=== PATIENT | male | born 1950 | race Caucasian/White ===

== ENCOUNTER 2017-05-16 21:08 | Inpatient (IN) | payer BC, MEDICARE ==
--- NOTE | 2017-05-16 22:03 | ER Document Report ---
ED Medical Screen (RME) - General Chief Complaint: Abdominal Pain >50 Stated Complaint: ABDOMINAL PAIN Time Seen by Provider: 05/16/17 21:55 Notes: 66-year-old male, chief complaint of mid upper abdominal pain with vomiting, states she does have abdominal pain for several days but vomiting is new today. Denies fever or chills. Had a small bowel movement earlier this morning. Denies hematemesis. He has had bowel obstruction in the past with multiple bowel surgeries. He does state that 4 days ago he had a CAT scan that did not show anything wrong with his bowels. TRAVEL OUTSIDE OF THE [place] IN LAST 30 DAYS: No - Related Data Allergies/Adverse Reactions: No Known Allergies Allergy (Unverified 12/20/13 03:07) Past Medical History - Past Medical History Cardiac Medical History: Reports: Hx Hypertension Endocrine Medical History: Reports: Hx Diabetes Mellitus Type 2 GI Medical History: Reports: Hx Diverticulitis Psychiatric Medical History: Reports: Hx Depression Past Surgical History: Reports: Hx Abdominal Surgery - abscess secondary to diverticulitis, Hx Orthopedic Surgery - left ankle Physical Exam - Vital signs Vitals: Temp Pulse Resp BP Pulse Ox 97.9 F 107 H 16 110/59 L 96 05/16/17 21:46 05/16/17 21:46 05/16/17 21:46 05/16/17 21:46 05/16/17 21:46 - Abdominal Distension: Distended Tenderness: Tender - Mild generalized tenderness, distended abdomen, right lower ventral hernia is nontender Course - Re-evaluation Re-evalutation: Patient originally triaged as blue, upgraded to green/3H, workup pending - Vital Signs Vital signs: Temp Pulse Resp BP Pulse Ox 97.9 F 107 H 16 110/59 L 96 05/16/17 21:46 05/16/17 21:46 05/16/17 21:46 05/16/17 21:46 05/16/17 21:46
[2017-05-16 22:36] LABS: ABSOLUTE BASOPHILS # (AUTO) 0.1 10^3/uL (0.0-0.2); ABSOLUTE EOSINOPHILS # (AUTO) 0.2 10^3/uL (0.0-0.6); ABSOLUTE LYMPHOCYTES (AUTO) 2.5 10^3/uL (0.5-4.7); ABSOLUTE NEUT (AUTO) 14.1 10^3/uL (1.7-8.2); BASOPHILS % (AUTO) 0.6 % (0-2); EOSINOPHILS % (AUTO) 0.9 % (0-6); HEMOGLOBIN 15.2 g/dL (13.5-17.0); LYMPHOCYTES % (AUTO) 14.1 % (13-45); MEAN CORPUSCULAR HGB CONC 33.7 g/dL (32.0-36.0); MEAN CORPUSCULAR VOLUME 89 fl (80-97); MONOCYTES % (AUTO) 5.4 % (3-13); PLATELET COUNT 329 10^3/uL (150-450); RED BLOOD COUNT 5.06 10^6/uL (4.35-5.55); RED CELL DISTRIBUTION WIDTH 14.2 % (11.5-14.0); TOTAL CELLS COUNTED % (AUTO) 100 %; WHITE BLOOD COUNT 17.9 10^3/uL (4.0-10.5)
[2017-05-16 22:41] LABS: APPEARANCE,URINE SLIGHTLY-CLOUDY; BILIRUBIN,URINE NEGATIVE (NEGATIVE); COLOR,URINE YELLOW; GLUCOSE, URINE NEGATIVE (NEGATIVE); KETONES,URINE TRACE mg/dL (NEGATIVE); LEUKOCYTE ESTERASE,URINE MODERATE (NEGATIVE); NITRITE,URINE NEGATIVE (NEGATIVE); PROTEIN,URINE 100 mg/dL (NEGATIVE)
--- NOTE | 2017-05-16 22:52 | RADIOLOGY REPORT (SQ) ---
EXAM DESCRIPTION: ACUTE ABDOMEN SERIES COMPLETED DATE/TIME: 05/16/2017 10:41 pm REASON FOR STUDY: vomiting, abd pain, hx obstruction COMPARISON: 12/25/2013. NUMBER OF VIEWS: Three views. TECHNIQUE: Frontal chest, supine abdomen and upright/decubitus abdomen radiographic images acquired. LIMITATIONS: None. FINDINGS: CHEST: Lungs clear of infiltrates. FREE AIR: None. No abnormal gas collections. BOWEL GAS PATTERN: Dilated small bowel with air-fluid levels. CALCIFICATIONS: No suspicious calcifications. HARDWARE: Surgical clips. SOFT TISSUES: No gross mass or suggestion of organomegaly. BONES: No acute fracture. No worrisome bone lesions. OTHER: No other significant finding. IMPRESSION: DILATED SMALL BOWEL WITH AIR-FLUID LEVELS. SUSPECT SMALL BOWEL OBSTRUCTION. TECHNICAL DOCUMENTATION: JOB ID: [id number] [employer]- All Rights Reserved
[2017-05-16 22:59] LABS: ALANINE AMINOTRANSFERASE 52 U/L (21-72); ALBUMIN 4.8 g/dL (3.5-5.0); ALKALINE PHOSPHATASE 115 U/L (38-126); ANION GAP 15 (5-19); ASPARTATE AMINO TRANSFERASE 38 U/L (17-59); BILIRUBIN,DIRECT 0.3 mg/dL (0.0-0.4); BILIRUBIN,TOTAL 0.6 mg/dL (0.2-1.3); BLOOD UREA NITROGEN 23 mg/dL (7-20); CALCIUM 10.6 mg/dL (8.4-10.2); CARBON DIOXIDE 25 mmol/L (22-30); CHLORIDE 98 mmol/L (98-107); GLUCOSE 232 mg/dL (75-110); LIPASE 114.2 U/L (23-300); POTASSIUM 4.7 mmol/L (3.6-5.0); SODIUM 138.2 mmol/L (137-145)
--- NOTE | 2017-05-17 02:41 | RADIOLOGY REPORT (SQ) ---
EXAM DESCRIPTION: CT ABDOMEN AND PELVIS WITH CONTRAST CLINICAL HISTORY: Small bowel obstruction. Diffuse abdominal pain. COMPARISON: None Available. TECHNIQUE: CT of the abdomen and pelvis are performed during IV bolus administration of 80 mL of Isovue-370. DLP: 2163.60 mGycm FINDINGS: Abdomen: The liver has normal size and decreased density. No intrahepatic mass or biliary dilatation. No calcified gallstones. The spleen, pancreas, and adrenal glands are unremarkable. The kidneys have normal size and contour without evidence of solid mass or hydronephrosis. Bilateral Bosniak class I renal cysts. Nonobstructing inferior pole 3 mm left renal calculus. Aortoiliac atherosclerosis. The portal vein patent. The proximal visceral and renal arteries are patent. No free intraperitoneal air. The stomach and duodenum have normal course. Pelvis: Prostate is not enlarged. Urinary bladder is unremarkable. No free pelvic fluid or lymphadenopathy. There is a small ventral hernia containing a loop of dilated bowel. Distal to this the bowel is decompressed. Dilated loops of small bowel proximal to the hernia. Postoperative change in the right lower abdomen. No evidence of appendicitis. The visualized lung bases are clear. No destructive bone lesions identified. Degenerative change of the spine. IMPRESSION: 1. Mechanical small bowel obstruction with transition point at the level of a right paramedian ventral hernia containing a loop of dilated, likely incarcerated, small bowel. The bowel distal to the hernia is decompressed. 2. 3 mm nonobstructing left renal calculus. 4. Hepatic steatosis. This exam was performed according to our departmental dose-optimization program, which includes automated exposure control, adjustment of the mA and/or kV according to patient size and/or use of iterative reconstruction technique.
[2017-05-17] MEDS ORDERED: ERTAPENEM SODIUM INJ 1 GM VIAL IV ONE (03:07)
[2017-05-17] MEDS ORDERED: NORMAL SALINE 1000 ML 1,000 ML IV ONE ×2 (03:07→06:20)
--- NOTE | 2017-05-17 03:08 | ER Document Report ---
ED GI/ - General Chief Complaint: Abdominal Pain >50 Stated Complaint: ABDOMINAL PAIN Time Seen by Provider: 05/16/17 21:55 Notes: Patient is a 66-year-old male, chief complaint of mid upper abdominal pain with vomiting, states she does have abdominal pain for several days but vomiting is new today. Denies fever or chills. Had a small bowel movement earlier this morning. Denies hematemesis. He has had bowel obstruction in the past with multiple bowel surgeries (for bowel obstruction and severe diverticulitis). He does state that 4 days ago he had a CAT scan that did not show anything wrong with his bowels. PMH hypertension, Type II diabetes. TRAVEL OUTSIDE OF THE [place] IN LAST 30 DAYS: No - Related Data Allergies/Adverse Reactions: No Known Allergies Allergy (Unverified 12/20/13 03:07) Past Medical History - General Information source: Patient - Social History Smoking Status: Never Smoker Drug Abuse: None Lives with: Alone Family History: Other - diverticulitis Patient has suicidal ideation: No Patient has homicidal ideation: No - Past Medical History Cardiac Medical History: Reports: Hx Hypertension Endocrine Medical History: Reports: Hx Diabetes Mellitus Type 2 Renal/ Medical History: Denies: Hx Peritoneal Dialysis GI Medical History: Reports: Hx Diverticulitis Psychiatric Medical History: Reports: Hx Depression Past Surgical History: Reports: Hx Abdominal Surgery - abscess secondary to diverticulitis, partial colon resection, Hx Orthopedic Surgery - left ankle - Immunizations Hx Pneumococcal Vaccination: 04/25/11 Review of Systems - Review of Systems Constitutional: No symptoms reported EENT: No symptoms reported Cardiovascular: No symptoms reported Respiratory: No symptoms reported Gastrointestinal: See HPI Genitourinary: No symptoms reported Male Genitourinary: No symptoms reported Musculoskeletal: No symptoms reported Skin: No symptoms reported Hematologic/Lymphatic: No symptoms reported Neurological/Psychological: No symptoms reported Physical Exam - Vital signs Vitals: Temp Pulse Resp BP Pulse Ox 97.9 F 107 H 16 110/59 L 96 05/16/17 21:46 05/16/17 21:46 05/16/17 21:46 05/16/17 21:46 05/16/17 21:46 Interpretation: Normal - General General appearance: Alert In distress: None - HEENT Head: Normocephalic, Atraumatic Eyes: Normal Conjunctiva: Normal Extraocular movements intact: Yes Eyelashes: Normal Pupils: PERRL Mouth/Lips: Normal Mucous membranes: Normal Pharynx: Normal Neck: Normal - Respiratory Respiratory status: No respiratory distress Chest status: Nontender Breath sounds: Normal. No: Decreased air movement, Wheezing Chest palpation: Normal - Cardiovascular Rhythm: Regular. No: Tachycardia Heart sounds: Normal auscultation, S1 appreciated, S2 appreciated Murmur: No - Abdominal Inspection: Other - large mid abdominal scar, lower left abdominal scar Distension: Distended Bowel sounds: Hypoactive Tenderness: Tender - mild generalized tenderness; lower right ventral hernia is soft; general distension - Back Back: Normal, Nontender. No: Tender - Extremities General upper extremity: Normal inspection, Nontender, Normal ROM, Normal strength General lower extremity: Normal inspection, Nontender, Normal ROM, Normal strength - Neurological Neuro grossly intact: Yes Cognition: Normal Orientation: AAOx4 Viviana Coma Scale Eye Opening: Spontaneous [place] Coma Scale Verbal: Oriented [place] Coma Scale Motor: Obeys Commands Viviana Coma Scale Total: 15 Speech: Normal Motor strength normal: LUE, RUE, LLE, RLE Sensory: Normal - Psychological Associated symptoms: Normal affect, Normal mood - Skin Skin Temperature: Warm Skin Moisture: Dry Skin Color: Normal Course - Re-evaluation Re-evalutation: Patient with only mild generalized abdominal tenderness, well-appearing, no distress, mild tachycardia. Workup pending. Will perform acute abdominal series to evaluate for obstruction. Acute abdominal series is concerning for obstruction. Patient reevaluated and remains unchanged. No vomiting since arrival. CAT scan will be performed with oral and IV contrast to further evaluate. CBC shows leukocytosis at 18,000, chemistry generally unremarkable, urine shows possible infection, dehydration. Urine culture placed. Patient finally was able to be placed in a room, IV started, CAT scan finally obtained, concerning for developing obstruction, possible incarceration within the ventral hernia. Beginning Invanz, patient has been kept n.p.o., patient vomited once, he still has not had a bowel movement. Begin continuous fluids, he has received 1 liter bolus of normal saline. 05/17/17 03:15 Called and spoke to surgery on-call, Dr. Leija. Because patient is comfortable appearing, he only has mild generalized tenderness with no severe tenderness or evidence of incarcerated hernia on physical examination at this time will proceed with nasogastric tube, IV fluids, antibiotics. Patient will be kept n.p.o. Patient to be admitted to the surgical service, Dr. Leija will come evaluate the patient. Patient was evaluated by Dr. Leija, patient will be admitted to surgical service. - Vital Signs Vital signs: Temp Pulse Resp BP Pulse Ox 97.9 F 98 20 123/80 93 05/17/17 02:37 05/17/17 02:37 05/17/17 02:37 05/17/17 02:37 05/17/17 02:37 - Laboratory Result Diagrams: 05/16/17 22:20 05/16/17 22:20 Laboratory results interpreted by me: 05/16/17 05/16/17 05/16/17 22:20 22:20 22:20 WBC 17.9 H RDW 14.2 H Seg Neutrophils % 79.0 H Absolute Neutrophils 14.1 H BUN 23 H Glucose 232 H Calcium 10.6 H Urine Protein 100 H Urine Ketones TRACE H Urine Urobilinogen 2.0 H Ur Leukocyte Esterase MODERATE H Discharge - Discharge Clinical Impression: Small bowel obstruction Vomiting Qualifiers: Vomiting type: unspecified Vomiting Intractability: unspecified Nausea presence : with nausea Qualified Code(s): R11.2 - Nausea with vomiting, unspecified Leukocytosis Qualifiers: Leukocytosis type: unspecified Qualified Code(s): D72.829 - Elevated white blood cell count, unspecified Urinary tract infection Qualifiers: Urinary tract infection type: site unspecified Hematuria presence: without hematuria Qualified Code(s): N39.0 - Urinary tract infection, site not specified Condition: Serious Disposition: ADMITTED INPATIENT Admitting Provider: Surgicalist Unit Admitted: Surgical Floor
[2017-05-17] MEDS ORDERED: LIDOCAINE 1% INJ-PF (10 MG/ML) 30 ML SDV NEB ONE (03:11)
[2017-05-17] MEDS ORDERED: ONDANSETRON HCL INJ/PF 4 MG/2 ML SDV IV ONE (03:16)
[2017-05-17] MEDS ORDERED: MORPHINE SULFATE 10 MG/ML INJ IV ONE (03:16)
[2017-05-17] MEDS ORDERED: KETOROLAC TROMETHAMINE INJ/PF 30 MG/1 ML SDV IV PRN (06:22)
[2017-05-17] MEDS ORDERED: ONDANSETRON HCL INJ/PF 4 MG/2 ML SDV IV PRN (06:22)
[2017-05-17] MEDS ORDERED: DEXTROSE 50%-WATER 25 GM/50 ML DISP.SYRIN IV PRN ×2 (06:23)
[2017-05-17] MEDS ORDERED: DEXTROSE 40% GEL 15 GM TUBE PO PRN ×2 (06:23)
[2017-05-17] MEDS ORDERED: GLUCAGON,HUMAN RECOMB 1 MG INJ IM PRN (06:23)
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
[2017-05-17] MEDS: NORMAL SALINE 1000 ML 1,000 ML IV PRN (06:37)
[2017-05-17] MEDS: CEFAZOLIN 1 GM/D5W RTU 1 GM/50 ML RTUPB IV SCH ×2 (07:02→15:25)
[2017-05-17] MEDS ORDERED: HYDRALAZINE HCL INJ/PF 20 MG/1 ML SDV IV PRN (09:07)
--- NOTE | 2017-05-17 09:17 | PDOC CONSULTATION ---
Consultation Consult Date: 05/17/17 Attending physician:: JOSY MAN Consult reason:: Medical management History of Present Illness Admission Date/PCP: 05/17/17 03:58 JOSE CARLOS ESTES MD Patient complains of: Abdominal pain for 1 week History of Present Illness: Patient 66-year-old gentleman who presented to our facility after following up with Dr. Estes with complaint of abdominal pain. Pt reported that he had had abdominal pain for approximately 1 week prior to contacting his PCP. Patient reports that he did not have any nausea or vomiting but diffuse severe abdominal pain. Patient was seen in the emergency room by ED physician who ordered a CT of abdomen that demonstrated evidence of mechanical small bowel obstruction with possible incarcerated bowel. Dr. Man has requested for medical management for patient's medical issues. Spoke to patient's nurse this morning who states the patient is doing well. Patient denies pain, shortness of breath, nausea vomiting, or fever. Patient does have NG tube in place. Reports the patient had approximately 500 cc out of NG tube since time of placement. Patient reports that the abdomen is feeling much better after placement of NG tube. Past Medical History Cardiac Medical History: Reports: Hypertension Endocrine Medical History: Reports: Diabetes Mellitus Type 2 GI Medical History: Reports: Diverticulitis Psychiatric Medical History: Reports: Depression Past Surgical History Past Surgical History: Reports: Orthopedic Surgery - left ankle Social History Lives with: Alone Smoking Status: Former Smoker Frequency of Alcohol Use: None Hx Recreational Drug Use: No Drugs: None Hx Prescription Drug Abuse: No - Advance Directive Resuscitation Status: Full Code Family History Family History: Other - diverticulitis Parental Family History Reviewed: Yes Children Family History Reviewed: Yes Sibling(s) Family History Reviewed.: Yes Medication/Allergy Home Medications: Aspirin [Aspirin 325 mg Tablet] 0.5 tab PO DAILY 12/20/13 Gemfibrozil [Lopid 600 mg Tablet] 600 mg PO BID 12/20/13 Glyburide,Micronized [Glynase] 3 mg PO DAILY 12/20/13 Lisinopril 5 mg PO DAILY 12/20/13 Metformin HCl [Glucophage] 1,000 mg PO BID 12/20/13 Metoprolol Tartrate [Lopressor 100 mg Tablet] 100 mg PO Q12 12/20/13 Multivitamin [Multi-Vitamin Daily] 1 each PO DAILY 12/20/13 Pravastatin Sodium [Pravachol] 20 mg PO DAILY 12/20/13 Triamterene/Hydrochlorothiazid [Triamterene-Hctz 37.5-25 mg Tb] 1 each PO DAILY 12/20/13 Lisinopril 5 mg PO DAILY #0 tablet 12/28/13 Oxycodone HCl/Acetaminophen [Percocet 5-325 mg Tablet] 2 tab PO Q4HP PRN #40 tablet 01/01/14 Allergies/Adverse Reactions: No Known Allergies Allergy (Unverified 12/20/13 03:07) Review of Systems Eyes: ABSENT: visual disturbances Ears: ABSENT: hearing changes Cardiovascular: ABSENT: chest pain, dyspnea on exertion, edema, orthropnea, palpitations Respiratory: ABSENT: cough, hemoptysis Gastrointestinal: PRESENT: abdominal pain Genitourinary: ABSENT: dysuria, hematuria Musculoskeletal: ABSENT: joint swelling Integumentary: ABSENT: rash, wounds Neurological: ABSENT: abnormal gait, abnormal speech, confusion, dizziness, focal weakness, syncope Psychiatric: ABSENT: anxiety, depression, homidical ideation, suicidal ideation Endocrine: ABSENT: cold intolerance, heat intolerance, polydipsia, polyuria Hematologic/Lymphatic: ABSENT: easy bleeding, easy bruising Physical Exam Vital Signs: Temp Pulse Resp BP Pulse Ox 97.6 F 100 20 114/74 94 05/17/17 08:44 05/17/17 08:44 05/17/17 08:44 05/17/17 08:44 05/17/17 08:44 Intake & Output 05/16/17 05/17/17 05/18/17 06:59 06:59 06:59 Output Total 200 Balance -200 General appearance: PRESENT: mild distress, morbidly obese, well-developed, well -nourished Head exam: PRESENT: atraumatic, normocephalic Eye exam: PRESENT: conjunctiva pink, EOMI. ABSENT: scleral icterus Ear exam: PRESENT: normal external ear exam Mouth exam: PRESENT: moist, tongue midline Neck exam: ABSENT: carotid bruit, JVD, lymphadenopathy, thyromegaly Respiratory exam: PRESENT: clear to auscultation filomena. ABSENT: rales, rhonchi, wheezes Cardiovascular exam: PRESENT: RRR. ABSENT: diastolic murmur, rubs, systolic murmur Pulses: PRESENT: normal dorsalis pedis pul Vascular exam: PRESENT: normal capillary refill GI/Abdominal exam: PRESENT: other - Obese, diffuse tenderness to palpation, no rebound, NG tube in place, no guarding noted. Rectal exam: PRESENT: deferred Extremities exam: PRESENT: full ROM. ABSENT: calf tenderness, clubbing, pedal edema Musculoskeletal exam: PRESENT: full ROM Neurological exam: PRESENT: alert, awake, oriented to person, oriented to place , oriented to time, oriented to situation, CN II-XII grossly intact. ABSENT: motor sensory deficit Psychiatric exam: PRESENT: appropriate affect, normal mood. ABSENT: homicidal ideation, suicidal ideation Skin exam: PRESENT: dry, intact, warm. ABSENT: cyanosis, rash Results Impressions: Acute Abdomen Series 05/16/17 22:01 IMPRESSION: DILATED SMALL BOWEL WITH AIR-FLUID LEVELS. SUSPECT SMALL BOWEL OBSTRUCTION. Abdomen/Pelvis CT 05/17/17 00:00 IMPRESSION: 1. Mechanical small bowel obstruction with transition point at the level of a right paramedian ventral hernia containing a loop of dilated, likely incarcerated, small bowel. The bowel distal to the hernia is decompressed. 2. 3 mm nonobstructing left renal calculus. 4. Hepatic steatosis. This exam was performed according to our departmental dose-optimization program, which includes automated exposure control, adjustment of the mA and/or kV according to patient size and/or use of iterative reconstruction technique. Assessment & Plan - Diagnosis (1) Leukocytosis Qualifiers: Leukocytosis type: unspecified Qualified Code(s): D72.829 - Elevated white blood cell count, unspecified Is this a current diagnosis for this admission?: Yes Plan: Most likely secondary to small bowel obstruction: Parous surgery. Will check CBC. CT states that there could be evidence of incarceration. Patient currently on Ancef. Patient did receive 1 dose of Invanz. (2) Essential hypertension Is this a current diagnosis for this admission?: Yes Plan: Will write for as needed blood pressure medication with hydralazine. (3) Hyperlipidemia Is this a current diagnosis for this admission?: Yes Plan: We will hold statin. Until patient able to take p.o. (4) Obesity Qualifiers: Obesity classification: adult class 3 (BMI >= 40) Is this a current diagnosis for this admission?: Yes Plan: Encourage dietary changes. (5) Type II diabetes mellitus Qualifiers: Diabetes mellitus complication status: without complication Is this a current diagnosis for this admission?: Yes Plan: Place on sliding scale insulin protocol. Will check hemoglobin A1c. (6) Small bowel obstruction Is this a current diagnosis for this admission?: Yes Plan: G-tube in place. Surgery planning to take patient to the OR today. (7) DVT prophylaxis Is this a current diagnosis for this admission?: Yes Plan: SCDs - Time Time Spent: 30 to 50 Minutes
[2017-05-17] MEDS: FAMOTIDINE INJ/PF 20 MG/2 ML SDV IV SCH ×2 (09:40→22:21)
[2017-05-17] MEDS: PANTOPRAZOLE SODIUM 40 MG VIAL IV SCH ×2 (09:40→22:36)
[2017-05-17] MEDS ORDERED: MAGNESIUM CITRATE 296 ML BOTTLE NG ONE (11:00)
--- NOTE | 2017-05-17 13:17 | EKG REPORT ---
SEVERITY:- ABNORMAL ECG - SINUS TACHYCARDIA PROBABLE INFERIOR INFARCT, AGE INDETERMINATE : Confirmed by: Suzanna Bustillo MD 17-May-2017 13:16:27
[2017-05-17] MEDS ORDERED: MORPHINE SULFATE 10 MG/ML INJ ONE (13:43)
--- NOTE | 2017-05-17 19:27 | PDOC CONSULTATION ---
Consultation Consult Date: 05/17/17 Attending physician:: AMY SEWELL Consult reason:: Preop cardiovascular evaluation, abnormal EKG History of Present Illness Admission Date/PCP: 05/17/17 03:58 JOSE CARLOS NAIR MD Patient complains of: Abdominal discomfort History of Present Illness: Patient 66-year-old gentleman who presented to our facility after following up with Dr. Nair with complaint of abdominal pain. Pt reported that he had had abdominal pain for approximately 1 week prior to contacting his PCP. Patient reports that he did not have any nausea or vomiting but diffuse severe abdominal pain. Patient was seen in the emergency room by ED physician who ordered a CT of abdomen that demonstrated evidence of mechanical small bowel obstruction with possible incarcerated bowel. Dr. Leija has requested for medical management for patient's medical issues. Spoke to patient's nurse this morning who states the patient is doing well. Patient denies pain, shortness of breath, nausea vomiting, or fever. Patient does have NG tube in place. Reports the patient had approximately 500 cc out of NG tube since time of placement. Patient reports that the abdomen is feeling much better after placement of NG tube. This history was reviewed and confirmed. Patient denied any prior history of heart problems. He did have a stress test several years ago which he claims was unremarkable. Patient denied any prior history of myocardial infarction, angina, congestive heart failure, sustained palpitations, syncope, near syncope. Earlier I was given a call by the anesthesiologist who noted abnormal Q waves inferiorly and therefore a cardiology consult was called. Patient also noted to be tachycardic. Patient is fairly inactive. He does carry a diagnosis of sleep apnea syndrome but does not use CPAP machine as he could not afford it. Past Medical History Cardiac Medical History: Reports: Hypertension Endocrine Medical History: Reports: Diabetes Mellitus Type 2 GI Medical History: Reports: Diverticulitis Psychiatric Medical History: Reports: Depression Past Surgical History Past Surgical History: Reports: Orthopedic Surgery - left ankle Social History Information Source: Patient Lives with: Alone Smoking Status: Former Smoker Frequency of Alcohol Use: None Hx Recreational Drug Use: No Drugs: None Hx Prescription Drug Abuse: No - Advance Directive Resuscitation Status: Full Code Surrogate healthcare decision maker:: Patient is unmarried. Did not want to identify a surrogate decision-maker. Family History Family History: Hypertension, Other - diverticulitis Parental Family History Reviewed: Yes Children Family History Reviewed: Yes Sibling(s) Family History Reviewed.: Yes Medication/Allergy Home Medications: Gemfibrozil [Lopid 600 mg Tablet] 600 mg PO BID 05/17/17 Glyburide,Micronized [Glyburide Micronized] 3 mg PO DAILY 05/17/17 Lisinopril [Prinivil 5 mg Tablet] 5 mg PO DAILY 05/17/17 Metformin HCl [Glucophage] 1,000 mg PO BID 05/17/17 Metoprolol Tartrate [Lopressor 100 mg Tablet] 100 mg PO Q12 05/17/17 Pravastatin Sodium [Pravachol] 20 mg PO DAILY 05/17/17 Triamterene/Hydrochlorothiazid [Triamterene-Hctz 37.5-25 mg Cp] 1 cap PO DAILY 05/17/17 Allergies/Adverse Reactions: No Known Allergies Allergy (Unverified 12/20/13 03:07) Review of Systems Review of Systems: Please see history of present illness and past medical history as wall. Constitutional: No fever or chills reported. Head : No recent chronic headaches, recent head injury. Eyes: No recent eye pain, diplopia, redness, discharge, acute visual changes. Ears: No recent chronic ear pain, acute hearing loss, ear discharge. Oral cavity: No recent ulcerations, bleeding, oral cavity discomfort. Neck: No recent acute neck pain reported. Hematologic: No recent easy bruising or bleeding or hematologic malignancy reported. Lymphatic: No recent lymphatic malignancy, chronic lymphadenopathy reported yet Cardiovascular system review: See history of present illness. Respiratory system review: No recent chronic cough, hemoptysis, blood clots in the lungs reported. Mild Shortness of breath on exertion Gastrointestinal system review: Acute abdominal pain as noted along with some nausea and constipation. Patient denies hematemesis, melena Genitourinary system review: No recent acute or chronic hematuria, flank pain, UTI etc. reported. Skin system review: Negative for any recent abnormal bruising, no rash, no pruritus reported. Neurologic: No prior history of strokes, mini strokes, seizure disorder. Psychologic: No history of major psychosis or major depression reported. Musculoskeletal: Minor aches and pains reported. No acute joint swelling reported. Endocrine: No recent polyuria, polydipsia, recent heat or cold intolerance. Physical Exam Vital Signs: Temp Pulse Resp BP Pulse Ox 97.6 F 100 20 114/74 94 05/17/17 08:44 05/17/17 08:44 05/17/17 08:44 05/17/17 08:44 05/17/17 08:44 Intake & Output 05/16/17 05/17/17 05/18/17 06:59 06:59 06:59 Output Total 200 1900 Balance -200 -1900 Exam: GENERAL: well-nourished and in no acute distress. Alert and oriented x3 HEAD: Atraumatic, normocephalic. EYES: Pupils equal round and reactive to light, extraocular movements intact, sclera anicteric, conjunctiva are normal. ENT: TMs normal, nares patent, oropharynx clear without exudates. Moist mucous membranes. No oral ulcerations or bleeding gums noted NECK: supple without lymphadenopathy. Trachea is central. No cervical or axillary lymphadenopathy noted. Carotids are 2+, JVD WNL LUNGS: Respiration seems nonlabored, no significant accessory muscle action noted. Breath sounds clear to auscultation bilaterally and equal noted. No wheezes rales or rhonchi noted. No significant dullness noted on percussion. CHEST: Palpation of the chest wall shows no significant chest wall tenderness. No other significant abnormalities noted. HEART: Vina SET STAFF FITTER, No PSH, 1/6 MATY aortic area, 1/6 ruvalcaba systolic murmur mitral area, no rubs, no gallops. ABDOMEN: Distended with minimal tenderness, hypo-active bowel sounds. No guarding, no rebound. No rigidity noted . No masses appreciated. EXTREMITIES: Pedal pulses are 1-2+, no calf tenderness noted. No clubbing or cyanosis.trace to 1+ pedal edema noted NEUROLOGICAL: Focused neurological exam showed no significant neurologic deficit. Normal speech, no focal weakness appreciated. PSYCH: Normal mood, normal affect. Judgment and insight within normal limits. SKIN: No significant ecchymosis, rash, ulcerations or signs of pruritus noted. MUSCULOSKELETAL EXAM: No significant joint swelling noted. Results EKG Comments: Twelve-lead EKG shows abnormal Q waves in lead III and aVF consistent with prior inferior NE age indeterminate but most likely old. Impressions: Acute Abdomen Series 05/16/17 22:01 IMPRESSION: DILATED SMALL BOWEL WITH AIR-FLUID LEVELS. SUSPECT SMALL BOWEL OBSTRUCTION. Abdomen/Pelvis CT 05/17/17 00:00 IMPRESSION: 1. Mechanical small bowel obstruction with transition point at the level of a right paramedian ventral hernia containing a loop of dilated, likely incarcerated, small bowel. The bowel distal to the hernia is decompressed. 2. 3 mm nonobstructing left renal calculus. 4. Hepatic steatosis. This exam was performed according to our departmental dose-optimization program, which includes automated exposure control, adjustment of the mA and/or kV according to patient size and/or use of iterative reconstruction technique. Assessment & Plan - Diagnosis (1) Preoperative cardiovascular examination Is this a current diagnosis for this admission?: Yes (2) Abnormal electrocardiogram Is this a current diagnosis for this admission?: Yes (3) Small bowel obstruction Is this a current diagnosis for this admission?: Yes (4) Essential hypertension Is this a current diagnosis for this admission?: Yes (5) Sleep apnea syndrome Qualifiers: Sleep apnea type: unspecified type Qualified Code(s): G47.30 - Sleep apnea , unspecified Is this a current diagnosis for this admission?: Yes (6) Hyperlipidemia Qualifiers: Hyperlipidemia type: unspecified Qualified Code(s): E78.5 - Hyperlipidemia , unspecified Is this a current diagnosis for this admission?: Yes (7) Obesity Qualifiers: Obesity classification: adult class 3 (BMI >= 40) Is this a current diagnosis for this admission?: Yes (8) Type II diabetes mellitus Qualifiers: Diabetes mellitus complication status: without complication Diabetes mellitus tableau architect insulin use: unspecified fpc insulin use status Qualified Code(s): E11.9 - Type 2 diabetes mellitus without complications Is this a current diagnosis for this admission?: Yes - Notes Notes: Preop cardiovascular examination: Patient denied any chest pain or any shortness of breath. Patient however is fairly inactive. At this point best option is to obtain a stat 2D echo in view of tachycardia being noted and borderline abnormal Q waves being noted. However I feel that if surgery is deemed urgent or emergent, the surgeon can proceed with surgery. Will be happy to take care of any postop cardiac complications. Abnormal EKG: To be evaluated with a 2D echocardiogram. Small bowel obstruction: Currently on NG tube suction and IV fluids with n.p.o. Will leave management to surgeons. Hypertension: Blood pressure under reasonable control. May consider IV Vasotec or other IV labetalol for blood pressure control. Dyslipidemia: Consider resuming statin therapy when stable. Diabetes: Cotter sliding scale coverage. Sleep apnea syndrome: Patient does have sleep apnea syndrome. Have informed patient to let other physicians especially anesthesiologist know about this diagnosis currently patient not on CPAP therapy. Obesity: Patient has been encouraged in weight loss. - Time Time Spent: 30 to 50 Minutes - Full code, More than 50% of the time spent coordinating care, discussing management plans with involved caregivers. Management plans discussed with involved personnels. Medical decision making was of moderate to high complexity, patient's has multiple comorbidities. Medications reviewed and adjusted accordingly: Yes
[2017-05-17] MEDS: MORPHINE SULFATE 10 MG/ML INJ IV PRN (20:45)
--- NOTE | 2017-05-17 21:46 | XCELERA REPORT ---
[address] [address] Transthoracic Echocardiogram Report Name: EL SEYMOUR Age: 66 yrs Gender: Male : 1950 Patient Status: Inpatient Patient Location: [place] [address]^A Study Date: 05/17/2017 08:40 PM Height: 69 in Weight: 279 lb BSA: 2.4 m2 Procedure: A complete two-dimensional transthoracic echocardiogram was performed (2D, M-mode, spectral and color flow Doppler). The study was technically difficult with many images being suboptimal in quality. Reason For Study: CHF Per Dr. Ward Ordering Physician: AMY SEWELL Performed By: Anh Philip Interpretation Summary The study was technically difficult with many images being suboptimal in quality. The left ventricular ejection fraction is within normal limits. Doppler measurements suggest pseudonormalized left ventricular relaxation, which is associated with grade II/IV or mild to moderate diastolic dysfunction There is mild concentric left ventricular hypertrophy. The left ventricle is grossly normal size. Regional wall motion abnormalities cannot be excluded due to limited visualization. The right ventricle is mildly dilated. The right ventricular systolic function is normal. Borderline right atrial enlargement. Borderline left atrial enlargement. There is no mitral valve stenosis. There is a trace amount of mitral regurgitation There is no aortic valve stenosis No aortic regurgitation is present. There is a trace or physiologic amount of tricuspid regurgitation Tricuspid regurgitation jet envelope not well defined to measure RV systolic pressure accurately. The aortic root is not well visualized but is probably normal size. The inferior vena cava was not well visualized Minimal pericardial effusion. MMode/2D Measurements & Calculations RVDd: 4.1 cm LVIDd: 4.2 cm FS: 28.7 % Ao root diam: 3.1 cm IVSd: 1.4 cm LVIDs: 3.0 cm EDV(Teich): 77.3 ml LVPWd: 1.4 cm ESV(Teich): 34.2 ml Ao root area: 7.4 cm2 EF(Teich): 55.7 % LA dimension: 3.5 cm Doppler Measurements & Calculations MV E max rosamaria: MV P1/2t max rosamaria: Ao V2 max: LV V1 max P.7 cm/sec 100.2 cm/sec 151.2 cm/sec 4.8 mmHg MV A max rosamaria: MV P1/2t: 67.7 msec Ao max PG: LV V1 max: 106.6 cm/sec 9.1 mmHg 110.1 cm/sec MV E/A: 0.94 MVA(P1/2t): 3.3 cm2 MV dec slope: 433.7 cm/sec2 PA V2 max: 91.3 cm/sec PA max P.3 mmHg Left Ventricle The left ventricle is grossly normal size. There is mild concentric left ventricular hypertrophy. The left ventricular ejection fraction is within normal limits. Doppler measurements suggest pseudonormalized left ventricular relaxation, which is associated with grade II/IV or mild to moderate diastolic dysfunction. Regional wall motion abnormalities cannot be excluded due to limited visualization. Right Ventricle The right ventricle is mildly dilated. The right ventricular systolic function is normal. Atria Borderline right atrial enlargement. Borderline left atrial enlargement. Interarterial septum not well visualized and not well dopplered. Cannot comment on ASD/PFO presence. Mitral Valve The mitral valve leaflets are sclerotic, but show no functional abnormalities. There is no mitral valve stenosis. There is a trace amount of mitral regurgitation. Aortic Valve The aortic valve is not well visualized secondary to technical limitations. There is no aortic valve stenosis. No aortic regurgitation is present. Tricuspid Valve The tricuspid valve is not well visualized secondary to technical limitations. There is no tricuspid stenosis. There is a trace or physiologic amount of tricuspid regurgitation. Tricuspid regurgitation jet envelope not well defined to measure RV systolic pressure accurately. Pulmonic Valve The pulmonic valve is not well visualized. Great Vessels The aortic root is not well visualized but is probably normal size. The inferior vena cava was not well visualized. Effusions Minimal pericardial effusion. : AMY SEWELL Shyamal
[2017-05-17] MEDS ORDERED: CEFAZOLIN 1 GM/D5W RTU 1 GM/50 ML RTUPB IV ONE (23:30)
[2017-05-18] MEDS: MORPHINE SULFATE 10 MG/ML INJ IV PRN ×5 (00:46→23:13)
[2017-05-18] MEDS: CEFAZOLIN 1 GM/D5W RTU 1 GM/50 ML RTUPB IV SCH ×3 (05:45→22:47)
[2017-05-18 07:06] LABS: ABSOLUTE EOSINOPHILS # (AUTO) 0.2 10^3/uL (0.0-0.6); ABSOLUTE LYMPHOCYTES (AUTO) 1.9 10^3/uL (0.5-4.7); ABSOLUTE MONOCYTES (AUTO) 0.6 10^3/uL (0.1-1.4); ABSOLUTE NEUT (AUTO) 6.4 10^3/uL (1.7-8.2); BASOPHILS % (AUTO) 0.4 % (0-2); EOSINOPHILS % (AUTO) 1.9 % (0-6); HEMATOCRIT 35.7 % (37.9-51.0); LYMPHOCYTES % (AUTO) 21.2 % (13-45); MEAN CORPUSCULAR HEMOGLOBIN 30.2 pg (27.0-33.4); MEAN CORPUSCULAR HGB CONC 33.7 g/dL (32.0-36.0); MEAN CORPUSCULAR VOLUME 89 fl (80-97); MONOCYTES % (AUTO) 6.4 % (3-13); PLATELET COUNT 218 10^3/uL (150-450); RED BLOOD COUNT 3.99 10^6/uL (4.35-5.55); RED CELL DISTRIBUTION WIDTH 14.3 % (11.5-14.0); SEGMENTED NEUTROPHILS % (AUTO) 70.1 % (42-78); TOTAL CELLS COUNTED % (AUTO) 100 %; WHITE BLOOD COUNT 9.1 10^3/uL (4.0-10.5)
[2017-05-18 07:31] LABS: ALANINE AMINOTRANSFERASE 35 U/L (21-72); ALBUMIN 3.4 g/dL (3.5-5.0); ALKALINE PHOSPHATASE 96 U/L (38-126); ANION GAP 9 (5-19); ASPARTATE AMINO TRANSFERASE 25 U/L (17-59); BILIRUBIN,DIRECT 0.3 mg/dL (0.0-0.4); BILIRUBIN,TOTAL 0.3 mg/dL (0.2-1.3); BLOOD UREA NITROGEN 17 mg/dL (7-20); CALCIUM 8.4 mg/dL (8.4-10.2); CARBON DIOXIDE 26 mmol/L (22-30); CHLORIDE 106 mmol/L (98-107); GLUCOSE 151 mg/dL (75-110); MAGNESIUM 2.3 mg/dL (1.6-2.3); POTASSIUM 4.3 mmol/L (3.6-5.0); SODIUM 141.4 mmol/L (137-145); TOTAL PROTEIN 6.1 g/dL (6.3-8.2)
--- NOTE | 2017-05-18 08:43 | RADIOLOGY REPORT (SQ) ---
EXAM DESCRIPTION: ACUTE ABDOMEN SERIES COMPLETED DATE/TIME: 05/18/2017 7:29 am REASON FOR STUDY: follow up bowel obstruction seen on CT scan COMPARISON: CT abdomen pelvis 05/17/2017 Three-way abdomen 05/16/2017 KUB 12/25/2013 NUMBER OF VIEWS: Three views. TECHNIQUE: Frontal chest, supine abdomen and upright abdomen radiographic images acquired. LIMITATIONS: None. FINDINGS: CHEST: Minimal atelectasis in the left lateral costophrenic sulcus. Lungs otherwise well inflated and clear. No pleural effusions. No pneumothorax. Tortuous uncoiled thoracic aorta. No c ardiomegaly. FREE AIR: None. No abnormal gas collections. BOWEL GAS PATTERN: Nonobstructive pattern. No dilated loops or air fluid levels. Oral contrast given for CT exam 05/17/2017 is now in the colon. Left-sided dilated small bowel loops are decompressed. CALCIFICATIONS: No suspicious calcifications. HARDWARE: Old surgical clips in the lower abdomen and pelvis. Nasogastric tube tip and side port in the stomach SOFT TISSUES: No gross mass or suggestion of organomegaly. BONES: No acute fracture. No worrisome bone lesions. OTHER: No other significant finding. IMPRESSION: Minimal atelectasis left lateral lung base Oral contrast given for CT exam 05/17/2017 is now seen in the transverse and descending colon, in a no nobstructive pattern. TECHNICAL DOCUMENTATION: JOB ID: [id number]- All Rights Reserved
[2017-05-18] MEDS: FAMOTIDINE INJ/PF 20 MG/2 ML SDV IV SCH ×2 (09:20→22:47)
[2017-05-18] MEDS: PANTOPRAZOLE SODIUM 40 MG VIAL IV SCH ×2 (09:21→22:47)
[2017-05-18] MEDS ORDERED: HYDROMORPHONE HCL INJ/PF 2 MG/ML AMPULE ONE (10:28)
[2017-05-18] MEDS ORDERED: ACETAMINOPHEN 0 ML IV ONE (10:28)
[2017-05-18] MEDS ORDERED: PROPOFOL INJ 200 MG/20 ML VIAL IV ONE (10:28)
[2017-05-18] MEDS ORDERED: EPHEDRINE SULFATE INJ 50 MG/1 ML AMPULE ONE (10:28)
[2017-05-18] MEDS ORDERED: MIDAZOLAM 2 MG/2 ML INJ ONE (10:28)
[2017-05-18] MEDS ORDERED: FENTANYL CITRATE INJ/PF 100 MCG/2 ML AMPUL ONE ×2 (10:29)
[2017-05-18] MEDS ORDERED: PEG 3350/NA SULF,BICARB,CL/KCL 4000 ML NG ONE ×2 (11:30→13:00)
--- NOTE | 2017-05-18 11:30 | PDOC PROGRESS REPORT ---
Subjective Progress Note for:: 05/18/17 Subjective:: Patient passed flatus and stools during the night Reason For Visit: SMALL BOWEL OBSTRUCTION Physical Exam Vital Signs: Temp Pulse Resp BP Pulse Ox 98.2 F 86 20 127/68 H 93 05/18/17 08:56 05/18/17 08:56 05/18/17 08:56 05/18/17 08:56 05/18/17 08:56 Intake & Output 05/17/17 05/18/17 05/19/17 06:59 06:59 06:59 Intake Total 0 Output Total 200 2300 Balance -200 -2300 Weight 125.5 kg Respiratory exam: PRESENT: clear to auscultation filomena Cardiovascular exam: PRESENT: RRR GI/Abdominal exam: PRESENT: soft - obese, not tender Results Laboratory Results: 05/18/17 06:44 05/18/17 06:44 05/18/17 05/18/17 06:44 06:44 WBC 9.1 RBC 3.99 L Hgb 12.0 L D Hct 35.7 L MCV 89 MCH 30.2 MCHC 33.7 RDW 14.3 H Plt Count 218 Seg Neutrophils % 70.1 Lymphocytes % 21.2 Monocytes % 6.4 Eosinophils % 1.9 Basophils % 0.4 Absolute Neutrophils 6.4 Absolute Lymphocytes 1.9 Absolute Monocytes 0.6 Absolute Eosinophils 0.2 Absolute Basophils 0.0 Sodium 141.4 Potassium 4.3 Chloride 106 Carbon Dioxide 26 Anion Gap 9 BUN 17 Creatinine 0.91 Est GFR ( Amer) > 60 Est GFR (Non-Af Amer) > 60 Glucose 151 H Calcium 8.4 Magnesium 2.3 Total Bilirubin 0.3 AST 25 ALT 35 Alkaline Phosphatase 96 Total Protein 6.1 L Albumin 3.4 L 05/17/17 05/18/17 05/18/17 18:46 00:40 06:44 Troponin I < 0.012 < 0.012 < 0.012 Impressions: Abdomen/Pelvis CT 05/17/17 00:00 IMPRESSION: 1. Mechanical small bowel obstruction with transition point at the level of a right paramedian ventral hernia containing a loop of dilated, likely incarcerated, small bowel. The bowel distal to the hernia is decompressed. 2. 3 mm nonobstructing left renal calculus. 4. Hepatic steatosis. This exam was performed according to our departmental dose-optimization program, which includes automated exposure control, adjustment of the mA and/or kV according to patient size and/or use of iterative reconstruction technique. Acute Abdomen Series 05/18/17 06:00 IMPRESSION: Minimal atelectasis left lateral lung base Oral contrast given for CT exam 05/17/2017 is now seen in the transverse and descending colon, in a nonobstructive pattern. Assessment & Plan - Plan Summary Plan Summary: A/ small bowel obstruction resolved overnoght with flatus and liquid stools P/ Golytely bowel prep via NGT Remove NGT start clear liquid diet afterward
[2017-05-18] MEDS ORDERED: BISACODYL 5 MG TABEC PO ONE (11:31)
--- NOTE | 2017-05-18 15:39 | PROGRESS NOTE E ---
Progress Note NAME: EL ZULUAGA : 1950 AGE: 66Y DATE: 05/18/2017 ROOM: 304 SUBJECTIVE: Mr. Zuluaga is currently out of bed. The patient states that he feels nauseous today but has not other complaints. I actually helped the patient get to the bathroom. He denies any actual vomiting. No diarrhea, shortness of breath, dizziness, chest pain. No fevers, chills. The patient has been afebrile. His blood pressure has been significantly raised, and the patient does not voice any other concerns at this time. REVIEW OF SYSTEMS: Rest of review of systems is negative. MEDICATIONS: Medications were reviewed. OBJECTIVE: Mr. Zuluaga is a 66-year-old male who is awake, alert. He is oriented to person, place, time, situation. He has verbal conversation. Does not appear to be distressed. Vital signs as follows: Temperature is 98.7. Pulse 96. Respirations 20. Blood pressure 140/70. Oxygen saturation 95% on room air. Skin is warm and dry. No rash. Is not diaphoretic. HEENT: Pupils equally, round, and reactive to light and accommodation. NG tube is in place. CV: His heart is regular. There is no murmur or rub. Chest clear, symmetrical unlabored. Abdomen is soft, nontender. Back: No CVA tenderness, sacral edema. Extremities: No clubbing, cyanosis, edema. Psychiatric: Appropriate affect. Diagnostics/labs values area as follows: Hematology done on 05/18/2017: WBC is 9.1, hemoglobin 12.0, hematocrit 35.7, platelet count is 218,000. Chemistry done on 05/18/2017: Sodium is 141, potassium 4.3, chloride 106, carbon dioxide 96, BUN 17, creatinine 0.91, glucose 151, calcium is 8.4. IMPRESSION AND PLAN: 1. SMALL BOWEL OBSTRUCTION. As per the attending. 2. HYPERTENSION. We will resume the patient's home medications now that his NG tube is in use and continue p.r.n. coverage. 3. HYPERLIPIDEMIA. We will hold statin for now. 4. OBESITY. Have encouraged weight reduction. 5. DIABETES MELLITUS TYPE 2. We will continue sliding scale coverage for now. It appears that the patient's glucose is overall elevated. We will adjust the patient's basal once he is taking p.o. DISPOSITION: The patient is a full code. Dependent on patient's symptomatology and diagnostic findings, we well reevaluate in the a.m. Time spent on this followup including assessment, plan, physical examination, patient education, review of records is 25 minutes. DICTATING PHYSICIAN: CHERELLE DAVIS NP [id number] PHY#: [id number] ID: [id number] JOB#: [id number] ACCT: [id number] cc: >
[2017-05-18] MEDS: METOPROLOL TARTRATE 100 MG TABLET PO SCH (17:34)
[2017-05-18] MEDS: GEMFIBROZIL 600 MG TABLET PO SCH (17:34)
[2017-05-18] MEDS: NORMAL SALINE 1000 ML 1,000 ML IV PRN (17:39)
--- NOTE | 2017-05-18 19:13 | PDOC PROGRESS REPORT ---
Subjective Progress Note for:: 05/18/17 Subjective:: Patient seems to be doing better with gradual improvement. Pt is denying any chest arm or neck discomfort. Patient denying any PND, orthopnea. Patient denied any sustained palpitations, dizziness, syncope, near syncope. Patient denying any fever chills. Patient denying any other significant discomfort. Patient claims better as regards abdominal discomfort and distention. He is actually feeling a little but has not had a bowel movement or passed any flatus. 2D echo results reviewed. Patient is maintaining sinus rhythm. Review of systems: Rest review of systems negative. Medications: Medications have been reviewed. Reason For Visit: SMALL BOWEL OBSTRUCTION Physical Exam Vital Signs: Temp Pulse Resp BP Pulse Ox 99.0 F 95 20 129/74 H 94 05/18/17 15:20 05/18/17 15:20 05/18/17 15:20 05/18/17 15:20 05/18/17 15:20 Intake & Output 05/17/17 05/18/17 05/19/17 06:59 06:59 06:59 Intake Total 0 350 Output Total 200 2300 300 Balance -200 -2300 50 Weight 125.5 kg 125.5 kg Exam: GENERAL: well-nourished and in no acute distress. Alert and oriented x3 HEAD: Atraumatic, normocephalic. EYES: Pupils equal round and reactive to light, extraocular movements intact, sclera anicteric, conjunctiva are normal. ENT: TMs normal, nares patent, oropharynx clear without exudates. Moist mucous membranes. No oral ulcerations or bleeding gums noted NECK: supple without lymphadenopathy. Trachea is central. No cervical or axillary lymphadenopathy noted. Carotids are 2+, JVD WNL LUNGS: Respiration seems nonlabored, no significant accessory muscle action noted. Breath sounds clear to auscultation bilaterally and equal noted. No wheezes rales or rhonchi noted. No significant dullness noted on percussion. CHEST: Palpation of the chest wall shows no significant chest wall tenderness. No other significant abnormalities noted. HEART: [place] [employer], No PSH, 1/6 MATY aortic area, 1/6 ruvalcaba systolic murmur mitral area, no rubs, no gallops. ABDOMEN: Soft, mildly distended but no tenderness noted, hypoactive bowel sounds. No guarding, no rebound. No rigidity noted . No masses appreciated. EXTREMITIES: Pedal pulses are 1-2+, no calf tenderness noted. No clubbing or cyanosis.trace to 1+ pedal edema noted NEUROLOGICAL: Focused neurological exam showed no significant neurologic deficit. Normal speech, no focal weakness appreciated. PSYCH: Normal mood, normal affect. Judgment and insight within normal limits. SKIN: No significant ecchymosis, rash, ulcerations or signs of pruritus noted. MUSCULOSKELETAL EXAM: No significant joint swelling noted. Results Laboratory Results: 05/18/17 06:44 05/18/17 06:44 05/18/17 05/18/17 06:44 06:44 WBC 9.1 RBC 3.99 L Hgb 12.0 L D Hct 35.7 L MCV 89 MCH 30.2 MCHC 33.7 RDW 14.3 H Plt Count 218 Seg Neutrophils % 70.1 Lymphocytes % 21.2 Monocytes % 6.4 Eosinophils % 1.9 Basophils % 0.4 Absolute Neutrophils 6.4 Absolute Lymphocytes 1.9 Absolute Monocytes 0.6 Absolute Eosinophils 0.2 Absolute Basophils 0.0 Sodium 141.4 Potassium 4.3 Chloride 106 Carbon Dioxide 26 Anion Gap 9 BUN 17 Creatinine 0.91 Est GFR ( Amer) > 60 Est GFR (Non-Af Amer) > 60 Glucose 151 H Calcium 8.4 Magnesium 2.3 Total Bilirubin 0.3 AST 25 ALT 35 Alkaline Phosphatase 96 Total Protein 6.1 L Albumin 3.4 L 05/17/17 05/18/17 05/18/17 18:46 00:40 06:44 Troponin I < 0.012 < 0.012 < 0.012 EKG Comments: Telemetry Kasey strip shows sinus rhythm without any sustained tacky or bradycardia arrhythmias. Impressions: Abdomen/Pelvis CT 05/17/17 00:00 IMPRESSION: 1. Mechanical small bowel obstruction with transition point at the level of a right paramedian ventral hernia containing a loop of dilated, likely incarcerated, small bowel. The bowel distal to the hernia is decompressed. 2. 3 mm nonobstructing left renal calculus. 4. Hepatic steatosis. This exam was performed according to our departmental dose-optimization program, which includes automated exposure control, adjustment of the mA and/or kV according to patient size and/or use of iterative reconstruction technique. Acute Abdomen Series 05/18/17 06:00 IMPRESSION: Minimal atelectasis left lateral lung base Oral contrast given for CT exam 05/17/2017 is now seen in the transverse and descending colon, in a nonobstructive pattern. Assessment & Plan - Diagnosis (1) Preoperative cardiovascular examination Is this a current diagnosis for this admission?: Yes (2) Abnormal electrocardiogram Is this a current diagnosis for this admission?: Yes (3) Small bowel obstruction Is this a current diagnosis for this admission?: Yes (4) Essential hypertension Is this a current diagnosis for this admission?: Yes (5) Sleep apnea syndrome Qualifiers: Sleep apnea type: unspecified type Qualified Code(s): G47.30 - Sleep apnea , unspecified Is this a current diagnosis for this admission?: Yes (6) Hyperlipidemia Qualifiers: Hyperlipidemia type: unspecified Qualified Code(s): E78.5 - Hyperlipidemia , unspecified Is this a current diagnosis for this admission?: Yes (7) Obesity Qualifiers: Obesity classification: adult class 3 (BMI >= 40) Is this a current diagnosis for this admission?: Yes (8) Type II diabetes mellitus Qualifiers: Diabetes mellitus complication status: without complication Diabetes mellitus lobsterman insulin use: unspecified fpc insulin use status Qualified Code(s): E11.9 - Type 2 diabetes mellitus without complications Is this a current diagnosis for this admission?: Yes - Notes Notes: Patient remains cleared as regards preop cardiovascular examination from cardiac standpoint. 2D echo results reviewed. No definite wall motion abnormalities were noted but the echo quality was technically difficult. Small bowel obstruction seems improving conservatively by conservative management. Hypertension: Currently stable. Sleep apnea syndrome: Patient currently not on any CPAP therapy. Have advised that I will be happy to follow him regarding this condition. Dyslipidemia: Continue current management plans. Obesity patient has been advised in weight loss. Diabetes: Currently under satisfactory management. - Time Time with patient: 15-25 minutes - More than 50% of the time spent coordinating care, discussing management plans with involved caregivers. Management plans discussed with involved personnels. Medical decision making was of moderate to high complexity, patient's has multiple comorbidities. Medications reviewed and adjusted accordingly: Yes
[2017-05-19] MEDS: MORPHINE SULFATE 10 MG/ML INJ IV PRN ×2 (03:37→08:38)
[2017-05-19] MEDS: CEFAZOLIN 1 GM/D5W RTU 1 GM/50 ML RTUPB IV SCH ×3 (06:07→21:04)
[2017-05-19] MEDS: METOPROLOL TARTRATE 100 MG TABLET PO SCH ×2 (06:08→17:30)
[2017-05-19] MEDS: NORMAL SALINE 1000 ML 1,000 ML IV PRN (06:16)
[2017-05-19] MEDS: GEMFIBROZIL 600 MG TABLET PO SCH ×2 (10:12→17:31)
[2017-05-19] MEDS: PANTOPRAZOLE SODIUM 40 MG VIAL IV SCH (10:12)
[2017-05-19] MEDS: FAMOTIDINE INJ/PF 20 MG/2 ML SDV IV SCH (10:12)
[2017-05-19] MEDS: LISINOPRIL 5 MG TABLET PO SCH (10:13)
[2017-05-19] MEDS ORDERED: HYDROCODONE/ACETAMINOPHEN 5-325 MG TABLET PO PRN (10:23)
[2017-05-19] MEDS ORDERED: IBUPROFEN 800 MG TABLET PO PRN (10:24)
--- NOTE | 2017-05-19 11:09 | PROGRESS NOTE E ---
Progress Note NAME: EL SEYMOUR : 1950 AGE: 66Y DATE: 05/19/2017 ROOM: 304 SUBJECTIVE: The patient is currently lying in bed. He states that he does feel better today. He denies any nausea, vomiting, diarrhea. No shortness of breath, dizziness, chest pain. No fevers, chills. The patient has been afebrile. Blood pressure has been in a good range. The last nausea was yesterday, and the patient does not voice any other concerns at this time. REVIEW OF SYSTEMS: Rest of review of systems is negative. MEDICATIONS: Medications have been reviewed. OBJECTIVE: GENERAL: The patient is a 66-year-old male who is awake, alert, and oriented to person, place, time, and situation. He is verbal, conversational, does not appear to be in any acute distress. VITAL SIGNS: Temperature is 98.7, pulse 96, respirations 20, blood pressure 148/70, oxygen saturation 95% on room air. SKIN: Warm and dry. No rash. She is not diaphoretic. HEENT: Pupils equal, round, and reactive to light and accommodation. Conjunctiva is pink. No evidence of JVP. CARDIOVASCULAR SYSTEM: Heart is regular. There is no murmur or rub. CHEST: Clear, symmetrical, unlabored. ABDOMEN: Soft, nontender, nondistended. BACK: No CVA tenderness or sacral edema. EXTREMITIES: No clubbing, cyanosis, edema. PSYCHIATRIC: Appropriate affect, pleasant mood. DIAGNOSTICS: Lab values are as follows: Hematology obtained on 05/18/2017: WBCs are 9.1, hemoglobin is 12.0, hematocrit is 35.7, platelet count is 218,000. Chemistry obtained on 05/18/2017: Sodium is 141, potassium is 4.3, chloride is 106, carbon dioxide 26, BUN 17, creatinine is 0.91, glucose 151. Total protein 6.1, albumin 3.4. IMPRESSION AND PLAN: 1. SMALL BOWEL OBSTRUCTION. The patient did go to the OR yesterday postoperative day number 1 as per attending. 2. HYPERTENSION. Blood pressures are much improved. Continue the patient's oral home medications. 3. HYPERLIPIDEMIA. Will hold statin for now. 4. MORBID OBESITY. Encouraged weight reduction. 5. DIABETES MELLITUS TYPE 2. A1C is elevated. However, the glucose overall has been very well controlled in the inpatient setting. Therefore, I feel this may be more of dietary and medication compliance in an outpatient setting. DISPOSITION: The patient is a FULL CODE. Pending patient's symptomatology and diagnostic findings, will re-evaluate in the a.m. as the patient is cleared for discharge from a medical standpoint. Time spent on this followup including assessment, plan, physical examination, patient education, review of records is 15 minutes. DICTATING PHYSICIAN: CHERELLE DAVIS NP [id number] PHY#: [id number] ID: [id number] JOB#: [id number] ACCT: [id number] cc: >
[2017-05-19] MEDS: OXYCODONE-ACETAMINOPHEN 5-325 MG TABLET PO PRN ×2 (15:01→20:50)
--- NOTE | 2017-05-19 19:13 | PDOC PROGRESS REPORT ---
Subjective Progress Note for:: 05/19/17 Subjective:: Pt. is w/o c/o. Has had B.M. today Reason For Visit: SMALL BOWEL OBSTRUCTION Physical Exam Vital Signs: Temp Pulse Resp BP Pulse Ox 97.3 F 64 19 120/75 94 05/19/17 16:47 05/19/17 16:47 05/19/17 16:47 05/19/17 16:47 05/19/17 16:47 Intake & Output 05/18/17 05/19/17 05/20/17 06:59 06:59 06:59 Intake Total 0 2115 1550 Output Total 2300 1100 600 Balance -2300 1015 950 Weight 125.5 kg 124.1 kg General appearance: PRESENT: no acute distress Head exam: PRESENT: atraumatic, normocephalic Mouth exam: PRESENT: moist, neck supple Neck exam: PRESENT: full ROM Respiratory exam: PRESENT: clear to auscultation filomena, unlabored Cardiovascular exam: PRESENT: RRR GI/Abdominal exam: PRESENT: normal bowel sounds, soft. ABSENT: distended, tenderness Results Laboratory Results: 05/18/17 06:44 05/18/17 06:44 05/17/17 05/18/17 05/18/17 18:46 00:40 06:44 Troponin I < 0.012 < 0.012 < 0.012 Impressions: Abdomen/Pelvis CT 05/17/17 00:00 IMPRESSION: 1. Mechanical small bowel obstruction with transition point at the level of a right paramedian ventral hernia containing a loop of dilated, likely incarcerated, small bowel. The bowel distal to the hernia is decompressed. 2. 3 mm nonobstructing left renal calculus. 4. Hepatic steatosis. This exam was performed according to our departmental dose-optimization program, which includes automated exposure control, adjustment of the mA and/or kV according to patient size and/or use of iterative reconstruction technique. Acute Abdomen Series 05/18/17 06:00 IMPRESSION: Minimal atelectasis left lateral lung base Oral contrast given for CT exam 05/17/2017 is now seen in the transverse and descending colon, in a nonobstructive pattern. Assessment & Plan - Diagnosis (1) Small bowel obstruction Is this a current diagnosis for this admission?: Yes - Plan Summary Plan Summary: Nasogastric tube removed, and clear liquid diet ordered. Will be advanced to regular diet ad robert.
[2017-05-19] MEDS: INSULIN REG, HUMAN 100 UNIT/ML 3 ML VIAL (PYX) SUBCUT PRN (23:12)
[2017-05-20] MEDS: METOPROLOL TARTRATE 100 MG TABLET PO SCH ×2 (05:04→17:24)
[2017-05-20] MEDS: CEFAZOLIN 1 GM/D5W RTU 1 GM/50 ML RTUPB IV SCH ×3 (05:05→21:30)
[2017-05-20] MEDS: INSULIN REG, HUMAN 100 UNIT/ML 3 ML VIAL (PYX) SUBCUT PRN ×2 (08:17→11:45)
[2017-05-20] MEDS: GEMFIBROZIL 600 MG TABLET PO SCH ×2 (10:35→17:25)
[2017-05-20] MEDS: LISINOPRIL 5 MG TABLET PO SCH (10:35)
--- NOTE | 2017-05-20 11:19 | PDOC PROGRESS REPORT ---
Subjective Progress Note for:: 05/19/17 Subjective:: Patient seems to be doing better with gradual improvement. Pt is denying any chest arm or neck discomfort. Patient denying any PND, orthopnea. Patient denied any sustained palpitations, dizziness, syncope, near syncope. Patient denying any fever chills. Patient denying any other significant discomfort. Patient claims better as regards abdominal discomfort and distention. He is actually feeling a little but has not had a bowel movement or passed any flatus. 2D echo results reviewed. Patient is maintaining sinus rhythm. Review of systems: Rest review of systems negative. Medications: Medications have been reviewed. Reason For Visit: SMALL BOWEL OBSTRUCTION Physical Exam Vital Signs: Temp Pulse Resp BP Pulse Ox 97.3 F 64 19 120/75 94 05/19/17 16:47 05/19/17 16:47 05/19/17 16:47 05/19/17 16:47 05/19/17 16:47 Intake & Output 05/18/17 05/19/17 05/20/17 06:59 06:59 06:59 Intake Total 0 2115 1550 Output Total 2300 1100 600 Balance -2300 1015 950 Weight 125.5 kg 124.1 kg Exam: GENERAL: well-nourished and in no acute distress. Alert and oriented x3 HEAD: Atraumatic, normocephalic. EYES: Pupils equal round and reactive to light, extraocular movements intact, sclera anicteric, conjunctiva are normal. ENT: TMs normal, nares patent, oropharynx clear without exudates. Moist mucous membranes. No oral ulcerations or bleeding gums noted NECK: supple without lymphadenopathy. Trachea is central. No cervical or axillary lymphadenopathy noted. Carotids are 2+, JVD WNL LUNGS: Respiration seems nonlabored, no significant accessory muscle action noted. Breath sounds clear to auscultation bilaterally and equal noted. No wheezes rales or rhonchi noted. No significant dullness noted on percussion. CHEST: Palpation of the chest wall shows no significant chest wall tenderness. No other significant abnormalities noted. HEART: [place] [employer], No PSH, 1/6 MATY aortic area, 1/6 ruvalcaba systolic murmur mitral area, no rubs, no gallops. ABDOMEN: Mildly distended but improved, no significant tenderness appreciated, normoactive bowel sounds. No guarding, no rebound. No rigidity noted . No masses appreciated. EXTREMITIES: Pedal pulses are 1-2+, no calf tenderness noted. No clubbing or cyanosis.trace to 1+ pedal edema noted NEUROLOGICAL: Focused neurological exam showed no significant neurologic deficit. Normal speech, no focal weakness appreciated. PSYCH: Normal mood, normal affect. Judgment and insight within normal limits. SKIN: No significant ecchymosis, rash, ulcerations or signs of pruritus noted. MUSCULOSKELETAL EXAM: No significant joint swelling noted. Results Laboratory Results: 05/18/17 06:44 05/18/17 06:44 05/17/17 05/18/17 05/18/17 18:46 00:40 06:44 Troponin I < 0.012 < 0.012 < 0.012 Impressions: Abdomen/Pelvis CT 05/17/17 00:00 IMPRESSION: 1. Mechanical small bowel obstruction with transition point at the level of a right paramedian ventral hernia containing a loop of dilated, likely incarcerated, small bowel. The bowel distal to the hernia is decompressed. 2. 3 mm nonobstructing left renal calculus. 4. Hepatic steatosis. This exam was performed according to our departmental dose-optimization program, which includes automated exposure control, adjustment of the mA and/or kV according to patient size and/or use of iterative reconstruction technique. Acute Abdomen Series 05/18/17 06:00 IMPRESSION: Minimal atelectasis left lateral lung base Oral contrast given for CT exam 05/17/2017 is now seen in the transverse and descending colon, in a nonobstructive pattern. Assessment & Plan - Diagnosis (1) Preoperative cardiovascular examination Is this a current diagnosis for this admission?: Yes (2) Abnormal electrocardiogram Is this a current diagnosis for this admission?: Yes (3) Small bowel obstruction Is this a current diagnosis for this admission?: Yes (4) Essential hypertension Is this a current diagnosis for this admission?: Yes (5) Sleep apnea syndrome Qualifiers: Sleep apnea type: unspecified type Qualified Code(s): G47.30 - Sleep apnea , unspecified Is this a current diagnosis for this admission?: Yes (6) Hyperlipidemia Qualifiers: Hyperlipidemia type: unspecified Qualified Code(s): E78.5 - Hyperlipidemia , unspecified Is this a current diagnosis for this admission?: Yes (7) Obesity Qualifiers: Obesity classification: adult class 3 (BMI >= 40) Is this a current diagnosis for this admission?: Yes (8) Type II diabetes mellitus Qualifiers: Diabetes mellitus complication status: without complication Diabetes mellitus ferry terminal agent insulin use: unspecified ferry terminal agent insulin use status Qualified Code(s): E11.9 - Type 2 diabetes mellitus without complications Is this a current diagnosis for this admission?: Yes - Notes Notes: Small bowel obstruction seems improving conservatively by conservative management. Patient seems to be no longer needing surgery. Cardiac jacobs patient remains stable. Further assessment can be performed as an outpatient if needed. Hypertension: Currently stable. Sleep apnea syndrome: Patient currently not on any CPAP therapy. Have advised that I will be happy to follow him regarding this condition. Dyslipidemia: Continue current management plans. Obesity patient has been advised in weight loss. Diabetes: Currently under satisfactory management. - Time Time with patient: 15-25 minutes - Will sign off. Please reconsult if needed. Medications reviewed and adjusted accordingly: Yes
[2017-05-20] MEDS: OXYCODONE-ACETAMINOPHEN 5-325 MG TABLET PO PRN ×2 (14:56→19:19)
[2017-05-20 15:01] LABS: APPEARANCE,URINE CLEAR; BILIRUBIN,URINE NEGATIVE (NEGATIVE); COLOR,URINE STRAW; GLUCOSE, URINE NEGATIVE (NEGATIVE); KETONES,URINE NEGATIVE (NEGATIVE); LEUKOCYTE ESTERASE,URINE NEGATIVE (NEGATIVE); NITRITE,URINE NEGATIVE (NEGATIVE); PROTEIN,URINE NEGATIVE (NEGATIVE); URINE SPECIFIC GRAVITY 1.002; UROBILINOGEN,URINE NEGATIVE mg/dL (<2.0)
--- NOTE | 2017-05-20 16:24 | PROGRESS NOTE E ---
Progress Note NAME: EL SEYMOUR : 1950 AGE: 66Y DATE: 05/20/2017 ROOM: 332 SUBJECTIVE: The patient is currently lying in bed. He states that he feels a little better today. He is complaining of some dull flank pain which he associates with previous kidney stones, but the patient is not in excruciating pain. No fevers or white count. No dirty urine on presentation. It appears the patient's CT scan shows a 3 mm, nonobstructive stone, however, this was done with contrast. The patient has been afebrile. Blood pressure has been in excellent range. He has excellent glycemic control and the patient has not voiced any other concerns at the time of review. REVIEW OF SYSTEMS: The rest of the review of systems is negative. MEDICATIONS: Medications were reviewed. OBJECTIVE: GENERAL: The patient is a 66-year-old male who is awake, alert and oriented to person, place, time and situation. He is verbal, conversation, and does not appear to be in any acute distress. VITAL SIGNS: As follows: Temperature is 97.9, pulse 66, respirations 21, blood pressure 134/76, oxygen saturation 94% on room air. SKIN: Warm and dry. No rash. He is not diaphoretic. HEENT: Pupils equal, round, and reactive to light and accommodation. Conjunctivae pink. No evidence of JVP. CARDIOVASCULAR SYSTEM: Heart is regular. There is no murmur or rub. CHEST: Clear, symmetrical, unlabored. ABDOMEN: Soft, nontender, nondistended. BACK: No CVA tenderness. No sacral edema. EXTREMITIES: No clubbing, cyanosis, or edema. PSYCHIATRIC: Appropriate affect, pleasant mood. DIAGNOSTICS: Lab values are as follows: Hematology obtained on 05/18/2017: WBCs 9.1, hemoglobin 12.0, hematocrit 35.7, platelet count 218,000. Chemistry obtained on 05/18/2017: Sodium 141, potassium 3.4, chloride 106, carbon dioxide 26, BUN 17, creatinine 0.91, glucose 151. Calcium 8.4. IMPRESSION AND PLAN: 1. SMALL BOWEL OBSTRUCTION. The patient has been followed by the primary team. The patient is making bowel movements and passing gas. 2. HYPERTENSION. Blood pressures are much improved. Will continue the patient's home medications. 3. HYPERLIPIDEMIA. Hold statin for now. 4. DIABETES MELLITUS TYPE 2. A1c is elevated, however, inpatient the patient has had excellent glycemic control. Will resume the patient's home metformin and discontinue Accu-Cheks, given the patient's excellent glycemic control. 5. MORBID OBESITY. Encouraged weight reduction. 6. NEPHROLITHIASIS. The patient does have a history of this. He had a 3 mm, nonobstructive stone on admission. Will just add a dose of Flomax, but feel the patient's pain is more related to gas pain. DISPOSITION: The patient is a FULL CODE. The patient can be discharged from a medical standpoint. TIME SPENT: On this followup including assessment, plan, physical examination, patient education and review of records, is 15 minutes. DICTATING PHYSICIAN: CHERELLE DAVIS NP [id number] PHY#: [id number] ID: [id number] JOB#: [id number] ACCT: [id number] cc: >
[2017-05-20] MEDS: METFORMIN HCL 500 MG TABLET PO SCH (17:25)
[2017-05-20] MEDS ORDERED: TAMSULOSIN HCL 0.4 MG CAP.SR.24H PO SCH (18:00)
[2017-05-21] MEDS: OXYCODONE-ACETAMINOPHEN 5-325 MG TABLET PO PRN ×2 (01:00→10:57)
--- NOTE | 2017-05-21 01:42 | PDOC PROGRESS REPORT ---
Subjective Progress Note for:: 05/20/17 Subjective:: Patient is without complaints. Had bowel movements, and is passing gas Reason For Visit: SMALL BOWEL OBSTRUCTION Physical Exam Vital Signs: Temp Pulse Resp BP Pulse Ox 97.7 F 54 L 20 101/56 L 97 05/21/17 00:42 05/21/17 00:42 05/21/17 00:42 05/21/17 00:42 05/21/17 00:42 Intake & Output 05/19/17 05/20/17 05/21/17 06:59 06:59 06:59 Intake Total 2115 2704 1772 Output Total 1100 600 400 Balance 1015 2104 1372 Weight 124.1 kg General appearance: PRESENT: no acute distress, cooperative GI/Abdominal exam: PRESENT: normal bowel sounds, soft. ABSENT: distended, guarding, hernia, tenderness Results Laboratory Results: 05/18/17 06:44 05/18/17 06:44 05/20/17 14:35 Urine Color STRAW Urine Appearance CLEAR Urine pH 7.0 Ur Specific [place] 1.002 Urine Protein NEGATIVE Urine Glucose (UA) NEGATIVE Urine Ketones NEGATIVE Urine Blood MODERATE H Urine Nitrite NEGATIVE Ur Leukocyte Esterase NEGATIVE Urine WBC (Auto) 1 Urine RBC (Auto) 0 05/17/17 05/18/17 05/18/17 18:46 00:40 06:44 Troponin I < 0.012 < 0.012 < 0.012 Impressions: Abdomen/Pelvis CT 05/17/17 00:00 IMPRESSION: 1. Mechanical small bowel obstruction with transition point at the level of a right paramedian ventral hernia containing a loop of dilated, likely incarcerated, small bowel. The bowel distal to the hernia is decompressed. 2. 3 mm nonobstructing left renal calculus. 4. Hepatic steatosis. This exam was performed according to our departmental dose-optimization program, which includes automated exposure control, adjustment of the mA and/or kV according to patient size and/or use of iterative reconstruction technique. Acute Abdomen Series 05/18/17 06:00 IMPRESSION: Minimal atelectasis left lateral lung base Oral contrast given for CT exam 05/17/2017 is now seen in the transverse and descending colon, in a nonobstructive pattern. Assessment & Plan - Diagnosis (1) Small bowel obstruction Is this a current diagnosis for this admission?: Yes - Plan Summary Plan Summary: We will advance to regular diet
[2017-05-21] MEDS: CEFAZOLIN 1 GM/D5W RTU 1 GM/50 ML RTUPB IV SCH (05:37)
[2017-05-21] MEDS: METOPROLOL TARTRATE 100 MG TABLET PO SCH (05:37)
[2017-05-21 10:46] VITALS: BP 127/68
[2017-05-21] MEDS: GEMFIBROZIL 600 MG TABLET PO SCH (10:58)
[2017-05-21] MEDS: LISINOPRIL 5 MG TABLET PO SCH (10:58)
[2017-05-21] MEDS: METFORMIN HCL 500 MG TABLET PO SCH (10:58)
--- NOTE | 2017-05-21 15:49 | PROGRESS NOTE E ---
Progress Note NAME: EL SEYMOUR : 1950 AGE: 66Y DATE: 05/21/2017 ROOM: 332 SUBJECTIVE: The patient is lying in bed. The patient states that overall, he feels much better today. The patient has tolerated his meals without issue. There has been no reported episode of vomiting nor diarrhea. The patient has been afebrile. His blood pressures have been in a good range, and the patient does not voice any other concerns at this time. REVIEW OF SYSTEMS: Rest of review of systems is negative. MEDICATIONS: Medications have been reviewed. OBJECTIVE: GENERAL: The patient is a 66-year-old male who is awake, alert and oriented to person, place, time and situation. He is verbal and conversational, does not appear to be in any acute distress. VITAL SIGNS FOLLOWS: Temperature is 97.9. Pulse 58. Respirations 20. Blood pressure is 125/67. Oxygen saturation 96% on room air. SKIN: Warm and dry. No rash. He is not diaphoretic. HEENT: Pupils equal, round and reactive to light and accommodation. Conjunctivae are pink. NECK: No JVP. CARDIOVASCULAR SYSTEM: Heart is regular. There is no murmur or rub. CHEST: Clear, symmetrical, unlabored. ABDOMEN: Soft. Nontender. Nondistended. BACK: No CVA tenderness or sacral edema. EXTREMITIES: No clubbing, cyanosis, edema. PSYCHIATRIC: Appropriate affect. Pleasant mood. DIAGNOSTICS: Lab values are as follows. Chemistry obtained on 05/18/2017: Sodium is 14, potassium 4.3, chloride is 106, carbon dioxide 26. BUN 17, creatinine is 0.91, glucose 151. Calcium is 8.4. IMPRESSION AND PLAN: 1. SMALL BOWEL OBSTRUCTION. The patient has been followed by the primary team. The patient is making bowel movements, passing gas, and tolerating meals. 2. HYPERTENSION. Blood pressure is much improved. Continue home medication. 3. HYPERLIPIDEMIA. Continue statin. 4. DIABETES MELLITUS TYPE 2. A1C was elevated. However, he had excellent inpatient glycemic control. 5. MORBID OBESITY. Encourage weight reduction. 6. NEPHROLITHIASIS. The patient had a nonobstructive stone on CT. The patient's pain has resolved. DISPOSITION: The patient is a FULL CODE. Will sign off on the patient at this time. The hospitalist team would like to thank the surgicalist team for graciously participating in the care of the patient. TIME SPENT: Time spent on this followup including assessment, plan, physical examination, patient education, review of records is 20 minutes. DICTATING PHYSICIAN: CHERELLE DAVIS NP [id number] PHY#: [id number] ID: [id number] JOB#: [id number] ACCT: [id number] cc: >
--- NOTE | 2017-05-21 16:34 | PDOC DISCHARGE SUMMARY ---
General - Admit/Disc Date/PCP Admission Date/Primary Care Provider: 05/17/17 03:58 JOSE CARLOS NAIR MD Discharge Date: 05/21/17 - Discharge Diagnosis (1) Small bowel obstruction Is this a current diagnosis for this admission?: Yes - Additional Information Resuscitation Status: Full Code Home Medications: Gemfibrozil [Lopid 600 mg Tablet] 600 mg PO BID 05/17/17 Glyburide,Micronized [Glyburide Micronized] 3 mg PO DAILY 05/17/17 Lisinopril [Prinivil 5 mg Tablet] 5 mg PO DAILY 05/17/17 Metformin HCl [Glucophage] 1,000 mg PO BID 05/17/17 Metoprolol Tartrate [Lopressor 100 mg Tablet] 100 mg PO Q12 05/17/17 Pravastatin Sodium [Pravachol] 20 mg PO DAILY 05/17/17 Triamterene/Hydrochlorothiazid [Triamterene-Hctz 37.5-25 mg Cp] 1 cap PO DAILY 05/17/17 History of Present Illness History of Present Illness: EL ESYMOUR is a 66 year old male who was admitted with signs and symptoms of small bowel obstruction. Hospital Course Hospital Course: She was admitted to the hospital and placed on NG suction and IV fluids. Over several days bowel obstruction resolved NG tube was removed and his diet was advanced to regular. He was placed on regular diet yesterday and has had normal bowel movements overnight. He is being discharged home. He will follow- up with his primary care doctor. Physical Exam Vital Signs: Temp Pulse Resp BP Pulse Ox 97.9 F 58 L 20 127/68 H 96 05/21/17 10:45 05/21/17 10:45 05/21/17 10:45 05/21/17 10:45 05/21/17 10:45 Intake & Output 05/20/17 05/21/17 05/22/17 06:59 06:59 06:59 Intake Total 2704 2442 Output Total 600 400 Balance 2104 2042 Results Laboratory Results: 05/18/17 06:44 05/18/17 06:44 05/17/17 05/18/17 05/18/17 18:46 00:40 06:44 Troponin I < 0.012 < 0.012 < 0.012 Impressions: Abdomen/Pelvis CT 05/17/17 00:00 IMPRESSION: 1. Mechanical small bowel obstruction with transition point at the level of a right paramedian ventral hernia containing a loop of dilated, likely incarcerated, small bowel. The bowel distal to the hernia is decompressed. 2. 3 mm nonobstructing left renal calculus. 4. Hepatic steatosis. This exam was performed according to our departmental dose-optimization program, which includes automated exposure control, adjustment of the mA and/or kV according to patient size and/or use of iterative reconstruction technique. Acute Abdomen Series 05/18/17 06:00 IMPRESSION: Minimal atelectasis left lateral lung base Oral contrast given for CT exam 05/17/2017 is now seen in the transverse and descending colon, in a nonobstructive pattern. Plan Time Spent: Less than 30 Minutes
== END 2017-05-21 11:29 | disposition home or self-care (01) | DRG 389 ==
LOC: ER 21:08 → EH 05-17 03:58 → 3N 05-18 02:06 → 3S 05-19 18:14
PROVIDERS: ADMIT Surgery; ATTEND Surgery
PROC: 0D9670Z Drainage of Stomach with Drainage Device, Via Natural or Artificial Opening (ICD-10-PCS; principal; 2017-05-17)
DX: K56.609 Unspecified intestinal obstruction, unspecified as to partial versus complete obstruction (principal); Z68.41 Body mass index [BMI] 40.0-44.9, adult; N20.0 Calculus of kidney; K76.0 Fatty (change of) liver, not elsewhere classified; I10 Essential (primary) hypertension; E11.9 Type 2 diabetes mellitus without complications; F32.9 Major depressive disorder, single episode, unspecified; R00.9 Unspecified abnormalities of heart beat; E78.5 Hyperlipidemia, unspecified; G47.30 Sleep apnea, unspecified; E66.01 Morbid (severe) obesity due to excess calories; F14.10 Cocaine abuse, uncomplicated; F12.10 Cannabis abuse, uncomplicated; Z60.2 Problems related to living alone; Z87.891 Personal history of nicotine dependence; Z79.82 Long term (current) use of aspirin; Z79.899 Other long term (current) drug therapy; Z82.49 Family history of ischemic heart disease and other diseases of the circulatory system
CPT/HCPCS: 36415; 74022; 74177; 80053; 81001; 82962; 83036; 83605; 83690; 83735; 84484; 85025; 87040; 93005; 93010; 93306; 99285; J0131; J0690; J1170; J1335; J1815; J1885; J2250; J2270; J2405; J2704; J3010; J3490; J7030; S0028; S0164

== ENCOUNTER 2018-07-19 06:19 | Day surgery (SDC) | payer MEDICARE ==
[~2018-07-19 06:19] MED LIST: KETOROLAC TROMETHAMINE 0.45% 4 DROP/0.4 ML DROPERETTE OD PRN
[2018-07-19] MEDS ORDERED: CHONDR SU A NA/HYALUR INTRAOC KIT (SURGICARE) ONE (06:59)
[2018-07-19] MEDS ORDERED: EPINEPHRINE INJ/PF 1 MG/1 ML AMPULE ONE (06:59)
[2018-07-19] MEDS ORDERED: LIDOCAINE 1% INJ-PF (10 MG/ML) 30 ML SDV ONE (06:59)
[2018-07-19] MEDS: TROPICAMIDE 1% OPH SOLN 3 ML OD PRN ×3 (07:02→07:24)
[2018-07-19] MEDS: TETRACAINE HCL 0.5% OPH SOLN 0.6 ML DROPERETTE OD PRN ×3 (07:02→07:28)
[2018-07-19] MEDS: CYCLOPENTOLATE 0.2%/PHENYLEPHRINE 1% OPH SOLN 2 ML OD PRN ×3 (07:02→07:24)
[2018-07-19] MEDS: BESIFLOXACIN HCL 0.6% OPH SUSP 5 ML BOTTLE OD PRN ×4 (07:03→07:47)
[2018-07-19] MEDS ORDERED: FENTANYL CITRATE INJ/PF 100 MCG/2 ML AMPUL ONE (07:14)
[2018-07-19] MEDS ORDERED: MIDAZOLAM 2 MG/2 ML INJ ONE (07:14)
[2018-07-19] MEDS ORDERED: ONDANSETRON HCL INJ/PF 4 MG/2 ML SDV ONE (07:14)
[2018-07-19] MEDS ORDERED: LIDOCAINE 2% INJ (20 MG/ML) 20 ML MDV ONE (07:15)
[2018-07-19] MEDS ORDERED: LIDOCAINE 1%/PHENYLEPHRINE 1.5% 1 ML VIAL ONE (07:20)
[2018-07-19] MEDS: TOBRAMYCIN SULFATE/DEXAMETH OPH OINTMENT 3.5 GM ONE ×2 (07:47)
== END 2018-07-19 08:55 | disposition home or self-care (01) ==
LOC: SC 06:19
PROVIDERS: ATTEND Ophthalmology
DX: H25.11 Age-related nuclear cataract, right eye (principal); E11.9 Type 2 diabetes mellitus without complications; I10 Essential (primary) hypertension; Z79.899 Other long term (current) drug therapy; Z79.84 Long term (current) use of oral hypoglycemic drugs; Z79.82 Long term (current) use of aspirin; E78.00 Pure hypercholesterolemia, unspecified
CPT/HCPCS: 66984; 82962; V2632; J2250; J3490 ×2; A9270; J0171; J2405; J2370; 142; J3010

== ENCOUNTER 2018-07-25 15:56 | Inpatient (IN) | payer MEDICARE ==
--- NOTE | 2018-07-25 16:14 | RADIOLOGY REPORT (SQ) ---
EXAM DESCRIPTION: CHEST SINGLE VIEW COMPLETED DATE/TIME: 07/25/2018 4:07 pm REASON FOR STUDY: bed 19 stroke alert pt ams COMPARISON: 05/18/2017 EXAM PARAMETERS: NUMBER OF VIEWS: One view. TECHNIQUE: Single frontal radiographic view of the chest acquired. RADIATION DOSE: NA LIMITATIONS: None. FINDINGS: LUNGS AND PLEURA: No opacities, masses or pneumothorax. No pleural effusion. MEDIASTINUM AND HILAR STRUCTURES: No masses. Contour normal. HEART AND VASCULAR STRUCTURES: Stable in appearance. No failure BONES: No acute findings. HARDWARE: None in the chest. OTHER: No other significant finding. IMPRESSION: NO ACUTE RADIOGRAPHIC FINDING IN THE CHEST. TECHNICAL DOCUMENTATION: JOB ID: [id number] [employer]- All Rights Reserved Reading location - IP/workstation name: [email or web address]
--- NOTE | 2018-07-25 16:17 | RADIOLOGY REPORT (SQ) ---
EXAM DESCRIPTION: CT HEAD WITHOUT COMPLETED DATE/TIME: 07/25/2018 4:06 pm REASON FOR STUDY: bed 19 stroke alert pt ams aphasia COMPARISON: None. TECHNIQUE: Axial images acquired through the brain without intravenous contrast. Images reviewed wi th bone, brain and subdural windows. Additional sagittal and coronal reconstructions were generated. Images stored on PACS. All CT scanners at this facility use dose modulation, iterative reconstruction, and/or weight based d osing when appropriate to reduce radiation dose to as low as reasonably achievable (ALARA). [facility]: Dose Right [facility]: CareDose [facility]: Dose Right [facility]: Teradose 4D [facility]: [employer] RADIATION DOSE: CT Rad equipment meets quality standard of care and radiation dose reduction techniq ues were employed. CTDIvol: 53.2 mGy. DLP: 991 mGy-cm. mGy. LIMITATIONS: None. FINDINGS: VENTRICLES: Normal size and contour. CEREBRUM: No masses. No hemorrhage. No midline shift. No evidence for acute infarction. Normal gra y/white matter differentiation. No areas of low density in the white matter. CEREBELLUM: No masses. No hemorrhage. No alteration of density. No evidence for acute infarction. EXTRAAXIAL SPACES: No fluid collections. No masses. ORBITS AND GLOBE: No intra- or extraconal masses. Prior right cataract surgery CALVARIUM: No fracture. PARANASAL SINUSES: Air-fluid level in the left sphenoid sinus SOFT TISSUES: No mass or hematoma. OTHER: Calcified parasellar carotid artery's. IMPRESSION: No acute intracranial changes. EVIDENCE OF ACUTE STROKE: NO. COMMENT: Pertinent findings on the imaging study reported as a CRITICAL RESULT to SUSANNA CARTER at16:06 on 07/25/2018. Category of Critical Result: CT CODE STROKE Quality ID # 436: Final reports with documentation of one or more dose reduction techniques (e.g., Au tomated exposure control, adjustment of the mA and/or kV according to patient size, use of iterative reconstruction technique) TECHNICAL DOCUMENTATION: JOB ID: [id number]- All Rights Reserved Reading location - IP/workstation name: [email or web address]
[2018-07-25 16:25] LABS: INTERNATIONAL RATION (INR) 1.03
[2018-07-25 16:26] LABS: PARTIAL THROMBOPLASTIN TIME 34.1 SEC (23.5-35.8)
[2018-07-25 16:27] LABS: ABSOLUTE BASOPHILS # (AUTO) 0.1 10^3/uL (0.0-0.2); ABSOLUTE EOSINOPHILS # (AUTO) 0.1 10^3/uL (0.0-0.6); ABSOLUTE LYMPHOCYTES (AUTO) 1.7 10^3/uL (0.5-4.7); ABSOLUTE MONOCYTES (AUTO) 0.8 10^3/uL (0.1-1.4); BASOPHILS % (AUTO) 0.5 % (0-2); EOSINOPHILS % (AUTO) 1.2 % (0-6); HEMATOCRIT 36.2 % (37.9-51.0); HEMOGLOBIN 12.3 g/dL (13.5-17.0); LYMPHOCYTES % (AUTO) 17.9 % (13-45); MEAN CORPUSCULAR HEMOGLOBIN 30.6 pg (27.0-33.4); MEAN CORPUSCULAR VOLUME 90 fl (80-97); PLATELET COUNT 294 10^3/uL (150-450); RED BLOOD COUNT 4.03 10^6/uL (4.35-5.55); RED CELL DISTRIBUTION WIDTH 14.2 % (11.5-14.0); SEGMENTED NEUTROPHILS % (AUTO) 72.4 % (42-78); TOTAL CELLS COUNTED % (AUTO) 100 %; WHITE BLOOD COUNT 9.7 10^3/uL (4.0-10.5)
[2018-07-25 16:46] LABS: ALANINE AMINOTRANSFERASE 20 U/L (21-72); ALBUMIN 3.6 g/dL (3.5-5.0); ALKALINE PHOSPHATASE 96 U/L (38-126); ANION GAP 9 (5-19); ASPARTATE AMINO TRANSFERASE 19 U/L (17-59); BILIRUBIN,DIRECT 0.4 mg/dL (0.0-0.4); BILIRUBIN,TOTAL 0.4 mg/dL (0.2-1.3); BLOOD UREA NITROGEN 38 mg/dL (7-20); CALCIUM 9.9 mg/dL (8.4-10.2); CARBON DIOXIDE 22 mmol/L (22-30); CHLORIDE 112 mmol/L (98-107); CREATINE KINASE 50 U/L (55-170); GLUCOSE 100 mg/dL (75-110); SODIUM 142.7 mmol/L (137-145); TOTAL PROTEIN 6.6 g/dL (6.3-8.2)
[2018-07-25 16:57] LABS: CREATINE KINASE MB 1.62 ng/mL (<4.55)
[2018-07-25 17:01] LABS: TROPONIN I < 0.012 ng/mL
[2018-07-25 17:03] LABS: URINE AMPHETAMINES SCREEN NEGATIVE; URINE BARBITURATES SCREEN NEGATIVE; URINE BENZODIAZEPINES SCREEN NEGATIVE; URINE COCAINE SCREEN NEGATIVE; URINE MARIJUANA (THC) SCREEN UNCONFIRMED POSITIVE; URINE METHADONE SCREEN NEGATIVE; URINE PHENCYCLIDINE SCREEN NEGATIVE
--- NOTE | 2018-07-25 17:30 | EKG REPORT ---
SEVERITY:- ABNORMAL ECG - SINUS RHYTHM RIGHT BUNDLE BRANCH BLOCK : Confirmed by: Francisco Maria MD 25-Jul-2018 17:29:26
--- NOTE | 2018-07-25 17:55 | RADIOLOGY REPORT (SQ) ---
EXAM DESCRIPTION: CTA HEAD COMPLETED DATE/TIME: 07/25/2018 5:38 pm REASON FOR STUDY: cva-exp aphasia COMPARISON: None. TECHNIQUE: Post IV contrast scanning, thin section axial imaging through the brain to evaluate the a rterial structures. Source and MIP images are saved and reviewed on PACS. Advanced 3D imaging as volume-rendering, MIPs, SSD performed? yes All CT scanners at this facility use dose modulation, iterative reconstruction, and/or weight based d osing when appropriate to reduce radiation dose to as low as reasonably achievable (ALARA). [facility]: Dose Right [facility]: CareDose [facility]: Dose Right [facility]: Teradose 4D [facility]: [employer] CONTRAST TYPE AND DOSE: contrast/concentration: Isovue 350.00 mg/ml; Total Contrast Delivered: 70.0 ml; Total Saline Delivered: 75.0 ml RENAL FUNCTION: BUN 38, creatinine 1.14 LIMITATIONS: None. FINDINGS: [place]: The anterior, middle, posterior cerebral arteries are all patent. No ev idence of aneurysm or focal stenosis. POSTERIOR CIRCULATION: The distal vertebral arteries are patent as is the basilar artery. No aneurysm . BRAIN: No gross enhancing lesions as visualized. The superior cerebral hemispheres are not included in the field of view. BONES: Intact as visualized. SINUSES: No fluid or mucosal thickening. OTHER: No other significant finding. IMPRESSION: NO CTA EVIDENCE OF STENOSIS OR ANEURYSM OF THE [place]. TECHNICAL DOCUMENTATION: JOB ID: [id number] Quality ID # [id number]: Final reports with documentation of one or more dose reduction techniques (e.g., Au tomated exposure control, adjustment of the mA and/or kV according to patient size, use of iterative reconstruction technique) 2010 [employer]- All Rights Reserved Reading location - IP/workstation name: [email or web address]
--- NOTE | 2018-07-25 17:57 | RADIOLOGY REPORT (SQ) ---
EXAM DESCRIPTION: CTA NECK COMPLETED DATE/TIME: 07/25/2018 5:38 pm REASON FOR STUDY: cva-exp aphasia COMPARISON: None. TECHNIQUE: Axial dynamic scanning technique with dynamic contrast enhancement through the extra-shipping clerk crating nial carotid and vertebral arteries. Multiplanar reconstruction. 3-D MIPS and Volume-rendered imag es acquired at the workstation and saved to PACS. Images are reviewed in soft tissue, bone, lung w indows. All CT scanners at this facility use dose modulation, iterative reconstruction, and/or weight based d osing when appropriate to reduce radiation dose to as low as reasonably achievable (ALARA). [facility]: Dose Right [facility]: CareDose [facility]: Dose Right [facility]: Teradose 4D [facility]: [employer] CONTRAST TYPE AND DOSE: 75 mL Omnipaque 350- low osmolar. RENAL FUNCTION: BUN 38, creatinine 1.14 LIMITATIONS: None. FINDINGS: AORTIC ARCH: Normal three-vessel origin. Bilateral subclavian arteries are patent. No d issection. RIGHT CAROTIDS: Patent common, internal and external carotid arteries without suggestion of significa nt stenosis or irregular plaque. No dissection. RIGHT VERTEBRAL: Patent. No dissection. LEFT CAROTIDS: Patent common, internal and external carotid arteries without suggestion of significan t stenosis or irregular plaque. No dissection. LEFT VERTEBRAL: Patent. No dissection. OTHER: There is an 11 x 17 mm nodule in the right lobe of the thyroid gland. OTHER: 3-D reconstructions confirm findings. IMPRESSION: 1. Normal CTA of the extracranial carotid and vertebral system. 2. 1.1 x 1.7 cm nodule in the right lobe of the thyroid gland. COMMENT: Quality ID #[id number]: Measurements of distal internal carotid diameter were used as the denomina tor for stenosis measurement. TECHNICAL DOCUMENTATION: JOB ID: [id number] Quality ID # [id number]: Final reports with documentation of one or more dose reduction techniques (e.g., Au tomated exposure control, adjustment of the mA and/or kV according to patient size, use of iterative reconstruction technique) 2010 [employer]- All Rights Reserved Reading location - IP/workstation name: [email or web address]
[2018-07-25] MEDS ORDERED: LORAZEPAM INJ 2 MG/1 ML VIAL IV ONE ×4 (17:58→23:04)
--- NOTE | 2018-07-25 18:03 | ER Document Report ---
ED General - General Chief Complaint: Altered Mental Status Stated Complaint: ALTERED MENTAL STATUS Time Seen by Provider: 07/25/18 16:31 Primary Care Provider: CHERELLE HERRERA MD [Primary Care Provider] - Follow up as needed Mode of Arrival: Medic Information source: Emergency Med Personnel Notes: 67-year-old man with a history of hypertension, diabetes who was brought in by EMS with acute mental status changes. The history is per the patient's sister who is at the bedside. Patient lives alone. Patient apparently had an eye appointment this morning at 930 that he had missed. The office had called the patient and the patient was confused and said he would come back later in the day. After the patient did not come back to the office, the office called the patient's sister (first contact). The sister had called a niece to check up on the patient. She found the patient confused. He did not recognize her. He did have a difficult time performing tasks and expressing himself. EMS was called. The Accu-Chek in the field was 93 (x2). He is brought into the emergency room with acute confusion. The patient denies any alcohol or drug use. He lives alone. Patient's sister (Glenny Ledesma) states that she had not seen him over the weekend. So it is unclear exactly when this mental status actually occurred. It is possible that he was altered prior to the 9:30 AM appointment (which may have been the reason why he missed the appointment in the first place). TRAVEL OUTSIDE OF THE [place] IN LAST 30 DAYS: No - HPI Onset: This morning Onset/Duration: Gradual Quality of pain: No pain Severity: None Pain Level: Denies Associated symptoms: denies: Chest pain, Fever, Shortness of breath Exacerbated by: Denies Relieved by: Denies Similar symptoms previously: No Recently seen / treated by doctor: No - Related Data Allergies/Adverse Reactions: No Known Allergies Allergy (Verified 07/17/18 14:51) Past Medical History - General Information source: Relative, Emergency Med Personnel - Social History Smoking Status: Never Smoker Cigarette use (# per day): No Chew tobacco use (# tins/day): No Frequency of alcohol use: None Drug Abuse: None Lives with: Family Family History: Hypertension, Other - diverticulitis Patient has suicidal ideation: No Patient has homicidal ideation: No - Past Medical History Cardiac Medical History: Reports: Hx Hypertension Denies: Hx Heart Attack Pulmonary Medical History: Denies: Hx Asthma Neurological Medical History: Denies: Hx Cerebrovascular Accident, Hx Seizures Endocrine Medical History: Reports: Hx Diabetes Mellitus Type 2 Renal/ Medical History: Denies: Hx Peritoneal Dialysis GI Medical History: Reports: Hx Diverticulitis. Denies: Hx Hepatitis, Hx Hiatal Hernia, Hx Ulcer Psychiatric Medical History: Reports: Hx Depression Infectious Medical History: Denies: Hx Hepatitis Past Surgical History: Reports: Hx Abdominal Surgery - abscess secondary to diverticulitis, partial colon resection, Hx Orthopedic Surgery - left ankle. Denies: Hx Open Heart Surgery, Hx Pacemaker - Immunizations Hx Pneumococcal Vaccination: 04/25/11 Review of Systems - Review of Systems Constitutional: denies: Chills, Fever EENT: No symptoms reported Cardiovascular: denies: Chest pain, Palpitations, Heart racing Respiratory: denies: Short of breath, Wheezing Gastrointestinal: denies: Abdomen distended, Abdominal pain, Diarrhea Genitourinary: No symptoms reported Male Genitourinary: No symptoms reported Musculoskeletal: No symptoms reported Skin: No symptoms reported Hematologic/Lymphatic: No symptoms reported Neurological/Psychological: See HPI, Confusion Physical Exam - Vital signs Vitals: Pulse Resp BP Pulse Ox 97 16 153/88 H 96 07/25/18 15:57 07/25/18 15:57 07/25/18 15:57 07/25/18 15:57 Notes: Physical exam: GENERAL: Patient is alert, he does intermittently answer questions (not always appropriately). He does appear to have a difficult time performing test. His blood pressure is 132/74, he has a pulse of 84, respiratory rate of 20, O2 sat 100%. His Accu-Chek in the emergency room is 96. HEAD: Atraumatic, normocephalic. Face is flushed. EYES: Pupils equal round and reactive to light, extraocular movements intact, sclera anicteric, conjunctiva are normal. ENT: TMs normal, nares patent, oropharynx clear without exudates. Moist mucous membranes. NECK: Normal range of motion, supple without obvious mass or JVD. LUNGS: Breath sounds clear to auscultation bilaterally and equal. No wheezes rales or rhonchi. HEART: Regular rate and rhythm without murmurs, rubs or gallops. ABDOMEN: Soft, normoactive bowel sounds. No tenderness to palpation. No guarding, no rebound. No masses appreciated. EXTREMITIES: Normal range of motion, no pitting or edema. No clubbing or cyanosis. NEUROLOGICAL: The patient is alert, he is not oriented. He is unable to answer his age or the month. He is able to open and close his eyes on command. He is unable to make a fist on command. He has normal horizontal gaze. He is unable to comply in order to evaluate visual saldana. There is no facial palsy. He is able to hold up both arms without any drift for 10 seconds. He is able to hold up both legs but both fall and hit the bed prior to seconds. He is unable to comply with sensory. He does not have any slurred speech. He is able to name words that are short (he got mama, tiptop, thanks correctly). He is unable to process words that are longer (Huckleberry, senior solutions architect, or any of the sentences). As far as object naming: He names cactus and is able to name glove, he calls a chair and feather and Hammock all glove. He is unable to accurately describe events in the kitchen picture. He does not have any extinction. PSYCH: Confused SKIN: Warm, Dry, normal turgor, no rashes or lesions noted. Course - Re-evaluation Re-evalutation: 07/25/18 22:59 Note: Family member is in the emergency room (Glenny Ledesma was the patient's sister) Contact for Glenny Ledesma: H: [phone] C: [phone] She states that the patient had a remote history of drinking but has not had any significant alcohol intake lately. She states that she last saw the him before the weekend. Based upon his normal baseline (alert, conversant, ambulatory), this is a significant and acute mental status change. I discussed the case with Dr. Rain who is neurologist in [facility] At that point we had a head CT, CTA of the head and neck which showed no acute pathology. He did recommend getting an MR to look for CVA, and if this was negative, to perform a spinal tap to rule out an encephalitis. I did discuss this with Glenny Ledesma and she gave me verbal consent over the phone to perform the spinal tap with sedation. Patient did undergo conscious sedation with IV ketamine and a spinal tap was performed. The fluid appears clear and does not appear infectious at this time. Patient did require IV Ativan for MRI. I did call Dr. Herrera who states he does not currently follow this patient and has not seen this patient since 2010. So, we do not know who this patient's doctor is at this time. 07/25/18 23:05 As far in the ER, the patient has received: IV Ativan Sedation with IV ketamine Post LP: Haldol 2 mg IV, Ativan Discussed case with Dr. Zhang for admission given acute altered mental status: The differential includes delirium, toxidrome. - Vital Signs Vital signs: Temp Pulse Resp BP Pulse Ox 117 H 20 109/72 97 07/25/18 22:08 07/25/18 22:08 07/25/18 22:08 07/25/18 22:08 - Laboratory Result Diagrams: 07/25/18 16:11 07/25/18 16:11 Laboratory results interpreted by me: 07/25/18 07/25/18 07/25/18 16:11 16:11 21:40 RBC 4.03 L Hgb 12.3 L Hct 36.2 L RDW 14.2 H Chloride 112 H BUN 38 H ALT 20 L Creatine Kinase 50 L CSF Total Protein 73 H - Diagnostic Test Radiology reviewed: Image reviewed, Reports reviewed - CT of the head shows no bleed - EKG Interpretation by Me Rhythm: NSR - EKG shows normal sinus rhythm with a ventricular rate of 90, right bundle branch block, no acute ST elevation or depression. Last EKG was May 172017 which showed sinus rhythm with no bundle. Procedures - Conscious Sedation Conscious sedation Time started: 21:20 Time completed: 22:10 Consent obtained: Yes - Verbal consent: Glenny Ledesma Indication: Acute delirium Prior complications: Procedural sedation Pt with a mild systemic disease.: P2. - ASA Classification. Airway Evaluation: Normal anatomy Mallampati Classification: Class 3 Used during procedure: Suction available, IV access obtained, Pulse ox on pt., cardiac monitor technician on pt. Medications administered: Ketamine Reversal agents: None I personally performed/intraservice time: Sedation, Procedure, 31-45 min Complications: No - Lumbar Puncture Lumbar puncture Time completed: 22:10 Consent obtained: Yes - Verbal consent: Glenny Ledesma Lumbar puncture pre-procedure: Sterile PPE donned, Betadine prep applied, Chloraprep applied Patient position: Lying Needle size: 18 Lumbar puncture location: L4-L5 Anesthetic type: 1% Lidocaine w/epi mL's of anesthetic: 4 Amount/type of drainage: Clear Number of attempts: 3 Complications: No Notes: 07/25/18 23:10 Patient tolerated procedure well. Fluid is clear. Closing pressure [id number] Critical Care Note - Critical Care Note Total time excluding time spent on procedures (mins): 120 Discharge - Discharge Clinical Impression: Altered mental status Condition: Stable Disposition: ADMITTED INPATIENT Admitting Provider: Hospitalist - Dr. Zhang Unit Admitted: ICU Referrals: CHERELLE HERRERA MD [Primary Care Provider] - Follow up as needed
--- NOTE | 2018-07-25 21:01 | RADIOLOGY REPORT (SQ) ---
EXAM DESCRIPTION: MR BRAIN WITHOUT IV CONTRAST COMPLETED DATE/TME: 07/25/2018 18:26 CLINICAL HISTORY: 67 years, Male, acute confusion EXAM DESCRIPTION: CLINICAL HISTORY: acute confusion COMPARISON: CT head same day TECHNIQUE: Multiplanar multisequence limited imaging of the brain without the intravenous administration of contrast. FINDINGS: Exam was abbreviated by patient intolerance of positioning supine. There is no evidence of acute ischemia. There are generous posterior sulci which appears chronic. This suggests bilateral brain parenchymal mild volume loss. There is no evidence of acute mass, mass effect, midline shift or hemorrhage. No focal abnormal extra-axial fluid collection is seen. The ventricles, basal cisterns and extra-axial fluid spaces are otherwise unremarkable. IMPRESSION: Mild parenchymal volume loss. No acute ischemia. No other definite acute abnormality.
[2018-07-25] MEDS ORDERED: ONDANSETRON HCL INJ/PF 4 MG/2 ML SDV IV ONE (21:03)
[2018-07-25] MEDS ORDERED: KETAMINE HCL INJ 500 MG/10 ML VIAL IV ONE (21:04)
[2018-07-25] MEDS ORDERED: LIDOCAINE 1%/EPINEPHRINE INJ 20 ML VIAL INJ ONE (21:09)
[2018-07-25] MEDS ORDERED: HALOPERIDOL LACTATE INJ 5 MG/1 ML VIAL IV ONE (21:58)
[2018-07-25 22:17] LABS: CSF TUBE NUMBER 1
[2018-07-25 22:18] LABS: APPEARANCE ALL TUBES CLEAR; COLOR ALL TUBES COLORLESS; RED BLOOD CELL,CSF 55 /uL (0-10); WHITE BLOOD CELL,CSF 2 /uL (0-5)
[2018-07-25 22:19] LABS: APPEARANCE ALL TUBES CLEAR; COLOR ALL TUBES COLORLESS; CSF TUBE NUMBER 4; GLUCOSE,CSF 68 mg/dL (40-70); PROTEIN,CSF 73 mg/dL (12-60)
[2018-07-25 22:20] LABS: RED BLOOD CELL,CSF 0 /uL (0-10); WHITE BLOOD CELL,CSF 0 /uL (0-5)
[2018-07-25] MEDS ORDERED: NORMAL SALINE 1000 ML 1,000 ML IV ONE (22:24)
[2018-07-25] MEDS: LORAZEPAM INJ 2 MG/1 ML VIAL IV PRN (23:52)
[2018-07-26] MEDS ORDERED: IPRATROPIUM/ALBUTEROL 0.5-2.5 MG/3 ML AMPUL NEB PRN (01:51)
[2018-07-26] MEDS ORDERED: POTASSI CL 20 MEQ/D5-1/2NS 1L 1,000 ML IV ONE (01:54)
[2018-07-26] MEDS: LORAZEPAM INJ 2 MG/1 ML VIAL IV PRN ×2 (02:45→09:53)
[2018-07-26 05:43] LABS: ABSOLUTE BASOPHILS # (AUTO) 0.1 10^3/uL (0.0-0.2); ABSOLUTE EOSINOPHILS # (AUTO) 0.1 10^3/uL (0.0-0.6); ABSOLUTE LYMPHOCYTES (AUTO) 2.3 10^3/uL (0.5-4.7); ABSOLUTE MONOCYTES (AUTO) 1.1 10^3/uL (0.1-1.4); ABSOLUTE NEUT (AUTO) 7.8 10^3/uL (1.7-8.2); BASOPHILS % (AUTO) 0.9 % (0-2); EOSINOPHILS % (AUTO) 0.8 % (0-6); HEMATOCRIT 35.3 % (37.9-51.0); MEAN CORPUSCULAR HEMOGLOBIN 30.5 pg (27.0-33.4); MEAN CORPUSCULAR HGB CONC 33.9 g/dL (32.0-36.0); MEAN CORPUSCULAR VOLUME 90 fl (80-97); MONOCYTES % (AUTO) 9.8 % (3-13); PLATELET COUNT 300 10^3/uL (150-450); RED BLOOD COUNT 3.92 10^6/uL (4.35-5.55); RED CELL DISTRIBUTION WIDTH 14.2 % (11.5-14.0); SEGMENTED NEUTROPHILS % (AUTO) 68.5 % (42-78); TOTAL CELLS COUNTED % (AUTO) 100 %; WHITE BLOOD COUNT 11.4 10^3/uL (4.0-10.5)
[2018-07-26] MEDS: HEPARIN SOD (PORCINE) 5,000 UNIT/ML 1 ML SYRINGE SUBCUT SCH ×3 (05:53→22:18)
[2018-07-26 06:09] LABS: ALANINE AMINOTRANSFERASE 27 U/L (21-72); ALBUMIN 3.5 g/dL (3.5-5.0); ALKALINE PHOSPHATASE 87 U/L (38-126); ANION GAP 8 (5-19); ASPARTATE AMINO TRANSFERASE 25 U/L (17-59); BILIRUBIN,DIRECT 0.4 mg/dL (0.0-0.4); BILIRUBIN,TOTAL 0.5 mg/dL (0.2-1.3); BLOOD UREA NITROGEN 26 mg/dL (7-20); CALCIUM 9.6 mg/dL (8.4-10.2); CARBON DIOXIDE 21 mmol/L (22-30); CHLORIDE 112 mmol/L (98-107); GLUCOSE 132 mg/dL (75-110); POTASSIUM 4.1 mmol/L (3.6-5.0); SODIUM 141.4 mmol/L (137-145); TOTAL PROTEIN 6.5 g/dL (6.3-8.2)
--- NOTE | 2018-07-26 06:25 | PDOC H&P ---
History of Present Illness Admission Date/PCP: 07/25/18 23:04 CHERELLE HERRERA MD Patient complains of: Altered mental status History of Present Illness: EL SEYMOUR is a 67 year old male with history obtained by the record as he is a poor historian with delirium. Past medical history of alcoholism, hypertension, obstructive sleep apnea and diabetes. Patient lives alone and discovered altered after missing an ophthalmology appointment at 9:30 AM. Patie nt niece found him confused unable to recognize her or express himself. EMS was called and he was brought to the emergency room with confusion. In the emergency room he is awake and alert with internal stimuli and restless requiring restraints. Extensive imaging workup is unremarkable, labs remarkable for THC only. He is referred to the hospitalist for acute delirium. Past Medical History Cardiac Medical History: Reports: Hypertension Denies: Myocardial Infarction Pulmonary Medical History: Denies: Asthma Neurological Medical History: Denies: Seizures Endocrine Medical History: Reports: Diabetes Mellitus Type 2 GI Medical History: Reports: Diverticulitis Denies: Hepatitis, Hiatal Hernia Psychiatric Medical History: Reports: Depression Hematology: Denies: Anemia, Sickle Cell Disease Past Surgical History Past Surgical History: Reports: Orthopedic Surgery - left ankle Denies: Pacemaker Social History Information Source: Emergency Med Personnel, [facility] Records Lives with: Family Smoking Status: Unknown if Ever Smoked Frequency of Alcohol Use: None Hx Recreational Drug Use: No Drugs: None Hx Prescription Drug Abuse: No - Advance Directive Resuscitation Status: Full Code Family History Family History: Hypertension, Other - diverticulitis Parental Family History Reviewed: No - Unobtainable Children Family History Reviewed: No Sibling(s) Family History Reviewed.: No Medication/Allergy Home Medications: Gemfibrozil [Lopid 600 mg Tablet] 600 mg PO BID 05/17/17 Lisinopril [Prinivil 5 mg Tablet] 5 mg PO DAILY 05/17/17 Metformin HCl [Glucophage] 1,000 mg PO BID 05/17/17 Metoprolol Tartrate [Lopressor 100 mg Tablet] 100 mg PO Q12 05/17/17 Aspirin [Aspirin 325 mg Tablet] 325 mg PO DAILY PRN 07/17/18 Gabapentin [Neurontin 100 mg Capsule] 100 mg PO TID 07/17/18 Oxybutynin Chloride [Ditropan 5 Mg Tablet] 5 mg PO DAILY 07/17/18 Allergies/Adverse Reactions: No Known Allergies Allergy (Verified 07/17/18 14:51) Review of Systems ROS unobtainable: Due to mental status Physical Exam Vital Signs: Temp Pulse Resp BP Pulse Ox 97.7 F 101 H 26 H 118/79 97 07/26/18 05:10 07/26/18 03:19 07/26/18 03:59 07/26/18 03:19 07/26/18 03:59 Intake & Output 07/24/18 07/25/18 07/26/18 11:59 11:59 11:59 Weight 125.4 kg General appearance: PRESENT: disheveled, mild distress, morbidly obese, well- developed, well-nourished. ABSENT: cooperative Head exam: PRESENT: atraumatic, normocephalic Eye exam: PRESENT: conjunctiva pink, EOMI, PERRLA. ABSENT: nystagmus, scleral icterus Ear exam: PRESENT: normal external ear exam Mouth exam: PRESENT: moist, tongue midline Neck exam: ABSENT: carotid bruit, JVD, lymphadenopathy, thyromegaly Respiratory exam: PRESENT: clear to auscultation filomena. ABSENT: rales, rhonchi, wheezes Cardiovascular exam: PRESENT: RRR. ABSENT: diastolic murmur, rubs, systolic murmur Pulses: PRESENT: normal dorsalis pedis pul Vascular exam: PRESENT: normal capillary refill GI/Abdominal exam: PRESENT: normal bowel sounds, soft. ABSENT: distended, guarding, mass, organolmegaly, rebound, tenderness Rectal exam: PRESENT: deferred Extremities exam: PRESENT: full ROM. ABSENT: calf tenderness, clubbing, pedal edema Neurological exam: PRESENT: alert, altered, awake, oriented to person, CN II-XII grossly intact. ABSENT: oriented to place, oriented to time, oriented to situation Psychiatric exam: PRESENT: agitated, unusual affect Focused psych exam: PRESENT: internal stimuli Skin exam: PRESENT: dry, intact, warm. ABSENT: cyanosis, rash Results Laboratory Results: 07/26/18 05:30 07/25/18 07/25/18 07/25/18 16:11 16:11 21:40 WBC 9.7 RBC 4.03 L Hgb 12.3 L Hct 36.2 L MCV 90 MCH 30.6 MCHC 34.0 RDW 14.2 H Plt Count 294 Seg Neutrophils % 72.4 Lymphocytes % 17.9 Monocytes % 8.0 Eosinophils % 1.2 Basophils % 0.5 Absolute Neutrophils 7.0 Absolute Lymphocytes 1.7 Absolute Monocytes 0.8 Absolute Eosinophils 0.1 Absolute Basophils 0.1 Sodium 142.7 Potassium 4.0 Chloride 112 H Carbon Dioxide 22 Anion Gap 9 BUN 38 H Creatinine 1.14 Est GFR ( Amer) > 60 Est GFR (Non-Af Amer) > 60 Glucose 100 Calcium 9.9 Total Bilirubin 0.4 AST 19 ALT 20 L Alkaline Phosphatase 96 Ammonia Total Protein 6.6 Albumin 3.6 TSH Fluid Tube Number 1 CSF Volume 5.0 CSF Appearance CLEAR CSF Color COLORLESS CSF WBC 2 CSF RBC 55 CSF Glucose CSF Total Protein 07/25/18 07/25/18 07/25/18 21:40 21:40 22:35 WBC RBC Hgb Hct MCV MCH MCHC RDW Plt Count Seg Neutrophils % Lymphocytes % Monocytes % Eosinophils % Basophils % Absolute Neutrophils Absolute Lymphocytes Absolute Monocytes Absolute Eosinophils Absolute Basophils Sodium Potassium Chloride Carbon Dioxide Anion Gap BUN Creatinine Est GFR ( Amer) Est GFR (Non-Af Amer) Glucose Calcium Total Bilirubin AST ALT Alkaline Phosphatase Ammonia Total Protein Albumin TSH 8.45 H Fluid Tube Number 4 CSF Volume 5.0 CSF Appearance CLEAR CSF Color COLORLESS CSF WBC 0 CSF RBC 0 CSF Glucose 68 CSF Total Protein 73 H 07/25/18 07/26/18 23:35 05:30 WBC 11.4 H RBC 3.92 L Hgb 12.0 L Hct 35.3 L MCV 90 MCH 30.5 MCHC 33.9 RDW 14.2 H Plt Count 300 Seg Neutrophils % 68.5 Lymphocytes % 20.0 Monocytes % 9.8 Eosinophils % 0.8 Basophils % 0.9 Absolute Neutrophils 7.8 Absolute Lymphocytes 2.3 Absolute Monocytes 1.1 Absolute Eosinophils 0.1 Absolute Basophils 0.1 Sodium Potassium Chloride Carbon Dioxide Anion Gap BUN Creatinine Est GFR ( Amer) Est GFR (Non-Af Amer) Glucose Calcium Total Bilirubin AST ALT Alkaline Phosphatase Ammonia < 8.7 L Total Protein Albumin TSH Fluid Tube Number CSF Volume CSF Appearance CSF Color CSF WBC CSF RBC CSF Glucose CSF Total Protein 07/25/18 07/25/18 16:11 16:11 Creatine Kinase 50 L CK-MB (CK-2) 1.62 Troponin I < 0.012 Impressions: Chest X-Ray 07/25/18 15:58 IMPRESSION: NO ACUTE RADIOGRAPHIC FINDING IN THE CHEST. Head CT 07/25/18 15:58 IMPRESSION: No acute intracranial changes. EVIDENCE OF ACUTE STROKE: NO. Head CTA 07/25/18 16:52 IMPRESSION: NO CTA EVIDENCE OF STENOSIS OR ANEURYSM OF THE [place]. Neck CTA 07/25/18 16:52 IMPRESSION: 1. Normal CTA of the extracranial carotid and vertebral system. 2. 1.1 x 1.7 cm nodule in the right lobe of the thyroid gland. Head MRI 07/25/18 18:26 IMPRESSION: Mild parenchymal volume loss. No acute ischemia. No other definite acute abnormality. Assessment and Plan - Diagnosis (1) Acute delirium Is this a current diagnosis for this admission?: Yes Plan: Suspected toxic encephalopathy. Drug screen positive for THC only. Likely sy nthetic stimulant. Supportive measures, follow-up mental health consult (2) Drug abuse Is this a current diagnosis for this admission?: Yes Plan: See #1 (3) Sleep apnea syndrome Qualifiers: Sleep apnea type: unspecified type Qualified Code(s): G47.30 - Sleep apnea, unspecified Is this a current diagnosis for this admission?: Yes Plan: BiPAP nightly - Time Time Spent with patient: 35 or more minutes - Inpatient Certification Medical Necessity: Need Close Monitoring Due to Risk of Patient Decompensation
[2018-07-26 06:26] LABS: FREE T3 3.45 pg/mL (2.77-5.27); FREE T4 (FREE THYROXINE) 1.01 ng/dL (0.78-2.19)
[2018-07-26] MEDS ORDERED: GLUCAGON,HUMAN RECOMB 1 MG INJ IM PRN (09:05)
[2018-07-26] MEDS ORDERED: DEXTROSE 40% GEL 15 GM TUBE PO PRN ×2 (09:05)
[2018-07-26] MEDS ORDERED: DEXTROSE 50%-WATER 25 GM/50 ML DISP.SYRIN IV PRN ×2 (09:05)
[2018-07-26] MEDS ORDERED: HYDRALAZINE HCL INJ/PF 20 MG/1 ML SDV IV PRN (09:16)
--- NOTE | 2018-07-26 09:35 | PDOC PROGRESS REPORT ---
Subjective Progress Note for:: 07/26/18 Subjective:: 67-year-old male admitted for altered mental status/acute encephalopathy. Urine drug screen is positive for marijuana. No acute events of the day of admission. Patient is on four-point restraints. This morning agitated once the restraints are off. Able to give his date of . And he told me he is a diabetic. He is also told me that he has sleep apnea uses BiPAP at home. Unable to give his address. She still confused. MRI of the brain CT of the neck CT head was negative. Reason For Visit: [facility] Physical Exam Vital Signs: Temp Pulse Resp BP Pulse Ox 99.2 F 116 H 17 152/95 H 100 07/26/18 08:00 07/26/18 08:00 07/26/18 08:15 07/26/18 08:00 07/26/18 08:15 Intake & Output 07/25/18 07/26/18 07/27/18 06:59 06:59 06:59 Intake Total 1000 Balance 1000 Weight 125.4 kg General appearance: PRESENT: mild distress, obese Head exam: PRESENT: atraumatic Eye exam: PRESENT: PERRLA Mouth exam: PRESENT: dry mucosa Neck exam: ABSENT: carotid bruit, JVD, lymphadenopathy, thyromegaly Respiratory exam: PRESENT: decreased breath sounds Cardiovascular exam: PRESENT: systolic murmur, tachycardia GI/Abdominal exam: PRESENT: normal bowel sounds, soft. ABSENT: distended, guarding, mass, organolmegaly, rebound, tenderness Extremities exam: PRESENT: full ROM. ABSENT: calf tenderness, clubbing, pedal edema Neurological exam: PRESENT: altered, CN II-XII grossly intact Psychiatric exam: PRESENT: agitated Results Laboratory Results: 07/26/18 05:30 07/26/18 05:30 07/25/18 07/25/18 07/25/18 16:11 16:11 21:40 WBC 9.7 RBC 4.03 L Hgb 12.3 L Hct 36.2 L MCV 90 MCH 30.6 MCHC 34.0 RDW 14.2 H Plt Count 294 Seg Neutrophils % 72.4 Lymphocytes % 17.9 Monocytes % 8.0 Eosinophils % 1.2 Basophils % 0.5 Absolute Neutrophils 7.0 Absolute Lymphocytes 1.7 Absolute Monocytes 0.8 Absolute Eosinophils 0.1 Absolute Basophils 0.1 Sodium 142.7 Potassium 4.0 Chloride 112 H Carbon Dioxide 22 Anion Gap 9 BUN 38 H Creatinine 1.14 Est GFR ( Amer) > 60 Est GFR (Non-Af Amer) > 60 Glucose 100 Calcium 9.9 Total Bilirubin 0.4 AST 19 ALT 20 L Alkaline Phosphatase 96 Ammonia Total Protein 6.6 Albumin 3.6 TSH Free T4 Free T3 pg/mL Fluid Tube Number 1 CSF Volume 5.0 CSF Appearance CLEAR CSF Color COLORLESS CSF WBC 2 CSF RBC 55 CSF Glucose CSF Total Protein 07/25/18 07/25/18 07/25/18 21:40 21:40 22:35 WBC RBC Hgb Hct MCV MCH MCHC RDW Plt Count Seg Neutrophils % Lymphocytes % Monocytes % Eosinophils % Basophils % Absolute Neutrophils Absolute Lymphocytes Absolute Monocytes Absolute Eosinophils Absolute Basophils Sodium Potassium Chloride Carbon Dioxide Anion Gap BUN Creatinine Est GFR ( Amer) Est GFR (Non-Af Amer) Glucose Calcium Total Bilirubin AST ALT Alkaline Phosphatase Ammonia Total Protein Albumin TSH 8.45 H Free T4 Free T3 pg/mL Fluid Tube Number 4 CSF Volume 5.0 CSF Appearance CLEAR CSF Color COLORLESS CSF WBC 0 CSF RBC 0 CSF Glucose 68 CSF Total Protein 73 H 07/25/18 07/26/18 07/26/18 23:35 05:30 05:30 WBC 11.4 H RBC 3.92 L Hgb 12.0 L Hct 35.3 L MCV 90 MCH 30.5 MCHC 33.9 RDW 14.2 H Plt Count 300 Seg Neutrophils % 68.5 Lymphocytes % 20.0 Monocytes % 9.8 Eosinophils % 0.8 Basophils % 0.9 Absolute Neutrophils 7.8 Absolute Lymphocytes 2.3 Absolute Monocytes 1.1 Absolute Eosinophils 0.1 Absolute Basophils 0.1 Sodium 141.4 Potassium 4.1 Chloride 112 H Carbon Dioxide 21 L Anion Gap 8 BUN 26 H Creatinine 1.05 Est GFR ( Amer) > 60 Est GFR (Non-Af Amer) > 60 Glucose 132 H Calcium 9.6 Total Bilirubin 0.5 AST 25 ALT 27 Alkaline Phosphatase 87 Ammonia < 8.7 L Total Protein 6.5 Albumin 3.5 TSH Free T4 Free T3 pg/mL Fluid Tube Number CSF Volume CSF Appearance CSF Color CSF WBC CSF RBC CSF Glucose CSF Total Protein 07/26/18 05:30 WBC RBC Hgb Hct MCV MCH MCHC RDW Plt Count Seg Neutrophils % Lymphocytes % Monocytes % Eosinophils % Basophils % Absolute Neutrophils Absolute Lymphocytes Absolute Monocytes Absolute Eosinophils Absolute Basophils Sodium Potassium Chloride Carbon Dioxide Anion Gap BUN Creatinine Est GFR ( Amer) Est GFR (Non-Af Amer) Glucose Calcium Total Bilirubin AST ALT Alkaline Phosphatase Ammonia Total Protein Albumin TSH Free T4 1.01 Free T3 pg/mL 3.45 Fluid Tube Number CSF Volume CSF Appearance CSF Color CSF WBC CSF RBC CSF Glucose CSF Total Protein 07/25/18 07/25/18 16:11 16:11 Creatine Kinase 50 L CK-MB (CK-2) 1.62 Troponin I < 0.012 Impressions: Chest X-Ray 07/25/18 15:58 IMPRESSION: NO ACUTE RADIOGRAPHIC FINDING IN THE CHEST. Head CT 07/25/18 15:58 IMPRESSION: No acute intracranial changes. EVIDENCE OF ACUTE STROKE: NO. Head CTA 07/25/18 16:52 IMPRESSION: NO CTA EVIDENCE OF STENOSIS OR ANEURYSM OF THE [place]. Neck CTA 07/25/18 16:52 IMPRESSION: 1. Normal CTA of the extracranial carotid and vertebral system. 2. 1.1 x 1.7 cm nodule in the right lobe of the thyroid gland. Head MRI 07/25/18 18:26 IMPRESSION: Mild parenchymal volume loss. No acute ischemia. No other definite acute abnormality. Assessment and Plan - Diagnosis (1) Acute delirium Is this a current diagnosis for this admission?: Yes Plan: Suspected toxic encephalopathy. Drug screen positive for THC only. Likely synthetic stimulant. Supportive measures, follow-up mental health consult 07/27/1999 [id number] male admitted with altered mental status/acute and coagulopathy. Urine drug screen is positive for marijuana. Patient is presently on four-point restraints. Mental health consult was requested. Patient is on IV Haldol as needed and IV lorazepam as needed. DC MRI of the brain CT head CT of the neck came back negative. Lab work unremarkable. Plan is to continue the present management. (2) Sleep apnea syndrome Qualifiers: Sleep apnea type: unspecified type Qualified Code(s): G47.30 - Sleep apnea, unspecified Is this a current diagnosis for this admission?: Yes Plan: BiPAP nightly 07/26/2018-morbidly obese male with history of sleep apnea. As per the patient he is on BiPAP at home which is going to be resumed during this hospital stay. (3) Type II diabetes mellitus Qualifiers: Diabetes mellitus medical terminologist insulin use: unspecified fci insulin use status Diabetes mellitus complication status: without complication Qualified Code(s): E11.9 - Type 2 diabetes mellitus without complications Is this a current diagnosis for this admission?: No Plan: 07/26/2018 patient has history of type 2 diabetes mellitus, on glyburide at home, metformin at home. Metformin was discontinued. Plan to continue glipizide and put the patient on insulin sliding scale every 6 hours. Patient is n.p.o. at this point. (4) Essential hypertension Is this a current diagnosis for this admission?: No Plan: 07/26/2018 patient has history of hypertension blood pressure this morning is fluctuating 120/81 this morning. He is on lisinopril/hydrochlorothiazide at home we are going to resume the medication and also started on IV hydralazine 10 mg every 6 as needed for the systolic blood pressure more than 150. (5) Obesity Qualifiers: Obesity classification: adult class 3 (BMI >= 40) Is this a current diagnosis for this admission?: No Plan: 07/26/2018-patient's BMI is more than 40. Going to request for dietary consult once the patient mental status improved. - Time Time Spent with patient: 15-24 minutes Medications reviewed and adjusted accordingly: Yes Anticipated discharge: Home
[2018-07-26] MEDS ORDERED: HYDROCHLOROTHIAZIDE 12.5 MG TABLET PO SCH (10:00)
[2018-07-26] MEDS ORDERED: METOPROLOL TARTRATE 100 MG TABLET PO SCH (10:00)
[2018-07-26] MEDS ORDERED: GABAPENTIN 100 MG CAPSULE PO SCH (10:00)
[2018-07-26] MEDS ORDERED: GEMFIBROZIL 600 MG TABLET PO SCH (10:00)
[2018-07-26] MEDS ORDERED: GLYBURIDE MICRONIZED 3 MG PO SCH (10:00)
[2018-07-26] MEDS ORDERED: LISINOPRIL 10 MG TABLET PO SCH (10:00)
[2018-07-26] MEDS ORDERED: (PENDING PHARMACY ID) (Lisinopril/Hydrochlorothiazide [Zestoretic 10-12.5 Mg Tablet] 1 TAB PO SCH (10:00)
[2018-07-26 10:27] LABS: APPEARANCE,URINE CLEAR; BILIRUBIN,URINE NEGATIVE (NEGATIVE); COLOR,URINE YELLOW; GLUCOSE, URINE NEGATIVE (NEGATIVE); KETONES,URINE 20 mg/dL (NEGATIVE); LEUKOCYTE ESTERASE,URINE NEGATIVE (NEGATIVE); NITRITE,URINE NEGATIVE (NEGATIVE); PROTEIN,URINE NEGATIVE (NEGATIVE); URINE SPECIFIC GRAVITY 1.018; UROBILINOGEN,URINE NEGATIVE mg/dL (<2.0)
[2018-07-26] MEDS ORDERED: HALOPERIDOL LACTATE INJ 5 MG/1 ML VIAL IV PRN (10:38)
[2018-07-26] MEDS ORDERED: METOPROLOL TARTRATE PF/INJ 5 MG/5 ML SDV IV PRN (10:39)
[2018-07-26] MEDS ORDERED: PROPOFOL 1,000 MG/100 ML INFUS..BTL IV ONE (10:51)
[2018-07-26] MEDS ORDERED: MIDAZOLAM HCL 50 MG/100 ML RTUINJ IV PRN (11:01)
[2018-07-26] MEDS ORDERED: PROPOFOL INJ 200 MG/20 ML VIAL IV ONE (11:14)
[2018-07-26] MEDS ORDERED: PHARMACY COMMUNICATION ORDER MC NR (11:15)
[2018-07-26] MEDS: INSULIN REG, HUMAN 100 UNIT/ML 3 ML VIAL (PYX) SUBCUT SCH ×3 (11:36→17:52)
--- NOTE | 2018-07-26 11:58 | RADIOLOGY REPORT (SQ) ---
EXAM DESCRIPTION: CHEST SINGLE VIEW COMPLETED DATE/TIME: 07/26/2018 11:46 am REASON FOR STUDY: ETT PLACEMENT COMPARISON: 07/25/2018 EXAM PARAMETERS: NUMBER OF VIEWS: One view. TECHNIQUE: Single frontal radiographic view of the chest acquired. RADIATION DOSE: NA LIMITATIONS: None. FINDINGS: LUNGS AND PLEURA: Low lung volumes. No focal consolidation, pleural effusion or pneumotho rax. MEDIASTINUM AND HILAR STRUCTURES: Unchanged widening of the mediastinum similar to prior CT HEART AND VASCULAR STRUCTURES: Enlarged, stable. BONES: No acute findings. HARDWARE: Intubation with endotracheal tube tip overlying midthoracic trachea. Enteric tube tip belo w diaphragm but excluded by collimation. OTHER: No other significant finding. IMPRESSION: Intubation with endotracheal tube tip overlying midthoracic trachea. Low lung volumes without additional evidence of acute cardiopulmonary complication. TECHNICAL DOCUMENTATION: JOB ID: [id number] [employer]- All Rights Reserved Reading location - IP/workstation name: [email or web address]
[2018-07-26 13:09] LABS: ARTERIAL BLOOD BASE EXCESS -2.1 mmol/L; ARTERIAL BLOOD FIO2 100%; ARTERIAL BLOOD H2CO3 1.16 mmol/L (1.05-1.35); ARTERIAL BLOOD HCO3 22.5 mmol/L (20-24); ARTERIAL BLOOD O2 SATURATION 99.8 % (94-98); ARTERIAL BLOOD PCO2 38.6 mmHg (35-45); ARTERIAL BLOOD PH 7.38 (7.35-7.45); ARTERIAL BLOOD TOTAL CO2 23.7 mmol/L (23-27)
[2018-07-26] MEDS ORDERED: NORMAL SALINE 1000 ML 1,000 ML IV PRN (13:17)
[2018-07-26] MEDS: GABAPENTIN 100 MG CAPSULE NG SCH ×2 (13:31→22:18)
[2018-07-26] MEDS: PANTOPRAZOLE SODIUM 40 MG VIAL IV SCH ×2 (13:42→22:19)
[2018-07-26] MEDS: PROPOFOL 1,000 MG/100 ML INFUS..BTL IV PRN ×4 (13:43→23:54)
--- NOTE | 2018-07-26 15:18 | PSYCHOLOGICAL NOTE ---
Psych Note - Psych Note Date seen by psych provider: 07/26/18 Time seen by psych provider: 09:00 Psych Note: Reason for Consult: toxic encephalopathy EL SEYMOUR is a 67 year old male with history obtained by the record as he is a poor historian with delirium. Patient is currently unable to engage with clinician. Patient is currently in 4 pt restraints and does not know where he is. Clinician was notified the patient has been intubated. Will follow
--- NOTE | 2018-07-26 16:02 | RADIOLOGY REPORT (SQ) ---
EXAM DESCRIPTION: KUB/ABDOMEN (SINGLE VIEW) COMPLETED DATE/TIME: 07/26/2018 11:47 am REASON FOR STUDY: Check Placement of NG Tube E08.638 DIABETES DUE TO UNDERLYING CONDITION W OTH ORA L COMP COMPARISON: None. NUMBER OF VIEWS: One view. TECHNIQUE: Supine radiographic image of the abdomen acquired. LIMITATIONS: Fine detail marred by patient motion. Lower abdomen excluded by collimation. FINDINGS: BOWEL GAS PATTERN: Normal bowel gas pattern. No dilated loops. CALCIFICATIONS: No suspicious calcifications. SOFT TISSUES: No gross mass or suggestion of organomegaly. HARDWARE: Nasoenteric tube overlies stomach with distal tip excluded by collimation. BONES: No acute fracture. No worrisome bone lesions. OTHER: Surgical clips overlie left upper quadrant. IMPRESSION: Nasoenteric tube overlies stomach with distal tip excluded by collimation. TECHNICAL DOCUMENTATION: JOB ID: [id number] [email or web address]- All Rights Reserved Reading location - IP/workstation name: [email or web address]
[2018-07-26] MEDS ORDERED: PANTOPRAZOLE SODIUM 40 MG TABLET.DR PO SCH (17:00)
[2018-07-26] MEDS: METOPROLOL TARTRATE 100 MG TABLET NG SCH (17:54)
[2018-07-26] MEDS: NORMAL SALINE 1000 ML 1,000 ML with POTASSIUM CHLORIDE 20 MEQ, MAGNESIUM SULFATE 8 MEQ,... IV SCH ×5 (18:20)
[2018-07-26] MEDS: GEMFIBROZIL 600 MG TABLET NG SCH (18:30)
[2018-07-26] MEDS: OXYBUTYNIN CHLORIDE 5 MG TABLET PO SCH (22:19)
[2018-07-26] MEDS: MIDAZOLAM HCL 50 MG/100 ML RTUINJ IV PRN (22:23)
[2018-07-27] MEDS: INSULIN REG, HUMAN 100 UNIT/ML 3 ML VIAL (PYX) SUBCUT SCH ×4 (01:09→18:39)
[2018-07-27] MEDS: PROPOFOL 1,000 MG/100 ML INFUS..BTL IV PRN ×5 (03:28→21:24)
[2018-07-27 04:09] LABS: ABSOLUTE BASOPHILS # (AUTO) 0.1 10^3/uL (0.0-0.2); ABSOLUTE EOSINOPHILS # (AUTO) 0.1 10^3/uL (0.0-0.6); ABSOLUTE MONOCYTES (AUTO) 0.8 10^3/uL (0.1-1.4); ABSOLUTE NEUT (AUTO) 6.4 10^3/uL (1.7-8.2); BASOPHILS % (AUTO) 0.6 % (0-2); EOSINOPHILS % (AUTO) 1.1 % (0-6); HEMATOCRIT 34.5 % (37.9-51.0); HEMOGLOBIN 11.8 g/dL (13.5-17.0); LYMPHOCYTES % (AUTO) 21.1 % (13-45); MEAN CORPUSCULAR HEMOGLOBIN 30.9 pg (27.0-33.4); MEAN CORPUSCULAR HGB CONC 34.1 g/dL (32.0-36.0); MEAN CORPUSCULAR VOLUME 90 fl (80-97); MONOCYTES % (AUTO) 8.1 % (3-13); PLATELET COUNT 267 10^3/uL (150-450); RED BLOOD COUNT 3.81 10^6/uL (4.35-5.55); RED CELL DISTRIBUTION WIDTH 14.1 % (11.5-14.0); SEGMENTED NEUTROPHILS % (AUTO) 69.1 % (42-78); TOTAL CELLS COUNTED % (AUTO) 100 %; WHITE BLOOD COUNT 9.2 10^3/uL (4.0-10.5)
[2018-07-27 04:33] LABS: ALANINE AMINOTRANSFERASE 26 U/L (21-72); ALBUMIN 3.2 g/dL (3.5-5.0); ALKALINE PHOSPHATASE 85 U/L (38-126); ANION GAP 9 (5-19); ASPARTATE AMINO TRANSFERASE 33 U/L (17-59); BILIRUBIN,DIRECT 0.4 mg/dL (0.0-0.4); BILIRUBIN,TOTAL 0.6 mg/dL (0.2-1.3); BLOOD UREA NITROGEN 20 mg/dL (7-20); CALCIUM 9.1 mg/dL (8.4-10.2); CARBON DIOXIDE 21 mmol/L (22-30); CHLORIDE 112 mmol/L (98-107); GLUCOSE 140 mg/dL (75-110); POTASSIUM 3.8 mmol/L (3.6-5.0); SODIUM 141.5 mmol/L (137-145)
[2018-07-27] MEDS: GABAPENTIN 100 MG CAPSULE NG SCH ×3 (05:16→21:26)
[2018-07-27] MEDS: HEPARIN SOD (PORCINE) 5,000 UNIT/ML 1 ML SYRINGE SUBCUT SCH ×3 (05:16→21:27)
[2018-07-27 06:08] LABS: ARTERIAL BLOOD BASE EXCESS -1.6 mmol/L; ARTERIAL BLOOD H2CO3 1.19 mmol/L (1.05-1.35); ARTERIAL BLOOD HCO3 23.2 mmol/L (20-24); ARTERIAL BLOOD PCO2 39.4 mmHg (35-45); ARTERIAL BLOOD PH 7.39 (7.35-7.45); ARTERIAL BLOOD PO2 109.6 mmHg (80-100); ARTERIAL BLOOD TOTAL CO2 24.4 mmol/L (23-27)
[2018-07-27 06:12] LABS: ARTERIAL BLOOD FIO2 40%
--- NOTE | 2018-07-27 06:43 | RADIOLOGY REPORT (SQ) ---
EXAM DESCRIPTION: XR CHEST 1 VIEW COMPLETED DATE/TME: 07/27/2018 06:00 CLINICAL HISTORY: 67 years, Male, resp failure COMPARISON: 07/26/2018 chest NUMBER OF VIEWS: 1 TECHNIQUE: Portable chest LIMITATIONS: None. FINDINGS: Cardiomegaly with atheromatous change of the thoracic aorta. Endotracheal and enteric tubes are in place. No pneumothorax. Persistent airspace opacity left lung base. IMPRESSION: Little interval change copyright 2010 [employer]- All Rights Reserved
--- NOTE | 2018-07-27 10:13 | PSYCHOLOGICAL NOTE ---
Psych Note - Psych Note Date seen by psych provider: 07/27/18 Psych Note: Reason for Consult: toxic encephalopathy EL SEYMOUR is a 67 year old male with history obtained by the record as he is a poor historian with delirium. Patient is currently unable to engage with clinician. Patient is intubated. Will follow
[2018-07-27] MEDS: GEMFIBROZIL 600 MG TABLET NG SCH ×2 (10:16→18:36)
[2018-07-27] MEDS: PANTOPRAZOLE SODIUM 40 MG VIAL IV SCH ×2 (10:17→21:26)
[2018-07-27] MEDS: HYDROCHLOROTHIAZIDE 12.5 MG TABLET NG SCH (10:22)
[2018-07-27] MEDS: LISINOPRIL 10 MG TABLET NG SCH (10:23)
[2018-07-27] MEDS: METOPROLOL TARTRATE 100 MG TABLET NG SCH ×2 (10:23→18:38)
--- NOTE | 2018-07-27 10:25 | PDOC PROGRESS REPORT ---
Subjective Progress Note for:: 07/27/18 Subjective:: 67-year-old male admitted for altered mental status/acute encephalopathy. Urine drug screen is positive for marijuana. No acute events of the day of admission. Patient is on four-point restraints. This morning agitated once the restraints are off. Able to give his date of . And he told me he is a diabetic. He is also told me that he has sleep apnea uses BiPAP at home. Unable to give his address. She still confused. MRI of the brain CT of the neck CT head was negative. 07/[id number]-old male admitted with altered mental status/acute encephalop athy. Urine drug screen is positive for marijuana. MRI of the head was negative LP was negative. Patient is prophylactically intubated on Versed drip and propofol drip. This morning is still agitated and fighting the restraints. We are going to put him on IV morphine 2 mg every 4 as needed for pain as requested by the family and start on cefepime 2 g IV daily. To start him on NG tube feedings. She is stable plan to repeat the CT of the head and a CT of the abdomen as per the family request. Reason For Visit: ALTERED MENTAL STATUS AND S/P INTUBATION Physical Exam Vital Signs: Temp Pulse Resp BP Pulse Ox 98.4 F 96 24 H 125/78 95 07/27/18 08:00 07/27/18 08:00 07/27/18 08:00 07/27/18 08:00 07/27/18 08:26 Intake & Output 07/26/18 07/27/18 07/28/18 06:59 06:59 06:59 Intake Total 2317 1023 Output Total 1975 200 Balance 342 823 Weight 125.4 kg 124.5 kg General appearance: PRESENT: mild distress, obese, other - Patient was on mechanical ventilation on propofol and Versed. Head exam: PRESENT: atraumatic Eye exam: PRESENT: PERRLA Mouth exam: PRESENT: moist, tongue midline Neck exam: ABSENT: carotid bruit, JVD, lymphadenopathy, thyromegaly Respiratory exam: PRESENT: other - Transmitted breath sounds present Cardiovascular exam: PRESENT: tachycardia GI/Abdominal exam: PRESENT: normal bowel sounds, soft. ABSENT: distended, guarding, mass, organolmegaly, rebound, tenderness Gentrourinary exam: PRESENT: indwelling catheter Extremities exam: PRESENT: full ROM. ABSENT: calf tenderness, clubbing, pedal edema Neurological exam: PRESENT: other - Patient is mechanically intubated and Versed drip and propofol drip. Psychiatric exam: PRESENT: agitated Results Laboratory Results: 07/27/18 03:53 07/27/18 03:53 07/26/18 07/26/18 07/26/18 05:30 09:45 12:50 WBC RBC Hgb Hct MCV MCH MCHC RDW Plt Count Seg Neutrophils % Lymphocytes % Monocytes % Eosinophils % Basophils % Absolute Neutrophils Absolute Lymphocytes Absolute Monocytes Absolute Eosinophils Absolute Basophils Carbonic Acid 1.16 HCO3/H2CO3 Ratio 19:1 ABG pH 7.38 ABG pCO2 38.6 ABG pO2 357.0 H ABG HCO3 22.5 ABG O2 Saturation 99.8 H ABG Base Excess -2.1 FiO2 100% Sodium Potassium Chloride Carbon Dioxide Anion Gap BUN Creatinine Est GFR ( Amer) Est GFR (Non-Af Amer) Glucose Calcium Total Bilirubin AST ALT Alkaline Phosphatase Total Protein Albumin Triglycerides 221 H Urine Color YELLOW Urine Appearance CLEAR Urine pH 5.0 Ur Specific [place] 1.018 Urine Protein NEGATIVE Urine Glucose (UA) NEGATIVE Urine Ketones 20 H Urine Blood MODERATE H Urine Nitrite NEGATIVE Ur Leukocyte Esterase NEGATIVE Urine WBC (Auto) 2 Urine RBC (Auto) 3 07/27/18 07/27/18 07/27/18 03:53 03:53 05:55 WBC 9.2 RBC 3.81 L Hgb 11.8 L Hct 34.5 L MCV 90 MCH 30.9 MCHC 34.1 RDW 14.1 H Plt Count 267 Seg Neutrophils % 69.1 Lymphocytes % 21.1 Monocytes % 8.1 Eosinophils % 1.1 Basophils % 0.6 Absolute Neutrophils 6.4 Absolute Lymphocytes 2.0 Absolute Monocytes 0.8 Absolute Eosinophils 0.1 Absolute Basophils 0.1 Carbonic Acid 1.19 HCO3/H2CO3 Ratio 19:1 ABG pH 7.39 ABG pCO2 39.4 ABG pO2 109.6 H ABG HCO3 23.2 ABG O2 Saturation 98.0 ABG Base Excess -1.6 FiO2 40% Sodium 141.5 Potassium 3.8 Chloride 112 H Carbon Dioxide 21 L Anion Gap 9 BUN 20 Creatinine 0.96 Est GFR ( Amer) > 60 Est GFR (Non-Af Amer) > 60 Glucose 140 H Calcium 9.1 Total Bilirubin 0.6 AST 33 ALT 26 Alkaline Phosphatase 85 Total Protein 6.0 L Albumin 3.2 L Triglycerides Urine Color Urine Appearance Urine pH Ur Specific [place] Urine Protein Urine Glucose (UA) Urine Ketones Urine Blood Urine Nitrite Ur Leukocyte Esterase Urine WBC (Auto) Urine RBC (Auto) 07/25/18 07/25/18 16:11 16:11 Creatine Kinase 50 L CK-MB (CK-2) 1.62 Troponin I < 0.012 Impressions: Head CT 07/25/18 15:58 IMPRESSION: No acute intracranial changes. EVIDENCE OF ACUTE STROKE: NO. Head CTA 07/25/18 16:52 IMPRESSION: NO CTA EVIDENCE OF STENOSIS OR ANEURYSM OF THE [place] OF [place]. Neck CTA 07/25/18 16:52 IMPRESSION: 1. Normal CTA of the extracranial carotid and vertebral system. 2. 1.1 x 1.7 cm nodule in the right lobe of the thyroid gland. Head MRI 07/25/18 18:26 IMPRESSION: Mild parenchymal volume loss. No acute ischemia. No other definite acute abnormality. KUB X-Ray 07/26/18 11:03 IMPRESSION: Nasoenteric tube overlies stomach with distal tip excluded by collimation. Chest X-Ray 07/27/18 06:00 IMPRESSION: Little interval change copyright 2011 [employer]- All Rights Reserved Assessment and Plan - Diagnosis (1) Acute delirium Is this a current diagnosis for this admission?: Yes Plan: Suspected toxic encephalopathy. Drug screen positive for THC only. Likely synthetic stimulant. Supportive measures, follow-up mental health consult 07/26/2018 67-year-old male admitted with altered mental status/acute and coagulopathy. Urine drug screen is positive for marijuana. Patient is presently on four-point restraints. Mental health consult was requested. Patient is on IV Haldol as needed and IV lorazepam as needed. DC MRI of the brain CT head CT of the neck came back negative. Lab work unremarkable. Plan is to continue the present management. 07/[id number]-old male admitted for altered mental status/acute encephalopathy. Drug screen is positive for marijuana. Sisters are at bedside the denying that he had a history of alcohol abuse. He was prophylactically intubated because of tachycardia heart rate going up to 150 tachypnea with heart rate more than 40 and is fighting the restraints the intubation mainly to prevent aspiration pneumonia. Presently on Versed and propofol drip still patient was restless in the bed. Start him on IV morphine for pain management as requested by the family members. Health consult was requested but unable to assess the patient because of the sedation. (2) Sleep apnea syndrome Qualifiers: Sleep apnea type: unspecified type Qualified Code(s): G47.30 - Sleep apnea, unspecified Is this a current diagnosis for this admission?: Yes Plan: BiPAP nightly 07/26/2018-morbidly obese male with history of sleep apnea. As per the patient he is on BiPAP at home which is going to be resumed during this hospital stay. 07/27/2018-sisters are saying patient does not have any BiPAP or CPAP machine at home. But they do admit that he has a sleep apnea and problems with sleeping at night. (3) Type II diabetes mellitus Qualifiers: Diabetes mellitus nursing home insulin use: unspecified bed bug exterminator insulin use status Diabetes mellitus complication status: without complication Qualified Code(s): E11.9 - Type 2 diabetes mellitus without complications Is this a current diagnosis for this admission?: No Plan: 07/26/2018 patient has history of type 2 diabetes mellitus, on glyburide at home, metformin at home. Metformin was discontinued. Plan to continue glipizide and put the patient on insulin sliding scale every 6 hours. Patient is n.p.o. at this point. 07/27/2018-patient has history of type 2 diabetes mellitus. Metformin and glipizide on hold at this moment. Hemoglobin A1c is 8.6. Patient is presently on insulin sliding scale. Latest blood sugar is 98. To start on NG tube feeding from today. (4) Essential hypertension Is this a current diagnosis for this admission?: No Plan: 07/26/2018 patient has history of hypertension blood pressure this morning is fluctuating 120/81 this morning. He is on lisinopril/hydrochlorothiazide at [facility] we are going to resume the medication and also started on IV hydralazine 10 mg every 6 as needed for the systolic blood pressure more than 150. 07/27/2018 patient has history of hypertension blood pressure today is 121/68 stable. He is on lisinopril/hydrochlorothiazide at home he is receiving it by NG tube. He is also on IV hydralazine 10 mg every 6 hours as needed. (5) Obesity Qualifiers: Obesity classification: adult class 3 (BMI >= 40) Is this a current diagnosis for this admission?: No Plan: 07/26/2018-patient's BMI is more than 40. Going to request for dietary consult once the patient mental status improved. 07/27/2018-patient's BMI is more than 45 once he is off the ventilator and off the sedation be going to make dietary recommendations. (6) CHF (congestive heart failure) Is this a current diagnosis for this admission?: No Plan: 07/27/2018-patient has echocardiogram was done in April last year it shows jessica l systolic heart function but grade 3 2/diastolic heart failure. Patient is not in fluid overload. We are going to check his BNP and continue to monitor his volume status. - Time Time Spent with patient: 15-24 minutes Medications reviewed and adjusted accordingly: Yes Anticipated discharge: Home
[2018-07-27] MEDS: MORPHINE SULFATE 10 MG/ML INJ IV PRN ×2 (10:33→23:02)
[2018-07-27] MEDS: CEFEPIME 2 GM/D5W RTU 2 GM/50 ML RTUPB IV SCH ×2 (12:22→21:27)
[2018-07-27] MEDS: MIDAZOLAM HCL 50 MG/100 ML RTUINJ IV PRN (15:17)
--- NOTE | 2018-07-27 15:17 | PDOC CONSULTATION ---
Consultation Consult Date: 07/27/18 Attending physician:: KENNA CROCKER Consult reason:: altered mental status History of Present Illness Admission Date/PCP: 07/27/18 07:46 History of Present Illness: EL SEYMOUR is a 67 year old male admitted for altered mental status and agitation has a history of ALTA COPD hypertension active drug screen radiographic workup . He became combative and it was felt that he could not protect his airway. He subsequently was intubated and sedated and is currently in the ICU Past Medical History Cardiac Medical History: Reports: Hypertension Denies: Myocardial Infarction Pulmonary Medical History: Denies: Asthma Neurological Medical History: Denies: Seizures Endocrine Medical History: Reports: Diabetes Mellitus Type 2 GI Medical History: Reports: Diverticulitis Denies: Hepatitis, Hiatal Hernia Psychiatric Medical History: Reports: Depression Hematology: Denies: Anemia, Sickle Cell Disease Past Surgical History Past Surgical History: Reports: Orthopedic Surgery - left ankle Denies: Pacemaker Social History Information Source: [facility] Records Lives with: Family Smoking Status: Unknown if Ever Smoked Frequency of Alcohol Use: None Hx Recreational Drug Use: No Drugs: None Hx Prescription Drug Abuse: No - Advance Directive Resuscitation Status: Full Code Family History Family History: Hypertension, Other - diverticulitis Parental Family History Reviewed: No Children Family History Reviewed: No Sibling(s) Family History Reviewed.: No Medication/Allergy Home Medications: Gabapentin [Neurontin 100 mg Capsule] 100 mg PO Q8 07/26/18 Gemfibrozil [Lopid 600 mg Tablet] 600 mg PO BID 07/26/18 Glyburide,Micronized [Glyburide Micronized] 3 mg PO DAILY 07/26/18 Indomethacin [Indocin 50 mg Capsule] 50 mg PO Q8HP PRN 07/26/18 Lisinopril/Hydrochlorothiazide [Zestoretic 10-12.5 mg Tablet] 1 tab PO DAILY 07/26/18 Metformin HCl [Glucophage] 1,000 mg PO BID 07/26/18 Metoprolol Tartrate [Lopressor 100 mg Tablet] 100 mg PO BID 07/26/18 Oxybutynin Chloride [Ditropan 5 mg Tablet] 5 mg PO QHS 07/26/18 Triamcinolone Acetonide [Aristocort 0.1% Cream] 1 applic TP BIDP PRN 07/26/18 Allergies/Adverse Reactions: No Known Allergies Allergy (Verified 07/17/18 14:51) Review of Systems ROS unobtainable: Due to endotracheal tube, Due to mental status Physical Exam Vital Signs: Temp Pulse Resp BP Pulse Ox 98.4 F 96 24 H 125/78 95 07/27/18 08:00 07/27/18 08:00 07/27/18 08:00 07/27/18 08:00 07/27/18 08:26 Intake & Output 07/26/18 07/27/18 07/28/18 06:59 06:59 06:59 Intake Total 2317 1023 Output Total 1975 200 Balance 342 823 Weight 125.4 kg 124.5 kg General appearance: PRESENT: no acute distress, disheveled, morbidly obese. ABSENT: cooperative Head exam: PRESENT: atraumatic, normocephalic Eye exam: PRESENT: conjunctiva pale. ABSENT: EOMI, nystagmus, periorbital swelling, scleral icterus Mouth exam: PRESENT: dry mucosa, neck supple, tongue midline, other - ET tube in place Neck exam: ABSENT: carotid bruit, full ROM, JVD, lymphadenopathy, meningismus, tenderness, thyromegaly, tracheal deviation, tracheostomy, other Respiratory exam: PRESENT: decreased breath sounds, prolonged expiratory phas, rhonchi, unlabored. ABSENT: stridor Cardiovascular exam: PRESENT: RRR, +S1, +S2 Pulses: PRESENT: normal radial pulses GI/Abdominal exam: PRESENT: soft. ABSENT: tenderness Gentrourinary exam: PRESENT: indwelling catheter Extremities exam: ABSENT: calf tenderness, clubbing, joint swelling Musculoskeletal exam: ABSENT: ambulatory, deformity, dislocation Neurological exam: ABSENT: awake Skin exam: PRESENT: dry, warm Results Laboratory Results: 07/27/18 03:53 07/27/18 03:53 07/26/18 07/26/18 07/26/18 05:30 09:45 12:50 WBC RBC Hgb Hct MCV MCH MCHC RDW Plt Count Seg Neutrophils % Lymphocytes % Monocytes % Eosinophils % Basophils % Absolute Neutrophils Absolute Lymphocytes Absolute Monocytes Absolute Eosinophils Absolute Basophils Carbonic Acid 1.16 HCO3/H2CO3 Ratio 19:1 ABG pH 7.38 ABG pCO2 38.6 ABG pO2 357.0 H ABG HCO3 22.5 ABG O2 Saturation 99.8 H ABG Base Excess -2.1 FiO2 100% Sodium Potassium Chloride Carbon Dioxide Anion Gap BUN Creatinine Est GFR ( Amer) Est GFR (Non-Af Amer) Glucose Calcium Total Bilirubin AST ALT Alkaline Phosphatase Total Protein Albumin Triglycerides 221 H Urine Color YELLOW Urine Appearance CLEAR Urine pH 5.0 Ur Specific [place] 1.018 Urine Protein NEGATIVE Urine Glucose (UA) NEGATIVE Urine Ketones 20 H Urine Blood MODERATE H Urine Nitrite NEGATIVE Ur Leukocyte Esterase NEGATIVE Urine WBC (Auto) 2 Urine RBC (Auto) 3 07/27/18 07/27/18 07/27/18 03:53 03:53 05:55 WBC 9.2 RBC 3.81 L Hgb 11.8 L Hct 34.5 L MCV 90 MCH 30.9 MCHC 34.1 RDW 14.1 H Plt Count 267 Seg Neutrophils % 69.1 Lymphocytes % 21.1 Monocytes % 8.1 Eosinophils % 1.1 Basophils % 0.6 Absolute Neutrophils 6.4 Absolute Lymphocytes 2.0 Absolute Monocytes 0.8 Absolute Eosinophils 0.1 Absolute Basophils 0.1 Carbonic Acid 1.19 HCO3/H2CO3 Ratio 19:1 ABG pH 7.39 ABG pCO2 39.4 ABG pO2 109.6 H ABG HCO3 23.2 ABG O2 Saturation 98.0 ABG Base Excess -1.6 FiO2 40% Sodium 141.5 Potassium 3.8 Chloride 112 H Carbon Dioxide 21 L Anion Gap 9 BUN 20 Creatinine 0.96 Est GFR ( Amer) > 60 Est GFR (Non-Af Amer) > 60 Glucose 140 H Calcium 9.1 Total Bilirubin 0.6 AST 33 ALT 26 Alkaline Phosphatase 85 Total Protein 6.0 L Albumin 3.2 L Triglycerides Urine Color Urine Appearance Urine pH Ur Specific [place] Urine Protein Urine Glucose (UA) Urine Ketones Urine Blood Urine Nitrite Ur Leukocyte Esterase Urine WBC (Auto) Urine RBC (Auto) 07/25/18 07/25/18 16:11 16:11 Creatine Kinase 50 L CK-MB (CK-2) 1.62 Troponin I < 0.012 Impressions: Head CT 07/25/18 15:58 IMPRESSION: No acute intracranial changes. EVIDENCE OF ACUTE STROKE: NO. Head CTA 07/25/18 16:52 IMPRESSION: NO CTA EVIDENCE OF STENOSIS OR ANEURYSM OF THE [place]. Neck CTA 07/25/18 16:52 IMPRESSION: 1. Normal CTA of the extracranial carotid and vertebral system. 2. 1.1 x 1.7 cm nodule in the right lobe of the thyroid gland. Head MRI 07/25/18 18:26 IMPRESSION: Mild parenchymal volume loss. No acute ischemia. No other definite acute abnormality. KUB X-Ray 07/26/18 11:03 IMPRESSION: Nasoenteric tube overlies stomach with distal tip excluded by collimation. Chest X-Ray 07/27/18 06:00 IMPRESSION: Little interval change copyright 2011 [employer]- All Rights Reserved Assessment & Plan - Diagnosis (1) Acute delirium Is this a current diagnosis for this admission?: Yes Plan: A etiology unknown (2) Drug abuse Is this a current diagnosis for this admission?: Yes Plan: Historically (3) Sleep apnea syndrome Qualifiers: Sleep apnea type: unspecified type Qualified Code(s): G47.30 - Sleep apnea, unspecified Is this a current diagnosis for this admission?: Yes Plan: Historically limited compliance (4) Essential hypertension Is this a current diagnosis for this admission?: Yes Plan: Stable at this time (5) Obesity Qualifiers: Obesity classification: adult class 3 (BMI >= 40) Is this a current diagnosis for this admission?: Yes Plan: Consider nutritional consult when patient stable - Time Total Critical Time (Minutes): 50
[2018-07-27] MEDS: ACETAMINOPHEN 650 MG SUPP.RECT PR PRN (16:37)
[2018-07-27] MEDS: NORMAL SALINE 1000 ML 1,000 ML with POTASSIUM CHLORIDE 20 MEQ, MAGNESIUM SULFATE 8 MEQ,... IV SCH ×5 (18:22)
[2018-07-27] MEDS: AMINO AC/PROTEIN HYDR/WHEY PRO 11 GM/45 ML PKT NG SCH (18:38)
[2018-07-27] MEDS: OXYBUTYNIN CHLORIDE 5 MG TABLET PO SCH (21:26)
[2018-07-28] MEDS: PROPOFOL 1,000 MG/100 ML INFUS..BTL IV PRN ×7 (00:06→21:10)
[2018-07-28] MEDS: MIDAZOLAM HCL 50 MG/100 ML RTUINJ IV PRN (00:35)
[2018-07-28] MEDS: INSULIN REG, HUMAN 100 UNIT/ML 3 ML VIAL (PYX) SUBCUT SCH ×5 (01:35→23:07)
[2018-07-28] MEDS: ACETAMINOPHEN 650 MG SUPP.RECT PR PRN ×2 (02:33→13:26)
[2018-07-28 04:01] LABS: ABSOLUTE BASOPHILS # (AUTO) 0.1 10^3/uL (0.0-0.2); ABSOLUTE EOSINOPHILS # (AUTO) 0.1 10^3/uL (0.0-0.6); ABSOLUTE LYMPHOCYTES (AUTO) 1.3 10^3/uL (0.5-4.7); ABSOLUTE MONOCYTES (AUTO) 0.7 10^3/uL (0.1-1.4); ABSOLUTE NEUT (AUTO) 9.7 10^3/uL (1.7-8.2); BASOPHILS % (AUTO) 0.4 % (0-2); EOSINOPHILS % (AUTO) 0.7 % (0-6); HEMATOCRIT 33.5 % (37.9-51.0); HEMOGLOBIN 11.3 g/dL (13.5-17.0); LYMPHOCYTES % (AUTO) 10.8 % (13-45); MEAN CORPUSCULAR HEMOGLOBIN 30.2 pg (27.0-33.4); MEAN CORPUSCULAR HGB CONC 33.8 g/dL (32.0-36.0); MEAN CORPUSCULAR VOLUME 89 fl (80-97); MONOCYTES % (AUTO) 5.8 % (3-13); PLATELET COUNT 271 10^3/uL (150-450); RED BLOOD COUNT 3.76 10^6/uL (4.35-5.55); RED CELL DISTRIBUTION WIDTH 14.2 % (11.5-14.0); SEGMENTED NEUTROPHILS % (AUTO) 82.3 % (42-78); TOTAL CELLS COUNTED % (AUTO) 100 %; WHITE BLOOD COUNT 11.8 10^3/uL (4.0-10.5)
[2018-07-28 04:23] LABS: ALANINE AMINOTRANSFERASE 26 U/L (21-72); ALBUMIN 3.1 g/dL (3.5-5.0); ALKALINE PHOSPHATASE 92 U/L (38-126); ANION GAP 7 (5-19); ASPARTATE AMINO TRANSFERASE 20 U/L (17-59); BILIRUBIN,DIRECT 0.7 mg/dL (0.0-0.4); BLOOD UREA NITROGEN 16 mg/dL (7-20); CALCIUM 8.8 mg/dL (8.4-10.2); CARBON DIOXIDE 20 mmol/L (22-30); CHLORIDE 115 mmol/L (98-107); GLUCOSE 137 mg/dL (75-110); POTASSIUM 3.9 mmol/L (3.6-5.0); SODIUM 141.7 mmol/L (137-145); TOTAL PROTEIN 5.9 g/dL (6.3-8.2)
[2018-07-28 04:45] LABS: ARTERIAL BLOOD BASE EXCESS -0.7 mmol/L; ARTERIAL BLOOD FIO2 40%; ARTERIAL BLOOD HCO3 23.4 mmol/L (20-24); ARTERIAL BLOOD O2 SATURATION 97.6 % (94-98); ARTERIAL BLOOD PCO2 36.6 mmHg (35-45); ARTERIAL BLOOD PH 7.42 (7.35-7.45); ARTERIAL BLOOD PO2 98.7 mmHg (80-100); ARTERIAL BLOOD TOTAL CO2 24.5 mmol/L (23-27)
[2018-07-28] MEDS: HEPARIN SOD (PORCINE) 5,000 UNIT/ML 1 ML SYRINGE SUBCUT SCH ×3 (05:08→21:06)
[2018-07-28] MEDS: GABAPENTIN 100 MG CAPSULE NG SCH ×3 (05:09→21:06)
--- NOTE | 2018-07-28 07:18 | RADIOLOGY REPORT (SQ) ---
EXAM DESCRIPTION: X-ray single view chest. CLINICAL HISTORY: 67 years Male, intubation COMPARISON: 07/27/2018 and 07/26/2018 TECHNIQUE: Single portable x-ray view of the chest performed on 07/28/2018 at 6:20 AM FINDINGS: The lungs are well expanded. There is increasing volume loss in the left inferior hemithorax. The remainder of the lungs are clear. There is no evidence of a pneumothorax. The cardiac silhouette is stable and is prominent. The mediastinal contours are stable. No acute osseous abnormality is identified. No focal soft tissue abnormalities are seen. Lines and tubes: The endotracheal tube and feeding tube are grossly stable in position. IMPRESSION: 1. Increasing volume loss in the left inferior hemithorax possibly due to a combination of pleural fluid, atelectasis or pneumonia. 2. Grossly stable life support lines and tubes.
--- NOTE | 2018-07-28 09:34 | PDOC PROGRESS REPORT ---
Subjective Progress Note for:: 07/28/18 Subjective:: 67-year-old male admitted for altered mental status/acute encephalopathy. Urine drug screen is positive for marijuana. No acute events of the day of admission. Patient is on four-point restraints. This morning agitated once the restraints are off. Able to give his date of . And he told me he is a diabetic. He is also told me that he has sleep apnea uses BiPAP at home. Unable to give his address. She still confused. MRI of the brain CT of the neck CT head was negative. 07/27/[id number]-ivsi-old male admitted with altered mental status/acute encephalop athy. Urine drug screen is positive for marijuana. MRI of the head was negative LP was negative. Patient is prophylactically intubated on Versed drip and propofol drip. This morning is still agitated and fighting the restraints. We are going to put him on IV morphine 2 mg every 4 as needed for pain as requested by the family and start on cefepime 2 g IV daily. To start him on NG tube feedings. She is stable plan to repeat the CT of the head and a CT of the abdomen as per the family request. 07/[id number]-kzba-old male admitted for altered mental status/acute encephalopathy patient was still on mechanical ventilation on on Versed 2 mg/h and deprivan 40 mcg/kg/min. G-tube was placed yesterday and residual this morning 80 cc so NG tube was clamped. Acute events in the last 24 hours. Patient is afebrile. Hernia level came back 9.8. ABG this morning pH is 7.42 PCO2 36 PO2 98.7 oxygen saturation is 97.6. Reason For Visit: ALTERED MENTAL STATUS AND S/P INTUBATION Physical Exam Vital Signs: Temp Pulse Resp BP Pulse Ox 100.0 F 80 21 H 111/75 96 07/28/18 05:41 07/28/18 08:00 07/28/18 06:18 07/28/18 06:18 07/28/18 06:18 Intake & Output 07/27/18 07/28/18 07/29/18 06:59 06:59 06:59 Intake Total 7293 1582 31 Output Total 9405 6 Balance 342 807 31 Weight 124.5 kg 123.9 kg General appearance: PRESENT: no acute distress, obese, other - Patient is on mechanical ventilation under proper sedation. Head exam: PRESENT: atraumatic Eye exam: PRESENT: other - Pupils are constricted and reactive. Mouth exam: PRESENT: moist, tongue midline Teeth exam: PRESENT: poor dentation Neck exam: ABSENT: carotid bruit, JVD, lymphadenopathy, thyromegaly Respiratory exam: PRESENT: decreased breath sounds Cardiovascular exam: PRESENT: RRR. ABSENT: diastolic murmur, rubs, systolic murmur GI/Abdominal exam: PRESENT: normal bowel sounds, soft. ABSENT: distended, guarding, mass, organolmegaly, rebound, tenderness Extremities exam: PRESENT: full ROM. ABSENT: calf tenderness, clubbing, pedal edema Neurological exam: PRESENT: other - Patient was intubated under sedation unable to do neurological examination. Occasionally patient is moving his arms and legs. Pupils are reactive. Results Laboratory Results: 07/28/18 03:44 07/28/18 03:44 07/28/18 07/28/18 07/28/18 03:44 03:44 03:44 WBC 11.8 H RBC 3.76 L Hgb 11.3 L Hct 33.5 L MCV 89 MCH 30.2 MCHC 33.8 RDW 14.2 H Plt Count 271 Seg Neutrophils % 82.3 H Lymphocytes % 10.8 L Monocytes % 5.8 Eosinophils % 0.7 Basophils % 0.4 Absolute Neutrophils 9.7 H Absolute Lymphocytes 1.3 Absolute Monocytes 0.7 Absolute Eosinophils 0.1 Absolute Basophils 0.1 Carbonic Acid HCO3/H2CO3 Ratio ABG pH ABG pCO2 ABG pO2 ABG HCO3 ABG O2 Saturation ABG Base Excess FiO2 Sodium Potassium Chloride Carbon Dioxide Anion Gap BUN Creatinine Est GFR ( Amer) Est GFR (Non-Af Amer) Glucose Lactic Acid 0.7 Calcium Magnesium Total Bilirubin AST ALT Alkaline Phosphatase Ammonia 9.8 Total Protein Albumin 07/28/18 07/28/18 03:44 04:30 WBC RBC Hgb Hct MCV MCH MCHC RDW Plt Count Seg Neutrophils % Lymphocytes % Monocytes % Eosinophils % Basophils % Absolute Neutrophils Absolute Lymphocytes Absolute Monocytes Absolute Eosinophils Absolute Basophils Carbonic Acid 1.10 HCO3/H2CO3 Ratio 21:1 ABG pH 7.42 ABG pCO2 36.6 ABG pO2 98.7 ABG HCO3 23.4 ABG O2 Saturation 97.6 ABG Base Excess -0.7 FiO2 40% Sodium 141.7 Potassium 3.9 Chloride 115 H Carbon Dioxide 20 L Anion Gap 7 BUN 16 Creatinine 1.04 Est GFR ( Amer) > 60 Est GFR (Non-Af Amer) > 60 Glucose 137 H Lactic Acid Calcium 8.8 Magnesium 2.1 Total Bilirubin 1.0 AST 20 ALT 26 Alkaline Phosphatase 92 Ammonia Total Protein 5.9 L Albumin 3.1 L 07/25/18 07/25/18 16:11 16:11 Creatine Kinase 50 L CK-MB (CK-2) 1.62 Troponin I < 0.012 Impressions: Head CT 07/25/18 15:58 IMPRESSION: No acute intracranial changes. EVIDENCE OF ACUTE STROKE: NO. Head CTA 07/25/18 16:52 IMPRESSION: NO CTA EVIDENCE OF STENOSIS OR ANEURYSM OF THE [place]. Neck CTA 07/25/18 16:52 IMPRESSION: 1. Normal CTA of the extracranial carotid and vertebral system. 2. 1.1 x 1.7 cm nodule in the right lobe of the thyroid gland. Head MRI 07/25/18 18:26 IMPRESSION: Mild parenchymal volume loss. No acute ischemia. No other definite acute abnormality. KUB X-Ray 07/26/18 11:03 IMPRESSION: Nasoenteric tube overlies stomach with distal tip excluded by collimation. Chest X-Ray 07/28/18 06:00 IMPRESSION: 1. Increasing volume loss in the left inferior hemithorax possibly due to a combination of pleural fluid, atelectasis or pneumonia. 2. Grossly stable life support lines and tubes. Assessment and Plan - Diagnosis (1) Acute delirium Is this a current diagnosis for this admission?: Yes Plan: Suspected toxic encephalopathy. Drug screen positive for THC only. Likely synthetic stimulant. Supportive measures, follow-up mental health consult 07/26/2018 67-year-old male admitted with altered mental status/acute and coagulopathy. Urine drug screen is positive for marijuana. Patient is presently on four-point restraints. Mental health consult was requested. Patient is on IV Haldol as needed and IV lorazepam as needed. DC MRI of the brain CT head CT of the neck came back negative. Lab work unremarkable. Plan is to continue the present management. 07/27/[id number]-dnyo-old male admitted for altered mental status/acute encephalopathy. Drug screen is positive for marijuana. Sisters are at bedside the denying that he had a history of alcohol abuse. He was prophylactically intubated because of tachycardia heart rate going up to 150 tachypnea with heart rate more than 40 and is fighting the restraints the intubation mainly to prevent aspiration pneumonia. Presently on Versed and propofol drip still patient was restless in the bed. Start him on IV morphine for pain management as requested by the family members. Health consult was requested but unable to assess the patient because of the sedation. 07/28/[id number]-qpdw-old male admitted with acute delirium only positive finding his urine drug screen is positive for marijuana. Because of the agitation and tachypnea tachycardia he was prophylactically intubated to protect the airway. Chest x-ray done this morning shows increased lung volume loss in the left inferior lung differential diagnosis is atelectasis/pneumonia. Patient is presently on cefepime I am started on IV vancomycin today. And is to repeat the CT head without contrast. Initially MRI was done which was negative CT head was negative CT neck was negative and LP was done and infection is ruled out. (2) Sleep apnea syndrome Qualifiers: Sleep apnea type: unspecified type Qualified Code(s): G47.30 - Sleep apnea, unspecified Is this a current diagnosis for this admission?: Yes Plan: BiPAP nightly 07/26/2018-morbidly obese male with history of sleep apnea. As per the patient he is on BiPAP at home which is going to be resumed during this hospital stay. 07/27/2018-sisters are saying patient does not have any BiPAP or CPAP machine at home. But they do admit that he has a sleep apnea and problems with sleeping at night. 07/28/2018-initially with that patient has sleep apnea using BiPAP at home but the sisters came in and said he does not have any BiPAP or CPAP machine at home. (3) Type II diabetes mellitus Qualifiers: Diabetes mellitus long goods drier insulin use: unspecified fpc insulin use status Diabetes mellitus complication status: without complication Qualified Code(s): E11.9 - Type 2 diabetes mellitus without complications Is this a current diagnosis for this admission?: No Plan: 07/26/2018 patient has history of type 2 diabetes mellitus, on glyburide at home, metformin at home. Metformin was discontinued. Plan to continue glipizide and put the patient on insulin sliding scale every 6 hours. Patient is n.p.o. at this point. 07/27/2018-patient has history of type 2 diabetes mellitus. Metformin and glipizide on hold at this moment. Hemoglobin A1c is 8.6. Patient is presently on insulin sliding scale. Latest blood sugar is 98. To start on NG tube feeding from today. 07/28/2018-patient has history of type 2 diabetes mellitus hemoglobin A1c is 8.6 he is on insulin sliding scale every 6 hours. Is also receiving feeding tubes. This morning feeding tubes are on hold latest blood sugar is 128. Plan is to continue the present management. (4) Essential hypertension Is this a current diagnosis for this admission?: Yes Plan: 07/26/2018 patient has history of hypertension blood pressure this morning is fluctuating 120/81 this morning. He is on lisinopril/hydrochlorothiazide at home we are going to resume the medication and also started on IV hydralazine 10 mg every 6 as needed for the systolic blood pressure more than 150. 07/27/2018 patient has history of hypertension blood pressure today is 121/68 stable. He is on lisinopril/hydrochlorothiazide at home he is receiving it by NG tube. He is also on IV hydralazine 10 mg every 6 hours as needed. 07/28/2018-patient's latest blood pressure is 111/75 he is receiving IV fluids and he is receiving blood pressure medications via NG tube which was on hold from yesterday. (5) Obesity Qualifiers: Obesity classification: adult class 3 (BMI >= 40) Is this a current diagnosis for this admission?: Yes Plan: 07/26/2018-patient's BMI is more than 40. Going to request for dietary consult once the patient mental status improved. 07/27/2018-patient's BMI is more than 45 once he is off the ventilator and off the sedation be going to make dietary recommendations. 07/28/2018-patient's BMI is more than 45 ventilator and off the sedations will discuss with him about diet exercise lifestyle modifications. (6) CHF (congestive heart failure) Is this a current diagnosis for this admission?: No Plan: 07/27/2018-patient has echocardiogram was done in April last year it shows normal systolic heart function but grade 3 2/diastolic heart failure. Patient is not in fluid overload. We are going to check his BNP and continue to monitor his volume status. 07/28/2018-echocardiogram was done last year indicates possible diastolic heart failure which may be chronic. Patient is euvolemic. (7) Pneumonia Is this a current diagnosis for this admission?: Yes Plan: 07/28/2018-P chest and chest x-ray shows possible left base opacification suggestive of pneumonia probably hospital-acquired pneumonia presently on cefepime and vancomycin. Sputum cultures blood cultures are pending. - Time Time Spent with patient: 25-34 minutes Medications reviewed and adjusted accordingly: Yes Anticipated discharge: Home
[2018-07-28] MEDS ORDERED: VANCOMYCIN HCL INJ 1000 MG VIAL IV SCH (10:00)
[2018-07-28] MEDS: GEMFIBROZIL 600 MG TABLET NG SCH ×2 (10:06→18:38)
[2018-07-28] MEDS: AMINO AC/PROTEIN HYDR/WHEY PRO 11 GM/45 ML PKT NG SCH ×3 (10:06→18:31)
[2018-07-28] MEDS: PANTOPRAZOLE SODIUM 40 MG VIAL IV SCH ×2 (10:06→21:06)
[2018-07-28] MEDS: CEFEPIME 2 GM/D5W RTU 2 GM/50 ML RTUPB IV SCH ×2 (10:08→21:07)
[2018-07-28] MEDS: HYDROCHLOROTHIAZIDE 12.5 MG TABLET NG SCH (10:16)
[2018-07-28] MEDS: LISINOPRIL 10 MG TABLET NG SCH (10:16)
[2018-07-28] MEDS: METOPROLOL TARTRATE 100 MG TABLET NG SCH ×2 (10:16→21:27)
--- NOTE | 2018-07-28 11:06 | PSYCHOLOGICAL NOTE ---
Psych Note - Psych Note Date seen by psych provider: 07/28/18 Psych Note: Reason for Consult: toxic encephalopathy EL SEYMOUR is a 67 year old male with history obtained by the record as he is a poor historian with delirium. Patient is currently unable to engage with clinician. Patient is intubated. Will follow
[2018-07-28] MEDS: MORPHINE SULFATE 10 MG/ML INJ IV PRN (13:29)
[2018-07-28] MEDS: VANCOMYCIN HCL 1,500 MG in DEXTROSE 5%-WATER 250 ML IV SCH ×2 (14:06→21:47)
--- NOTE | 2018-07-28 14:10 | RADIOLOGY REPORT (SQ) ---
EXAM DESCRIPTION: CT HEAD WITHOUT COMPLETED DATE/TIME: 07/28/2018 1:59 pm REASON FOR STUDY: altered mental status E08.638 DIABETES DUE TO UNDERLYING CONDITION W OTH ORAL COM P E78.00 PURE HYPERCHOLESTEROLEMIA, UNSPECIFIED D50.9 IRON DEFICIENCY ANEMIA, UNSPECIFIED COMPARISON: 07/25/2018 TECHNIQUE: Axial images acquired through the brain without intravenous contrast. Images reviewed wi th bone, brain and subdural windows. Additional sagittal and coronal reconstructions were generated. Images stored on PACS. All CT scanners at this facility use dose modulation, iterative reconstruction, and/or weight based d osing when appropriate to reduce radiation dose to as low as reasonably achievable (ALARA). [facility]: Dose Right [facility]: CareDose [facility]: Dose Right [facility]: Teradose 4D [facility]: Applika RADIATION DOSE: CT Rad equipment meets quality standard of care and radiation dose reduction techniq ues were employed. CTDIvol: 48.7 mGy. DLP: 979 mGy-cm. mGy. LIMITATIONS: None. FINDINGS: VENTRICLES: Prominent. CEREBRUM: No masses. No hemorrhage. No midline shift. Areas of low density in the white matter mos t likely due to chronic micro-vascular ischemic change. No evidence for acute infarction. CEREBELLUM: No masses. No hemorrhage. No alteration of density. No evidence for acute infarction. EXTRAAXIAL SPACES: Mild age-related involutional change. No fluid collections. No masses. ORBITS AND GLOBE: No intra- or extraconal masses. Normal contour of globe without masses. CALVARIUM: No fracture. PARANASAL SINUSES: There is fluid in the sphenoid sinus and ethmoid air cells. There is fluid in the posterior aspect of both sides of the nasopharynx. SOFT TISSUES: No mass or hematoma. OTHER: No other significant finding. IMPRESSION: MILD CHRONIC CHANGES OF ATROPHY AND MICROVASCULAR ISCHEMIA. NO ACUTE PROCESS. EVIDENCE OF ACUTE STROKE: NO. TECHNICAL DOCUMENTATION: JOB ID: [id number] Quality ID # [id number]: Final reports with documentation of one or more dose reduction techniques (e.g., Au tomated exposure control, adjustment of the mA and/or kV according to patient size, use of iterative reconstruction technique) 2010 [employer]- All Rights Reserved Reading location - IP/workstation name: [email or web address]
[2018-07-28] MEDS: NORMAL SALINE 1000 ML 1,000 ML with POTASSIUM CHLORIDE 20 MEQ, MAGNESIUM SULFATE 8 MEQ,... IV SCH ×5 (18:40)
[2018-07-28] MEDS: NORMAL SALINE 1000 ML 1,000 ML IV PRN (18:44)
[2018-07-28] MEDS: OXYBUTYNIN CHLORIDE 5 MG TABLET PO SCH (21:06)
--- NOTE | 2018-07-28 22:47 | RADIOLOGY REPORT (SQ) ---
EXAM DESCRIPTION: KUB CLINICAL HISTORY: 67 years Male, ileus COMPARISON: 07/26/2018 FINDINGS: Nasogastric tube remains in place, tip in left upper quadrant, likely in the body of the stomach. Multiple pelvic and left abdominal surgical clips are noted. No bowel distention. No pneumatosis. Temperature probe is noted. No suspicious calcifications. IMPRESSION: 1. No acute abdominal findings. No bowel distention. 2. Nasogastric tube remains in place.
[2018-07-29] MEDS: MORPHINE SULFATE 10 MG/ML INJ IV PRN ×3 (00:06→08:32)
[2018-07-29] MEDS: PROPOFOL 1,000 MG/100 ML INFUS..BTL IV PRN ×5 (00:30→23:27)
[2018-07-29 03:59] LABS: ARTERIAL BLOOD BASE EXCESS -3.3 mmol/L; ARTERIAL BLOOD FIO2 40%; ARTERIAL BLOOD H2CO3 1.12 mmol/L (1.05-1.35); ARTERIAL BLOOD HCO3 21.4 mmol/L (20-24); ARTERIAL BLOOD O2 SATURATION 97.5 % (94-98); ARTERIAL BLOOD PCO2 37.2 mmHg (35-45); ARTERIAL BLOOD PH 7.38 (7.35-7.45); ARTERIAL BLOOD PO2 100.6 mmHg (80-100); ARTERIAL BLOOD TOTAL CO2 22.6 mmol/L (23-27)
[2018-07-29] MEDS: MIDAZOLAM HCL 50 MG/100 ML RTUINJ IV PRN (04:03)
[2018-07-29] MEDS: INSULIN REG, HUMAN 100 UNIT/ML 3 ML VIAL (PYX) SUBCUT SCH ×3 (05:02→17:26)
[2018-07-29 05:04] LABS: ABSOLUTE BASOPHILS # (AUTO) 0.1 10^3/uL (0.0-0.2); ABSOLUTE EOSINOPHILS # (AUTO) 0.2 10^3/uL (0.0-0.6); ABSOLUTE LYMPHOCYTES (AUTO) 1.6 10^3/uL (0.5-4.7); ABSOLUTE MONOCYTES (AUTO) 0.7 10^3/uL (0.1-1.4); BASOPHILS % (AUTO) 0.7 % (0-2); EOSINOPHILS % (AUTO) 1.3 % (0-6); HEMATOCRIT 32.7 % (37.9-51.0); HEMOGLOBIN 11.1 g/dL (13.5-17.0); MEAN CORPUSCULAR HEMOGLOBIN 30.3 pg (27.0-33.4); MEAN CORPUSCULAR HGB CONC 33.9 g/dL (32.0-36.0); MEAN CORPUSCULAR VOLUME 89 fl (80-97); MONOCYTES % (AUTO) 5.2 % (3-13); PLATELET COUNT 261 10^3/uL (150-450); RED BLOOD COUNT 3.66 10^6/uL (4.35-5.55); SEGMENTED NEUTROPHILS % (AUTO) 79.8 % (42-78); TOTAL CELLS COUNTED % (AUTO) 100 %; WHITE BLOOD COUNT 12.5 10^3/uL (4.0-10.5)
[2018-07-29] MEDS: GABAPENTIN 100 MG CAPSULE NG SCH ×3 (05:14→21:41)
[2018-07-29] MEDS: HEPARIN SOD (PORCINE) 5,000 UNIT/ML 1 ML SYRINGE SUBCUT SCH ×3 (05:14→21:40)
[2018-07-29 05:25] LABS: ALANINE AMINOTRANSFERASE 22 U/L (21-72); ALKALINE PHOSPHATASE 94 U/L (38-126); ANION GAP 10 (5-19); ASPARTATE AMINO TRANSFERASE 17 U/L (17-59); BILIRUBIN,DIRECT 0.6 mg/dL (0.0-0.4); BILIRUBIN,TOTAL 0.8 mg/dL (0.2-1.3); BLOOD UREA NITROGEN 15 mg/dL (7-20); CALCIUM 8.6 mg/dL (8.4-10.2); CARBON DIOXIDE 18 mmol/L (22-30); CHLORIDE 113 mmol/L (98-107); GLUCOSE 116 mg/dL (75-110); POTASSIUM 4.1 mmol/L (3.6-5.0); SODIUM 141.1 mmol/L (137-145); TOTAL PROTEIN 6.1 g/dL (6.3-8.2)
--- NOTE | 2018-07-29 08:56 | PDOC PROGRESS REPORT ---
Subjective Progress Note for:: 07/29/18 Subjective:: 67-year-old male admitted for altered mental status/acute encephalopathy. Urine drug screen is positive for marijuana. No acute events of the day of admission. Patient is on four-point restraints. This morning agitated once the restraints are off. Able to give his date of . And he told me he is a diabetic. He is also told me that he has sleep apnea uses BiPAP at home. Unable to give his address. She still confused. MRI of the brain CT of the neck CT head was negative. 07/27/[id number]-galv-old male admitted with altered mental status/acute encephalop athy. Urine drug screen is positive for marijuana. MRI of the head was negative LP was negative. Patient is prophylactically intubated on Versed drip and propofol drip. This morning is still agitated and fighting the restraints. We are going to put him on IV morphine 2 mg every 4 as needed for pain as requested by the family and start on cefepime 2 g IV daily. To start him on NG tube feedings. She is stable plan to repeat the CT of the head and a CT of the abdomen as per the family request. 07/28/[id number]-scyk-old male admitted for altered mental status/acute encephalopathy patient was still on mechanical ventilation on on Versed 2 mg/h and deprivan 40 mcg/kg/min. G-tube was placed yesterday and residual this morning 80 cc so NG tube was clamped. Acute events in the last 24 hours. Patient is afebrile. Hernia level came back 9.8. ABG this morning pH is 7.42 PCO2 36 PO2 98.7 oxygen saturation is 97.6. 07/29/2018-no acute events in the last 24 hours. Patient is afebrile. Still on mechanical ventilation. He is off the sedation at this point. Still on mechanical ventilation. Pulse ox is 96% on 40% oxygen. KUB to be done last night shows no obstruction or ileus. She has NG tube still have a lot of secretions coming out. On suctioning of the lungs lack a lot of drainage. Plan is to try to wean him off today for possible. Patient is more alert more awake little bit agitated and moving all his extremities. Pupils are equal and react to light accommodation. Corneal reflex present. Reason For Visit: ALTERED MENTAL STATUS AND S/P INTUBATION Physical Exam Vital Signs: Temp Pulse Resp BP Pulse Ox 98.6 F 90 24 H 137/76 H 98 07/29/18 08:00 07/29/18 08:00 07/29/18 08:00 07/29/18 08:00 07/29/18 08:00 Intake & Output 07/28/18 07/29/18 07/30/18 06:59 06:59 06:59 Intake Total 2893 2266 20 Output Total 6352 1041 225 Balance 807 -159 -205 Weight 123.9 kg 124.7 kg General appearance: PRESENT: obese Head exam: PRESENT: atraumatic Eye exam: PRESENT: PERRLA Mouth exam: PRESENT: moist, tongue midline Neck exam: ABSENT: carotid bruit, JVD, lymphadenopathy, thyromegaly Respiratory exam: PRESENT: decreased breath sounds Cardiovascular exam: PRESENT: tachycardia GI/Abdominal exam: PRESENT: normal bowel sounds, soft, other - NG tube in place.. ABSENT: distended, guarding, mass, organolmegaly, rebound, tenderness Gentrourinary exam: PRESENT: indwelling catheter Neurological exam: PRESENT: other - Patient is to undergo mechanical ventilation on sedation was discontinued this morning. Nipples are equal and react to light accommodation corneal reflex is present. On calling is opening his eyes but not responding. Showing significant improvement compared to yesterday. Results Laboratory Results: 07/29/18 04:58 07/29/18 04:58 07/29/18 07/29/18 07/29/18 03:50 04:58 04:58 WBC 12.5 H RBC 3.66 L Hgb 11.1 L Hct 32.7 L MCV 89 MCH 30.3 MCHC 33.9 RDW 14.0 Plt Count 261 Seg Neutrophils % 79.8 H Lymphocytes % 13.0 Monocytes % 5.2 Eosinophils % 1.3 Basophils % 0.7 Absolute Neutrophils 10.0 H Absolute Lymphocytes 1.6 Absolute Monocytes 0.7 Absolute Eosinophils 0.2 Absolute Basophils 0.1 Carbonic Acid 1.12 HCO3/H2CO3 Ratio 19:1 ABG pH 7.38 ABG pCO2 37.2 ABG pO2 100.6 H ABG HCO3 21.4 ABG O2 Saturation 97.5 ABG Base Excess -3.3 FiO2 40% Sodium 141.1 Potassium 4.1 Chloride 113 H Carbon Dioxide 18 L Anion Gap 10 BUN 15 Creatinine 1.02 Est GFR ( Amer) > 60 Est GFR (Non-Af Amer) > 60 Glucose 116 H Calcium 8.6 Magnesium 2.3 Total Bilirubin 0.8 AST 17 ALT 22 Alkaline Phosphatase 94 Total Protein 6.1 L Albumin 3.0 L 07/25/18 21:40 Cerebral Spinal Fluid - Tube 3 (Csf) Gram Stain - Final 07/25/18 21:40 Cerebral Spinal Fluid - Tube 3 (Csf) CSF Culture - Final NO GROWTH 3 DAYS 07/25/18 07/25/18 16:11 16:11 Creatine Kinase 50 L CK-MB (CK-2) 1.62 Troponin I < 0.012 Impressions: Head CTA 07/25/18 16:52 IMPRESSION: NO CTA EVIDENCE OF STENOSIS OR ANEURYSM OF THE [place]. Neck CTA 07/25/18 16:52 IMPRESSION: 1. Normal CTA of the extracranial carotid and vertebral system. 2. 1.1 x 1.7 cm nodule in the right lobe of the thyroid gland. Head MRI 07/25/18 18:26 IMPRESSION: Mild parenchymal volume loss. No acute ischemia. No other definite acute abnormality. Head CT 07/28/18 00:00 IMPRESSION: MILD CHRONIC CHANGES OF ATROPHY AND MICROVASCULAR ISCHEMIA. NO ACUTE PROCESS. EVIDENCE OF ACUTE STROKE: NO. KUB X-Ray 07/28/18 00:00 IMPRESSION: 1. No acute abdominal findings. No bowel distention. 2. Nasogastric tube remains in place. Assessment and Plan - Diagnosis (1) Acute delirium Is this a current diagnosis for this admission?: Yes Plan: Suspected toxic encephalopathy. Drug screen positive for THC only. Likely synthetic stimulant. Supportive measures, follow-up mental health consult 07/26/2018 67-year-old male admitted with altered mental status/acute and coagulopathy. Urine drug screen is positive for marijuana. Patient is p resently on four-point restraints. Mental health consult was requested. Patient is on IV Haldol as needed and IV lorazepam as needed. DC MRI of the brain CT head CT of the neck came back negative. Lab work unremarkable. Plan is to continue the present management. 07/27/[id number]-mikm-old male admitted for altered mental status/acute encephalopathy. Drug screen is positive for marijuana. Sisters are at bedside the denying that he had a history of alcohol abuse. He was prophylactically intubated because of tachycardia heart rate going up to 150 tachypnea with heart rate more than 40 and is fighting the restraints the intubation mainly to prevent aspiration pneumonia. Presently on Versed and propofol drip still patient was restless in the bed. Start him on IV morphine for pain management as requested by the family members. Health consult was requested but unable to assess the patient because of the sedation. 07/28/[id number]-cjgd-old male admitted with acute delirium only positive finding his urine drug screen is positive for marijuana. Because of the agitation and tachypnea tachycardia he was prophylactically intubated to protect the airway. Chest x-ray done this morning shows increased lung volume loss in the left inferior lung differential diagnosis is atelectasis/pneumonia. Patient is presently on cefepime I am started on IV vancomycin today. And is to repeat the CT head without contrast. Initially MRI was done which was negative CT head was negative CT neck was negative and LP was done and infection is ruled out. 07/29/[id number]-unnz-old male admitted with acute delirium only positive finding is urine drug screen is positive for marijuana. Cause for acute delirium is still unknown. Because of the agitation and tachypnea tachycardia patient was prophylactically intubated. A lot of tracheal secretions coming out. Patient is presently on cefepime and IV vancomycin. Afebrile today. Chest x-ray questionable left lower lobe infiltrate may hospital-acquired p neumonia/aspiration pneumonia secondary to altered mental status. He is off the sedation at this point try to wean him off from the vent today. (2) Sleep apnea syndrome Qualifiers: Sleep apnea type: unspecified type Qualified Code(s): G47.30 - Sleep apnea, unspecified Is this a current diagnosis for this admission?: Yes Plan: BiPAP nightly 07/26/2018-morbidly obese male with history of sleep apnea. As per the patient he is on BiPAP at home which is going to be resumed during this hospital stay. 07/27/2018-sisters are saying patient does not have any BiPAP or CPAP machine at home. But they do admit that he has a sleep apnea and problems with sleeping at night. 07/28/2018-initially with that patient has sleep apnea using BiPAP at home but the sisters came in and said he does not have any BiPAP or CPAP machine at home. 07/29/2018-patient has history of sleep apnea questionable history of using BiPAP at home. (3) Type II diabetes mellitus Qualifiers: Diabetes mellitus terminal operations manager insulin use: unspecified terminal operations manager insulin use status Diabetes mellitus complication status: without complication Qualified Code(s): E11.9 - Type 2 diabetes mellitus without complications Is this a current diagnosis for this admission?: No Plan: 07/26/2018 patient has history of type 2 diabetes mellitus, on glyburide at home, metformin at home. Metformin was discontinued. Plan to continue glipizide and put the patient on insulin sliding scale every 6 hours. Patient is n.p.o. at this point. 07/27/2018-patient has history of type 2 diabetes mellitus. Metformin and glipizide on hold at this moment. Hemoglobin A1c is 8.6. Patient is presently on insulin sliding scale. Latest blood sugar is 98. To start on NG tube feedi ng from today. 07/28/2018-patient has history of type 2 diabetes mellitus hemoglobin A1c is 8.6 he is on insulin sliding scale every 6 hours. Is also receiving feeding tubes. This morning feeding tubes are on hold latest blood sugar is 128. Plan is to continue the present management. 07/29/2018-patient is on insulin sliding scale every 6 hours latest blood sugar is 107 well-controlled. Hemoglobin A1c is 8.6. Plan is to continue the present management. (4) Essential hypertension Is this a current diagnosis for this admission?: Yes Plan: 07/26/2018 patient has history of hypertension blood pressure this morning is fluctuating 120/81 this morning. He is on lisinopril/hydrochlorothiazide at home we are going to resume the medication and also started on IV hydralazine 10 mg every 6 as needed for the systolic blood pressure more than 150. 07/27/2018 patient has history of hypertension blood pressure today is 121/68 stable. He is on lisinopril/hydrochlorothiazide at home he is receiving it by NG tube. He is also on IV hydralazine 10 mg every 6 hours as needed. 07/28/2018-patient's latest blood pressure is 111/75 he is receiving IV fluids and he is receiving blood pressure medications via NG tube which was on hold from yesterday. 07/29/2018-patient blood pressure today 150/77 he is on IV fluids normal saline 30 cc/h he is receiving blood pressure medications via NG tube. Plan is to continue the present management. (5) Obesity Qualifiers: Obesity classification: adult class 3 (BMI >= 40) Is this a current diagnosis for this admission?: Yes (6) CHF (congestive heart failure) Is this a current diagnosis for this admission?: No Plan: 07/27/2018-patient has echocardiogram was done in April last year it shows normal systolic heart function but grade 3 2/diastolic heart failure. Patient is not in fluid overload. We are going to check his BNP and continue to monitor his volume status. 07/28/2018-echocardiogram was done last year indicates possible diastolic heart failure which may be chronic. Patient is euvolemic. 07/29/2018-patient might have chronic diastolic heart failure and he is euvolemic. Plan is to continue the present management. (7) Pneumonia Is this a current diagnosis for this admission?: Yes Plan: 07/28/2018-P chest and chest x-ray shows possible left base opacification suggestive of pneumonia probably hospital-acquired pneumonia presently on cefepime and vancomycin. Sputum cultures blood cultures are pending. 07/29/2018-chest x-ray done yesterday shows possible left base opacification it can be aspiration pneumonia/hospital-acquired pneumonia. Presently on vancomycin and cefepime I am blood cultures are negative sputum cultures pending. WBC count is 12.1 T-max is 98.8. Plan is to continue the present management. (8) Acute kidney injury Is this a current diagnosis for this admission?: Yes Plan: 4 09/28/2018-patient's admission creatinine is 1.24 and it is improved to 1.02 today acute kidney injury most likely secondary to prerenal causes resolving with IV fluids. (9) Acute respiratory failure Is this a current diagnosis for this admission?: Yes Plan: 07/29/2018 patient was intubated on mechanical ventilation a lot of tracheal secretions coming out on suctioning. Chest x-ray shows possible left base opacification. Acute respiratory failure may be secondary to underlying pneumonia. Patient is presently under mechanical ventilation. - Time Time Spent with patient: 35 or more minutes Medications reviewed and adjusted accordingly: Yes Anticipated discharge: Home
[2018-07-29] MEDS: AMINO AC/PROTEIN HYDR/WHEY PRO 11 GM/45 ML PKT NG SCH ×3 (09:42→17:31)
[2018-07-29] MEDS: METOPROLOL TARTRATE 100 MG TABLET NG SCH ×2 (09:42→21:42)
[2018-07-29] MEDS: CEFEPIME 2 GM/D5W RTU 2 GM/50 ML RTUPB IV SCH (09:42)
[2018-07-29] MEDS: PANTOPRAZOLE SODIUM 40 MG VIAL IV SCH ×2 (09:42→21:40)
[2018-07-29] MEDS: VANCOMYCIN HCL 1,500 MG in DEXTROSE 5%-WATER 250 ML IV SCH ×2 (09:43→21:40)
[2018-07-29] MEDS: GEMFIBROZIL 600 MG TABLET NG SCH ×2 (09:46→17:27)
--- NOTE | 2018-07-29 10:06 | RADIOLOGY REPORT (SQ) ---
EXAM DESCRIPTION: CHEST SINGLE VIEW COMPLETED DATE/TIME: 07/29/2018 6:32 am REASON FOR STUDY: intubated COMPARISON: None. NUMBER OF VIEWS: One view. TECHNIQUE: Single frontal radiographic image of the chest acquired. LIMITATIONS: None. FINDINGS: LUNGS AND PLEURA: Improved aeration in the left lung. No pneumothorax. MEDIASTINUM AND HEART: Stable heart size and mediastinal structures. SUPPORT DEVICES: Appropriate location without change. BONY STRUCTURES: No acute findings. HARDWARE: None. OTHER: No other significant finding. IMPRESSION: STABLE APPEARANCE OF THE CHEST. SUPPORT DEVICES UNCHANGED. Reading location - IP/workstation name: [email or web address]
[2018-07-29] MEDS: LISINOPRIL 10 MG TABLET NG SCH (10:34)
[2018-07-29] MEDS: HYDROCHLOROTHIAZIDE 12.5 MG TABLET NG SCH (10:34)
[2018-07-29] MEDS ORDERED: FENTANYL CITRATE INJ/PF 100 MCG/2 ML AMPUL IV ONE (14:00)
[2018-07-29] MEDS: NORMAL SALINE 1000 ML 1,000 ML with POTASSIUM CHLORIDE 20 MEQ, MAGNESIUM SULFATE 8 MEQ,... IV SCH ×5 (17:27)
[2018-07-29] MEDS: FENTANYL CITRATE INJ/PF 100 MCG/2 ML AMPUL IV PRN (20:04)
[2018-07-29] MEDS: CEFEPIME HCL 2 GM in DEXTROSE 5%-WATER 50 ML IV SCH (21:40)
[2018-07-29] MEDS: OXYBUTYNIN CHLORIDE 5 MG TABLET PO SCH (21:41)
[2018-07-29] MEDS ORDERED: CEFAZOLIN SODIUM 2 GM in DEXTROSE 5%-WATER 100 ML IV SCH (22:00)
[2018-07-29] MEDS ORDERED: METOCLOPRAMIDE HCL INJ/PF 10 MG/2 ML SDV IV ONE (22:15)
[2018-07-30] MEDS: INSULIN REG, HUMAN 100 UNIT/ML 3 ML VIAL (PYX) SUBCUT SCH ×4 (04:03→19:30)
[2018-07-30] MEDS: PROPOFOL 1,000 MG/100 ML INFUS..BTL IV PRN ×6 (04:04→21:59)
[2018-07-30] MEDS: FENTANYL CITRATE INJ/PF 100 MCG/2 ML AMPUL IV PRN ×2 (04:32→17:25)
[2018-07-30] MEDS: HEPARIN SOD (PORCINE) 5,000 UNIT/ML 1 ML SYRINGE SUBCUT SCH ×3 (05:08→22:01)
[2018-07-30] MEDS: GABAPENTIN 100 MG CAPSULE NG SCH ×3 (05:09→22:03)
[2018-07-30 05:17] LABS: ARTERIAL BLOOD BASE EXCESS -2.7 mmol/L; ARTERIAL BLOOD H2CO3 1.16 mmol/L (1.05-1.35); ARTERIAL BLOOD HCO3 22.2 mmol/L (20-24); ARTERIAL BLOOD O2 SATURATION 95.1 % (94-98); ARTERIAL BLOOD PCO2 38.7 mmHg (35-45); ARTERIAL BLOOD PH 7.38 (7.35-7.45); ARTERIAL BLOOD PO2 76.6 mmHg (80-100); ARTERIAL BLOOD TOTAL CO2 23.4 mmol/L (23-27)
[2018-07-30 05:19] LABS: ARTERIAL BLOOD FIO2 35%
[2018-07-30 06:50] LABS: ABSOLUTE BASOPHILS # (AUTO) 0.1 10^3/uL (0.0-0.2); ABSOLUTE EOSINOPHILS # (AUTO) 0.2 10^3/uL (0.0-0.6); ABSOLUTE LYMPHOCYTES (AUTO) 1.6 10^3/uL (0.5-4.7); ABSOLUTE MONOCYTES (AUTO) 0.8 10^3/uL (0.1-1.4); ABSOLUTE NEUT (AUTO) 9.3 10^3/uL (1.7-8.2); BASOPHILS % (AUTO) 0.7 % (0-2); EOSINOPHILS % (AUTO) 1.6 % (0-6); HEMATOCRIT 30.4 % (37.9-51.0); HEMOGLOBIN 10.2 g/dL (13.5-17.0); LYMPHOCYTES % (AUTO) 13.7 % (13-45); MEAN CORPUSCULAR HEMOGLOBIN 30.4 pg (27.0-33.4); MEAN CORPUSCULAR HGB CONC 33.5 g/dL (32.0-36.0); MEAN CORPUSCULAR VOLUME 91 fl (80-97); MONOCYTES % (AUTO) 6.3 % (3-13); PLATELET COUNT 306 10^3/uL (150-450); RED BLOOD COUNT 3.36 10^6/uL (4.35-5.55); SEGMENTED NEUTROPHILS % (AUTO) 77.7 % (42-78); TOTAL CELLS COUNTED % (AUTO) 100 %
[2018-07-30 07:14] LABS: ALANINE AMINOTRANSFERASE 22 U/L (21-72); ALKALINE PHOSPHATASE 100 U/L (38-126); ANION GAP 11 (5-19); ASPARTATE AMINO TRANSFERASE 15 U/L (17-59); BILIRUBIN,DIRECT 0.5 mg/dL (0.0-0.4); BILIRUBIN,TOTAL 0.5 mg/dL (0.2-1.3); BLOOD UREA NITROGEN 17 mg/dL (7-20); CALCIUM 8.5 mg/dL (8.4-10.2); CARBON DIOXIDE 20 mmol/L (22-30); CHLORIDE 110 mmol/L (98-107); GLUCOSE 107 mg/dL (75-110); SODIUM 140.8 mmol/L (137-145); TOTAL PROTEIN 6.1 g/dL (6.3-8.2)
[2018-07-30] MEDS: NORMAL SALINE 1000 ML 1,000 ML IV PRN (07:56)
--- NOTE | 2018-07-30 08:41 | RADIOLOGY REPORT (SQ) ---
EXAM DESCRIPTION: CHEST SINGLE VIEW COMPLETED DATE/TIME: 07/30/2018 7:00 am REASON FOR STUDY: resp failure COMPARISON: 07/29/2018 NUMBER OF VIEWS: One view. TECHNIQUE: Single frontal radiographic image of the chest acquired. LIMITATIONS: None. FINDINGS: LUNGS AND PLEURA: Left lower lobe airspace disease with better definition of the left hear t border. Right lung is clear. No pneumothorax. MEDIASTINUM AND HEART: Stable heart size and mediastinal structures. SUPPORT DEVICES: Appropriate location without change. BONY STRUCTURES: No acute findings. HARDWARE: None. OTHER: No other significant finding. IMPRESSION: Slight improvement. No pneumothorax. Reading location - IP/workstation name: [email or web address]
--- NOTE | 2018-07-30 09:21 | PDOC PROGRESS REPORT ---
Subjective Progress Note for:: 07/30/18 Subjective:: 67-year-old male admitted for altered mental status/acute encephalopathy. Urine drug screen is positive for marijuana. No acute events of the day of admission. Patient is on four-point restraints. This morning agitated once the restraints are off. Able to give his date of . And he told me he is a diabetic. He is also told me that he has sleep apnea uses BiPAP at home. Unable to give his address. She still confused. MRI of the brain CT of the neck CT head was negative. 07/27/[id number]-vzbl-old male admitted with altered mental status/acute encephalop athy. Urine drug screen is positive for marijuana. MRI of the head was negative LP was negative. Patient is prophylactically intubated on Versed drip and propofol drip. This morning is still agitated and fighting the restraints. We are going to put him on IV morphine 2 mg every 4 as needed for pain as requested by the family and start on cefepime 2 g IV daily. To start him on NG tube feedings. She is stable plan to repeat the CT of the head and a CT of the abdomen as per the family request. 07/28/[id number]-cjir-old male admitted for altered mental status/acute encephalopathy patient was still on mechanical ventilation on on Versed 2 mg/h and deprivan 40 mcg/kg/min. G-tube was placed yesterday and residual this morning 80 cc so NG tube was clamped. Acute events in the last 24 hours. Patient is afebrile. Hernia level came back 9.8. ABG this morning pH is 7.42 PCO2 36 PO2 98.7 oxygen saturation is 97.6. 07/29/2018-no acute events in the last 24 hours. Patient is afebrile. Still on mechanical ventilation. He is off the sedation at this point. Still on mechanical ventilation. Pulse ox is 96% on 40% oxygen. KUB to be done last night shows no obstruction or ileus. She has NG tube still have a lot of secretions coming out. On suctioning of the lungs lack a lot of drainage. Plan is to try to wean him off today for possible. Patient is more alert more awake little bit agitated and moving all his extremities. Pupils are equal and react to light accommodation. Corneal reflex present. 07/30/[id number]-jhpj-old male admitted for acute delirium. Urine drug screen is onl y positive for marijuana. Family is denying patient has history of any polysubstance abuse or alcohol abuse. MRI of the brain is negative CT head is negative CT of the neck is negative. [address] head was repeated which was negative. No acute events in the last 24 hours. Patient is afebrile. Sputum cultures came back positive for staph aureus. Patient's input is 3.1 L output is 3.5 L with a negative balance of 400 mL yesterday. on normal saline at 30 cc/h and he is receiving NG tube feedings. On mechanical ventilation with PEEP of 10 respiratory rate of 8 oxygen saturation of 35% tidal volume of 600. On deep Ativan 40 mcg/kg/min for sedation and is receiving fentanyl at 50 mcg as needed for agitation. Latest chest x-ray suggestive of left lower lobe pneumonia probably aspiration/hospital-acquired pneumonia receiving IV vancomycin and cefepime ,based on the cultures sensitivity reports plan is to discontinue IV vancomycin from today. Reason For Visit: ALTERED MENTAL STATUS AND S/P INTUBATION Physical Exam Vital Signs: Temp Pulse Resp BP Pulse Ox 99.0 F 83 20 121/64 96 07/30/18 08:00 07/30/18 08:00 07/30/18 08:10 07/30/18 08:10 07/30/18 08:10 Intake & Output 07/29/18 07/30/18 07/31/18 06:59 06:59 06:59 Intake Total 2266 3164 100 Output Total 2425 3575 390 Balance -159 -411 -290 Weight 124.7 kg 121.8 kg General appearance: PRESENT: obese, well-developed, other - On mechanical ventilation under sedation. Head exam: PRESENT: atraumatic Eye exam: PRESENT: PERRLA Mouth exam: PRESENT: moist, tongue midline Neck exam: ABSENT: carotid bruit, JVD, lymphadenopathy, thyromegaly Respiratory exam: PRESENT: clear to auscultation filomena. ABSENT: rales, rhonchi, wheezes Cardiovascular exam: PRESENT: RRR. ABSENT: diastolic murmur, rubs, systolic murmur GI/Abdominal exam: PRESENT: normal bowel sounds, soft, other - NG tube is in place.. ABSENT: distended, guarding, mass, organolmegaly, rebound, tenderness Gentrourinary exam: PRESENT: indwelling catheter Extremities exam: PRESENT: full ROM. ABSENT: calf tenderness, clubbing, pedal edema Neurological exam: PRESENT: other - Patient is presently on mechanical ventilation under sedation. Results Laboratory Results: 07/30/18 05:57 07/30/18 05:57 07/30/18 07/30/18 07/30/18 05:00 05:57 05:57 WBC 12.0 H RBC 3.36 L Hgb 10.2 L Hct 30.4 L MCV 91 MCH 30.4 MCHC 33.5 RDW 14.0 Plt Count 306 Seg Neutrophils % 77.7 Lymphocytes % 13.7 Monocytes % 6.3 Eosinophils % 1.6 Basophils % 0.7 Absolute Neutrophils 9.3 H Absolute Lymphocytes 1.6 Absolute Monocytes 0.8 Absolute Eosinophils 0.2 Absolute Basophils 0.1 Carbonic Acid 1.16 HCO3/H2CO3 Ratio 19:1 ABG pH 7.38 ABG pCO2 38.7 ABG pO2 76.6 L ABG HCO3 22.2 ABG O2 Saturation 95.1 ABG Base Excess -2.7 FiO2 35% Sodium 140.8 Potassium 4.0 Chloride 110 H Carbon Dioxide 20 L Anion Gap 11 BUN 17 Creatinine 1.08 Est GFR ( Amer) > 60 Est GFR (Non-Af Amer) > 60 Glucose 107 Calcium 8.5 Magnesium 2.4 H Total Bilirubin 0.5 AST 15 L ALT 22 Alkaline Phosphatase 100 Total Protein 6.1 L Albumin 3.0 L 07/25/18 07/25/18 16:11 16:11 Creatine Kinase 50 L CK-MB (CK-2) 1.62 Troponin I < 0.012 Impressions: Head CTA 07/25/18 16:52 IMPRESSION: NO CTA EVIDENCE OF STENOSIS OR ANEURYSM OF THE THL[place]THLOCCO [place]. Neck CTA 07/25/18 16:52 IMPRESSION: 1. Normal CTA of the extracranial carotid and vertebral system. 2. 1.1 x 1.7 cm nodule in the right lobe of the thyroid gland. Head MRI 07/25/18 18:26 IMPRESSION: Mild parenchymal volume loss. No acute ischemia. No other definite acute abnormality. Head CT 07/28/18 00:00 IMPRESSION: MILD CHRONIC CHANGES OF ATROPHY AND MICROVASCULAR ISCHEMIA. NO ACUTE PROCESS. EVIDENCE OF ACUTE STROKE: NO. KUB X-Ray 07/28/18 00:00 IMPRESSION: 1. No acute abdominal findings. No bowel distention. 2. Nasogastric tube remains in place. Chest X-Ray 07/30/18 06:00 IMPRESSION: Slight improvement. No pneumothorax. Assessment and Plan - Diagnosis (1) Acute delirium Is this a current diagnosis for this admission?: Yes Plan: Suspected toxic encephalopathy. Drug screen positive for THC only. Likely synthetic stimulant. Supportive measures, follow-up mental health consult 07/26/2018 67-year-old male admitted with altered mental status/acute and coagulopathy. Urine drug screen is positive for marijuana. Patient is pr esently on four-point restraints. Mental health consult was requested. Patient is on IV Haldol as needed and IV lorazepam as needed. DC MRI of the brain CT head CT of the neck came back negative. Lab work unremarkable. Plan is to continue the present management. 07/27/[id number]-ncwv-old male admitted for altered mental status/acute encephalopathy. Drug screen is positive for marijuana. Sisters are at bedside the denying that he had a history of alcohol abuse. He was prophylactically intubated because of tachycardia heart rate going up to 150 tachypnea with heart rate more than 40 and is fighting the restraints the intubation mainly to prevent aspiration pneumonia. Presently on Versed and propofol drip still patient was restless in the bed. Start him on IV morphine for pain management as requested by the family members. Health consult was requested but unable to assess the patient because of the sedation. 07/28/[id number]-rlfx-old male admitted with acute delirium only positive finding his urine drug screen is positive for marijuana. Because of the agitation and tachypnea tachycardia he was prophylactically intubated to protect the airway. Chest x-ray done this morning shows increased lung volume loss in the left inferior lung differential diagnosis is atelectasis/pneumonia. Patient is presently on cefepime I am started on IV vancomycin today. And is to repeat the CT head without contrast. Initially MRI was done which was negative CT head was negative CT neck was negative and LP was done and infection is ruled out. 07/29/[id number]-cwxs-old male admitted with acute delirium only positive finding is urine drug screen is positive for marijuana. Cause for acute delirium is still unknown. Because of the agitation and tachypnea tachycardia patient was prophylactically intubated. A lot of tracheal secretions coming out. Patient is presently on cefepime and IV vancomycin. Afebrile today. Chest x-ray questionable left lower lobe infiltrate may hospital-acquired pn eumonia/aspiration pneumonia secondary to altered mental status. He is off the sedation at this point try to wean him off from the vent today. 07/30/2018-because of acute delirium is still unknown. Urine drug screen is only positive for marijuana. MRI CT head CT of the neck are negative so far. Bo henao was intubated because of tachypnea tachycardia and agitation unable to control the behavior in four-point restraint and he was promptly intubated. Follow-up chest x-ray suggesting left lower lobe airspace disease probably hospital acquired pneumonia. (2) Sleep apnea syndrome Qualifiers: Sleep apnea type: unspecified type Qualified Code(s): G47.30 - Sleep apnea, unspecified Is this a current diagnosis for this admission?: Yes (3) Type II diabetes mellitus Qualifiers: Diabetes mellitus shelter insulin use: unspecified shelter insulin use s tatus Diabetes mellitus complication status: without complication Qualified Code(s): E11.9 - Type 2 diabetes mellitus without complications Is this a current diagnosis for this admission?: No Plan: 07/26/2018 patient has history of type 2 diabetes mellitus, on glyburide at home, metformin at home. Metformin was discontinued. Plan to continue glipizide and put the patient on insulin sliding scale every 6 hours. Patient is n.p.o. at this point. 07/27/2018-patient has history of type 2 diabetes mellitus. Metformin and glipizide on hold at this moment. Hemoglobin A1c is 8.6. Patient is presently on insulin sliding scale. Latest blood sugar is 98. To start on NG tube feeding from today. 07/28/2018-patient has history of type 2 diabetes mellitus hemoglobin A1c is 8.6 he is on insulin sliding scale every 6 hours. Is also receiving feeding tubes. This morning feeding tubes are on hold latest blood sugar is 128. Plan is to continue the present management. 07/29/2018-patient is on insulin sliding scale every 6 hours latest blood sugar is 107 well-controlled. Hemoglobin A1c is 8.6. Plan is to continue the present management. 07/30/2018-latest blood sugar is 107 hemoglobin A1c is 8.6 blood sugars are well controlled with insulin sliding scale every 6 hours. (4) Essential hypertension Is this a current diagnosis for this admission?: Yes Plan: 07/26/2018 patient has history of hypertension blood pressure this morning is fluctuating 120/81 this morning. He is on lisinopril/hydrochlorothiazide at home we are going to resume the medication and also started on IV hydralazine 10 mg every 6 as needed for the systolic blood pressure more than 150. 07/27/2018 patient has history of hypertension blood pressure today is 121/68 stable. He is on lisinopril/hydrochlorothiazide at home he is receiving it by NG tube. He is also on IV hydralazine 10 mg every 6 hours as needed. 07/28/2018-patient's latest blood pressure is 111/75 he is receiving IV fluids and he is receiving blood pressure medications via NG tube which was on hold from yesterday. 07/29/2018-patient blood pressure today 150/77 he is on IV fluids normal saline 30 cc/h he is receiving blood pressure medications via NG tube. Plan is to contin ue the present management. 07/30/2018-patient blood pressure today is 121/64 with a heart rate of 83 well- controlled presently on lisinopril 10 mg via NG tube daily basis, hydrochlorothiazide 12.5 mg daily via NG tube and also on Toprol 100 mg p.o. every 12 hours. Plan is to discontinue lisinopril from today and continue to watch his blood pressures every 4 hours. (5) Obesity Qualifiers: Obesity classification: adult class 3 (BMI >= 40) Is this a current diagnosis for this admission?: Yes (6) CHF (congestive heart failure) Is this a current diagnosis for this admission?: No Plan: 07/27/2018-patient has echocardiogram was done in April last year it shows normal systolic heart function but grade 3 2/diastolic heart failure. Patient is not in fluid overload. We are going to check his BNP and continue to monitor his volume status. 07/28/2018-echocardiogram was done last year indicates possible diastolic heart failure which may be chronic. Patient is euvolemic. 07/29/2018-patient might have chronic diastolic heart failure and he is euvolemic. Plan is to continue the present management. 07/30/2018-echocardiogram was done last year indicates possible diastolic heart failure which may be chronic. Patient is euvolemic. Urinary output is good. (7) Pneumonia Is this a current diagnosis for this admission?: Yes Plan: 07/28/2018-P chest and chest x-ray shows possible left base opacification suggestive of pneumonia probably hospital-acquired pneumonia presently on cefepime and vancomycin. Sputum cultures blood cultures are pending. 07/29/2018-chest x-ray done yesterday shows possible left base opacification it can be aspiration pneumonia/hospital-acquired pneumonia. Presently on vancomycin and cefepime I am blood cultures are negative sputum cultures pending. WBC count is 12.1 T-max is 98.8. Plan is to continue the present management. 07/30/2018-chest x-ray suggestive of left lower lobe airspace disease and sputum cultures came back positive for staph aureus patient is presently on cefepime and vancomycin and he is afebrile, blood pressures are normal plan is to c ontinue cefepime I am and discontinue vancomycin from today. (8) Acute kidney injury Is this a current diagnosis for this admission?: Yes Plan: 07/29/2018-patient's admission creatinine is 1.24 and it is improved to 1.02 today acute kidney injury most likely secondary to prerenal causes resolving with IV fluids. 07/30/2018-on admission serum creatinine is 1.24 today is 1.08 stable. Acute kidney injury most likely secondary to prerenal causes which was resolving. (9) Acute respiratory failure Is this a current diagnosis for this admission?: Yes Plan: 07/29/2018 patient was intubated on mechanical ventilation a lot of tracheal secretions coming out on suctioning. Chest x-ray shows possible left base opacification. Acute respiratory failure may be secondary to underlying pneumonia. Patient is presently under mechanical ventilation. 07/30/2018-patient was intubated and on suctioning lot of tracheal aspirate is coming out for the last several days and tracheal aspirate cultures cultures came back positive for staph aureus. Plan to discontinue IV vancomycin and continue cefepime at this point. ABG done this morning is pH is 7.38/PCO2 38.7/PO2 76.6 bicarb is 23.4 with oxygen saturation of 95% this was done on 35% oxygen. Weaning trial started probably may extubate him tomorrow. - Time Time Spent with patient: 25-34 minutes Medications reviewed and adjusted accordingly: Yes Anticipated discharge: Home
[2018-07-30] MEDS: GEMFIBROZIL 600 MG TABLET NG SCH ×2 (10:10→17:25)
[2018-07-30] MEDS: METOPROLOL TARTRATE 100 MG TABLET NG SCH ×2 (10:11→22:01)
[2018-07-30] MEDS: METOCLOPRAMIDE HCL INJ/PF 10 MG/2 ML SDV IV SCH ×4 (10:12→22:04)
[2018-07-30] MEDS: PANTOPRAZOLE SODIUM 40 MG VIAL IV SCH ×2 (10:12→22:02)
[2018-07-30] MEDS: CEFEPIME HCL 2 GM in DEXTROSE 5%-WATER 50 ML IV SCH ×2 (10:12→22:02)
[2018-07-30] MEDS: HYDROCHLOROTHIAZIDE 12.5 MG TABLET NG SCH (10:13)
[2018-07-30 10:40] LABS: VANCOMYCIN,TROUGH 17.7 ug/mL (5.0-20.0)
[2018-07-30] MEDS: AMINO AC/PROTEIN HYDR/WHEY PRO 11 GM/45 ML PKT NG SCH ×3 (11:13→17:38)
--- NOTE | 2018-07-30 13:59 | PSYCHOLOGICAL NOTE ---
Psych Note - Psych Note Date seen by psych provider: 07/30/18 Psych Note: Reason for Consult: toxic encephalopathy EL SEYMOUR is a 67 year old male with history obtained by the record as he is a poor historian with delirium. Patient is currently unable to engage with clinician. Patient is intubated. Will follow
[2018-07-30] MEDS: NORMAL SALINE 1000 ML 1,000 ML with POTASSIUM CHLORIDE 20 MEQ, MAGNESIUM SULFATE 8 MEQ,... IV SCH ×5 (17:24)
[2018-07-30] MEDS ORDERED: ACETAMINOPHEN SOLN 325 MG/10.15 ML UDCUP NG SCH (20:00)
[2018-07-30 20:40] LABS: APPEARANCE,URINE SLIGHTLY-CLOUDY; BILIRUBIN,URINE NEGATIVE (NEGATIVE); COLOR,URINE YELLOW; GLUCOSE, URINE NEGATIVE (NEGATIVE); KETONES,URINE 20 mg/dL (NEGATIVE); LEUKOCYTE ESTERASE,URINE NEGATIVE (NEGATIVE); NITRITE,URINE NEGATIVE (NEGATIVE); PROTEIN,URINE 30 mg/dL (NEGATIVE); URINE SPECIFIC GRAVITY 1.014; UROBILINOGEN,URINE NEGATIVE mg/dL (<2.0)
[2018-07-30] MEDS: OXYBUTYNIN CHLORIDE 5 MG TABLET PO SCH (22:01)
[2018-07-30] MEDS ORDERED: ACETAMINOPHEN SOLN 325 MG/10.15 ML UDCUP NG PRN (23:30)
[2018-07-31] MEDS: INSULIN REG, HUMAN 100 UNIT/ML 3 ML VIAL (PYX) SUBCUT SCH ×5 (00:47→23:42)
[2018-07-31] MEDS: PROPOFOL 1,000 MG/100 ML INFUS..BTL IV PRN ×7 (00:48→21:35)
[2018-07-31] MEDS: FENTANYL CITRATE INJ/PF 100 MCG/2 ML AMPUL IV PRN (02:51)
[2018-07-31 04:34] LABS: HEMATOCRIT 34.4 % (37.9-51.0); HEMOGLOBIN 11.5 g/dL (13.5-17.0); MEAN CORPUSCULAR HEMOGLOBIN 30.1 pg (27.0-33.4); MEAN CORPUSCULAR HGB CONC 33.3 g/dL (32.0-36.0); MEAN CORPUSCULAR VOLUME 90 fl (80-97); PLATELET COUNT 330 10^3/uL (150-450); RED BLOOD COUNT 3.81 10^6/uL (4.35-5.55); RED CELL DISTRIBUTION WIDTH 13.9 % (11.5-14.0); WHITE BLOOD COUNT 12.5 10^3/uL (4.0-10.5)
[2018-07-31 04:52] LABS: ALANINE AMINOTRANSFERASE 20 U/L (21-72); ALBUMIN 3.3 g/dL (3.5-5.0); ALKALINE PHOSPHATASE 107 U/L (38-126); ANION GAP 11 (5-19); ASPARTATE AMINO TRANSFERASE 22 U/L (17-59); BILIRUBIN,DIRECT 0.6 mg/dL (0.0-0.4); BILIRUBIN,TOTAL 0.7 mg/dL (0.2-1.3); BLOOD UREA NITROGEN 20 mg/dL (7-20); CALCIUM 9.2 mg/dL (8.4-10.2); CARBON DIOXIDE 17 mmol/L (22-30); CHLORIDE 115 mmol/L (98-107); GLUCOSE 125 mg/dL (75-110); POTASSIUM 4.6 mmol/L (3.6-5.0); SODIUM 143.4 mmol/L (137-145); TOTAL PROTEIN 6.7 g/dL (6.3-8.2)
[2018-07-31] MEDS: HEPARIN SOD (PORCINE) 5,000 UNIT/ML 1 ML SYRINGE SUBCUT SCH ×3 (05:03→21:34)
[2018-07-31 05:14] LABS: ABSOLUTE LYMPHOCYTES# (MANUAL) 2.4 10^3/uL (0.5-4.7); ABSOLUTE MONOCYTES # (MANUAL) 0.3 10^3/uL (0.1-1.4); ABSOLUTE NEUTROPHILS# (MANUAL) 9.5 10^3/uL (1.7-8.2); BAND NEUTROPHILS % (MANUAL) 2 % (3-5); BASOPHILS % (MANUAL) 0 % (0-2); EOSINOPHILS % (MANUAL) 3 % (0-6); LYMPHOCYTES % (MANUAL) 19 % (13-45); METAMYELOCYTES % (MANUAL) 1 % (0); MONOCYTES % (MANUAL) 2 % (3-13); SEGMENTED NEUTROPHILS % (MAN) 73 % (42-78); TOTAL CELLS COUNTED 100
[2018-07-31 05:15] LABS: PLATELET COMMENT ADEQUATE
[2018-07-31 05:16] LABS: RBC MORPHOLOGY COMMENT NORMO-CYTIC/CHROMIC
[2018-07-31] MEDS: GABAPENTIN 100 MG CAPSULE NG SCH ×3 (05:26→21:34)
[2018-07-31 06:38] LABS: ARTERIAL BLOOD BASE EXCESS -4.9 mmol/L; ARTERIAL BLOOD H2CO3 1.03 mmol/L (1.05-1.35); ARTERIAL BLOOD HCO3 19.6 mmol/L (20-24); ARTERIAL BLOOD O2 SATURATION 98.4 % (94-98); ARTERIAL BLOOD PCO2 34.3 mmHg (35-45); ARTERIAL BLOOD PH 7.38 (7.35-7.45); ARTERIAL BLOOD PO2 125.2 mmHg (80-100); ARTERIAL BLOOD TOTAL CO2 20.7 mmol/L (23-27)
[2018-07-31 06:39] LABS: ARTERIAL BLOOD FIO2 35%
--- NOTE | 2018-07-31 07:41 | RADIOLOGY REPORT (SQ) ---
EXAM DESCRIPTION: XR CHEST 1 VIEW COMPLETED DATE/TME: 07/31/2018 06:00 CLINICAL HISTORY: 67 years Male, resp failure COMPARISON: One day prior. NUMBER OF VIEWS/TECHNIQUE: 1/AP FINDINGS: Small left basilar opacity-effusion.Atherosclerotic vascular disease. Adequate appearing endotracheal tube. Adequate appearing enteric tube partially obscured. Normal cardiac silhouette size. No pneumothorax. Stable bony thorax. IMPRESSION: No significant change.
--- NOTE | 2018-07-31 10:10 | PDOC PROGRESS REPORT ---
Subjective Progress Note for:: 07/31/18 Subjective:: 67-year-old male admitted for altered mental status/acute encephalopathy. Urine drug screen is positive for marijuana. No acute events of the day of admission. Patient is on four-point restraints. This morning agitated once the restraints are off. Able to give his date of . And he told me he is a diabetic. He is also told me that he has sleep apnea uses BiPAP at home. Unable to give his address. She still confused. MRI of the brain CT of the neck CT head was negative. 07/27/[id number]-lian-old male admitted with altered mental status/acute encephalop athy. Urine drug screen is positive for marijuana. MRI of the head was negative LP was negative. Patient is prophylactically intubated on Versed drip and propofol drip. This morning is still agitated and fighting the restraints. We are going to put him on IV morphine 2 mg every 4 as needed for pain as requested by the family and start on cefepime 2 g IV daily. To start him on NG tube feedings. She is stable plan to repeat the CT of the head and a CT of the abdomen as per the family request. 07/28/[id number]-tefb-old male admitted for altered mental status/acute encephalopathy patient was still on mechanical ventilation on on Versed 2 mg/h and deprivan 40 mcg/kg/min. G-tube was placed yesterday and residual this morning 80 cc so NG tube was clamped. Acute events in the last 24 hours. Patient is afebrile. Hernia level came back 9.8. ABG this morning pH is 7.42 PCO2 36 PO2 98.7 oxygen saturation is 97.6. 07/29/2018-no acute events in the last 24 hours. Patient is afebrile. Still on mechanical ventilation. He is off the sedation at this point. Still on mechanical ventilation. Pulse ox is 96% on 40% oxygen. KUB to be done last night shows no obstruction or ileus. She has NG tube still have a lot of secretions coming out. On suctioning of the lungs lack a lot of drainage. Plan is to try to wean him off today for possible. Patient is more alert more awake little bit agitated and moving all his extremities. Pupils are equal and react to light accommodation. Corneal reflex present. 07/30/[id number]-hfsa-old male admitted for acute delirium. Urine drug screen is onl y positive for marijuana. Family is denying patient has history of any polysubstance abuse or alcohol abuse. MRI of the brain is negative CT head is negative CT of the neck is negative. [address] head was repeated which was negative. No acute events in the last 24 hours. Patient is afebrile. Sputum cultures came back positive for staph aureus. Patient's input is 3.1 L output is 3.5 L with a negative balance of 400 mL yesterday. on normal saline at 30 cc/h and he is receiving NG tube feedings. On mechanical ventilation with PEEP of 10 respiratory rate of 8 oxygen saturation of 35% tidal volume of 600. On deep Ativan 40 mcg/kg/min for sedation and is receiving fentanyl at 50 mcg as needed for agitation. Latest chest x-ray suggestive of left lower lobe pneumonia probably aspiration/hospital-acquired pneumonia receiving IV vancomycin and cefepime ,based on the cultures sensitivity reports plan is to discontinue IV vancomycin from today. 07/31/[id number]-atzf-old male admitted for acute delirium we do not have definite cause identified. Urine drug screen is only positive for marijuana. No acute events in the last 24 hours. Patient is afebrile. Presently on cefepime. P atient is still on mechanical ventilation and on propofol 40 mcg/kg/min. Patient is off the pressors. He is off the IV fluids. On SIMV with PEEP of 8 and a 35% oxygen. Tidal volume of 600. ABG done this morning shows pH of 7.38/PCO2 34 PO2 125 bicarb is 29. Plan to wean him off today from the vent Reason For Visit: ALTERED MENTAL STATUS AND S/P INTUBATION Physical Exam Vital Signs: Temp Pulse Resp BP Pulse Ox 99.0 F 81 21 H 148/77 H 96 07/31/18 08:00 07/31/18 08:00 07/31/18 08:00 07/31/18 08:00 07/31/18 08:06 Intake & Output 07/30/18 07/31/18 08/01/18 06:59 06:59 06:59 Intake Total 3164 1795 98 Output Total 8283 3330 100 Balance -411 -1795 -2 Weight 121.8 kg 118.5 kg General appearance: PRESENT: obese, other - On mechanical ventilation under sedation. Head exam: PRESENT: atraumatic Eye exam: PRESENT: PERRLA Mouth exam: PRESENT: moist, tongue midline Neck exam: ABSENT: carotid bruit, JVD, lymphadenopathy, thyromegaly Respiratory exam: PRESENT: clear to auscultation filomena. ABSENT: rales, rhonchi, wheezes Cardiovascular exam: PRESENT: tachycardia Pulses: PRESENT: normal dorsalis pedis pul GI/Abdominal exam: PRESENT: normal bowel sounds, soft, other - G-tube in place getting the tube feedings.. ABSENT: distended, guarding, mass, organolmegaly, rebound, tenderness Extremities exam: PRESENT: full ROM. ABSENT: calf tenderness, clubbing, pedal edema Neurological exam: PRESENT: other - Patient is intubated under mechanical ventilation. Results Laboratory Results: 07/31/18 03:39 07/31/18 03:39 07/30/18 07/31/18 07/31/18 20:00 03:39 03:39 WBC 12.5 H RBC 3.81 L Hgb 11.5 L Hct 34.4 L MCV 90 MCH 30.1 MCHC 33.3 RDW 13.9 Plt Count 330 Seg Neutrophils % Not Reportable Lymphocytes % Not Reportable Monocytes % Not Reportable Eosinophils % Not Reportable Basophils % Not Reportable Absolute Neutrophils Not Reportable Absolute Lymphocytes Not Reportable Absolute Monocytes Not Reportable Absolute Eosinophils Not Reportable Absolute Basophils Not Reportable Carbonic Acid HCO3/H2CO3 Ratio ABG pH ABG pCO2 ABG pO2 ABG HCO3 ABG O2 Saturation ABG Base Excess FiO2 Sodium 143.4 Potassium 4.6 Chloride 115 H Carbon Dioxide 17 L Anion Gap 11 BUN 20 Creatinine 0.90 Est GFR ( Amer) > 60 Est GFR (Non-Af Amer) > 60 Glucose 125 H Calcium 9.2 Magnesium 2.4 H Total Bilirubin 0.7 AST 22 ALT 20 L Alkaline Phosphatase 107 Total Protein 6.7 Albumin 3.3 L Urine Color YELLOW Urine Appearance SLIGHTLY-CLOUDY Urine pH 5.0 Ur Specific [place] 1.014 Urine Protein 30 H Urine Glucose (UA) NEGATIVE Urine Ketones 20 H Urine Blood MODERATE H Urine Nitrite NEGATIVE Ur Leukocyte Esterase NEGATIVE Urine WBC (Auto) 4 Urine RBC (Auto) 135 07/31/18 06:20 WBC RBC Hgb Hct MCV MCH MCHC RDW Plt Count Seg Neutrophils % Lymphocytes % Monocytes % Eosinophils % Basophils % Absolute Neutrophils Absolute Lymphocytes Absolute Monocytes Absolute Eosinophils Absolute Basophils Carbonic Acid 1.03 L HCO3/H2CO3 Ratio 19:1 ABG pH 7.38 ABG pCO2 34.3 L ABG pO2 125.2 H ABG HCO3 19.6 L ABG O2 Saturation 98.4 H ABG Base Excess -4.9 FiO2 35% Sodium Potassium Chloride Carbon Dioxide Anion Gap BUN Creatinine Est GFR ( Amer) Est GFR (Non-Af Amer) Glucose Calcium Magnesium Total Bilirubin AST ALT Alkaline Phosphatase Total Protein Albumin Urine Color Urine Appearance Urine pH Ur Specific [place] Urine Protein Urine Glucose (UA) Urine Ketones Urine Blood Urine Nitrite Ur Leukocyte Esterase Urine WBC (Auto) Urine RBC (Auto) 07/28/18 14:00 Tracheal Aspirate Gram Stain - Final 07/28/18 14:00 Tracheal Aspirate Sputum Culture - Final Staphylococcus Aureus Greatly Reduced Normal Val 07/25/18 07/25/18 07/31/18 16:11 16:11 03:39 Creatine Kinase 50 L CK-MB (CK-2) 1.62 Troponin I < 0.012 NT-Pro-B Natriuret Pep 348 Impressions: Head CTA 07/25/18 16:52 IMPRESSION: NO CTA EVIDENCE OF STENOSIS OR ANEURYSM OF THE [place] OF [place]. Neck CTA 07/25/18 16:52 IMPRESSION: 1. Normal CTA of the extracranial carotid and vertebral system. 2. 1.1 x 1.7 cm nodule in the right lobe of the thyroid gland. Head MRI 07/25/18 18:26 IMPRESSION: Mild parenchymal volume loss. No acute ischemia. No other definite acute abnormality. Head CT 07/28/18 00:00 IMPRESSION: MILD CHRONIC CHANGES OF ATROPHY AND MICROVASCULAR ISCHEMIA. NO ACUTE PROCESS. EVIDENCE OF ACUTE STROKE: NO. KUB X-Ray 07/28/18 00:00 IMPRESSION: 1. No acute abdominal findings. No bowel distention. 2. Nasogastric tube remains in place. Chest X-Ray 07/31/18 06:00 IMPRESSION: No significant change. Assessment and Plan - Diagnosis (1) Acute delirium Is this a current diagnosis for this admission?: Yes Plan: Suspected toxic encephalopathy. Drug screen positive for THC only. Likely synthetic stimulant. Supportive measures, follow-up mental health consult 07/26/2018 67-year-old male admitted with altered mental status/acute and coagulopathy. Urine drug screen is positive for marijuana. Patient is presently on four-point restraints. Mental health consult was requested. Patient is on IV Haldol as needed and IV lorazepam as needed. DC MRI of the brain CT head CT of the neck came back negative. Lab work unremarkable. Plan is to continue the present management. 07/27/[id number]-jske-old male admitted for altered mental status/acute encephalopathy. Drug screen is positive for marijuana. Sisters are at bedside the denying that he had a history of alcohol abuse. He was prophylactically int ubated because of tachycardia heart rate going up to 150 tachypnea with heart rate more than 40 and is fighting the restraints the intubation mainly to prevent aspiration pneumonia. Presently on Versed and propofol drip still patient was restless in the bed. Start him on IV morphine for pain management as requested by the family members. Health consult was requested but unable to assess the patient because of the sedation. 07/28/[id number]-uhru-old male admitted with acute delirium only positive finding his urine drug screen is positive for marijuana. Because of the agitation and tachypnea tachycardia he was prophylactically intubated to protect the airway. Chest x-ray done this morning shows increased lung volume loss in the left inferior lung differential diagnosis is atelectasis/pneumonia. Patient is presently on cefepime I am started on IV vancomycin today. And is to repeat the CT head without contrast. Initially MRI was done which was negative CT head was negative CT neck was negative and LP was done and infection is ruled out. 07/29/[id number]-tauw-old male admitted with acute delirium only positive finding is urine drug screen is positive for marijuana. Cause for acute delirium is still unknown. Because of the agitation and tachypnea tachycardia patient was prophylactically intubated. A lot of tracheal secretions coming out. Patient is presently on cefepime and IV vancomycin. Afebrile today. Chest x-ray questionable left lower lobe infiltrate may hospital-acquired pneumonia/aspiration pneumonia secondary to altered mental status. He is off the sedation at this point try to wean him off from the vent today. 07/30/2018-because of acute delirium is still unknown. Urine drug screen is only positive for marijuana. MRI CT head CT of the neck are negative so far. Patient was intubated because of tachypnea tachycardia and agitation unable to control the behavior in four-point restraint and he was promptly intubated. Follow-up chest x-ray suggesting left lower lobe airspace disease probably hospital acquired pneumonia. 07/31/2018-patient was admitted for acute delirium causes unknown. MRI of the brain is negative. CT head was done twice which was negative. CT neck was negative. Patient is presently on mechanical ventilation under sedation plan to wean him off from today. He still have a lot of secretions on suctioning of the trachea presently on cefepime. Pulse are equal and react to light accommodation. Patient is moving all his extremities. (2) Sleep apnea syndrome Qualifiers: Sleep apnea type: unspecified type Qualified Code(s): G47.30 - Sleep apnea, unspecified Is this a current diagnosis for this admission?: Yes Plan: BiPAP nightly 07/26/2018-morbidly obese male with history of sleep apnea. As per the patient he is on BiPAP at home which is going to be resumed during this hospital stay. 07/27/2018-sisters are saying patient does not have any BiPAP or CPAP machine at home. But they do admit that he has a sleep apnea and problems with sleeping at night. 07/28/2018-initially with that patient has sleep apnea using BiPAP at home but the sisters came in and said he does not have any BiPAP or CPAP machine at home. 07/29/2018-patient has history of sleep apnea questionable history of using BiPAP at home. 07/31/2018 patient has a history of sleep apnea as per the family members he does not have any BiPAP or CPAP machine at home. We will see this patient is stable to discharge to go to arrange for a sleep studies as an outpatient. (3) Type II diabetes mellitus Qualifiers: Diabetes mellitus fdc insulin use: unspecified fdc insulin use status Diabetes mellitus complication status: without complication Qualified Code(s): E11.9 - Type 2 diabetes mellitus without complications Is this a current diagnosis for this admission?: No Plan: 07/26/2018 patient has history of type 2 diabetes mellitus, on glyburide at home, metformin at home. Metformin was discontinued. Plan to continue glipizide and put the patient on insulin sliding scale every 6 hours. Patient is n.p.o. at this point. 07/27/2018-patient has history of type 2 diabetes mellitus. Metformin and glipizide on hold at this moment. Hemoglobin A1c is 8.6. Patient is presently on insulin sliding scale. Latest blood sugar is 98. To start on NG tube feeding from today. 07/28/2018-patient has history of type 2 diabetes mellitus hemoglobin A1c is 8.6 he is on insulin sliding scale every 6 hours. Is also receiving feeding tubes. This morning feeding tubes are on hold latest blood sugar is 128. Plan is to continue the present management. 07/29/2018-patient is on insulin sliding scale every 6 hours latest blood sugar is 107 well-controlled. Hemoglobin A1c is 8.6. Plan is to continue the present management. 07/30/2018-latest blood sugar is 107 hemoglobin A1c is 8.6 blood sugars are well controlled with insulin sliding scale every 6 hours. 07/31/2018-patient blood sugar is 116 today hemoglobin A1c is 0.6. Patient is presently on insulin sliding scale every 6 hours. Plan is to continue the present management. (4) Essential hypertension Is this a current diagnosis for this admission?: Yes Plan: 07/26/2018 patient has history of hypertension blood pressure this morning is fluctuating 120/81 this morning. He is on lisinopril/hydrochlorothiazide at home we are going to resume the medication and also started on IV hydralazine 10 mg every 6 as needed for the systolic blood pressure more than 150. 07/27/2018 patient has history of hypertension blood pressure today is 121/68 stable. He is on lisinopril/hydrochlorothiazide at home he is receiving it by NG tube. He is also on IV hydralazine 10 mg every 6 hours as needed. 07/28/2018-patient's latest blood pressure is 111/75 he is receiving IV fluids and he is receiving blood pressure medications via NG tube which was on hold from yesterday. 07/29/2018-patient blood pressure today 150/77 he is on IV fluids normal saline 30 cc/h he is receiving blood pressure medications via NG tube. Plan is to continue the present management. 07/30/2018-patient blood pressure today is 121/64 with a heart rate of 83 well- controlled presently on lisinopril 10 mg via NG tube daily basis, hydrochlorothiazide 12.5 mg daily via NG tube and also on Toprol 100 mg p.o. every 12 hours. Plan is to discontinue lisinopril from today and continue to watch his blood pressures every 4 hours. 07/31/2018-patient blood pressure today is 125/68. With a heart rate of 112. presently on Toprol 100 mg p.o. every 12 hours. (5) Obesity Qualifiers: Obesity classification: adult class 3 (BMI >= 40) Is this a current diagnosis for this admission?: Yes Plan: 07/26/2018-patient's BMI is more than 40. Going to request for dietary consult once the patient mental status improved. 07/27/2018-patient's BMI is more than 45 once he is off the ventilator and off the sedation be going to make dietary recommendations. 07/28/2018-patient's BMI is more than 45 ventilator and off the sedations will discuss with him about diet exercise lifestyle modifications. (6) CHF (congestive heart failure) Is this a current diagnosis for this admission?: No Plan: 07/27/2018-patient has echocardiogram was done in April last year it shows normal systolic heart function but grade 3 2/diastolic heart failure. Patient is not in fluid overload. We are going to check his BNP and continue to monitor his volume status. 07/28/2018-echocardiogram was done last year indicates possible diastolic heart failure which may be chronic. Patient is euvolemic. 07/29/2018-patient might have chronic diastolic heart failure and he is euvolemic. Plan is to continue the present management. 07/30/2018-echocardiogram was done last year indicates possible diastolic heart failure which may be chronic. Patient is euvolemic. Urinary output is good. 07/31/2018-echocardiogram was done last year shows chronic diastolic heart failure. Patient is euvolemic. (7) Pneumonia Is this a current diagnosis for this admission?: Yes Plan: 07/28/2018-P chest and chest x-ray shows possible left base opacification suggestive of pneumonia probably hospital-acquired pneumonia presently on cefepime and vancomycin. Sputum cultures blood cultures are pending. 07/29/2018-chest x-ray done yesterday shows possible left base opacification it can be aspiration pneumonia/hospital-acquired pneumonia. Presently on vancomycin and cefepime I am blood cultures are negative sputum cultures pending. WBC count is 12.1 T-max is 98.8. Plan is to continue the present management. 07/30/2018-chest x-ray suggestive of left lower lobe airspace disease and sputum cultures came back positive for staph aureus patient is presently on cefepime and vancomycin and he is afebrile, blood pressures are normal plan is to continue cefepime I am and discontinue vancomycin from today. 07/31/2018-chest x-ray shows left lower lobe opacification sputum cultures are positive for staph aureus. Patiently and cefepime. Vancomycin was discontinued yesterday. (8) Acute kidney injury Is this a current diagnosis for this admission?: Yes Plan: 07/29/2018-patient's admission creatinine is 1.24 and it is improved to 1.02 today acute kidney injury most likely secondary to prerenal causes resolving with IV fluids. 07/30/2018-on admission serum creatinine is 1.24 today is 1.08 stable. Acute kidney injury most likely secondary to prerenal causes which was resolving. 07/31/2018-patient's creatinine today is 0.9 on admission it was 1.24 acute kidney injury most likely secondary to poor oral intake resolved. (9) Acute respiratory failure Is this a current diagnosis for this admission?: Yes Plan: 07/29/2018 patient was intubated on mechanical ventilation a lot of tracheal secretions coming out on suctioning. Chest x-ray shows possible left base opacification. Acute respiratory failure may be secondary to underlying pneumonia. Patient is presently under mechanical ventilation. 07/30/2018-patient was intubated and on suctioning lot of tracheal aspirate is coming out for the last several days and tracheal aspirate cultures cultures came back positive for staph aureus. Plan to discontinue IV vancomycin and continue cefepime at this point. ABG done this morning is pH is 7.38/PCO2 38.7/PO2 76.6 bicarb is 23.4 with oxygen saturation of 95% this was done on 35% oxygen. Weaning trial started probably may extubate him tomorrow. 07/31/2018-patient is intubated under sedation on propofol 40 mcg/kg/min. Plan to wean him off from today. ABG was good today. Plan is to continue the IV antibiotic therapy. - Time Time Spent with patient: 25-34 minutes Medications reviewed and adjusted accordingly: Yes Anticipated discharge: Home
[2018-07-31] MEDS: METOPROLOL TARTRATE 100 MG TABLET NG SCH ×2 (10:36→21:35)
[2018-07-31] MEDS: AMINO AC/PROTEIN HYDR/WHEY PRO 11 GM/45 ML PKT NG SCH ×3 (10:36→17:59)
[2018-07-31] MEDS: PANTOPRAZOLE SODIUM 40 MG VIAL IV SCH ×2 (10:36→21:34)
[2018-07-31] MEDS: CEFEPIME HCL 2 GM in DEXTROSE 5%-WATER 50 ML IV SCH ×2 (10:37→21:35)
[2018-07-31] MEDS: GEMFIBROZIL 600 MG TABLET NG SCH ×2 (10:37→17:59)
[2018-07-31] MEDS: METOCLOPRAMIDE HCL INJ/PF 10 MG/2 ML SDV IV SCH ×4 (10:37→23:41)
--- NOTE | 2018-07-31 12:05 | PSYCHOLOGICAL NOTE ---
Psych Note - Psych Note Date seen by psych provider: 07/31/18 Psych Note: Reason for Consult: toxic encephalopathy EL SEYMOUR is a 67 year old male with history obtained by the record as he is a poor historian with delirium. Patient is currently unable to engage with clinician. Patient is intubated. Spoke with attending hospitalist; he states the Behavioral health Team will get a phone call if services are still needed.
[2018-07-31] MEDS: NORMAL SALINE 1000 ML 1,000 ML with POTASSIUM CHLORIDE 20 MEQ, MAGNESIUM SULFATE 8 MEQ,... IV SCH ×5 (18:00)
--- NOTE | 2018-07-31 19:36 | EEG PRO FEE REPORT ---
Patient: Sg Zuluaga ID: [id number] Referring Doctor: Fox Bolden Date: 07/31/18 Reason for study: Altered Mental Status Medications: Gabapentin, Lopid, Hydralazine, Lopressor, Protonix, Fentanyl, Ditropan, Reglan History: This is a 67 year old male with a history of HTN, DM, Depression, Substance Use, Partial colon resection, who is currently intubated in the ICU and reportedly on mild of sedation since July 26, 2018. This EEG was requested for evaluation of altered mental status. EEG Interpretation: This EEG was recorded on an intubated patient without clear state differentiation. The paint prep technician manually opened and closed the patients eyes multiple times during the recording, and the EEG was minimally reactive to eye closure. The background EEG consisted of predominantly intermixed 5-7 Hz theta activity and 1-3 Hz delta activity Hz. There were frequent Generalized Periodic Discharges (GPDs) with a frontal predominance and typically an anterior to posterior lag (consistent with triphasic waves); these GPDs at times showed shifting left to right hemisphere predominance. Photic stimulation resulted in no meaningful photic driving, and there was significant change in the background EEG with photic stimulation. There were no localized sharp waves or spikes. There were no electrographic seizures. The EKG showed a rhythm with typically 65-85 beats per minutes with rare ectopic beats/ possibly arrhythmia which cannot be well characterized with a single lead EKG. EEG Impression: This is a markedly abnormal EEG due to the diffuse background slowing and the presence of GPDs, which are both non-specific findings. Diffuse background slowing is commonly seen with encephalopathies but is non-specific for etiology. GPDs are commonly seen in diffuse encephalopathy from various etiologies including (but not limited to) hypoxic-ischemic injury, drug intoxication, metabolic derangements (such as hepatic or renal encephalopathy), central nervous system infections, and rarely as the terminal EEG sign of generalized convulsive status epilepticus. Note that no seizures were noted on this EEG. Note that there were rare EKG abnormalities as described above. Clinical correlation is needed. INTERPRETING NEUROLOGIST: MD ELDA Rick
[2018-07-31] MEDS: OXYBUTYNIN CHLORIDE 5 MG TABLET NG SCH (21:34)
[2018-08-01] MEDS: PROPOFOL 1,000 MG/100 ML INFUS..BTL IV PRN ×6 (00:05→21:10)
[2018-08-01] MEDS: MORPHINE SULFATE 10 MG/ML INJ IV PRN (00:49)
[2018-08-01 03:46] LABS: ARTERIAL BLOOD BASE EXCESS -2.2 mmol/L; ARTERIAL BLOOD H2CO3 1.16 mmol/L (1.05-1.35); ARTERIAL BLOOD HCO3 22.6 mmol/L (20-24); ARTERIAL BLOOD PCO2 38.6 mmHg (35-45); ARTERIAL BLOOD PH 7.39 (7.35-7.45); ARTERIAL BLOOD PO2 92.8 mmHg (80-100); ARTERIAL BLOOD TOTAL CO2 23.8 mmol/L (23-27)
[2018-08-01 03:47] LABS: ARTERIAL BLOOD FIO2 30%
[2018-08-01] MEDS: HEPARIN SOD (PORCINE) 5,000 UNIT/ML 1 ML SYRINGE SUBCUT SCH ×3 (05:19→21:20)
[2018-08-01] MEDS: INSULIN REG, HUMAN 100 UNIT/ML 3 ML VIAL (PYX) SUBCUT SCH ×4 (05:21→23:37)
[2018-08-01] MEDS: GABAPENTIN 100 MG CAPSULE NG SCH ×3 (05:21→21:19)
--- NOTE | 2018-08-01 07:06 | RADIOLOGY REPORT (SQ) ---
EXAM DESCRIPTION: XR CHEST 1 VIEW COMPLETED DATE/TME: 08/01/2018 06:00 CLINICAL HISTORY: 67 years Male, resp failure COMPARISON: One day prior. NUMBER OF VIEWS/TECHNIQUE: 1/AP FINDINGS: Small opacity-effusion of the left lung base.Adequate appearing endotracheal tube. Adequate appearing enteric tube partially obscured. Atherosclerotic vascular disease. Normal cardiac silhouette size. No pneumothorax. Stable bony thorax. IMPRESSION: No significant change.
[2018-08-01 07:30] LABS: HEMATOCRIT 35.6 % (37.9-51.0); MEAN CORPUSCULAR HEMOGLOBIN 30.4 pg (27.0-33.4); MEAN CORPUSCULAR HGB CONC 33.7 g/dL (32.0-36.0); MEAN CORPUSCULAR VOLUME 90 fl (80-97); PLATELET COUNT 373 10^3/uL (150-450); RED BLOOD COUNT 3.96 10^6/uL (4.35-5.55); RED CELL DISTRIBUTION WIDTH 13.8 % (11.5-14.0); WHITE BLOOD COUNT 12.5 10^3/uL (4.0-10.5)
[2018-08-01 07:48] LABS: ALANINE AMINOTRANSFERASE 28 U/L (21-72); ALBUMIN 3.2 g/dL (3.5-5.0); ALKALINE PHOSPHATASE 118 U/L (38-126); ANION GAP 11 (5-19); ASPARTATE AMINO TRANSFERASE 24 U/L (17-59); BILIRUBIN,DIRECT 0.5 mg/dL (0.0-0.4); BILIRUBIN,TOTAL 0.5 mg/dL (0.2-1.3); BLOOD UREA NITROGEN 21 mg/dL (7-20); CALCIUM 9.3 mg/dL (8.4-10.2); CARBON DIOXIDE 20 mmol/L (22-30); CHLORIDE 114 mmol/L (98-107); GLUCOSE 133 mg/dL (75-110); POTASSIUM 4.8 mmol/L (3.6-5.0); SODIUM 145.2 mmol/L (137-145); TOTAL PROTEIN 6.7 g/dL (6.3-8.2)
[2018-08-01 08:15] LABS: ABSOLUTE LYMPHOCYTES# (MANUAL) 2.4 10^3/uL (0.5-4.7); ABSOLUTE MONOCYTES # (MANUAL) 0.6 10^3/uL (0.1-1.4); ABSOLUTE NEUTROPHILS# (MANUAL) 9.4 10^3/uL (1.7-8.2); BASOPHILS % (MANUAL) 0 % (0-2); EOSINOPHILS % (MANUAL) 1 % (0-6); LYMPHOCYTES % (MANUAL) 19 % (13-45); METAMYELOCYTES % (MANUAL) 1 % (0); MONOCYTES % (MANUAL) 5 % (3-13); SEGMENTED NEUTROPHILS % (MAN) 73 % (42-78); TOTAL CELLS COUNTED 100
[2018-08-01 08:18] LABS: RBC MORPHOLOGY COMMENT NORMO-CYTIC/CHROMIC; TOXIC GRANULATION 1+; TOXIC VACUOLATION PRESENT
[2018-08-01 08:19] LABS: PLATELET COMMENT ADEQUATE
[2018-08-01] MEDS: PANTOPRAZOLE SODIUM 40 MG VIAL IV SCH ×2 (10:19→21:19)
[2018-08-01] MEDS: METOPROLOL TARTRATE 100 MG TABLET NG SCH ×2 (10:20→21:19)
[2018-08-01] MEDS: CEFEPIME HCL 2 GM in DEXTROSE 5%-WATER 50 ML IV SCH ×2 (10:20→21:18)
[2018-08-01] MEDS: METOCLOPRAMIDE HCL INJ/PF 10 MG/2 ML SDV IV SCH ×4 (10:20→21:20)
[2018-08-01] MEDS: AMINO AC/PROTEIN HYDR/WHEY PRO 11 GM/45 ML PKT NG SCH ×3 (10:21→18:03)
[2018-08-01] MEDS: GEMFIBROZIL 600 MG TABLET NG SCH ×2 (10:21→18:02)
--- NOTE | 2018-08-01 14:40 | PDOC PROGRESS REPORT ---
Subjective Progress Note for:: 08/01/18 Subjective:: This is a 67 yr old male who was admitted due to acute encephalopathy. UDS was only positive for marijuana. He was intubated due to severe agitation. MRI of the head and CSF fluid analysis have been unremarkable. He was also treated for left lower lobe pneumonia. No acute event overnight. Appears there is some improvement in his mentation during weaning trials but he continues to have agitation. Will continue daily weaning trials. Reason For Visit: ALTERED MENTAL STATUS AND S/P INTUBATION Physical Exam Vital Signs: Temp Pulse Resp BP Pulse Ox 99.7 F 105 H 23 H 160/64 H 94 08/01/18 12:00 08/01/18 12:00 08/01/18 14:01 08/01/18 13:39 08/01/18 14:01 Intake & Output 07/31/18 08/01/18 08/02/18 06:59 06:59 06:59 Intake Total 1795 2946 86 Output Total 3590 1460 685 Balance -1795 1486 -599 Weight 261 lb 3.964 oz 260 lb 2.327 oz General appearance: PRESENT: obese, other - intubated, sedated Eye exam: PRESENT: conjunctiva pink, EOMI, PERRLA. ABSENT: scleral icterus Ear exam: PRESENT: normal external ear exam Mouth exam: PRESENT: moist, tongue midline Neck exam: ABSENT: carotid bruit, JVD, lymphadenopathy, thyromegaly Respiratory exam: PRESENT: rhonchi. ABSENT: rales, wheezes Cardiovascular exam: PRESENT: RRR. ABSENT: diastolic murmur, rubs, systolic murmur Pulses: PRESENT: normal dorsalis pedis pul GI/Abdominal exam: PRESENT: normal bowel sounds, soft. ABSENT: distended, guarding, mass, organolmegaly, rebound, tenderness Rectal exam: PRESENT: deferred Neurological exam: PRESENT: CN II-XII grossly intact, other - intubated, sedated. ABSENT: motor sensory deficit Results Laboratory Results: 08/01/18 06:59 08/01/18 06:45 08/01/18 08/01/18 08/01/18 03:25 06:45 06:59 WBC 12.5 H RBC 3.96 L Hgb 12.0 L Hct 35.6 L MCV 90 MCH 30.4 MCHC 33.7 RDW 13.8 Plt Count 373 Seg Neutrophils % Not Reportable Lymphocytes % Not Reportable Monocytes % Not Reportable Eosinophils % Not Reportable Basophils % Not Reportable Absolute Neutrophils Not Reportable Absolute Lymphocytes Not Reportable Absolute Monocytes Not Reportable Absolute Eosinophils Not Reportable Absolute Basophils Not Reportable Carbonic Acid 1.16 HCO3/H2CO3 Ratio 19:1 ABG pH 7.39 ABG pCO2 38.6 ABG pO2 92.8 ABG HCO3 22.6 ABG O2 Saturation 97.0 ABG Base Excess -2.2 FiO2 30% Sodium 145.2 H Potassium 4.8 Chloride 114 H Carbon Dioxide 20 L Anion Gap 11 BUN 21 H Creatinine 0.83 Est GFR ( Amer) > 60 Est GFR (Non-Af Amer) > 60 Glucose 133 H Calcium 9.3 Magnesium 2.3 Total Bilirubin 0.5 AST 24 ALT 28 Alkaline Phosphatase 118 Total Protein 6.7 Albumin 3.2 L 07/30/18 20:00 Catheterized Urine Urine Culture - Final NO GROWTH 2 DAYS 07/25/18 07/25/18 07/31/18 16:11 16:11 03:39 Creatine Kinase 50 L CK-MB (CK-2) 1.62 Troponin I < 0.012 NT-Pro-B Natriuret Pep 348 Impressions: Head CTA 07/25/18 16:52 IMPRESSION: NO CTA EVIDENCE OF STENOSIS OR ANEURYSM OF THE [place]. Neck CTA 07/25/18 16:52 IMPRESSION: 1. Normal CTA of the extracranial carotid and vertebral system. 2. 1.1 x 1.7 cm nodule in the right lobe of the thyroid gland. Head MRI 07/25/18 18:26 IMPRESSION: Mild parenchymal volume loss. No acute ischemia. No other definite acute abnormality. Head CT 07/28/18 00:00 IMPRESSION: MILD CHRONIC CHANGES OF ATROPHY AND MICROVASCULAR ISCHEMIA. NO ACUTE PROCESS. EVIDENCE OF ACUTE STROKE: NO. KUB X-Ray 07/28/18 00:00 IMPRESSION: 1. No acute abdominal findings. No bowel distention. 2. Nasogastric tube remains in place. Chest X-Ray 08/01/18 06:00 IMPRESSION: No significant change. Assessment and Plan - Diagnosis (1) Acute respiratory failure Is this a current diagnosis for this admission?: Yes Plan: Patient required sedation and intubation due to severe agitation and confusion. Currently on minimal vent settings. Will continue daily weaning trials. (2) Acute encephalopathy Is this a current diagnosis for this admission?: Yes Plan: UDS was only positive for marijuana. He was intubated due to severe agitation. MRI of the head and CSF fluid analysis have been unremarkable. EEG shows GDPs which are not really very specific. - Time Time Spent with patient: 25-34 minutes
[2018-08-01] MEDS: NORMAL SALINE 1000 ML 1,000 ML with POTASSIUM CHLORIDE 20 MEQ, MAGNESIUM SULFATE 8 MEQ,... IV SCH ×5 (18:03)
[2018-08-01] MEDS: OXYBUTYNIN CHLORIDE 5 MG TABLET NG SCH (21:19)
[2018-08-02] MEDS: PROPOFOL 1,000 MG/100 ML INFUS..BTL IV PRN ×2 (01:35→06:45)
[2018-08-02 03:45] LABS: ARTERIAL BLOOD H2CO3 1.03 mmol/L (1.05-1.35); ARTERIAL BLOOD O2 SATURATION 97.6 % (94-98); ARTERIAL BLOOD PCO2 34.2 mmHg (35-45); ARTERIAL BLOOD PH 7.41 (7.35-7.45); ARTERIAL BLOOD PO2 99.4 mmHg (80-100)
[2018-08-02 03:48] LABS: HEMATOCRIT 35.6 % (37.9-51.0); HEMOGLOBIN 12.1 g/dL (13.5-17.0); MEAN CORPUSCULAR HEMOGLOBIN 30.2 pg (27.0-33.4); MEAN CORPUSCULAR VOLUME 89 fl (80-97); PLATELET COUNT 365 10^3/uL (150-450); RED CELL DISTRIBUTION WIDTH 13.9 % (11.5-14.0); WHITE BLOOD COUNT 11.5 10^3/uL (4.0-10.5)
[2018-08-02 04:02] LABS: ARTERIAL BLOOD FIO2 30%
[2018-08-02 04:03] LABS: ANION GAP 10 (5-19); BLOOD UREA NITROGEN 20 mg/dL (7-20); CALCIUM 9.5 mg/dL (8.4-10.2); CARBON DIOXIDE 19 mmol/L (22-30); CHLORIDE 114 mmol/L (98-107); GLUCOSE 133 mg/dL (75-110); PHOSPHORUS 3.3 mg/dL (2.5-4.5); POTASSIUM 4.2 mmol/L (3.6-5.0); SODIUM 142.8 mmol/L (137-145)
[2018-08-02 04:22] LABS: ABSOLUTE LYMPHOCYTES# (MANUAL) 1.8 10^3/uL (0.5-4.7); ABSOLUTE NEUTROPHILS# (MANUAL) 8.6 10^3/uL (1.7-8.2); BASOPHILS % (MANUAL) 0 % (0-2); EOSINOPHILS % (MANUAL) 0 % (0-6); LYMPHOCYTES % (MANUAL) 13 % (13-45); MONOCYTES % (MANUAL) 9 % (3-13); SEGMENTED NEUTROPHILS % (MAN) 75 % (42-78); TOTAL CELLS COUNTED 100
[2018-08-02 04:23] LABS: HYPOCHROMASIA SLIGHT; POLYCHROMASIA SLIGHT; TOXIC GRANULATION 1+
[2018-08-02 04:24] LABS: PLATELET COMMENT ADEQUATE
[2018-08-02] MEDS: GABAPENTIN 100 MG CAPSULE NG SCH ×3 (05:34→22:38)
[2018-08-02] MEDS: INSULIN REG, HUMAN 100 UNIT/ML 3 ML VIAL (PYX) SUBCUT SCH ×4 (05:34→23:39)
[2018-08-02] MEDS: HEPARIN SOD (PORCINE) 5,000 UNIT/ML 1 ML SYRINGE SUBCUT SCH ×3 (05:34→22:18)
--- NOTE | 2018-08-02 06:43 | RADIOLOGY REPORT (SQ) ---
EXAM DESCRIPTION: XR CHEST 1 VIEW COMPLETED DATE/TME: 08/02/2018 06:00 CLINICAL HISTORY: 67 years Male, respiratory failure COMPARISON: One day prior. NUMBER OF VIEWS/TECHNIQUE: 1/AP FINDINGS: Small streaky patchy opacity in the left lower lung, mild central edema pattern.Atherosclerotic vascular disease. Adequate appearing endotracheal tube. Adequate appearing enteric tube partially obscured. Normal cardiac silhouette size. No pneumothorax. Stable bony thorax. IMPRESSION: No significant change.
[2018-08-02] MEDS: NORMAL SALINE 1000 ML 1,000 ML IV PRN (06:45)
[2018-08-02] MEDS: AMINO AC/PROTEIN HYDR/WHEY PRO 11 GM/45 ML PKT NG SCH ×3 (10:10→17:42)
[2018-08-02] MEDS: METOPROLOL TARTRATE 100 MG TABLET NG SCH ×2 (10:10→22:38)
[2018-08-02] MEDS: GEMFIBROZIL 600 MG TABLET NG SCH ×2 (10:11→17:42)
[2018-08-02] MEDS: CEFEPIME HCL 2 GM in DEXTROSE 5%-WATER 50 ML IV SCH ×2 (10:11→22:16)
[2018-08-02] MEDS: PANTOPRAZOLE SODIUM 40 MG VIAL IV SCH ×2 (10:11→22:16)
[2018-08-02] MEDS: METOCLOPRAMIDE HCL INJ/PF 10 MG/2 ML SDV IV SCH ×4 (10:39→22:38)
[2018-08-02 11:00] LABS: MYELOCYTES % (MANUAL) 1 % (0)
--- NOTE | 2018-08-02 12:02 | PDOC PROGRESS REPORT ---
Subjective Progress Note for:: 08/02/18 Subjective:: This is a 67 yr old male who was admitted due to acute encephalopathy. UDS was only positive for marijuana. He was intubated due to severe agitation. MRI of the head and CSF fluid analysis have been unremarkable. He was also treated for left lower lobe pneumonia. 08/01: Appears there is some improvement in his mentation during weaning trials but he continues to have agitation. Will continue daily weaning trials. 08/02: No acute event overnight. He is doing well on weaning trial. He is now following commands when asked to raise his eyebrows, corporate development manager this providers fingers and stick out his tongue. Plan to extubate today. Reason For Visit: ALTERED MENTAL STATUS AND S/P INTUBATION Physical Exam Vital Signs: Temp Pulse Resp BP Pulse Ox 99.7 F 113 H 18 107/73 96 08/02/18 08:00 08/02/18 10:00 08/02/18 10:00 08/02/18 10:00 08/02/18 10:00 Intake & Output 08/01/18 08/02/18 08/03/18 06:59 06:59 06:59 Intake Total 2946 1952 1065 Output Total 1460 2350 500 Balance 1486 -398 565 Weight 260 lb 2.327 oz 259 lb 4.218 oz General appearance: PRESENT: no acute distress - intubated but following commands, well-developed, well-nourished Head exam: PRESENT: atraumatic, normocephalic Eye exam: PRESENT: conjunctiva pink, EOMI, PERRLA. ABSENT: scleral icterus Ear exam: PRESENT: normal external ear exam Mouth exam: PRESENT: moist, tongue midline Neck exam: ABSENT: carotid bruit, JVD, lymphadenopathy, thyromegaly Respiratory exam: PRESENT: rhonchi. ABSENT: rales, wheezes Cardiovascular exam: PRESENT: RRR. ABSENT: diastolic murmur, rubs, systolic murmur Pulses: PRESENT: normal dorsalis pedis pul GI/Abdominal exam: PRESENT: normal bowel sounds, soft. ABSENT: distended, guarding, mass, organolmegaly, rebound, tenderness Rectal exam: PRESENT: deferred Neurological exam: PRESENT: awake, CN II-XII grossly intact. ABSENT: motor sens ory deficit - intubated but following commands Results Laboratory Results: 08/02/18 03:34 08/02/18 03:34 08/01/18 08/02/18 08/02/18 15:00 03:30 03:34 WBC 11.5 H RBC 4.00 L Hgb 12.1 L Hct 35.6 L MCV 89 MCH 30.2 MCHC 34.0 RDW 13.9 Plt Count 365 Seg Neutrophils % Not Reportable Lymphocytes % Not Reportable Monocytes % Not Reportable Eosinophils % Not Reportable Basophils % Not Reportable Absolute Neutrophils Not Reportable Absolute Lymphocytes Not Reportable Absolute Monocytes Not Reportable Absolute Eosinophils Not Reportable Absolute Basophils Not Reportable Carbonic Acid 1.03 L HCO3/H2CO3 Ratio 20:1 ABG pH 7.41 ABG pCO2 34.2 L ABG pO2 99.4 ABG HCO3 21.0 ABG O2 Saturation 97.6 ABG Base Excess -3.0 Carboxyhemoglobin 1.4 FiO2 30% Sodium Potassium Chloride Carbon Dioxide Anion Gap BUN Creatinine Est GFR ( Amer) Est GFR (Non-Af Amer) Glucose Calcium Phosphorus Magnesium 08/02/18 03:34 WBC RBC Hgb Hct MCV MCH MCHC RDW Plt Count Seg Neutrophils % Lymphocytes % Monocytes % Eosinophils % Basophils % Absolute Neutrophils Absolute Lymphocytes Absolute Monocytes Absolute Eosinophils Absolute Basophils Carbonic Acid HCO3/H2CO3 Ratio ABG pH ABG pCO2 ABG pO2 ABG HCO3 ABG O2 Saturation ABG Base Excess Carboxyhemoglobin FiO2 Sodium 142.8 Potassium 4.2 Chloride 114 H Carbon Dioxide 19 L Anion Gap 10 BUN 20 Creatinine 0.79 Est GFR ( Amer) > 60 Est GFR (Non-Af Amer) > 60 Glucose 133 H Calcium 9.5 Phosphorus 3.3 Magnesium 2.1 07/27/18 19:16 Blood Blood Culture - Final NO GROWTH IN 5 DAYS 07/27/18 17:20 Blood Blood Culture - Final NO GROWTH IN 5 DAYS 07/30/18 20:00 Catheterized Urine Urine Culture - Final NO GROWTH 2 DAYS 07/25/18 07/25/18 07/31/18 16:11 16:11 03:39 Creatine Kinase 50 L CK-MB (CK-2) 1.62 Troponin I < 0.012 NT-Pro-B Natriuret Pep 348 Impressions: Head CTA 07/25/18 16:52 IMPRESSION: NO CTA EVIDENCE OF STENOSIS OR ANEURYSM OF THE [place] OF [place]. Neck CTA 07/25/18 16:52 IMPRESSION: 1. Normal CTA of the extracranial carotid and vertebral system. 2. 1.1 x 1.7 cm nodule in the right lobe of the thyroid gland. Head MRI 07/25/18 18:26 IMPRESSION: Mild parenchymal volume loss. No acute ischemia. No other definite acute abnormality. Head CT 07/28/18 00:00 IMPRESSION: MILD CHRONIC CHANGES OF ATROPHY AND MICROVASCULAR ISCHEMIA. NO ACUTE PROCESS. EVIDENCE OF ACUTE STROKE: NO. KUB X-Ray 07/28/18 00:00 IMPRESSION: 1. No acute abdominal findings. No bowel distention. 2. Nasogastric tube remains in place. Chest X-Ray 08/02/18 06:00 IMPRESSION: No significant change. Assessment and Plan - Diagnosis (1) Acute respiratory failure Is this a current diagnosis for this admission?: Yes Plan: Patient required sedation and intubation due to severe agitation and confusion. Currently on minimal vent settings. Will continue daily weaning trials. 08/02: He is doing well on weaning trial. He is now following commands when asked to raise his eyebrows, corporate development manager this providers fingers and stick out his tongue. Plan to extubate today. (2) Acute encephalopathy Is this a current diagnosis for this admission?: Yes Plan: UDS was only positive for marijuana. He was intubated due to severe agitation. MRI of the head and CSF fluid analysis have been unremarkable. EEG shows GDPs which are not really very specific. 08/02: Considering the possibility of carbon monoxide toxicity as potential cause of encephalopathy. CO level came back at 1.4 drawn on day 7. Normal CO level for nonsmoker is 0.5% or less. Per patient's sister, he was a light smoker but has quit smoking for more than 30 years. (3) Acute kidney injury Is this a current diagnosis for this admission?: Yes Plan: Mild COLEEN. Resolved. (4) ALTA (obstructive sleep apnea) Is this a current diagnosis for this admission?: Yes Plan: BIPAP at night. - Time Time Spent with patient: 25-34 minutes
[2018-08-02 13:43] LABS: ARTERIAL BLOOD BASE EXCESS -2.8 mmol/L; ARTERIAL BLOOD H2CO3 1.08 mmol/L (1.05-1.35); ARTERIAL BLOOD HCO3 21.5 mmol/L (20-24); ARTERIAL BLOOD O2 SATURATION 96.2 % (94-98); ARTERIAL BLOOD PO2 82.9 mmHg (80-100); ARTERIAL BLOOD TOTAL CO2 22.7 mmol/L (23-27)
[2018-08-02 13:44] LABS: ARTERIAL BLOOD FIO2 3L
[2018-08-02] MEDS ORDERED: ONDANSETRON HCL INJ/PF 4 MG/2 ML SDV ONE (15:02)
--- NOTE | 2018-08-02 15:35 | RADIOLOGY REPORT (SQ) ---
EXAM DESCRIPTION: KUB/ABDOMEN (SINGLE VIEW) COMPLETED DATE/TIME: 08/02/2018 3:25 pm REASON FOR STUDY: r/o obstructive pattern,s/p NG placement E08.638 DIABETES DUE TO UNDERLYING CONDI TION W OTH ORAL COMP E78.00 PURE HYPERCHOLESTEROLEMIA, UNSPECIFIED D50.9 IRON DEFICIENCY ANEMIA, UN SPECIFIED COMPARISON: 07/28/2018 NUMBER OF VIEWS: One view. TECHNIQUE: Supine radiographic image of the abdomen acquired. LIMITATIONS: None. FINDINGS: BOWEL GAS PATTERN: Normal bowel gas pattern. No dilated loops. CALCIFICATIONS: No suspicious calcifications. SOFT TISSUES: No gross mass or suggestion of organomegaly. HARDWARE: Surgical clips overlie pelvis and left upper quadrant. Rectal temperature probe overlies m idline pelvis. Enteric tube kinked over gastric body with distal tip overlying GE junction. BONES: No acute findings. Lower lumbar spondylosis. OTHER: No other significant finding. IMPRESSION: No dilated loops of bowel to suggest obstruction. Enteric tube kinked over stomach with distal tip overlying GE junction. Consider repositioning. TECHNICAL DOCUMENTATION: JOB ID: [id number] [employer]- All Rights Reserved Reading location - IP/workstation name: [email or web address]
[2018-08-02] MEDS: THIAMINE HCL 100 MG TABLET NG SCH (17:42)
[2018-08-02 19:04] LABS: AMORPHOUS SEDIMENT,URINE TRACE /HPF; APPEARANCE,URINE CLOUDY; BILIRUBIN,URINE NEGATIVE (NEGATIVE); COLOR,URINE AMBER; GLUCOSE, URINE NEGATIVE (NEGATIVE); KETONES,URINE TRACE mg/dL (NEGATIVE); LEUKOCYTE ESTERASE,URINE NEGATIVE (NEGATIVE); NITRITE,URINE NEGATIVE (NEGATIVE); PROTEIN,URINE 100 mg/dL (NEGATIVE); UROBILINOGEN,URINE NEGATIVE mg/dL (<2.0)
--- NOTE | 2018-08-02 21:01 | RADIOLOGY REPORT (SQ) ---
EXAM DESCRIPTION: XR ABDOMEN 1 VIEW (KUB) COMPLETED DATE/TME: 08/02/2018 00:00 CLINICAL HISTORY: 67 years, Male, NG placement COMPARISON: None. NUMBER OF VIEWS: TECHNIQUE: LIMITATIONS: None. FINDINGS: The nasogastric tube is malpositioned. The tip of the NG tube projects over the medial right lung base, indicating that the tube is within the right bronchial tree. IMPRESSION: The NG tube is within the right bronchial tree, and must be removed. copyright 2010 [employer]- All Rights Reserved
--- NOTE | 2018-08-02 22:20 | RADIOLOGY REPORT (SQ) ---
EXAM DESCRIPTION: XR ABDOMEN 1 VIEW (KUB) COMPLETED DATE/TME: 08/02/2018 21:17 CLINICAL HISTORY: 67 years, Male, NGT Placement COMPARISON: Multiple priors, most recent from earlier the same day NUMBER OF VIEWS: One TECHNIQUE: Single frontal view of the abdomen was obtained LIMITATIONS: None. FINDINGS: Enteric drainage tube tip is located within the gastric cardia. The bowel gas pattern appears indeterminate secondary to minimal small bowel gas. Multiple surgical clips project about the lower abdomen. No suspicious osseous anomalies. IMPRESSION: Enteric tube tip projects about the gastric cardia. copyright 2010 [employer]- All Rights Reserved
[2018-08-02] MEDS: OXYBUTYNIN CHLORIDE 5 MG TABLET NG SCH (22:38)
[2018-08-03 03:44] LABS: ARTERIAL BLOOD BASE EXCESS 0 mmol/L; ARTERIAL BLOOD H2CO3 1.06 mmol/L (1.05-1.35); ARTERIAL BLOOD HCO3 23.6 mmol/L (20-24); ARTERIAL BLOOD O2 SATURATION 94.8 % (94-98); ARTERIAL BLOOD PCO2 35.2 mmHg (35-45); ARTERIAL BLOOD PH 7.45 (7.35-7.45); ARTERIAL BLOOD PO2 69.9 mmHg (80-100); ARTERIAL BLOOD TOTAL CO2 24.7 mmol/L (23-27)
[2018-08-03 03:46] LABS: ARTERIAL BLOOD FIO2 ROOM AIR
[2018-08-03 04:12] LABS: HEMATOCRIT 34.2 % (37.9-51.0); HEMOGLOBIN 11.7 g/dL (13.5-17.0); MEAN CORPUSCULAR HEMOGLOBIN 30.5 pg (27.0-33.4); MEAN CORPUSCULAR HGB CONC 34.3 g/dL (32.0-36.0); MEAN CORPUSCULAR VOLUME 89 fl (80-97); PLATELET COUNT 365 10^3/uL (150-450); RED BLOOD COUNT 3.85 10^6/uL (4.35-5.55); RED CELL DISTRIBUTION WIDTH 13.8 % (11.5-14.0); WHITE BLOOD COUNT 15.6 10^3/uL (4.0-10.5)
[2018-08-03 04:31] LABS: ALANINE AMINOTRANSFERASE 27 U/L (21-72); ALBUMIN 3.3 g/dL (3.5-5.0); ALKALINE PHOSPHATASE 121 U/L (38-126); ANION GAP 9 (5-19); ASPARTATE AMINO TRANSFERASE 27 U/L (17-59); BILIRUBIN,DIRECT 0.5 mg/dL (0.0-0.4); BILIRUBIN,TOTAL 0.7 mg/dL (0.2-1.3); BLOOD UREA NITROGEN 24 mg/dL (7-20); CALCIUM 9.7 mg/dL (8.4-10.2); CARBON DIOXIDE 21 mmol/L (22-30); CHLORIDE 113 mmol/L (98-107); GLUCOSE 136 mg/dL (75-110); POTASSIUM 4.3 mmol/L (3.6-5.0); SODIUM 142.5 mmol/L (137-145); TOTAL PROTEIN 6.8 g/dL (6.3-8.2)
[2018-08-03 04:38] LABS: ABSOLUTE MONOCYTES # (MANUAL) 0.9 10^3/uL (0.1-1.4); ABSOLUTE NEUTROPHILS# (MANUAL) 12.3 10^3/uL (1.7-8.2); BAND NEUTROPHILS % (MANUAL) 2 % (3-5); BASOPHILS % (MANUAL) 0 % (0-2); EOSINOPHILS % (MANUAL) 2 % (0-6); LYMPHOCYTES % (MANUAL) 12 % (13-45); MONOCYTES % (MANUAL) 6 % (3-13); SEGMENTED NEUTROPHILS % (MAN) 77 % (42-78); TOTAL CELLS COUNTED 100
[2018-08-03 04:39] LABS: PLATELET COMMENT ADEQUATE; POLYCHROMASIA SLIGHT; ROULEAUX 1+
[2018-08-03] MEDS: NORMAL SALINE 1000 ML 1,000 ML IV PRN (05:04)
[2018-08-03] MEDS: INSULIN REG, HUMAN 100 UNIT/ML 3 ML VIAL (PYX) SUBCUT SCH ×4 (05:28→23:27)
[2018-08-03] MEDS: GABAPENTIN 100 MG CAPSULE NG SCH ×3 (05:30→21:37)
[2018-08-03] MEDS: HEPARIN SOD (PORCINE) 5,000 UNIT/ML 1 ML SYRINGE SUBCUT SCH (05:31)
--- NOTE | 2018-08-03 07:36 | RADIOLOGY REPORT (SQ) ---
EXAM DESCRIPTION: XR CHEST 1 VIEW COMPLETED DATE/TME: 08/03/2018 06:00 CLINICAL HISTORY: 67 years Male, resp failure COMPARISON: One day prior. NUMBER OF VIEWS/TECHNIQUE: 1/AP FINDINGS: Mild mixed interstitial and airspace opacity with central predominance. Adequate appearing enteric tube with tip at the left upper abdominal quadrant. Atherosclerotic vascular disease. Normal cardiac silhouette size. No pneumothorax. Stable bony thorax. IMPRESSION: Interval extubation.
[2018-08-03] MEDS: ONDANSETRON HCL INJ/PF 4 MG/2 ML SDV IV PRN (08:16)
[2018-08-03] MEDS: METOCLOPRAMIDE HCL INJ/PF 10 MG/2 ML SDV IV SCH ×4 (09:22→21:37)
[2018-08-03] MEDS: AMINO AC/PROTEIN HYDR/WHEY PRO 11 GM/45 ML PKT NG SCH ×3 (09:23→17:08)
[2018-08-03] MEDS: PANTOPRAZOLE SODIUM 40 MG VIAL IV SCH ×2 (09:23→21:37)
[2018-08-03] MEDS: METOPROLOL TARTRATE 100 MG TABLET NG SCH ×2 (09:23→23:27)
[2018-08-03] MEDS: GEMFIBROZIL 600 MG TABLET NG SCH ×2 (09:23→17:07)
[2018-08-03 09:53] LABS: PATH REVIEW PATHOLOGIST REVIEWED
[2018-08-03] MEDS: CEFEPIME HCL 2 GM in DEXTROSE 5%-WATER 50 ML IV SCH ×2 (13:02→21:36)
--- NOTE | 2018-08-03 14:31 | PDOC PROGRESS REPORT ---
Subjective Progress Note for:: 08/03/18 Subjective:: This is a 67 yr old male who was admitted due to acute encephalopathy. UDS was only positive for marijuana. He was intubated due to severe agitation. MRI of the head and CSF fluid analysis have been unremarkable. He was also treated for left lower lobe pneumonia. 08/01: Appears there is some improvement in his mentation during weaning trials but he continues to have agitation. Will continue daily weaning trials. 08/02: He is doing well on weaning trial. He is now following commands when asked to raise his eyebrows, internet developer this providers fingers and stick out his tongue. Plan to extubate today. 08/03: Patient successfully extubated yesterday. No acute event overnight. He is saturating well and is comfortable on nasal cannula. He is more conversant and alert today. Mentation appears to have improved. He is able to tell me his name and he knows he is in a hospital but not able to tell me the circumstances before he was brought in to the ER. Urine on Marcum appears brown. Will have him evaluated by PT and speech therapy. Reason For Visit: ALTERED MENTAL STATUS AND S/P INTUBATION Physical Exam Vital Signs: Temp Pulse Resp BP Pulse Ox 98.8 F 105 H 17 115/69 92 08/03/18 10:00 08/03/18 10:00 08/03/18 10:39 08/03/18 10:39 08/03/18 10:39 Intake & Output 08/02/18 08/03/18 08/04/18 06:59 06:59 06:59 Intake Total 4782 1835 50 Output Total 2350 2176 270 Balance -398 -341 -220 Weight 259 lb 4.218 oz 259 lb 4.218 oz General appearance: PRESENT: no acute distress, well-developed, well-nourished Head exam: PRESENT: atraumatic, normocephalic Eye exam: PRESENT: conjunctiva pink, EOMI, PERRLA. ABSENT: scleral icterus Ear exam: PRESENT: normal external ear exam Mouth exam: PRESENT: moist, tongue midline Neck exam: ABSENT: carotid bruit, JVD, lymphadenopathy, thyromegaly Respiratory exam: PRESENT: rhonchi. ABSENT: rales, wheezes Cardiovascular exam: PRESENT: RRR. ABSENT: diastolic murmur, rubs, systolic murmur Pulses: PRESENT: normal dorsalis pedis pul GI/Abdominal exam: PRESENT: normal bowel sounds, soft. ABSENT: distended, guarding, mass, organolmegaly, rebound, tenderness Rectal exam: PRESENT: deferred Neurological exam: PRESENT: alert, awake, oriented to person, oriented to place, CN II-XII grossly intact. ABSENT: motor sensory deficit Results Laboratory Results: 08/03/18 03:43 08/03/18 03:43 08/02/18 08/03/18 08/03/18 14:15 03:40 03:43 WBC 15.6 H RBC 3.85 L Hgb 11.7 L Hct 34.2 L MCV 89 MCH 30.5 MCHC 34.3 RDW 13.8 Plt Count 365 Seg Neutrophils % Not Reportable Lymphocytes % Not Reportable Monocytes % Not Reportable Eosinophils % Not Reportable Basophils % Not Reportable Absolute Neutrophils Not Reportable Absolute Lymphocytes Not Reportable Absolute Monocytes Not Reportable Absolute Eosinophils Not Reportable Absolute Basophils Not Reportable Carbonic Acid 1.06 HCO3/H2CO3 Ratio 22:1 ABG pH 7.45 ABG pCO2 35.2 ABG pO2 69.9 L ABG HCO3 23.6 ABG O2 Saturation 94.8 ABG Base Excess 0 FiO2 ROOM AIR Sodium Potassium Chloride Carbon Dioxide Anion Gap BUN Creatinine Est GFR ( Amer) Est GFR (Non-Af Amer) Glucose Calcium Magnesium Total Bilirubin AST ALT Alkaline Phosphatase Total Protein Albumin Urine Color MADDIE Urine Appearance CLOUDY Urine pH 5.0 Ur Specific [place] 1.020 Urine Protein 100 H Urine Glucose (UA) NEGATIVE Urine Ketones TRACE H Urine Blood LARGE H Urine Nitrite NEGATIVE Ur Leukocyte Esterase NEGATIVE Urine WBC (Auto) 5 Urine RBC (Auto) >182 08/03/18 03:43 WBC RBC Hgb Hct MCV MCH MCHC RDW Plt Count Seg Neutrophils % Lymphocytes % Monocytes % Eosinophils % Basophils % Absolute Neutrophils Absolute Lymphocytes Absolute Monocytes Absolute Eosinophils Absolute Basophils Carbonic Acid HCO3/H2CO3 Ratio ABG pH ABG pCO2 ABG pO2 ABG HCO3 ABG O2 Saturation ABG Base Excess FiO2 Sodium 142.5 Potassium 4.3 Chloride 113 H Carbon Dioxide 21 L Anion Gap 9 BUN 24 H Creatinine 0.81 Est GFR ( Amer) > 60 Est GFR (Non-Af Amer) > 60 Glucose 136 H Calcium 9.7 Magnesium 1.9 Total Bilirubin 0.7 AST 27 ALT 27 Alkaline Phosphatase 121 Total Protein 6.8 Albumin 3.3 L Urine Color Urine Appearance Urine pH Ur Specific [place] Urine Protein Urine Glucose (UA) Urine Ketones Urine Blood Urine Nitrite Ur Leukocyte Esterase Urine WBC (Auto) Urine RBC (Auto) 07/25/18 07/25/18 07/31/18 16:11 16:11 03:39 Creatine Kinase 50 L CK-MB (CK-2) 1.62 Troponin I < 0.012 NT-Pro-B Natriuret Pep 348 08/02/18 08/02/18 14:55 14:55 Creatine Kinase 55 CK-MB (CK-2) 0.31 Troponin I NT-Pro-B Natriuret Pep Impressions: Head CTA 07/25/18 16:52 IMPRESSION: NO CTA EVIDENCE OF STENOSIS OR ANEURYSM OF THE [place] OF [place]. Neck CTA 07/25/18 16:52 IMPRESSION: 1. Normal CTA of the extracranial carotid and vertebral system. 2. 1.1 x 1.7 cm nodule in the right lobe of the thyroid gland. Head MRI 07/25/18 18:26 IMPRESSION: Mild parenchymal volume loss. No acute ischemia. No other definite acute abnormality. Head CT 07/28/18 00:00 IMPRESSION: MILD CHRONIC CHANGES OF ATROPHY AND MICROVASCULAR ISCHEMIA. NO ACUTE PROCESS. EVIDENCE OF ACUTE STROKE: NO. KUB X-Ray 08/02/18 21:17 IMPRESSION: Enteric tube tip projects about the gastric cardia. copyright 2011 [employer]- All Rights Reserved Chest X-Ray 08/03/18 06:00 IMPRESSION: Interval extubation. Assessment and Plan - Diagnosis (1) Acute respiratory failure Is this a current diagnosis for this admission?: Yes Plan: Patient required sedation and intubation due to severe agitation and confusion. Currently on minimal vent settings. Will continue daily weaning trials. 08/02: He is doing well on weaning trial. He is now following commands when asked to raise his eyebrows, internet developer this providers fingers and stick out his tongue. Plan to extubate today. 08/03: Patient successfully extubated yesterday. He is saturating well and is comfortable on nasal cannula. He is more conversant and alert today. Mentation appears to have improved. He is able to tell me his name and he knows he is in a hospital but not able to tell me the circumstances before he was brought in to the ER. (2) Acute encephalopathy Is this a current diagnosis for this admission?: Yes Plan: UDS was only positive for marijuana. He was intubated due to severe agitation. MRI of the head and CSF fluid analysis have been unremarkable. EEG shows GDPs which are not really very specific. 08/02: Considering the possibility of carbon monoxide toxicity as potential cause of encephalopathy. CO level came back at 1.4 drawn on day 7. Normal CO level for nonsmoker is 0.5% or less. Per patient's sister, he was a light smoker but has quit smoking for more than 30 years. 08/03: He is more conversant and alert today. Mentation appears to have improved. He is able to tell me his name and he knows he is in a hospital but not able to tell me the circumstances before he was brought in to the ER. (3) Acute kidney injury Is this a current diagnosis for this admission?: Yes Plan: Mild COLEEN. Resolved. (4) ALTA (obstructive sleep apnea) Is this a current diagnosis for this admission?: Yes Plan: BIPAP at night. (5) Hematuria Is this a current diagnosis for this admission?: Yes Plan: Hold SQ heparin. Send for UA and renal US. - Time Time Spent with patient: 25-34 minutes
--- NOTE | 2018-08-03 16:01 | RADIOLOGY REPORT (SQ) ---
EXAM DESCRIPTION: CT ABD/PELVIS NO ORAL OR IV COMPLETED DATE/TIME: 08/03/2018 3:41 pm REASON FOR STUDY: Abnormal UA E08.638 DIABETES DUE TO UNDERLYING CONDITION W OTH ORAL COMP E78.00 PURE HYPERCHOLESTEROLEMIA, UNSPECIFIED D50.9 IRON DEFICIENCY ANEMIA, UNSPECIFIED COMPARISON: 05/17/2017 TECHNIQUE: CT scan of the abdomen and pelvis performed without intravenous or oral contrast. Images reviewed with lung, soft tissue, and bone windows. Reconstructed coronal and sagittal MPR images revi ewed. All images stored on PACS. All CT scanners at this facility use dose modulation, iterative reconstruction, and/or weight based d osing when appropriate to reduce radiation dose to as low as reasonably achievable (ALARA). [facility]: Dose Right [facility]: CareDose [facility]: Dose Right [facility]: Teradose 4D [facility]: [employer] RADIATION DOSE: CT Rad equipment meets quality standard of care and radiation dose reduction techniq ues were employed. CTDIvol: 26.3 mGy. DLP: 1562 mGy-cm.mGy. LIMITATIONS: None. FINDINGS: LOWER CHEST: Nasogastric tube in the stomach. Left basilar atelectasis. NON-CONTRASTED LIVER, SPLEEN, ADRENALS: Evaluation limited by lack of IV contrast. No identified sign ificant masses. PANCREAS: No masses. No peripancreatic inflammatory changes. GALLBLADDER: No identified stones by CT criteria. No inflammatory changes to suggest cholecystitis. RIGHT KIDNEY AND URETER: Stable cysts. No suspicious masses. Assessment limited by lack of IV contra st. No significant calcifications. No hydronephrosis or hydroureter. LEFT KIDNEY AND URETER: Stable cysts. No suspicious masses. Assessment limited by lack of IV contras t. 1 mm lower pole renal calculus. No hydronephrosis or hydroureter. AORTA AND RETROPERITONEUM: No aneurysm. No retroperitoneal masses or adenopathy. BOWEL AND PERITONEAL CAVITY: Mildly dilated loops of small bowel with gas fluid levels adjacent to an terior abdominal wall hernia. More proximal and distal small bowel is decompressed. Diffuse diverti culosis. Anastomosis sigmoid colon. APPENDIX: Not visualized. PELVIS, BLADDER, AND ABDOMINAL WALL:Anterior abdominal wall hernia defect about 4 cm. Marcum catheter in urinary bladder. BONES: Nothing acute. OTHER: No other significant finding. IMPRESSION: Mildly dilated loops of small bowel associated with chronic anterior abdominal wall sally ia. No high-grade bowel obstruction. COMMENT: Quality ID # [id number]: Final reports with documentation of one or more dose reduction techniques (e.g., Automated exposure control, adjustment of the mA and/or kV according to patient size, use of iterative reconstruction technique) TECHNICAL DOCUMENTATION: JOB ID: [id number] [employer]- All Rights Reserved Reading location - IP/workstation name: [email or web address] BEDS AT THE [facility]
[2018-08-03] MEDS: THIAMINE HCL 100 MG TABLET NG SCH (17:07)
[2018-08-03] MEDS: FUROSEMIDE 20 MG TABLET PO SCH (17:07)
[2018-08-03] MEDS: OXYBUTYNIN CHLORIDE 5 MG TABLET NG SCH (21:37)
[2018-08-04] MEDS: GABAPENTIN 100 MG CAPSULE NG SCH (05:27)
[2018-08-04] MEDS: INSULIN REG, HUMAN 100 UNIT/ML 3 ML VIAL (PYX) SUBCUT SCH ×4 (05:28→23:10)
[2018-08-04] MEDS: FENTANYL CITRATE INJ/PF 100 MCG/2 ML AMPUL IV PRN (06:42)
[2018-08-04] MEDS: METOCLOPRAMIDE HCL INJ/PF 10 MG/2 ML SDV IV SCH ×4 (09:04→22:14)
[2018-08-04] MEDS: CEFEPIME HCL 2 GM in DEXTROSE 5%-WATER 50 ML IV SCH (09:05)
[2018-08-04] MEDS: METOPROLOL TARTRATE 100 MG TABLET NG SCH ×2 (09:05→22:13)
[2018-08-04] MEDS: FUROSEMIDE 20 MG TABLET PO SCH ×2 (09:05→17:57)
[2018-08-04] MEDS: PANTOPRAZOLE SODIUM 40 MG VIAL IV SCH (09:05)
[2018-08-04] MEDS: AMINO AC/PROTEIN HYDR/WHEY PRO 11 GM/45 ML PKT NG SCH ×2 (09:05→13:54)
[2018-08-04] MEDS: GEMFIBROZIL 600 MG TABLET NG SCH (09:05)
[2018-08-04] MEDS: ONDANSETRON HCL INJ/PF 4 MG/2 ML SDV IV PRN (13:51)
--- NOTE | 2018-08-04 14:26 | PDOC PROGRESS REPORT ---
Subjective Progress Note for:: 08/04/18 Subjective:: This is a 67 yr old male who was admitted due to acute encephalopathy. UDS was only positive for marijuana. He was intubated due to severe agitation. MRI of the head and CSF fluid analysis have been unremarkable. He was also treated for left lower lobe pneumonia. 08/01: Appears there is some improvement in his mentation during weaning trials but he continues to have agitation. Will continue daily weaning trials. 08/02: He is doing well on weaning trial. He is now following commands when asked to raise his eyebrows, systems security consultant this providers fingers and stick out his tongue. Plan to extubate today. 08/03: Patient successfully extubated yesterday. He is saturating well and is comfortable on nasal cannula. He is more conversant and alert today. Mentation appears to have improved. He is able to tell me his name and he knows he is in a hospital but not able to tell me the circumstances before he was brought in to the ER. Urine on Marcum appears brown. Will have him evaluated by PT and speech therapy. 08/04: No acute event overnight. He continues to improve and is more coherent and conversant today. He still feels generally weak and is awaiting PT eval. Appears hematuria has cleared after holding SQ heparin. Reason For Visit: ALTERED MENTAL STATUS AND S/P INTUBATION Physical Exam Vital Signs: Temp Pulse Resp BP Pulse Ox 98.4 F 66 19 117/85 98 08/04/18 12:00 08/04/18 12:00 08/04/18 12:00 08/04/18 12:00 08/04/18 12:00 Intake & Output 08/03/18 08/04/18 08/05/18 06:59 06:59 06:59 Intake Total 1835 600 50 Output Total 2176 2085 145 Balance -341 -1485 -95 Weight 259 lb 4.218 oz 249 lb 9.012 oz General appearance: PRESENT: no acute distress, well-developed, well-nourished Head exam: PRESENT: atraumatic, normocephalic Eye exam: PRESENT: conjunctiva pink, EOMI, PERRLA. ABSENT: scleral icterus Ear exam: PRESENT: normal external ear exam Mouth exam: PRESENT: moist, tongue midline Neck exam: ABSENT: carotid bruit, JVD, lymphadenopathy, thyromegaly Respiratory exam: PRESENT: clear to auscultation filomena. ABSENT: rales, rhonchi, wheezes Cardiovascular exam: PRESENT: RRR. ABSENT: diastolic murmur, rubs, systolic murmur Pulses: PRESENT: normal dorsalis pedis pul GI/Abdominal exam: PRESENT: normal bowel sounds, soft. ABSENT: distended, guarding, mass, organolmegaly, rebound, tenderness Rectal exam: PRESENT: deferred Neurological exam: PRESENT: alert, awake, oriented to person, oriented to place, CN II-XII grossly intact. ABSENT: motor sensory deficit Results Laboratory Results: 08/03/18 03:43 08/03/18 03:43 08/02/18 14:15 Catheterized Urine Urine Culture - Final NO GROWTH 2 DAYS 07/25/18 07/25/18 07/31/18 16:11 16:11 03:39 Creatine Kinase 50 L CK-MB (CK-2) 1.62 Troponin I < 0.012 NT-Pro-B Natriuret Pep 348 08/02/18 08/02/18 14:55 14:55 Creatine Kinase 55 CK-MB (CK-2) 0.31 Troponin I NT-Pro-B Natriuret Pep Impressions: Head CTA 07/25/18 16:52 IMPRESSION: NO CTA EVIDENCE OF STENOSIS OR ANEURYSM OF THE [place]. Neck CTA 07/25/18 16:52 IMPRESSION: 1. Normal CTA of the extracranial carotid and vertebral system. 2. 1.1 x 1.7 cm nodule in the right lobe of the thyroid gland. Head MRI 07/25/18 18:26 IMPRESSION: Mild parenchymal volume loss. No acute ischemia. No other definite acute abnormality. Head CT 07/28/18 00:00 IMPRESSION: MILD CHRONIC CHANGES OF ATROPHY AND MICROVASCULAR ISCHEMIA. NO ACUTE PROCESS. EVIDENCE OF ACUTE STROKE: NO. Chest X-Ray 08/03/18 06:00 IMPRESSION: Interval extubation. Abdomen/Pelvis CT 08/03/18 09:58 IMPRESSION: Mildly dilated loops of small bowel associated with chronic anterior abdominal wall hernia. No high-grade bowel obstruction. Assessment and Plan - Diagnosis (1) Acute respiratory failure Is this a current diagnosis for this admission?: Yes Plan: Patient required sedation and intubation due to severe agitation and confusion. Currently on minimal vent settings. Will continue daily weaning trials. 08/02: He is doing well on weaning trial. He is now following commands when asked to raise his eyebrows, systems security consultant this providers fingers and stick out his tongue. Plan to extubate today. 08/03: Patient successfully extubated yesterday. He is saturating well and is comfortable on nasal cannula. He is more conversant and alert today. Mentation appears to have improved. He is able to tell me his name and he knows he is in a hospital but not able to tell me the circumstances before he was brought in to the ER. 08/04: Doing well on nasal cannula. (2) Acute encephalopathy Is this a current diagnosis for this admission?: Yes Plan: UDS was only positive for marijuana. He was intubated due to severe agitation. MRI of the head and CSF fluid analysis have been unremarkable. EEG shows GDPs which are not really very specific. 08/02: Considering the possibility of carbon monoxide toxicity as potential cause of encephalopathy. CO level came back at 1.4 drawn on day 7. Normal CO level for nonsmoker is 0.5% or less. Per patient's sister, he was a light smoker but has quit smoking for more than 30 years. 08/03: He is more conversant and alert today. Mentation appears to have improved. He is able to tell me his name and he knows he is in a hospital but not able to tell me the circumstances before he was brought in to the ER. (3) Acute kidney injury Is this a current diagnosis for this admission?: Yes Plan: Mild COLEEN. Resolved. (4) ALTA (obstructive sleep apnea) Is this a current diagnosis for this admission?: Yes Plan: BIPAP at night. (5) Hematuria Is this a current diagnosis for this admission?: Yes Plan: Hold SQ heparin. Send for UA and renal US. 08/04: UA did show significant hematuria. CT of the abdomen and pelvis did not reveal any renal or ureteral stone. Appears hematuria has cleared after holding SQ heparin. SCDs for now for VTE prophylaxis.
--- NOTE | 2018-08-04 14:32 | RADIOLOGY REPORT (SQ) ---
EXAM DESCRIPTION: KUB/ABDOMEN (SINGLE VIEW) COMPLETED DATE/TIME: 08/04/2018 2:13 pm REASON FOR STUDY: ng tube placement E08.638 DIABETES DUE TO UNDERLYING CONDITION W OTH ORAL COMP E7 8.00 PURE HYPERCHOLESTEROLEMIA, UNSPECIFIED D50.9 IRON DEFICIENCY ANEMIA, UNSPECIFIED COMPARISON: 08/02/2018. NUMBER OF VIEWS: One view. TECHNIQUE: Supine radiographic image of the abdomen acquired. LIMITATIONS: None. FINDINGS: BOWEL GAS PATTERN: Normal bowel gas pattern. No dilated loops. CALCIFICATIONS: No suspicious calcifications. SOFT TISSUES: No gross mass or suggestion of organomegaly. HARDWARE: The nasogastric tube is located in the lower right chest, consistent with position in the b ronchus to the right lower lobe. BONES: No acute fracture. No worrisome bone lesions. OTHER: No other significant finding. IMPRESSION: MALPOSITION OF THE NASOGASTRIC TUBE WHICH IS LOCATED IN THE BRONCHUS TO THE RIGHT LOWER LOBE. COMMENT: The technologist indicates that the patient's clinical team was aware of the abnormal locat ion and had removed the nasogastric tube shortly after the image was acquired. TECHNICAL DOCUMENTATION: JOB ID: [id number] [employer]- All Rights Reserved Reading location - IP/workstation name: [email or web address]
[2018-08-04] MEDS: THIAMINE HCL 100 MG TABLET NG SCH (17:58)
--- NOTE | 2018-08-04 22:11 | PDOC CONSULTATION ---
Consultation Consult Date: 08/04/18 Consult reason:: ventral hernia History of Present Illness Admission Date/PCP: 07/27/18 07:46 Patient complains of: altered mental status. History of Present Illness: EL SEYMOUR is a 67 year old male who was admiteed for encephalopathy possibly due to Carbon monoxide intoxication. Had a CT scan of abd/pelvis 08/03 which showed incarcerated small bowel in a ventral hernia with no severe obstruction. Denies any pains ,nausea or vomiting today. Past Medical History Cardiac Medical History: Reports: Hypertension Denies: Myocardial Infarction Pulmonary Medical History: Denies: Asthma Neurological Medical History: Denies: Seizures Endocrine Medical History: Reports: Diabetes Mellitus Type 2 GI Medical History: Reports: Diverticulitis Denies: Hepatitis, Hiatal Hernia Psychiatric Medical History: Reports: Depression Hematology: Denies: Anemia, Sickle Cell Disease Past Surgical History Past Surgical History: Reports: Orthopedic Surgery - left ankle Denies: Pacemaker Social History Lives with: Family Smoking Status: Unknown if Ever Smoked Frequency of Alcohol Use: None Hx Recreational Drug Use: No Drugs: None Hx Prescription Drug Abuse: No - Advance Directive Resuscitation Status: Full Code Family History Family History: Hypertension, Other - diverticulitis Parental Family History Reviewed: Yes Children Family History Reviewed: No Sibling(s) Family History Reviewed.: No Medication/Allergy Home Medications: Gabapentin [Neurontin 100 mg Capsule] 100 mg PO Q8 07/26/18 Gemfibrozil [Lopid 600 mg Tablet] 600 mg PO BID 07/26/18 Glyburide,Micronized [Glyburide Micronized] 3 mg PO DAILY 07/26/18 Indomethacin [Indocin 50 mg Capsule] 50 mg PO Q8HP PRN 07/26/18 Lisinopril/Hydrochlorothiazide [Zestoretic 10-12.5 mg Tablet] 1 tab PO DAILY 07/26/18 Metformin HCl [Glucophage] 1,000 mg PO BID 07/26/18 Metoprolol Tartrate [Lopressor 100 mg Tablet] 100 mg PO BID 07/26/18 Oxybutynin Chloride [Ditropan 5 mg Tablet] 5 mg PO QHS 07/26/18 Triamcinolone Acetonide [Aristocort 0.1% Cream] 1 applic TP BIDP PRN 07/26/18 Allergies/Adverse Reactions: No Known Allergies Allergy (Verified 07/17/18 14:51) Review of Systems Constitutional: PRESENT: as per HPI Gastrointestinal: PRESENT: other - no pains Physical Exam Vital Signs: Temp Pulse Resp BP Pulse Ox 97.8 F 88 18 127/69 H 93 08/04/18 19:42 08/04/18 20:00 08/04/18 19:42 08/04/18 19:42 08/04/18 19:42 Intake & Output 08/03/18 08/04/18 08/05/18 06:59 06:59 06:59 Intake Total 1835 600 50 Output Total 2176 2505 945 Balance -341 -2108 -894 Weight 117.6 kg 113.2 kg General appearance: PRESENT: no acute distress Head exam: PRESENT: atraumatic Eye exam: PRESENT: conjunctiva pink Mouth exam: PRESENT: moist Neck exam: PRESENT: full ROM Respiratory exam: PRESENT: clear to auscultation filomena Cardiovascular exam: PRESENT: RRR Pulses: PRESENT: normal radial pulses Vascular exam: PRESENT: normal capillary refill GI/Abdominal exam: PRESENT: soft - non tender Has a ventral hernia to the right of the umbilicus with no obvious incarceration at this time. Midline operative scar Rectal exam: PRESENT: deferred Neurological exam: PRESENT: alert, awake, other - not quite well oriented. Denies any abdominal pains or tenderness when palpating hernia site Skin exam: PRESENT: normal color, warm Results Laboratory Results: 08/03/18 03:43 08/03/18 03:43 08/02/18 14:15 Catheterized Urine Urine Culture - Final NO GROWTH 2 DAYS 07/25/18 07/25/18 07/31/18 16:11 16:11 03:39 Creatine Kinase 50 L CK-MB (CK-2) 1.62 Troponin I < 0.012 NT-Pro-B Natriuret Pep 348 08/02/18 08/02/18 14:55 14:55 Creatine Kinase 55 CK-MB (CK-2) 0.31 Troponin I NT-Pro-B Natriuret Pep Impressions: Head CTA 07/25/18 16:52 IMPRESSION: NO CTA EVIDENCE OF STENOSIS OR ANEURYSM OF THE [place]. Neck CTA 07/25/18 16:52 IMPRESSION: 1. Normal CTA of the extracranial carotid and vertebral system. 2. 1.1 x 1.7 cm nodule in the right lobe of the thyroid gland. Head MRI 07/25/18 18:26 IMPRESSION: Mild parenchymal volume loss. No acute ischemia. No other definite acute abnormality. Head CT 07/28/18 00:00 IMPRESSION: MILD CHRONIC CHANGES OF ATROPHY AND MICROVASCULAR ISCHEMIA. NO ACUTE PROCESS. EVIDENCE OF ACUTE STROKE: NO. Chest X-Ray 08/03/18 06:00 IMPRESSION: Interval extubation. Abdomen/Pelvis CT 08/03/18 09:58 IMPRESSION: Mildly dilated loops of small bowel associated with chronic anterior abdominal wall hernia. No high-grade bowel obstruction. KUB X-Ray 08/04/18 13:47 IMPRESSION: MALPOSITION OF THE NASOGASTRIC TUBE WHICH IS LOCATED IN THE BR [place] TO THE RIGHT LOWER LOBE. Assessment & Plan - Diagnosis (1) Ventral hernia without obstruction or gangrene Is this a current diagnosis for this admission?: Yes - Time Time Spent: 30 to 50 Minutes - Plan Summary Plan Summary: No obvious Bowel obstruction OK to start liquids and gradually increase as tolerated Call for any questions
[2018-08-05] MEDS: INSULIN REG, HUMAN 100 UNIT/ML 3 ML VIAL (PYX) SUBCUT SCH ×3 (05:23→17:37)
[2018-08-05] MEDS: PANTOPRAZOLE SODIUM 40 MG TABLET.DR PO SCH (05:23)
[2018-08-05] MEDS: METOPROLOL TARTRATE 100 MG TABLET NG SCH ×2 (10:00→21:51)
[2018-08-05] MEDS: METOCLOPRAMIDE HCL INJ/PF 10 MG/2 ML SDV IV SCH ×2 (10:40→23:57)
[2018-08-05] MEDS: FUROSEMIDE 20 MG TABLET PO SCH ×2 (10:40→18:45)
--- NOTE | 2018-08-05 16:38 | PDOC PROGRESS REPORT ---
Subjective Progress Note for:: 08/05/18 Subjective:: No adverse events overnight. No new complaints. He is been restless and is not wanted to sit still gets 1 to get up out of the bed, but he is very weak, and physical therapy saw him he got up with a 2 person assist to standing but was unable to walk. Reason For Visit: ALTERED MENTAL STATUS AND S/P INTUBATION Physical Exam Vital Signs: Temp Pulse Resp BP Pulse Ox 97.9 F 117 H 20 103/85 96 08/05/18 15:37 08/05/18 15:37 08/05/18 12:00 08/05/18 15:37 08/05/18 15:37 Intake & Output 08/04/18 08/05/18 08/06/18 06:59 06:59 06:59 Intake Total 600 50 Output Total 2085 1445 Balance -1485 -1395 Weight 113.2 kg 110.4 kg General appearance: PRESENT: no acute distress, well-developed, well-nourished, disheveled Head exam: PRESENT: atraumatic, normocephalic Neck exam: ABSENT: carotid bruit, JVD, lymphadenopathy, thyromegaly Respiratory exam: PRESENT: clear to auscultation filomena. ABSENT: rales, rhonchi, wheezes Cardiovascular exam: PRESENT: RRR. ABSENT: diastolic murmur, rubs, systolic murmur Pulses: PRESENT: normal dorsalis pedis pul GI/Abdominal exam: PRESENT: normal bowel sounds, soft. ABSENT: distended, guarding, mass, organolmegaly, rebound, tenderness Neurological exam: PRESENT: alert, awake, oriented to person Results Laboratory Results: 08/03/18 03:43 08/03/18 03:43 08/02/18 14:15 Catheterized Urine Urine Culture - Final NO GROWTH 2 DAYS 07/25/18 07/25/18 07/31/18 16:11 16:11 03:39 Creatine Kinase 50 L CK-MB (CK-2) 1.62 Troponin I < 0.012 NT-Pro-B Natriuret Pep 348 08/02/18 08/02/18 14:55 14:55 Creatine Kinase 55 CK-MB (CK-2) 0.31 Troponin I NT-Pro-B Natriuret Pep Impressions: Head CTA 07/25/18 16:52 IMPRESSION: NO CTA EVIDENCE OF STENOSIS OR ANEURYSM OF THE [place]. Neck CTA 07/25/18 16:52 IMPRESSION: 1. Normal CTA of the extracranial carotid and vertebral system. 2. 1.1 x 1.7 cm nodule in the right lobe of the thyroid gland. Head MRI 07/25/18 18:26 IMPRESSION: Mild parenchymal volume loss. No acute ischemia. No other definite acute abnormality. Head CT 07/28/18 00:00 IMPRESSION: MILD CHRONIC CHANGES OF ATROPHY AND MICROVASCULAR ISCHEMIA. NO ACUTE PROCESS. EVIDENCE OF ACUTE STROKE: NO. Chest X-Ray 08/03/18 06:00 IMPRESSION: Interval extubation. Abdomen/Pelvis CT 08/03/18 09:58 IMPRESSION: Mildly dilated loops of small bowel associated with chronic anterior abdominal wall hernia. No high-grade bowel obstruction. KUB X-Ray 08/04/18 13:47 IMPRESSION: MALPOSITION OF THE NASOGASTRIC TUBE WHICH IS LOCATED IN THE BRONCHUS TO THE RIGHT LOWER LOBE. Assessment and Plan - Diagnosis (1) Acute delirium Is this a current diagnosis for this admission?: Yes Plan: This was suspected to be due to carbon monoxide poisoning. He is not acutely delirious but his mental status is definitely strange. He is not on any medications that would be making him encephalopathic at this time, nor are there any acute metabolic conditions that are making him encephalopathic. I wonder if this is normal for him. He is been agitated but he is too weak to get up out of bed, so I have ordered some twice a day Zyprexa for him. I discontinued his Reglan because am not sure why he was getting it. (2) Acute kidney injury Is this a current diagnosis for this admission?: Yes Plan: Resolved (3) Acute respiratory failure Qualifiers: Respiratory failure complication: hypoxia and hypercapnia Qualified Code(s): J96.01 - Acute respiratory failure with hypoxia; J96.02 - Acute respiratory failure with hypercapnia Is this a current diagnosis for this admission?: Yes Plan: Resolved (4) Ventral hernia without obstruction or gangrene Is this a current diagnosis for this admission?: Yes Plan: Nothing to do per surgery (5) Obesity Qualifiers: Obesity classification: adult class 3 (BMI >= 40) Is this a current diagnosis for this admission?: Yes Plan: Will recommend lifestyle modification, but right now he is in no condition understand what that means - Time Time Spent with patient: 25-34 minutes
[2018-08-05] MEDS: OLANZAPINE 5 MG TABLET PO SCH (18:45)
[2018-08-05] MEDS: THIAMINE HCL 100 MG TABLET NG SCH (18:45)
[2018-08-05] MEDS ORDERED: LORAZEPAM INJ 2 MG/1 ML VIAL IV ONE (23:45)
[2018-08-06] MEDS: INSULIN REG, HUMAN 100 UNIT/ML 3 ML VIAL (PYX) SUBCUT SCH ×4 (00:12→17:45)
[2018-08-06 07:11] LABS: ABSOLUTE BASOPHILS # (AUTO) 0.1 10^3/uL (0.0-0.2); ABSOLUTE EOSINOPHILS # (AUTO) 0.3 10^3/uL (0.0-0.6); ABSOLUTE LYMPHOCYTES (AUTO) 2.4 10^3/uL (0.5-4.7); ABSOLUTE MONOCYTES (AUTO) 1.1 10^3/uL (0.1-1.4); ABSOLUTE NEUT (AUTO) 10.3 10^3/uL (1.7-8.2); BASOPHILS % (AUTO) 0.9 % (0-2); EOSINOPHILS % (AUTO) 1.8 % (0-6); HEMATOCRIT 37.3 % (37.9-51.0); HEMOGLOBIN 12.5 g/dL (13.5-17.0); LYMPHOCYTES % (AUTO) 16.7 % (13-45); MEAN CORPUSCULAR HGB CONC 33.6 g/dL (32.0-36.0); MEAN CORPUSCULAR VOLUME 90 fl (80-97); PLATELET COUNT 438 10^3/uL (150-450); RED BLOOD COUNT 4.16 10^6/uL (4.35-5.55); RED CELL DISTRIBUTION WIDTH 13.7 % (11.5-14.0); SEGMENTED NEUTROPHILS % (AUTO) 72.6 % (42-78); TOTAL CELLS COUNTED % (AUTO) 100 %; WHITE BLOOD COUNT 14.2 10^3/uL (4.0-10.5)
[2018-08-06] MEDS: OLANZAPINE 5 MG TABLET PO SCH ×2 (08:46→17:38)
[2018-08-06] MEDS: PANTOPRAZOLE SODIUM 40 MG TABLET.DR PO SCH (08:46)
[2018-08-06] MEDS: METOPROLOL TARTRATE 100 MG TABLET NG SCH (10:13)
[2018-08-06] MEDS: FUROSEMIDE 20 MG TABLET PO SCH ×2 (10:13→17:34)
--- NOTE | 2018-08-06 16:55 | PDOC PROGRESS REPORT ---
Subjective Progress Note for:: 08/06/18 Subjective:: He got a little ornery early this morning and had to be put into soft restraints. He was given some Ativan and was somnolent this morning. He took his pills without any difficulty this morning. Vital signs been stable. Reason For Visit: ALTERED MENTAL STATUS AND S/P INTUBATION Physical Exam Vital Signs: Temp Pulse Resp BP Pulse Ox 98.5 F 97 21 H 143/79 H 97 08/06/18 11:41 08/06/18 14:00 08/06/18 11:41 08/06/18 11:41 08/06/18 11:41 Intake & Output 08/05/18 08/06/18 08/07/18 06:59 06:59 06:59 Intake Total 50 360 Output Total 1445 1100 200 Balance -1395 -740 -200 Weight 110.4 kg 112.2 kg General appearance: PRESENT: no acute distress, well-developed, well-nourished, disheveled Head exam: PRESENT: atraumatic, normocephalic Neck exam: ABSENT: carotid bruit, JVD, lymphadenopathy, thyromegaly Respiratory exam: PRESENT: clear to auscultation filomena. ABSENT: rales, rhonchi, wheezes Cardiovascular exam: PRESENT: RRR. ABSENT: diastolic murmur, rubs, systolic murmur Pulses: PRESENT: normal dorsalis pedis pul GI/Abdominal exam: PRESENT: normal bowel sounds, soft. ABSENT: distended, guarding, mass, organolmegaly, rebound, tenderness Neurological exam: PRESENT: Drowsy but arousable, oriented to person Results Laboratory Results: 08/06/18 06:40 08/03/18 03:43 08/06/18 06:40 WBC 14.2 H RBC 4.16 L Hgb 12.5 L Hct 37.3 L MCV 90 MCH 30.0 MCHC 33.6 RDW 13.7 Plt Count 438 Seg Neutrophils % 72.6 Lymphocytes % 16.7 Monocytes % 8.0 Eosinophils % 1.8 Basophils % 0.9 Absolute Neutrophils 10.3 H Absolute Lymphocytes 2.4 Absolute Monocytes 1.1 Absolute Eosinophils 0.3 Absolute Basophils 0.1 07/25/18 07/25/18 07/31/18 16:11 16:11 03:39 Creatine Kinase 50 L CK-MB (CK-2) 1.62 Troponin I < 0.012 NT-Pro-B Natriuret Pep 348 08/02/18 08/02/18 14:55 14:55 Creatine Kinase 55 CK-MB (CK-2) 0.31 Troponin I NT-Pro-B Natriuret Pep Impressions: Head CTA 07/25/18 16:52 IMPRESSION: NO CTA EVIDENCE OF STENOSIS OR ANEURYSM OF THE [place]. Neck CTA 07/25/18 16:52 IMPRESSION: 1. Normal CTA of the extracranial carotid and vertebral system. 2. 1.1 x 1.7 cm nodule in the right lobe of the thyroid gland. Head MRI 07/25/18 18:26 IMPRESSION: Mild parenchymal volume loss. No acute ischemia. No other definite acute abnormality. Head CT 07/28/18 00:00 IMPRESSION: MILD CHRONIC CHANGES OF ATROPHY AND MICROVASCULAR ISCHEMIA. NO ACU TE PROCESS. EVIDENCE OF ACUTE STROKE: NO. Chest X-Ray 08/03/18 06:00 IMPRESSION: Interval extubation. Abdomen/Pelvis CT 08/03/18 09:58 IMPRESSION: Mildly dilated loops of small bowel associated with chronic anterior abdominal wall hernia. No high-grade bowel obstruction. KUB X-Ray 08/04/18 13:47 IMPRESSION: MALPOSITION OF THE NASOGASTRIC TUBE WHICH IS LOCATED IN THE BRONCHUS TO THE RIGHT LOWER LOBE. Assessment and Plan - Diagnosis (1) Acute delirium Is this a current diagnosis for this admission?: Yes Plan: This was suspected to be due to carbon monoxide poisoning. He is not acutely d elirious but his mental status is definitely strange. He is not on any medications that would be making him encephalopathic at this time, nor are there any acute metabolic conditions that are making him encephalopathic. I wonder if this is normal for him. He is been agitated but he is too weak to get up out of bed, so I have ordered some twice a day Zyprexa for him. I discontinued his Reglan because am not sure why he was getting it. If this persists, he may need a psychiatric evaluation. He was too weak to stand up with physical therapy, so he definitely cannot go home. (2) Acute kidney injury Is this a current diagnosis for this admission?: Yes Plan: Resolved (3) Acute respiratory failure Qualifiers: Respiratory failure complication: hypoxia and hypercapnia Qualified Code(s): J96.01 - Acute respiratory failure with hypoxia; J96.02 - Acute r espiratory failure with hypercapnia Is this a current diagnosis for this admission?: Yes Plan: Resolved (4) Ventral hernia without obstruction or gangrene Is this a current diagnosis for this admission?: Yes Plan: Nothing to do per surgery (5) Obesity Qualifiers: Obesity classification: adult class 3 (BMI >= 40) Is this a current diagnosis for this admission?: Yes Plan: Will recommend lifestyle modification, but right now he is in no condition understand what that means - Time Time Spent with patient: 15-24 minutes
[2018-08-06] MEDS: LORAZEPAM INJ 2 MG/1 ML VIAL IV PRN (17:34)
[2018-08-06] MEDS: THIAMINE HCL 100 MG TABLET NG SCH (17:35)
[2018-08-06] MEDS: NORMAL SALINE 1000 ML 1,000 ML IV PRN (17:39)
[2018-08-07] MEDS: INSULIN REG, HUMAN 100 UNIT/ML 3 ML VIAL (PYX) SUBCUT SCH ×4 (01:07→18:42)
[2018-08-07] MEDS: METOPROLOL TARTRATE 100 MG TABLET NG SCH ×2 (01:18→10:17)
[2018-08-07] MEDS: LORAZEPAM INJ 2 MG/1 ML VIAL IV PRN (01:38)
[2018-08-07] MEDS: NORMAL SALINE 1000 ML 1,000 ML IV PRN ×2 (03:44→13:48)
[2018-08-07] MEDS: FUROSEMIDE 20 MG TABLET PO SCH ×2 (10:17→18:44)
[2018-08-07] MEDS ORDERED: ACETAMINOPHEN SOLN 325 MG/10.15 ML UDCUP PO PRN (15:30)
--- NOTE | 2018-08-07 16:38 | PDOC PROGRESS REPORT ---
Subjective Progress Note for:: 08/07/18 Subjective:: No adverse events overnight. No new complaints. Vital signs been stable. He is not been agitated today. We had a swallow evaluation done and he did quite a bit better today. Were able to switch his medicines to p.o. because of his improvement in his swallowing. He still is unable to give me any reliable information regarding why he is in the hospital. Reason For Visit: ALTERED MENTAL STATUS AND S/P INTUBATION Physical Exam Vital Signs: Temp Pulse Resp BP Pulse Ox 98.1 F 80 24 H 164/88 H 94 08/07/18 11:21 08/07/18 14:00 08/07/18 11:21 08/07/18 11:21 08/07/18 12:09 Intake & Output 08/06/18 08/07/18 08/08/18 06:59 06:59 06:59 Intake Total 360 1010 1000 Output Total 1100 800 Balance -126 750 4834 Weight 112.2 kg 112.2 kg General appearance: PRESENT: no acute distress, well-developed, well-nourished, disheveled Head exam: PRESENT: atraumatic, normocephalic Neck exam: ABSENT: carotid bruit, JVD, lymphadenopathy, thyromegaly Respiratory exam: PRESENT: clear to auscultation filomena. ABSENT: rales, rhonchi, wheezes Cardiovascular exam: PRESENT: RRR. ABSENT: diastolic murmur, rubs, systolic murmur Pulses: PRESENT: normal dorsalis pedis pul GI/Abdominal exam: PRESENT: normal bowel sounds, soft. ABSENT: distended, guarding, mass, organolmegaly, rebound, tenderness Neurological exam: PRESENT: Drowsy but arousable, oriented to person Results Laboratory Results: 08/06/18 06:40 08/03/18 03:43 07/25/18 07/25/18 07/31/18 16:11 16:11 03:39 Creatine Kinase 50 L CK-MB (CK-2) 1.62 Troponin I < 0.012 NT-Pro-B Natriuret Pep 348 08/02/18 08/02/18 14:55 14:55 Creatine Kinase 55 CK-MB (CK-2) 0.31 Troponin I NT-Pro-B Natriuret Pep Impressions: Head CTA 07/25/18 16:52 IMPRESSION: NO CTA EVIDENCE OF STENOSIS OR ANEURYSM OF THE [place]. Neck CTA 07/25/18 16:52 IMPRESSION: 1. Normal CTA of the extracranial carotid and vertebral system. 2. 1.1 x 1.7 cm nodule in the right lobe of the thyroid gland. Head MRI 07/25/18 18:26 IMPRESSION: Mild parenchymal volume loss. No acute ischemia. No other definite acute abnormality. Head CT 07/28/18 00:00 IMPRESSION: MILD CHRONIC CHANGES OF ATROPHY AND MICROVASCULAR ISCHEMIA. NO ACUTE PROCESS. EVIDENCE OF ACUTE STROKE: NO. Chest X-Ray 08/03/18 06:00 IMPRESSION: Interval extubation. Abdomen/Pelvis CT 08/03/18 09:58 IMPRESSION: Mildly dilated loops of small bowel associated with chronic anterior abdominal wall hernia. No high-grade bowel obstruction. KUB X-Ray 08/04/18 13:47 IMPRESSION: MALPOSITION OF THE NASOGASTRIC TUBE WHICH IS LOCATED IN THE BRONCHUS TO THE RIGHT LOWER LOBE. Assessment and Plan - Diagnosis (1) Acute delirium Is this a current diagnosis for this admission?: Yes Plan: This was suspected to be due to carbon monoxide poisoning. He is not acutely delirious but his mental status is definitely strange. He is not on any medications that would be making him encephalopathic at this time, nor are there any acute metabolic conditions that are making him encephalopathic. I wonder if this is normal for him. He is been agitated but he is too weak to get up out of bed on his own. I have ordered some twice a day Zyprexa for him and he has been less agitated. I discontinued his Reglan because am not sure why he was getting it. I will request a psychiatric evaluation. He was too weak to stand up with physical therapy, so he definitely cannot go home. (2) Acute kidney injury Is this a current diagnosis for this admission?: Yes Plan: Resolved (3) Acute respiratory failure Qualifiers: Respiratory failure complication: hypoxia and hypercapnia Qualified Code(s): J96.01 - Acute respiratory failure with hypoxia; J96.02 - Acute respiratory failure with hypercapnia Is this a current diagnosis for this admission?: Yes Plan: Resolved (4) Ventral hernia without obstruction or gangrene Is this a current diagnosis for this admission?: Yes Plan: Nothing to do per surgery (5) Obesity Qualifiers: Obesity classification: adult class 3 (BMI >= 40) Is this a current diagnosis for this admission?: Yes Plan: Will recommend lifestyle modification, but right now he is in no condition understand what that means - Time Time Spent with patient: 15-24 minutes
[2018-08-07] MEDS: THIAMINE HCL 100 MG TABLET PO SCH (18:44)
[2018-08-07] MEDS: OLANZAPINE 5 MG TABLET PO SCH ×2 (18:45)
[2018-08-08] MEDS: INSULIN REG, HUMAN 100 UNIT/ML 3 ML VIAL (PYX) SUBCUT SCH ×6 (00:09→22:37)
[2018-08-08] MEDS: NORMAL SALINE 1000 ML 1,000 ML IV PRN (00:27)
[2018-08-08] MEDS: METOPROLOL TARTRATE 100 MG TABLET PO SCH ×3 (05:37→22:50)
[2018-08-08] MEDS: PANTOPRAZOLE SODIUM 40 MG TABLET.DR PO SCH ×2 (07:19→19:39)
[2018-08-08] MEDS: OLANZAPINE 5 MG TABLET PO SCH ×2 (07:19→17:50)
[2018-08-08] MEDS: FUROSEMIDE 20 MG TABLET PO SCH ×2 (12:51→17:50)
--- NOTE | 2018-08-08 15:10 | PDOC PROGRESS REPORT ---
Subjective Progress Note for:: 08/08/18 Subjective:: 67-year-old male admitted for altered mental status/acute encephalopathy. Urine drug screen is positive for marijuana. No acute events of the day of admission. Patient is on four-point restraints. This morning agitated once the restraints are off. Able to give his date of . And he told me he is a diabetic. He is also told me that he has sleep apnea uses BiPAP at home. Unable to give his address. She still confused. MRI of the brain CT of the neck CT head was negative. 07/27/[id number]-uzfb-old male admitted with altered mental status/acute encephalop athy. Urine drug screen is positive for marijuana. MRI of the head was negative LP was negative. Patient is prophylactically intubated on Versed drip and propofol drip. This morning is still agitated and fighting the restraints. We are going to put him on IV morphine 2 mg every 4 as needed for pain as requested by the family and start on cefepime 2 g IV daily. To start him on NG tube feedings. She is stable plan to repeat the CT of the head and a CT of the abdomen as per the family request. 07/28/[id number]-yvqz-old male admitted for altered mental status/acute encephalopathy patient was still on mechanical ventilation on on Versed 2 mg/h and deprivan 40 mcg/kg/min. G-tube was placed yesterday and residual this morning 80 cc so NG tube was clamped. Acute events in the last 24 hours. Patient is afebrile. Hernia level came back 9.8. ABG this morning pH is 7.42 PCO2 36 PO2 98.7 oxygen saturation is 97.6. 07/29/2018-no acute events in the last 24 hours. Patient is afebrile. Still on mechanical ventilation. He is off the sedation at this point. Still on mechanical ventilation. Pulse ox is 96% on 40% oxygen. KUB to be done last night shows no obstruction or ileus. She has NG tube still have a lot of secretions coming out. On suctioning of the lungs lack a lot of drainage. Plan is to try to wean him off today for possible. Patient is more alert more awake little bit agitated and moving all his extremities. Pupils are equal and react to light accommodation. Corneal reflex present. 07/30/[id number]-cvif-old male admitted for acute delirium. Urine drug screen is onl y positive for marijuana. Family is denying patient has history of any polysubstance abuse or alcohol abuse. MRI of the brain is negative CT head is negative CT of the neck is negative. [address] head was repeated which was negative. No acute events in the last 24 hours. Patient is afebrile. Sputum cultures came back positive for staph aureus. Patient's input is 3.1 L output is 3.5 L with a negative balance of 400 mL yesterday. on normal saline at 30 cc/h and he is receiving NG tube feedings. On mechanical ventilation with PEEP of 10 respiratory rate of 8 oxygen saturation of 35% tidal volume of 600. On deep Ativan 40 mcg/kg/min for sedation and is receiving fentanyl at 50 mcg as needed for agitation. Latest chest x-ray suggestive of left lower lobe pneumonia probably aspiration/hospital-acquired pneumonia receiving IV vancomycin and cefepime ,based on the cultures sensitivity reports plan is to discontinue IV vancomycin from today. 07/31/[id number]-vugg-old male admitted for acute delirium we do not have definite cause identified. Urine drug screen is only positive for marijuana. No acute events in the last 24 hours. Patient is afebrile. Presently on cefepime. P atient is still on mechanical ventilation and on propofol 40 mcg/kg/min. Patient is off the pressors. He is off the IV fluids. On SIMV with PEEP of 8 and a 35% oxygen. Tidal volume of 600. ABG done this morning shows pH of 7.38/PCO2 34 PO2 125 bicarb is 29. Plan to wean him off today from the vent 08/08/[id number]-tpvm-old male admitted with acute delirium. Status post intubation and extubation. Because of altered mental status/acute delirium is unknown. Place the possibility of carbon monoxide poisoning. But is unlikely. Multiple CT heads on MRI of the brain including LP is negative for cause. Patient is comfortably in the bed able to give his date of able to communicating okay but he said he was in [place]. Have a Marcum's catheter tinge of blood seen in the catheter tube. Reason For Visit: ALTERED MENTAL STATUS AND S/P INTUBATION Physical Exam Vital Signs: Temp Pulse Resp BP Pulse Ox 99.0 F 93 22 H 129/68 H 93 04/ 20:25 08/07/18 20:25 08/07/18 20:25 08/07/18 20:25 08/08/18 09:02 Intake & Output 08/07/18 08/08/18 08/09/18 06:59 06:59 06:59 Intake Total 1010 2240 Output Total 800 1000 Balance 210 1240 Weight 112.2 kg 113.5 kg General appearance: PRESENT: no acute distress, obese Head exam: PRESENT: atraumatic Eye exam: PRESENT: PERRLA Mouth exam: PRESENT: moist, tongue midline Neck exam: ABSENT: carotid bruit, JVD, lymphadenopathy, thyromegaly Respiratory exam: PRESENT: clear to auscultation filomena. ABSENT: rales, rhonchi, wheezes Cardiovascular exam: PRESENT: RRR. ABSENT: diastolic murmur, rubs, systolic murmur GI/Abdominal exam: PRESENT: other - Obese abdomen nontender previous surgical scar over the belly. Extremities exam: PRESENT: full ROM. ABSENT: calf tenderness, clubbing, pedal edema Neurological exam: PRESENT: alert, awake, CN II-XII grossly intact - Still confused. Agitated. Will to take his oral medications. Results Laboratory Results: 08/06/18 06:40 08/03/18 03:43 07/25/18 07/25/18 07/31/18 16:11 16:11 03:39 Creatine Kinase 50 L CK-MB (CK-2) 1.62 Troponin I < 0.012 NT-Pro-B Natriuret Pep 348 08/02/18 08/02/18 14:55 14:55 Creatine Kinase 55 CK-MB (CK-2) 0.31 Troponin I NT-Pro-B Natriuret Pep Impressions: Head CTA 07/25/18 16:52 IMPRESSION: NO CTA EVIDENCE OF STENOSIS OR ANEURYSM OF THE [place]. Neck CTA 07/25/18 16:52 IMPRESSION: 1. Normal CTA of the extracranial carotid and vertebral system. 2. 1.1 x 1.7 cm nodule in the right lobe of the thyroid gland. Head MRI 07/25/18 18:26 IMPRESSION: Mild parenchymal volume loss. No acute ischemia. No other definite acute abnormality. Head CT 07/28/18 00:00 IMPRESSION: MILD CHRONIC CHANGES OF ATROPHY AND MICROVASCULAR ISCHEMIA. NO ACUTE PROCESS. EVIDENCE OF ACUTE STROKE: NO. Chest X-Ray 08/03/18 06:00 IMPRESSION: Interval extubation. Abdomen/Pelvis CT 08/03/18 09:58 IMPRESSION: Mildly dilated loops of small bowel associated with chronic anterior abdominal wall hernia. No high-grade bowel obstruction. KUB X-Ray 08/04/18 13:47 IMPRESSION: MALPOSITION OF THE NASOGASTRIC TUBE WHICH IS LOCATED IN THE BRONCHUS TO THE RIGHT LOWER LOBE. Assessment and Plan - Diagnosis (1) Acute delirium Is this a current diagnosis for this admission?: Yes Plan: This was suspected to be due to carbon monoxide poisoning. He is not acutely delirious but his mental status is definitely strange. He is not on any medications that would be making him encephalopathic at this time, nor are there any acute metabolic conditions that are making him encephalopathic. I wonder if this is normal for him. He is been agitated but he is too weak to get up out of bed on his own. I have ordered some twice a day Zyprexa for him and he has been less agitated. I discontinued his Reglan because am not sure why he was getting it. I will request a psychiatric evaluation. He was too weak to stand up with physical therapy, so he definitely cannot go home. 08/08/2018-patient was admitted with acute delirium urine drug screen is only positive for marijuana. LP was negative. MRI of the brain and 2 CT scans are negative. Patient is not agitated but still confused. There is a question of carbon monoxide poisoning. Comfortably in the bed communicating okay and not agitated. Plan Zyprexa twice a day. She will request for a psych consult because the patient was intubated the unable to assess the patient. I am going to request for psych consult again today. (2) Sleep apnea syndrome Qualifiers: Sleep apnea type: unspecified type Qualified Code(s): G47.30 - Sleep apnea, unspecified Is this a current diagnosis for this admission?: Yes Plan: BiPAP nightly 07/26/2018-morbidly obese male with history of sleep apnea. As per the patient he is on BiPAP at home which is going to be resumed during this hospital stay. 07/27/2018-sisters are saying patient does not have any BiPAP or CPAP machine at home. But they do admit that he has a sleep apnea and problems with sleeping at night. 07/28/2018-initially with that patient has sleep apnea using BiPAP at home but the sisters came in and said he does not have any BiPAP or CPAP machine at home. 07/29/2018-patient has history of sleep apnea questionable history of using BiPAP at home. 07/31/2018 patient has a history of sleep apnea as per the family members he does not have any BiPAP or CPAP machine at home. We will see this patient is stable to discharge to go to arrange for a sleep studies as an outpatient. 08/08/2018-patient has a history of sleep apnea but sisters are telling us patie nt does not have any CPAP or BiPAP machine at home. Patient may be beneficial to get outpatient sleep study. To arrange for CPAP here if needed. (3) Type II diabetes mellitus Qualifiers: Diabetes mellitus intermediate manager insulin use: unspecified intermediate manager insulin use status Diabetes mellitus complication status: without complication Qualified Code(s): E11.9 - Type 2 diabetes mellitus without complications Is this a current diagnosis for this admission?: No Plan: 07/26/2018 patient has history of type 2 diabetes mellitus, on glyburide at home, metformin at home. Metformin was discontinued. Plan to continue glipizide and put the patient on insulin sliding scale every 6 hours. Patient is n.p.o. at this point. 07/27/2018-patient has history of type 2 diabetes mellitus. Metformin and glipizide on hold at this moment. Hemoglobin A1c is 8.6. Patient is presently on insulin sliding scale. Latest blood sugar is 98. To start on NG tube feed ing from today. 07/28/2018-patient has history of type 2 diabetes mellitus hemoglobin A1c is 8.6 he is on insulin sliding scale every 6 hours. Is also receiving feeding tubes. This morning feeding tubes are on hold latest blood sugar is 128. Plan is to continue the present management. 07/29/2018-patient is on insulin sliding scale every 6 hours latest blood sugar is 107 well-controlled. Hemoglobin A1c is 8.6. Plan is to continue the present management. 07/30/2018-latest blood sugar is 107 hemoglobin A1c is 8.6 blood sugars are well controlled with insulin sliding scale every 6 hours. 07/31/2018-patient blood sugar is 116 today hemoglobin A1c is 8.6. Patient is presently on insulin sliding scale every 6 hours. Plan is to continue the present management. 08/08/2018 patient has history of type 2 diabetes mellitus hemoglobin A1c is 8.6. His blood sugar is 171. Plan is on insulin sliding scale before meals and at bedtime. To continue the present management. (4) Essential hypertension Is this a current diagnosis for this admission?: Yes (5) Obesity Qualifiers: Obesity classification: adult class 3 (BMI >= 40) Is this a current diagnosis for this admission?: Yes (6) CHF (congestive heart failure) Is this a current diagnosis for this admission?: No Plan: 07/27/2018-patient has echocardiogram was done in April last year it shows normal systolic heart function but grade 3 2/diastolic heart failure. Patient is not in fluid overload. We are going to check his BNP and continue to monitor his volume status. 07/28/2018-echocardiogram was done last year indicates possible diastolic heart failure which may be chronic. Patient is euvolemic. 07/29/2018-patient might have chronic diastolic heart failure and he is euvolemic. Plan is to continue the present management. 07/30/2018-echocardiogram was done last year indicates possible diastolic heart failure which may be chronic. Patient is euvolemic. Urinary output is good. 07/31/2018-echocardiogram was done last year shows chronic diastolic heart failure. Patient is euvolemic. 08/08/2018-echocardiogram was done last year shows chronic diastolic heart failure. Patient is euvolemic. (7) Pneumonia Is this a current diagnosis for this admission?: Yes Plan: 07/28/2018-P chest and chest x-ray shows possible left base opacification suggestive of pneumonia probably hospital-acquired pneumonia presently on cefepime and vancomycin. Sputum cultures blood cultures are pending. 07/29/2018-chest x-ray done yesterday shows possible left base opacification it can be aspiration pneumonia/hospital-acquired pneumonia. Presently on vancomycin and cefepime I am blood cultures are negative sputum cultures pending. WBC count is 12.1 T-max is 98.8. Plan is to continue the present man agement. 07/30/2018-chest x-ray suggestive of left lower lobe airspace disease and sputum cultures came back positive for staph aureus patient is presently on cefepime and vancomycin and he is afebrile, blood pressures are normal plan is to continue cefepime I am and discontinue vancomycin from today. 07/31/2018-chest x-ray shows left lower lobe opacification sputum cultures are positive for staph aureus. presently on cefepime. Vancomycin was discontinued yesterday. 08/08/2018-during the admission chest x-ray shows left lower lobe opacification sputum cultures were positive for staph aureus she was treated with cefepime. Patient is afebrile. Pulse ox is 98% on room air. Plan is to continue the present management. (8) Acute kidney injury Is this a current diagnosis for this admission?: Yes Plan: Resolved 08/08/2018-patient came in with creatinine of 1.14 latest creatinine is 0.8 acute kidney injury most likely secondary to poor oral intake resolved. (9) Acute respiratory failure Qualifiers: Respiratory failure complication: hypoxia and hypercapnia Qualified Code(s): J96.01 - Acute respiratory failure with hypoxia; J96.02 - Acute respiratory failure with hypercapnia Is this a current diagnosis for this admission?: Yes Plan: Resolved 08/08/2018-patient was intubated and successfully extubated during the hospital stay. Developed pneumonia during the hospital stay. Which was resolved. Acute respiratory failure is resolved pulse ox is 98% room air today. - Time Time Spent with patient: 15-24 minutes Smoking Cessation Education: over 10 minutes Medications reviewed and adjusted accordingly: Yes Anticipated discharge: SNF
[2018-08-08] MEDS: THIAMINE HCL 100 MG TABLET PO SCH (17:50)
[2018-08-09] MEDS: PANTOPRAZOLE SODIUM 40 MG TABLET.DR PO SCH (05:05)
[2018-08-09] MEDS: OLANZAPINE 5 MG TABLET PO SCH ×2 (05:05→17:19)
[2018-08-09 07:09] LABS: ABSOLUTE BASOPHILS # (AUTO) 0.1 10^3/uL (0.0-0.2); ABSOLUTE EOSINOPHILS # (AUTO) 0.3 10^3/uL (0.0-0.6); ABSOLUTE LYMPHOCYTES (AUTO) 2.8 10^3/uL (0.5-4.7); ABSOLUTE MONOCYTES (AUTO) 0.8 10^3/uL (0.1-1.4); ABSOLUTE NEUT (AUTO) 8.7 10^3/uL (1.7-8.2); BASOPHILS % (AUTO) 0.8 % (0-2); EOSINOPHILS % (AUTO) 2.2 % (0-6); HEMATOCRIT 35.5 % (37.9-51.0); HEMOGLOBIN 12.2 g/dL (13.5-17.0); MEAN CORPUSCULAR HGB CONC 34.2 g/dL (32.0-36.0); MEAN CORPUSCULAR VOLUME 88 fl (80-97); MONOCYTES % (AUTO) 6.2 % (3-13); PLATELET COUNT 383 10^3/uL (150-450); RED BLOOD COUNT 4.04 10^6/uL (4.35-5.55); RED CELL DISTRIBUTION WIDTH 13.8 % (11.5-14.0); SEGMENTED NEUTROPHILS % (AUTO) 68.8 % (42-78); TOTAL CELLS COUNTED % (AUTO) 100 %; WHITE BLOOD COUNT 12.6 10^3/uL (4.0-10.5)
[2018-08-09 07:30] LABS: ALANINE AMINOTRANSFERASE 59 U/L (21-72); ALBUMIN 3.5 g/dL (3.5-5.0); ALKALINE PHOSPHATASE 150 U/L (38-126); ANION GAP 11 (5-19); ASPARTATE AMINO TRANSFERASE 40 U/L (17-59); BILIRUBIN,DIRECT 0.6 mg/dL (0.0-0.4); BILIRUBIN,TOTAL 0.8 mg/dL (0.2-1.3); BLOOD UREA NITROGEN 25 mg/dL (7-20); CALCIUM 9.8 mg/dL (8.4-10.2); CARBON DIOXIDE 24 mmol/L (22-30); CHLORIDE 112 mmol/L (98-107); GLUCOSE 172 mg/dL (75-110); POTASSIUM 3.3 mmol/L (3.6-5.0); SODIUM 146.7 mmol/L (137-145); TOTAL PROTEIN 7.1 g/dL (6.3-8.2)
[2018-08-09] MEDS: INSULIN REG, HUMAN 100 UNIT/ML 3 ML VIAL (PYX) SUBCUT SCH ×4 (08:41→22:12)
[2018-08-09] MEDS: METOPROLOL TARTRATE 100 MG TABLET PO SCH ×2 (10:09→22:13)
[2018-08-09] MEDS: FUROSEMIDE 20 MG TABLET PO SCH ×2 (10:10→17:19)
--- NOTE | 2018-08-09 13:58 | PDOC PROGRESS REPORT ---
Subjective Progress Note for:: 08/09/18 Subjective:: 67-year-old male admitted for altered mental status/acute encephalopathy. Urine drug screen is positive for marijuana. No acute events of the day of admission. Patient is on four-point restraints. This morning agitated once the restraints are off. Able to give his date of . And he told me he is a diabetic. He is also told me that he has sleep apnea uses BiPAP at home. Unable to give his address. She still confused. MRI of the brain CT of the neck CT head was negative. 07/27/[id number]-zjrs-old male admitted with altered mental status/acute encephalop athy. Urine drug screen is positive for marijuana. MRI of the head was negative LP was negative. Patient is prophylactically intubated on Versed drip and propofol drip. This morning is still agitated and fighting the restraints. We are going to put him on IV morphine 2 mg every 4 as needed for pain as requested by the family and start on cefepime 2 g IV daily. To start him on NG tube feedings. She is stable plan to repeat the CT of the head and a CT of the abdomen as per the family request. 07/28/[id number]-atfg-old male admitted for altered mental status/acute encephalopathy patient was still on mechanical ventilation on on Versed 2 mg/h and deprivan 40 mcg/kg/min. G-tube was placed yesterday and residual this morning 80 cc so NG tube was clamped. Acute events in the last 24 hours. Patient is afebrile. Hernia level came back 9.8. ABG this morning pH is 7.42 PCO2 36 PO2 98.7 oxygen saturation is 97.6. 07/29/2018-no acute events in the last 24 hours. Patient is afebrile. Still on mechanical ventilation. He is off the sedation at this point. Still on mechanical ventilation. Pulse ox is 96% on 40% oxygen. KUB to be done last night shows no obstruction or ileus. She has NG tube still have a lot of secretions coming out. On suctioning of the lungs lack a lot of drainage. Plan is to try to wean him off today for possible. Patient is more alert more awake little bit agitated and moving all his extremities. Pupils are equal and react to light accommodation. Corneal reflex present. 07/30/[id number]-ljbm-old male admitted for acute delirium. Urine drug screen is onl y positive for marijuana. Family is denying patient has history of any polysubstance abuse or alcohol abuse. MRI of the brain is negative CT head is negative CT of the neck is negative. [address] head was repeated which was negative. No acute events in the last 24 hours. Patient is afebrile. Sputum cultures came back positive for staph aureus. Patient's input is 3.1 L output is 3.5 L with a negative balance of 400 mL yesterday. on normal saline at 30 cc/h and he is receiving NG tube feedings. On mechanical ventilation with PEEP of 10 respiratory rate of 8 oxygen saturation of 35% tidal volume of 600. On deep Ativan 40 mcg/kg/min for sedation and is receiving fentanyl at 50 mcg as needed for agitation. Latest chest x-ray suggestive of left lower lobe pneumonia probably aspiration/hospital-acquired pneumonia receiving IV vancomycin and cefepime ,based on the cultures sensitivity reports plan is to discontinue IV vancomycin from today. 07/31/[id number]-hhok-old male admitted for acute delirium we do not have definite cause identified. Urine drug screen is only positive for marijuana. No acute events in the last 24 hours. Patient is afebrile. Presently on cefepime. P atient is still on mechanical ventilation and on propofol 40 mcg/kg/min. Patient is off the pressors. He is off the IV fluids. On SIMV with PEEP of 8 and a 35% oxygen. Tidal volume of 600. ABG done this morning shows pH of 7.38/PCO2 34 PO2 125 bicarb is 29. Plan to wean him off today from the vent 08/08/[id number]-hdxg-old male admitted with acute delirium. Status post intubation and extubation. Because of altered mental status/acute delirium is unknown. Place the possibility of carbon monoxide poisoning. But is unlikely. Multiple CT heads on MRI of the brain including LP is negative for cause. Patient is comfortably in the bed able to give his date of able to communicating okay but he said he was in [place]. Have a Marcum's catheter tinge of blood seen in the catheter tube. 08/09/2018-patient is still confused and agitated he is on soft restraints. When he went to see him he tried to pull his Marcum's catheter. But he is able to give his date OF and able to tell he is in [place] and also able to give his sister's name. Patient has few loose stools last night and stool for C. difficile was sent. Results are pending. Reason For Visit: ALTERED MENTAL STATUS AND S/P INTUBATION Physical Exam Vital Signs: Temp Pulse Resp BP Pulse Ox 98.5 F 59 L 18 102/65 90 L 08/09/18 11:29 08/09/18 11:29 08/09/18 11:29 08/09/18 11:29 08/09/18 11:29 Intake & Output 08/08/18 08/09/18 08/10/18 06:59 06:59 06:59 Intake Total 2240 1120 236 Output Total 1000 2100 Balance 1240 -980 236 Weight 113.5 kg 112.9 kg General appearance: PRESENT: no acute distress, well-developed Head exam: PRESENT: atraumatic Eye exam: PRESENT: PERRLA Mouth exam: PRESENT: moist, tongue midline Neck exam: ABSENT: carotid bruit, JVD, lymphadenopathy, thyromegaly Respiratory exam: PRESENT: clear to auscultation filomena. ABSENT: rales, rhonchi, wheezes Cardiovascular exam: PRESENT: RRR. ABSENT: diastolic murmur, rubs, systolic murmur GI/Abdominal exam: PRESENT: normal bowel sounds, soft. ABSENT: distended, guarding, mass, organolmegaly, rebound, tenderness Gentrourinary exam: PRESENT: indwelling catheter Neurological exam: PRESENT: altered, awake, CN II-XII grossly intact Psychiatric exam: PRESENT: appropriate affect, normal mood. ABSENT: homicidal ideation, suicidal ideation Results Laboratory Results: 08/09/18 06:20 08/09/18 06:20 08/09/18 08/09/18 06:20 06:20 WBC 12.6 H RBC 4.04 L Hgb 12.2 L Hct 35.5 L MCV 88 MCH 30.0 MCHC 34.2 RDW 13.8 Plt Count 383 Seg Neutrophils % 68.8 Lymphocytes % 22.0 Monocytes % 6.2 Eosinophils % 2.2 Basophils % 0.8 Absolute Neutrophils 8.7 H Absolute Lymphocytes 2.8 Absolute Monocytes 0.8 Absolute Eosinophils 0.3 Absolute Basophils 0.1 Sodium 146.7 H Potassium 3.3 L Chloride 112 H Carbon Dioxide 24 Anion Gap 11 BUN 25 H Creatinine 0.96 Est GFR ( Amer) > 60 Est GFR (Non-Af Amer) > 60 Glucose 172 H Calcium 9.8 Magnesium 1.7 Total Bilirubin 0.8 AST 40 ALT 59 Alkaline Phosphatase 150 H Total Protein 7.1 Albumin 3.5 07/25/18 07/25/18 07/31/18 16:11 16:11 03:39 Creatine Kinase 50 L CK-MB (CK-2) 1.62 Troponin I < 0.012 NT-Pro-B Natriuret Pep 348 08/02/18 08/02/18 14:55 14:55 Creatine Kinase 55 CK-MB (CK-2) 0.31 Troponin I NT-Pro-B Natriuret Pep Impressions: Head CTA 07/25/18 16:52 IMPRESSION: NO CTA EVIDENCE OF STENOSIS OR ANEURYSM OF [place]. Neck CTA 07/25/18 16:52 IMPRESSION: 1. Normal CTA of the extracranial carotid and vertebral system. 2. 1.1 x 1.7 cm nodule in the right lobe of the thyroid gland. Head MRI 07/25/18 18:26 IMPRESSION: Mild parenchymal volume loss. No acute ischemia. No other definite acute abnormality. Head CT 07/28/18 00:00 IMPRESSION: MILD CHRONIC CHANGES OF ATROPHY AND MICROVASCULAR ISCHEMIA. NO ACUTE PROCESS. EVIDENCE OF ACUTE STROKE: NO. Chest X-Ray 08/03/18 06:00 IMPRESSION: Interval extubation. Abdomen/Pelvis CT 08/03/18 09:58 IMPRESSION: Mildly dilated loops of small bowel associated with chronic anterior abdominal wall hernia. No high-grade bowel obstruction. KUB X-Ray 08/04/18 13:47 IMPRESSION: MALPOSITION OF THE NASOGASTRIC TUBE WHICH IS LOCATED IN THE BRONCHUS TO THE RIGHT LOWER LOBE. Assessment and Plan - Diagnosis (1) Acute delirium Is this a current diagnosis for this admission?: Yes Plan: This was suspected to be due to carbon monoxide poisoning. He is not acutely delirious but his mental status is definitely strange. He is not on any medications that would be making him encephalopathic at this time, nor are there any acute metabolic conditions that are making him encephalopathic. I wonder if this is normal for him. He is been agitated but he is too weak to get up out of bed on his own. I have ordered some twice a day Zyprexa for him and he has been less agitated. I discontinued his Reglan because am not sure why he was getting it. I will request a psychiatric evaluation. He was too weak to stand up with physical therapy, so he definitely cannot go home. 08/08/2018-patient was admitted with acute delirium urine drug screen is only positive for marijuana. LP was negative. MRI of the brain and 2 CT scans are negative. Patient is not agitated but still confused. There is a question of carbon monoxide poisoning. Comfortably in the bed communicating okay and not agitated. Plan Zyprexa twice a day. She will request for a psych consult because the patient was intubated the unable to assess the patient. I am going to request for psych consult again today. 08/08/2018-is 67-year-old male admitted for acute delirium because he still unknown. Urine drug screen is only positive for marijuana. Still confused and agitated. He is on soft restraints. Plan is to continue sedatives and physical therapy consult was requested medical social consultant consult was requested for possible placement. (2) Sleep apnea syndrome Qualifiers: Sleep apnea type: unspecified type Qualified Code(s): G47.30 - Sleep apnea, unspecified Is this a current diagnosis for this admission?: Yes (3) Type II diabetes mellitus Qualifiers: Diabetes mellitus [employer] insulin use: unspecified half-way insulin use status Diabetes mellitus complication status: without complication Qualified Code(s): E11.9 - Type 2 diabetes mellitus without complications Is this a current diagnosis for this admission?: No Plan: 07/26/2018 patient has history of type 2 diabetes mellitus, on glyburide at home, metformin at home. Metformin was discontinued. Plan to continue glipizide and put the patient on insulin sliding scale every 6 hours. Patient is n.p.o. at this point. 07/27/2018-patient has history of type 2 diabetes mellitus. Metformin and glipizide on hold at this moment. Hemoglobin A1c is 8.6. Patient is presently on insulin sliding scale. Latest blood sugar is 98. To start on NG tube feeding from today. 07/28/2018-patient has history of type 2 diabetes mellitus hemoglobin A1c is 8.6 he is on insulin sliding scale every 6 hours. Is also receiving feeding tubes. This morning feeding tubes are on hold latest blood sugar is 128. Plan is to continue the present management. 07/29/2018-patient is on insulin sliding scale every 6 hours latest blood sugar is 107 well-controlled. Hemoglobin A1c is 8.6. Plan is to continue the present management. 07/30/2018-latest blood sugar is 107 hemoglobin A1c is 8.6 blood sugars are well controlled with insulin sliding scale every 6 hours. 07/31/2018-patient blood sugar is 116 today hemoglobin A1c is 8.6. Patient is presently on insulin sliding scale every 6 hours. Plan is to continue the present management. 08/08/2018 patient has history of type 2 diabetes mellitus hemoglobin A1c is 8.6. His blood sugar is 171. Plan is on insulin sliding scale before meals and at bedtime. To continue the present management. 08/09/2018-hemoglobin A1c is 8.6 his latest blood sugar is at 203. Presently on insulin sliding scale. To start him on Lantus 10 units twice a day. (4) Essential hypertension Is this a current diagnosis for this admission?: Yes Plan: 07/26/2018 patient has history of hypertension blood pressure this morning is fluctuating 120/81 this morning. He is on lisinopril/hydrochlorothiazide at home we are going to resume the medication and also started on IV hydralazine 10 mg every 6 as needed for the systolic blood pressure more than 150. 07/27/2018 patient has history of hypertension blood pressure today is 121/68 stable. He is on lisinopril/hydrochlorothiazide at home he is receiving it by NG tube. He is also on IV hydralazine 10 mg every 6 hours as needed. 07/28/2018-patient's latest blood pressure is 111/75 he is receiving IV fluids and he is receiving blood pressure medications via NG tube which was on hold from yesterday. 07/29/2018-patient blood pressure today 150/77 he is on IV fluids normal saline 30 cc/h he is receiving blood pressure medications via NG tube. Plan is to continue the present management. 07/30/2018-patient blood pressure today is 121/64 with a heart rate of 83 well- controlled presently on lisinopril 10 mg via NG tube daily basis, hydrochlorothiazide 12.5 mg daily via NG tube and also on Toprol 100 mg p.o. every 12 hours. Plan is to discontinue lisinopril from today and continue to watch his blood pressures every 4 hours. 07/31/2018-patient blood pressure today is 125/68. With a heart rate of 112. presently on Toprol 100 mg p.o. every 12 hours. 08/09/2018-patient blood pressure today is 102/65. Presently on Toprol 100 mg p.o. every 12 hours. And is to continue the present management. (5) Obesity Qualifiers: Obesity classification: adult class 3 (BMI >= 40) Is this a current diagnosis for this admission?: Yes (6) CHF (congestive heart failure) Is this a current diagnosis for this admission?: No Plan: 07/27/2018-patient has echocardiogram was done in April last year it shows normal systolic heart function but grade 3 2/diastolic heart failure. Patient is not in fluid overload. We are going to check his BNP and continue to monitor his volume status. 07/28/2018-echocardiogram was done last year indicates possible diastolic heart failure which may be chronic. Patient is euvolemic. 07/29/2018-patient might have chronic diastolic heart failure and he is euvolemic. Plan is to continue the present management. 07/30/2018-echocardiogram was done last year indicates possible diastolic heart failure which may be chronic. Patient is euvolemic. Urinary output is good. 07/31/2018-echocardiogram was done last year shows chronic diastolic heart failure. Patient is euvolemic. 08/08/2018-echocardiogram was done last year shows chronic diastolic heart failure. Patient is euvolemic. 08/09/2018-patient has history of chronic diastolic heart failure. Presently not on any diuretics. Patient is euvolemic. (7) Pneumonia Is this a current diagnosis for this admission?: Yes (8) Acute kidney injury Is this a current diagnosis for this admission?: Yes Plan: Resolved 08/08/2018-patient came in with creatinine of 1.14 latest creatinine is 0.8 acute kidney injury most likely secondary to poor oral intake resolved. 08/09/2018-patient's latest creatinine is 0.96. Acute kidney injury most likely secondary to poor oral intake is resolved. (9) Acute respiratory failure Qualifiers: Respiratory failure complication: hypoxia and hypercapnia Qualified Code(s): J96.01 - Acute respiratory failure with hypoxia; J96.02 - Acute respiratory failure with hypercapnia Is this a current diagnosis for this admission?: Yes Plan: Resolved 08/08/2018-patient was intubated and successfully extubated during the hospital stay. Developed pneumonia during the hospital stay. Which was resolved. Acute respiratory failure is resolved pulse ox is 98% room air today. 08/09/2018-patient was intubated and successfully extubated during the hospital stay. Pulse oxes 96% on 2 L. Plan is to continue the present management. - Time Time Spent with patient: 15-24 minutes Medications reviewed and adjusted accordingly: Yes Anticipated discharge: SN[facility]
[2018-08-09] MEDS: MAGNESIUM OXIDE 400 MG TABLET PO SCH ×2 (15:43→17:19)
[2018-08-09] MEDS: POTASSIUM CHLORIDE 10 MEQ CAPSULE.ER PO SCH ×2 (15:52→22:12)
[2018-08-09] MEDS: THIAMINE HCL 100 MG TABLET PO SCH (17:19)
[2018-08-09] MEDS: INSULIN GLARGINE,HUM.REC.ANLOG 1,000 UNIT/10 ML VIAL SUBCUT SCH (17:19)
[2018-08-09] MEDS: LORAZEPAM INJ 2 MG/1 ML VIAL IV PRN (22:13)
[2018-08-10] MEDS: INSULIN GLARGINE,HUM.REC.ANLOG 1,000 UNIT/10 ML VIAL SUBCUT SCH ×2 (05:46→17:52)
[2018-08-10] MEDS: PANTOPRAZOLE SODIUM 40 MG TABLET.DR PO SCH (05:46)
[2018-08-10] MEDS: OLANZAPINE 5 MG TABLET PO SCH ×2 (05:46→17:52)
[2018-08-10 06:28] LABS: ABSOLUTE BASOPHILS # (AUTO) 0.1 10^3/uL (0.0-0.2); ABSOLUTE EOSINOPHILS # (AUTO) 0.3 10^3/uL (0.0-0.6); ABSOLUTE LYMPHOCYTES (AUTO) 2.5 10^3/uL (0.5-4.7); ABSOLUTE MONOCYTES (AUTO) 0.8 10^3/uL (0.1-1.4); ABSOLUTE NEUT (AUTO) 8.4 10^3/uL (1.7-8.2); BASOPHILS % (AUTO) 0.9 % (0-2); EOSINOPHILS % (AUTO) 2.1 % (0-6); HEMOGLOBIN 12.5 g/dL (13.5-17.0); LYMPHOCYTES % (AUTO) 20.3 % (13-45); MEAN CORPUSCULAR HEMOGLOBIN 30.2 pg (27.0-33.4); MEAN CORPUSCULAR HGB CONC 33.8 g/dL (32.0-36.0); MEAN CORPUSCULAR VOLUME 89 fl (80-97); MONOCYTES % (AUTO) 6.8 % (3-13); PLATELET COUNT 339 10^3/uL (150-450); RED BLOOD COUNT 4.15 10^6/uL (4.35-5.55); RED CELL DISTRIBUTION WIDTH 13.8 % (11.5-14.0); SEGMENTED NEUTROPHILS % (AUTO) 69.9 % (42-78); TOTAL CELLS COUNTED % (AUTO) 100 %; WHITE BLOOD COUNT 12.1 10^3/uL (4.0-10.5)
[2018-08-10 07:01] LABS: ALANINE AMINOTRANSFERASE 54 U/L (21-72); ALBUMIN 3.7 g/dL (3.5-5.0); ALKALINE PHOSPHATASE 145 U/L (38-126); ANION GAP 9 (5-19); ASPARTATE AMINO TRANSFERASE 36 U/L (17-59); BILIRUBIN,DIRECT 0.5 mg/dL (0.0-0.4); BILIRUBIN,TOTAL 0.8 mg/dL (0.2-1.3); BLOOD UREA NITROGEN 29 mg/dL (7-20); CALCIUM 10.3 mg/dL (8.4-10.2); CARBON DIOXIDE 25 mmol/L (22-30); CHLORIDE 112 mmol/L (98-107); GLUCOSE 191 mg/dL (75-110); SODIUM 146.2 mmol/L (137-145); TOTAL PROTEIN 7.4 g/dL (6.3-8.2)
[2018-08-10 07:25] LABS: POTASSIUM 4.2 mmol/L (3.6-5.0)
[2018-08-10] MEDS: INSULIN REG, HUMAN 100 UNIT/ML 3 ML VIAL (PYX) SUBCUT SCH ×4 (08:01→21:54)
[2018-08-10] MEDS: POTASSIUM CHLORIDE 10 MEQ CAPSULE.ER PO SCH ×2 (10:19→22:04)
[2018-08-10] MEDS: MAGNESIUM OXIDE 400 MG TABLET PO SCH ×2 (10:19→17:52)
[2018-08-10] MEDS: METOPROLOL TARTRATE 100 MG TABLET PO SCH ×2 (10:20→22:04)
[2018-08-10] MEDS: FUROSEMIDE 20 MG TABLET PO SCH ×2 (10:20→17:52)
--- NOTE | 2018-08-10 12:26 | PDOC PROGRESS REPORT ---
Subjective Progress Note for:: 08/10/18 Subjective:: 67-year-old male admitted for altered mental status/acute encephalopathy. Urine drug screen is positive for marijuana. No acute events of the day of admission. Patient is on four-point restraints. This morning agitated once the restraints are off. Able to give his date of . And he told me he is a diabetic. He is also told me that he has sleep apnea uses BiPAP at home. Unable to give his address. She still confused. MRI of the brain CT of the neck CT head was negative. 07/27/[id number]-wlqe-old male admitted with altered mental status/acute encephalop athy. Urine drug screen is positive for marijuana. MRI of the head was negative LP was negative. Patient is prophylactically intubated on Versed drip and propofol drip. This morning is still agitated and fighting the restraints. We are going to put him on IV morphine 2 mg every 4 as needed for pain as requested by the family and start on cefepime 2 g IV daily. To start him on NG tube feedings. She is stable plan to repeat the CT of the head and a CT of the abdomen as per the family request. 07/28/[id number]-mmth-old male admitted for altered mental status/acute encephalopathy patient was still on mechanical ventilation on on Versed 2 mg/h and deprivan 40 mcg/kg/min. G-tube was placed yesterday and residual this morning 80 cc so NG tube was clamped. Acute events in the last 24 hours. Patient is afebrile. Hernia level came back 9.8. ABG this morning pH is 7.42 PCO2 36 PO2 98.7 oxygen saturation is 97.6. 07/29/2018-no acute events in the last 24 hours. Patient is afebrile. Still on mechanical ventilation. He is off the sedation at this point. Still on mechanical ventilation. Pulse ox is 96% on 40% oxygen. KUB to be done last night shows no obstruction or ileus. She has NG tube still have a lot of secretions coming out. On suctioning of the lungs lack a lot of drainage. Plan is to try to wean him off today for possible. Patient is more alert more awake little bit agitated and moving all his extremities. Pupils are equal and react to light accommodation. Corneal reflex present. 07/30/[id number]-zwhu-old male admitted for acute delirium. Urine drug screen is onl y positive for marijuana. Family is denying patient has history of any polysubstance abuse or alcohol abuse. MRI of the brain is negative CT head is negative CT of the neck is negative. [address] head was repeated which was negative. No acute events in the last 24 hours. Patient is afebrile. Sputum cultures came back positive for staph aureus. Patient's input is 3.1 L output is 3.5 L with a negative balance of 400 mL yesterday. on normal saline at 30 cc/h and he is receiving NG tube feedings. On mechanical ventilation with PEEP of 10 respiratory rate of 8 oxygen saturation of 35% tidal volume of 600. On deep Ativan 40 mcg/kg/min for sedation and is receiving fentanyl at 50 mcg as needed for agitation. Latest chest x-ray suggestive of left lower lobe pneumonia probably aspiration/hospital-acquired pneumonia receiving IV vancomycin and cefepime ,based on the cultures sensitivity reports plan is to discontinue IV vancomycin from today. 07/31/[id number]-cezb-old male admitted for acute delirium we do not have definite cause identified. Urine drug screen is only positive for marijuana. No acute events in the last 24 hours. Patient is afebrile. Presently on cefepime. P atient is still on mechanical ventilation and on propofol 40 mcg/kg/min. Patient is off the pressors. He is off the IV fluids. On SIMV with PEEP of 8 and a 35% oxygen. Tidal volume of 600. ABG done this morning shows pH of 7.38/PCO2 34 PO2 125 bicarb is 29. Plan to wean him off today from the vent 08/08/[id number]-fqbl-old male admitted with acute delirium. Status post intubation and extubation. Because of altered mental status/acute delirium is unknown. Place the possibility of carbon monoxide poisoning. But is unlikely. Multiple CT heads on MRI of the brain including LP is negative for cause. Patient is comfortably in the bed able to give his date of able to communicating okay but he said he was in [place]. Have a Marcum's catheter tinge of blood seen in the catheter tube. 08/09/2018-patient is still confused and agitated he is on soft restraints. When he went to see him he tried to pull his Marcum's catheter. But he is able to give his date OF and able to tell he is in [place] and also able to give his sister's name. Patient has few loose stools last night and stool for C. difficile was sent. Results are pending. 08/10/2018-no acute events in the last 24 hours. Patient is afebrile. Request for psych evaluation yesterday. Patient may need to go to a rehab facility. Reason For Visit: ALTERED MENTAL STATUS AND S/P INTUBATION Physical Exam Vital Signs: Temp Pulse Resp BP Pulse Ox 98.3 F 56 L 18 114/70 95 08/09/18 20:46 08/10/18 07:00 08/09/18 20:46 08/09/18 20:46 08/09/18 20:46 Intake & Output 08/09/18 08/10/18 08/11/18 06:59 06:59 06:59 Intake Total 1120 786 Output Total 2100 1300 Balance -980 -514 Weight 112.9 kg 110.3 kg General appearance: PRESENT: no acute distress, morbidly obese Head exam: PRESENT: atraumatic Eye exam: PRESENT: PERRLA Mouth exam: PRESENT: moist, tongue midline Neck exam: ABSENT: carotid bruit, JVD, lymphadenopathy, thyromegaly Respiratory exam: PRESENT: clear to auscultation filomena. ABSENT: rales, rhonchi, wheezes Cardiovascular exam: PRESENT: RRR. ABSENT: diastolic murmur, rubs, systolic murmur GI/Abdominal exam: PRESENT: normal bowel sounds, soft. ABSENT: distended, g uarding, mass, organolmegaly, rebound, tenderness Extremities exam: PRESENT: full ROM. ABSENT: calf tenderness, clubbing, pedal edema Neurological exam: PRESENT: alert, awake, CN II-XII grossly intact Psychiatric exam: PRESENT: appropriate affect, normal mood. ABSENT: homicidal ideation, suicidal ideation Results Laboratory Results: 08/10/18 05:40 08/10/18 05:40 08/10/18 08/10/18 05:40 05:40 WBC 12.1 H RBC 4.15 L Hgb 12.5 L Hct 37.0 L MCV 89 MCH 30.2 MCHC 33.8 RDW 13.8 Plt Count 339 Seg Neutrophils % 69.9 Lymphocytes % 20.3 Monocytes % 6.8 Eosinophils % 2.1 Basophils % 0.9 Absolute Neutrophils 8.4 H Absolute Lymphocytes 2.5 Absolute Monocytes 0.8 Absolute Eosinophils 0.3 Absolute Basophils 0.1 Sodium 146.2 H Potassium 4.2 Chloride 112 H Carbon Dioxide 25 Anion Gap 9 BUN 29 H Creatinine 0.95 Est GFR ( Amer) > 60 Est GFR (Non-Af Amer) > 60 Glucose 191 H Calcium 10.3 H Magnesium 1.9 Total Bilirubin 0.8 AST 36 ALT 54 Alkaline Phosphatase 145 H Total Protein 7.4 Albumin 3.7 07/25/18 07/25/18 07/31/18 16:11 16:11 03:39 Creatine Kinase 50 L CK-MB (CK-2) 1.62 Troponin I < 0.012 NT-Pro-B Natriuret Pep 348 08/02/18 08/02/18 14:55 14:55 Creatine Kinase 55 CK-MB (CK-2) 0.31 Troponin I NT-Pro-B Natriuret Pep Impressions: Head CTA 07/25/18 16:52 IMPRESSION: NO CTA EVIDENCE OF STENOSIS OR ANEURYSM OF THE HUGHES OF [place]. Neck CTA 07/25/18 16:52 IMPRESSION: 1. Normal CTA of the extracranial carotid and vertebral system. 2. 1.1 x 1.7 cm nodule in the right lobe of the thyroid gland. Head MRI 07/25/18 18:26 IMPRESSION: Mild parenchymal volume loss. No acute ischemia. No other definite acute abnormality. Head CT 07/28/18 00:00 IMPRESSION: MILD CHRONIC CHANGES OF ATROPHY AND MICROVASCULAR ISCHEMIA. NO ACUTE PROCESS. EVIDENCE OF ACUTE STROKE: NO. Chest X-Ray 08/03/18 06:00 IMPRESSION: Interval extubation. Abdomen/Pelvis CT 08/03/18 09:58 IMPRESSION: Mildly dilated loops of small bowel associated with chronic anterior abdominal wall hernia. No high-grade bowel obstruction. KUB X-Ray 08/04/18 13:47 IMPRESSION: MALPOSITION OF THE NASOGASTRIC TUBE WHICH IS LOCATED IN THE BRONCHUS TO THE RIGHT LOWER LOBE. Assessment and Plan - Diagnosis (1) Acute delirium Is this a current diagnosis for this admission?: Yes Plan: This was suspected to be due to carbon monoxide poisoning. He is not acutely de lirious but his mental status is definitely strange. He is not on any medications that would be making him encephalopathic at this time, nor are there any acute metabolic conditions that are making him encephalopathic. I wonder if this is normal for him. He is been agitated but he is too weak to get up out of bed on his own. I have ordered some twice a day Zyprexa for him and he has been less agitated. I discontinued his Reglan because am not sure why he was getting it. I will request a psychiatric evaluation. He was too weak to stand up with physical therapy, so he definitely cannot go home. 08/08/2018-patient was admitted with acute delirium urine drug screen is only positive for marijuana. LP was negative. MRI of the brain and 2 CT scans are negative. Patient is not agitated but still confused. There is a question of carbon monoxide poisoning. Comfortably in the bed communicating okay and not agitated. Plan Zyprexa twice a day. She will request for a psych consult omid use the patient was intubated the unable to assess the patient. I am going to request for psych consult again today. 08/09/2018-is 67-year-old male admitted for acute delirium cause is still unknown. Urine drug screen is only positive for marijuana. Still confused and agitated. He is on soft restraints. Plan is to continue sedatives and physical therapy consult was requested licensed social worker consult was requested for possible placement. 08/10/[id number]-zozj-old male admitted with acute delirium, causes still unknown. Urine drug screen is only positive for marijuana. PT consult was requested probably he may need to go to rehab. Acute delirium/acute encephalopathy due to carbon monoxide poisoning is unlikely. (2) Sleep apnea syndrome Qualifiers: Sleep apnea type: unspecified type Qualified Code(s): G47.30 - Sleep apnea, unspecified Is this a current diagnosis for this admission?: Yes Plan: BiPAP nightly 07/26/2018-morbidly obese male with history of sleep apnea. As per the patient he is on BiPAP at home which is going to be resumed during this hospital stay. 07/27/2018-sisters are saying patient does not have any BiPAP or CPAP machine at home. But they do admit that he has a sleep apnea and problems with sleeping at night. 07/28/2018-initially with that patient has sleep apnea using BiPAP at home but the sisters came in and said he does not have any BiPAP or CPAP machine at home. 07/29/2018-patient has history of sleep apnea questionable history of using BiPAP at home. 07/31/2018 patient has a history of sleep apnea as per the family members he does not have any BiPAP or CPAP machine at home. We will see this patient is stable to discharge to go to arrange for a sleep studies as an outpatient. 08/08/2018-patient has a history of sleep apnea but sisters are telling us patient does not have any CPAP or BiPAP machine at home. Patient may be b eneficial to get outpatient sleep study. To arrange for CPAP here if needed. 08/10/2018-patient has history of sleep apnea but refusing to wear the CPAP. Order was placed for CPAP as needed at night. (3) Type II diabetes mellitus Qualifiers: Diabetes mellitus termite exterminator insulin use: unspecified termite exterminator insulin use status Diabetes mellitus complication status: without complication Qualified Code(s): E11.9 - Type 2 diabetes mellitus without complications Is this a current diagnosis for this admission?: No Plan: 07/26/2018 patient has history of type 2 diabetes mellitus, on glyburide at home, metformin at home. Metformin was discontinued. Plan to continue glipizide and put the patient on insulin sliding scale every 6 hours. Patient is n.p.o. at this point. 07/27/2018-patient has history of type 2 diabetes mellitus. Metformin and gli pizide on hold at this moment. Hemoglobin A1c is 8.6. Patient is presently on insulin sliding scale. Latest blood sugar is 98. To start on NG tube feeding from today. 07/28/2018-patient has history of type 2 diabetes mellitus hemoglobin A1c is 8.6 he is on insulin sliding scale every 6 hours. Is also receiving feeding tubes. This morning feeding tubes are on hold latest blood sugar is 128. Plan is to continue the present management. 07/29/2018-patient is on insulin sliding scale every 6 hours latest blood sugar is 107 well-controlled. Hemoglobin A1c is 8.6. Plan is to continue the present management. 07/30/2018-latest blood sugar is 107 hemoglobin A1c is 8.6 blood sugars are well controlled with insulin sliding scale every 6 hours. 07/31/2018-patient blood sugar is 116 today hemoglobin A1c is 8.6. Patient is presently on insulin sliding scale every 6 hours. Plan is to continue the present management. 08/08/2018 patient has history of type 2 diabetes mellitus hemoglobin A1c is 8.6. His blood sugar is 171. Plan is on insulin sliding scale before meals and at bedtime. To continue the present management. 08/09/2018-hemoglobin A1c is 8.6 his latest blood sugar is at 203. Presently on insulin sliding scale. To start him on Lantus 10 units twice a day. 08/10/2018-patient's blood sugar today is 217 with hemoglobin A1c of 8.6. Presently on insulin sliding scale and started Lantus 10 units twice a day. Plan is to continue the present management. (4) Essential hypertension Is this a current diagnosis for this admission?: Yes Plan: 07/26/2018 patient has history of hypertension blood pressure this morning is fluctuating 120/81 this morning. He is on lisinopril/hydrochlorothiazide at home we are going to resume the medication and also started on IV hydralazine 10 mg every 6 as needed for the systolic blood pressure more than 150. 07/27/2018 patient has history of hypertension blood pressure today is 121/68 stable. He is on lisinopril/hydrochlorothiazide at home he is receiving it by NG tube. He is also on IV hydralazine 10 mg every 6 hours as needed. 07/28/2018-patient's latest blood pressure is 111/75 he is receiving IV fluids and he is receiving blood pressure medications via NG tube which was on hold from yesterday. 07/29/2018-patient blood pressure today 150/77 he is on IV fluids normal saline 30 cc/h he is receiving blood pressure medications via NG tube. Plan is to continue the present management. 07/30/2018-patient blood pressure today is 121/64 with a heart rate of 83 well-controlled presently on lisinopril 10 mg via NG tube daily basis, hydrochlorothiazide 12.5 mg daily via NG tube and also on Toprol 100 mg p.o. every 12 hours. Plan is to discontinue lisinopril from today and continue to watch his blood pressures every 4 hours. 07/31/2018-patient blood pressure today is 125/68. With a heart rate of 112. presently on Toprol 100 mg p.o. every 12 hours. 08/09/2018-patient blood pressure today is 102/65. Presently on Toprol 100 mg p.o. every 12 hours. plan is to continue the present management. 08/10/2018-patient blood pressure today is 140/70 with heart rate 56 stable. He is on Toprol 100 mg p.o. every 12 hours plan is to continue the present management. (5) Obesity Qualifiers: Obesity classification: adult class 3 (BMI >= 40) Is this a current diagnosis for this admission?: Yes (6) CHF (congestive heart failure) Is this a current diagnosis for this admission?: No Plan: 07/27/2018-patient has echocardiogram was done in April last year it shows normal systolic heart function but grade 3 2/diastolic heart failure. Patient is not in fluid overload. We are going to check his BNP and continue to monitor his volume status. 07/28/2018-echocardiogram was done last year indicates possible diastolic heart failure which may be chronic. Patient is euvolemic. 07/29/2018-patient might have chronic diastolic heart failure and he is euvolemic. Plan is to continue the present management. 07/30/2018-echocardiogram was done last year indicates possible diastolic heart failure which may be chronic. Patient is euvolemic. Urinary output is good. 07/31/2018-echocardiogram was done last year shows chronic diastolic heart f ailure. Patient is euvolemic. 08/08/2018-echocardiogram was done last year shows chronic diastolic heart failure. Patient is euvolemic. 08/09/2018-patient has history of chronic diastolic heart failure. Presently not on any diuretics. Patient is euvolemic. 08/10/2018-patient has a history of chronic diastolic heart failure. Not on diuretics. Euvolemic. Plan is to continue the present management. (7) Pneumonia Is this a current diagnosis for this admission?: Yes Plan: 07/28/2018-P chest and chest x-ray shows possible left base opacification suggestive of pneumonia probably hospital-acquired pneumonia presently on cefepi me and vancomycin. Sputum cultures blood cultures are pending. 07/29/2018-chest x-ray done yesterday shows possible left base opacification it can be aspiration pneumonia/hospital-acquired pneumonia. Presently on vancomycin and cefepime I am blood cultures are negative sputum cultures pending. WBC count is 12.1 T-max is 98.8. Plan is to continue the present management. 07/30/2018-chest x-ray suggestive of left lower lobe airspace disease and sputum cultures came back positive for staph aureus patient is presently on cefepime and vancomycin and he is afebrile, blood pressures are normal plan is to continue cefepime I am and discontinue vancomycin from today. 07/31/2018-chest x-ray shows left lower lobe opacification sputum cultures are positive for staph aureus. presently on cefepime. Vancomycin was discontinued yesterday. 08/08/2018-during the admission chest x-ray shows left lower lobe opacification sputum cultures were positive for staph aureus she was treated with cefepime. Patient is afebrile. Pulse ox is 98% on room air. Plan is to continue the present management. 08/10/2018-patient was found to have pneumonia while he was in ICU. Most likely secondary to aspiration due to altered mental status. Most likely gram-negative organisms. He was treated with IV antibiotic therapy presently off the IV antibiotics and patient is afebrile. Pneumonia has resolved. (8) Acute kidney injury Is this a current diagnosis for this admission?: Yes Plan: Resolved 08/08/2018-patient came in with creatinine of 1.14 latest creatinine is 0.8 acute kidney injury most likely secondary to poor oral intake resolved. 08/09/2018-patient's latest creatinine is 0.96. Acute kidney injury most likely secondary to poor oral intake is resolved. 08/10/2018-patient creatinine is 0.95 stable. Admission creatinine is 1.14 acute kidney injury is resolved. (9) Acute respiratory failure Qualifiers: Respiratory failure complication: hypoxia and hypercapnia Qualified Code(s): J96.01 - Acute respiratory failure with hypoxia; J96.02 - Acute respiratory failure with hypercapnia Is this a current diagnosis for this admission?: Yes Plan: Resolved 08/08/2018-patient was intubated and successfully extubated during the hospital stay. Developed pneumonia during the hospital stay. Which was resolved. Acute respiratory failure is resolved pulse ox is 98% room air today. 08/09/2018-patient was intubated and successfully extubated during the hospital stay. Pulse oxes 96% on 2 L. Plan is to continue the present management. 08/10/2018-patient was intubated and extubated during the hospital stay. Pulse ox are stable today. Plan is to continue the present management. - Time Time Spent with patient: 25-34 minutes Medications reviewed and adjusted accordingly: Yes Anticipated discharge: SNF
[2018-08-10] MEDS: THIAMINE HCL 100 MG TABLET PO SCH (17:52)
[2018-08-11] MEDS: LORAZEPAM INJ 2 MG/1 ML VIAL IV PRN ×2 (01:39→22:39)
[2018-08-11] MEDS: PANTOPRAZOLE SODIUM 40 MG TABLET.DR PO SCH (06:22)
[2018-08-11] MEDS: OLANZAPINE 5 MG TABLET PO SCH ×2 (06:22→17:52)
[2018-08-11] MEDS: INSULIN GLARGINE,HUM.REC.ANLOG 1,000 UNIT/10 ML VIAL SUBCUT SCH ×2 (06:22→18:04)
[2018-08-11] MEDS: INSULIN REG, HUMAN 100 UNIT/ML 3 ML VIAL (PYX) SUBCUT SCH ×4 (08:38→22:38)
[2018-08-11] MEDS: MAGNESIUM OXIDE 400 MG TABLET PO SCH ×2 (09:32→17:52)
[2018-08-11] MEDS: METOPROLOL TARTRATE 100 MG TABLET PO SCH ×2 (09:33→22:39)
[2018-08-11] MEDS: POTASSIUM CHLORIDE 10 MEQ CAPSULE.ER PO SCH ×2 (09:33→22:38)
[2018-08-11] MEDS: FUROSEMIDE 20 MG TABLET PO SCH ×2 (09:33→17:53)
--- NOTE | 2018-08-11 13:56 | PDOC PROGRESS REPORT ---
Subjective Progress Note for:: 08/11/18 Subjective:: 67-year-old male admitted for altered mental status/acute encephalopathy. Urine drug screen is positive for marijuana. No acute events of the day of admission. Patient is on four-point restraints. This morning agitated once the restraints are off. Able to give his date of . And he told me he is a diabetic. He is also told me that he has sleep apnea uses BiPAP at home. Unable to give his address. She still confused. MRI of the brain CT of the neck CT head was negative. 07/27/[id number]-jdlx-old male admitted with altered mental status/acute encephalop athy. Urine drug screen is positive for marijuana. MRI of the head was negative LP was negative. Patient is prophylactically intubated on Versed drip and propofol drip. This morning is still agitated and fighting the restraints. We are going to put him on IV morphine 2 mg every 4 as needed for pain as requested by the family and start on cefepime 2 g IV daily. To start him on NG tube feedings. She is stable plan to repeat the CT of the head and a CT of the abdomen as per the family request. 07/28/[id number]-gftu-old male admitted for altered mental status/acute encephalopathy patient was still on mechanical ventilation on on Versed 2 mg/h and deprivan 40 mcg/kg/min. G-tube was placed yesterday and residual this morning 80 cc so NG tube was clamped. Acute events in the last 24 hours. Patient is afebrile. Hernia level came back 9.8. ABG this morning pH is 7.42 PCO2 36 PO2 98.7 oxygen saturation is 97.6. 07/29/2018-no acute events in the last 24 hours. Patient is afebrile. Still on mechanical ventilation. He is off the sedation at this point. Still on mechanical ventilation. Pulse ox is 96% on 40% oxygen. KUB to be done last night shows no obstruction or ileus. She has NG tube still have a lot of secretions coming out. On suctioning of the lungs lack a lot of drainage. Plan is to try to wean him off today for possible. Patient is more alert more awake little bit agitated and moving all his extremities. Pupils are equal and react to light accommodation. Corneal reflex present. 07/30/[id number]-usqa-old male admitted for acute delirium. Urine drug screen is onl y positive for marijuana. Family is denying patient has history of any polysubstance abuse or alcohol abuse. MRI of the brain is negative CT head is negative CT of the neck is negative. [address] head was repeated which was negative. No acute events in the last 24 hours. Patient is afebrile. Sputum cultures came back positive for staph aureus. Patient's input is 3.1 L output is 3.5 L with a negative balance of 400 mL yesterday. on normal saline at 30 cc/h and he is receiving NG tube feedings. On mechanical ventilation with PEEP of 10 respiratory rate of 8 oxygen saturation of 35% tidal volume of 600. On deep Ativan 40 mcg/kg/min for sedation and is receiving fentanyl at 50 mcg as needed for agitation. Latest chest x-ray suggestive of left lower lobe pneumonia probably aspiration/hospital-acquired pneumonia receiving IV vancomycin and cefepime ,based on the cultures sensitivity reports plan is to discontinue IV vancomycin from today. 07/31/[id number]-ojow-old male admitted for acute delirium we do not have definite cause identified. Urine drug screen is only positive for marijuana. No acute events in the last 24 hours. Patient is afebrile. Presently on cefepime. P atient is still on mechanical ventilation and on propofol 40 mcg/kg/min. Patient is off the pressors. He is off the IV fluids. On SIMV with PEEP of 8 and a 35% oxygen. Tidal volume of 600. ABG done this morning shows pH of 7.38/PCO2 34 PO2 125 bicarb is 29. Plan to wean him off today from the vent 08/08/[id number]-jiow-old male admitted with acute delirium. Status post intubation and extubation. Because of altered mental status/acute delirium is unknown. Place the possibility of carbon monoxide poisoning. But is unlikely. Multiple CT heads on MRI of the brain including LP is negative for cause. Patient is comfortably in the bed able to give his date of able to communicating okay but he said he was in [place]. Have a Marcum's catheter tinge of blood seen in the catheter tube. 08/09/2018-patient is still confused and agitated he is on soft restraints. When he went to see him he tried to pull his Marcum's catheter. But he is able to give his date OF and able to tell he is in [place] and also able to give his sister's name. Patient has few loose stools last night and stool for C. difficile was sent. Results are pending. 08/10/2018-no acute events in the last 24 hours. Patient is afebrile. Request for psych evaluation yesterday. Patient may need to go to a rehab facility. 08/11/2018-no acute events in last 24 hours. Patient is afebrile. Patient is co mfortable in the bed not communicating well today. Reason For Visit: ALTERED MENTAL STATUS AND S/P INTUBATION Physical Exam Vital Signs: Temp Pulse Resp BP Pulse Ox 97.5 F 74 18 120/67 95 08/11/18 11:38 08/11/18 11:38 08/11/18 11:38 08/11/18 11:38 08/11/18 11:38 Intake & Output 08/10/18 08/11/18 08/12/18 06:59 06:59 06:59 Intake Total 786 1320 459 Output Total 1300 2140 Balance -514 -820 459 Weight 110.3 kg 105.8 kg General appearance: PRESENT: no acute distress, obese Head exam: PRESENT: atraumatic Eye exam: PRESENT: PERRLA Mouth exam: PRESENT: moist, tongue midline Neck exam: ABSENT: carotid bruit, JVD, lymphadenopathy, thyromegaly Respiratory exam: PRESENT: clear to auscultation filomena. ABSENT: rales, rhonchi, wheezes Cardiovascular exam: PRESENT: RRR. ABSENT: diastolic murmur, rubs, systolic murmur GI/Abdominal exam: PRESENT: normal bowel sounds, soft. ABSENT: distended, guarding, mass, organolmegaly, rebound, tenderness Extremities exam: PRESENT: full ROM. ABSENT: calf tenderness, clubbing, pedal edema Neurological exam: PRESENT: alert, awake Psychiatric exam: PRESENT: anxious Results Laboratory Results: 08/10/18 05:40 08/10/18 05:40 07/25/18 07/25/18 07/31/18 16:11 16:11 03:39 Creatine Kinase 50 L CK-MB (CK-2) 1.62 Troponin I < 0.012 NT-Pro-B Natriuret Pep 348 08/02/18 08/02/18 14:55 14:55 Creatine Kinase 55 CK-MB (CK-2) 0.31 Troponin I NT-Pro-B Natriuret Pep Impressions: Head CTA 07/25/18 16:52 IMPRESSION: NO CTA EVIDENCE OF STENOSIS OR ANEURYSM OF THE STEBBINS OF OLIVAS. Neck CTA 07/25/18 16:52 IMPRESSION: 1. Normal CTA of the extracranial carotid and vertebral system. 2. 1.1 x 1.7 cm nodule in the right lobe of the thyroid gland. Head MRI 07/25/18 18:26 IMPRESSION: Mild parenchymal volume loss. No acute ischemia. No other definite acute abnormality. Head CT 07/28/18 00:00 IMPRESSION: MILD CHRONIC CHANGES OF ATROPHY AND MICROVASCULAR ISCHEMIA. NO ACUTE PROCESS. EVIDENCE OF ACUTE STROKE: NO. Chest X-Ray 08/03/18 06:00 IMPRESSION: Interval extubation. Abdomen/Pelvis CT 08/03/18 09:58 IMPRESSION: Mildly dilated loops of small bowel associated with chronic anterior abdominal wall hernia. No high-grade bowel obstruction. KUB X-Ray 08/04/18 13:47 IMPRESSION: MALPOSITION OF THE NASOGASTRIC TUBE WHICH IS LOCATED IN THE BRONCHUS TO THE RIGHT LOWER LOBE. Assessment and Plan - Diagnosis (1) Acute delirium Is this a current diagnosis for this admission?: Yes Plan: This was suspected to be due to carbon monoxide poisoning. He is not acutely delirious but his mental status is definitely strange. He is not on any medications that would be making him encephalopathic at this time, nor are there any acute metabolic conditions that are making him encephalopathic. I wonder if this is normal for him. He is been agitated but he is too weak to get up out of bed on his own. I have ordered some twice a day Zyprexa for him and he has been less agitated. I discontinued his Reglan because am not sure why he was getting it. I will request a psychiatric evaluation. He was too weak to stand up with physical therapy, so he definitely cannot go home. 08/08/2018-patient was admitted with acute delirium urine drug screen is only positive for marijuana. LP was negative. MRI of the brain and 2 CT scans are negative. Patient is not agitated but still confused. There is a question of carbon monoxide poisoning. Comfortably in the bed communicating okay and not agitated. Plan Zyprexa twice a day. She will request for a psych consult because the patient was intubated the unable to assess the patient. I am going to request for psych consult again today. 08/09/2018-is 67-year-old male admitted for acute delirium cause is still unknown. Urine drug screen is only positive for marijuana. Still confused and agitated. He is on soft restraints. Plan is to continue sedatives and physical therapy consult was requested licensed clinical social worker consult was requested for possible placement. 08/10/[id number]-eoas-old male admitted with acute delirium, causes still unknown. Urine drug screen is only positive for marijuana. PT consult was requested probably he may need to go to rehab. Acute delirium/acute encephalopathy due to carbon monoxide poisoning is unlikely. 08/11/2018-patient was admitted with acute delirium causes unknown. Still confused and on soft restraints. Psych consult was requested yesterday. CT head, MRI of the brain and LP came back negative. 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 Metformin was discontinued. Plan to continue glipizide and put the patient on insulin sliding scale every 6 hours. Patient is n.p.o. at this point. 07/27/2018-patient has history of type 2 diabetes mellitus. Metformin and glipizide on hold at this moment. Hemoglobin A1c is 8.6. Patient is presently on insulin sliding scale. Latest blood sugar is 98. To start on NG tube feeding from today. 07/28/2018-patient has history of type 2 diabetes mellitus hemoglobin A1c is 8.6 he is on insulin sliding scale every 6 hours. Is also receiving feeding tubes. This morning feeding tubes are on hold latest blood sugar is 128. Plan is to continue the present management. 07/29/2018-patient is on insulin sliding scale every 6 hours latest blood sugar is 107 well-controlled. Hemoglobin A1c is 8.6. Plan is to continue the present management. 07/30/2018-latest blood sugar is 107 hemoglobin A1c is 8.6 blood sugars are well controlled with insulin sliding scale every 6 hours. 07/31/2018-patient blood sugar is 116 today hemoglobin A1c is 8.6. Patient is presently on insulin sliding scale every 6 hours. Plan is to continue the present management. 08/08/2018 patient has history of type 2 diabetes mellitus hemoglobin A1c is 8.6. His blood sugar is 171. Plan is on insulin sliding scale before meals and at bedtime. To continue the present management. 08/09/2018-hemoglobin A1c is 8.6 his latest blood sugar is at 203. Presently on insulin sliding scale. To start him on Lantus 10 units twice a day. 08/10/2018-patient's blood sugar today is 217 with hemoglobin A1c of 8.6. Presently on insulin sliding scale and started Lantus 10 units twice a day. Plan is to continue the present management. (4) Essential hypertension Is this a current diagnosis for this admission?: Yes Plan: 07/26/2018 patient has history of hypertension blood pressure this morning is fluctuating 120/81 this morning. He is on lisinopril/hydrochlorothiazide at home we are going to resume the medication and also started on IV hydralazine 10 mg every 6 as needed for the systolic blood pressure more than 150. 07/27/2018 patient has history of hypertension blood pressure today is 121/68 stable. He is on lisinopril/hydrochlorothiazide at home he is receiving it by NG tube. He is also on IV hydralazine 10 mg every 6 hours as needed. 07/28/2018-patient's latest blood pressure is 111/75 he is receiving IV fluids and he is receiving blood pressure medications via NG tube which was on hold from yesterday. 07/29/2018-patient blood pressure today 150/77 he is on IV fluids normal saline 30 cc/h he is receiving blood pressure medications via NG tube. Plan is to continue the present management. 07/30/2018-patient blood pressure today is 121/64 with a heart rate of 83 well- controlled presently on lisinopril 10 mg via NG tube daily basis, hydrochlorothiazide 12.5 mg daily via NG tube and also on Toprol 100 mg p.o. every 12 hours. Plan is to discontinue lisinopril from today and continue to watch his blood pressures every 4 hours. 07/31/2018-patient blood pressure today is 125/68. With a heart rate of 112. presently on Toprol 100 mg p.o. every 12 hours. 08/09/2018-patient blood pressure today is 102/65. Presently on Toprol 100 mg p.o. every 12 hours. plan is to continue the present management. 08/10/2018-patient blood pressure today is 140/70 with heart rate 56 stable. He is on Toprol 100 mg p.o. every 12 hours plan is to continue the present management. 08/11/2018-patient blood pressure today is 115/70. Stable. Plan is to continue the present management. (5) Obesity Qualifiers: Obesity classification: adult class 3 (BMI >= 40) Is this a current diagnosis for this admission?: Yes (6) CHF (congestive heart failure) Is this a current diagnosis for this admission?: No Plan: 07/27/2018-patient has echocardiogram was done in April last year it shows normal systolic heart function but grade 3 2/diastolic heart failure. Patient is not in fluid overload. We are going to check his BNP and continue to monitor his volume status. 07/28/2018-echocardiogram was done last year indicates possible diastolic heart failure which may be chronic. Patient is euvolemic. 07/29/2018-patient might have chronic diastolic heart failure and he is euvolemic. Plan is to continue the present management. 07/30/2018-echocardiogram was done last year indicates possible diastolic heart failure which may be chronic. Patient is euvolemic. Urinary output is good. 07/31/2018-echocardiogram was done last year shows chronic diastolic heart failure. Patient is euvolemic. 08/08/2018-echocardiogram was done last year shows chronic diastolic heart failure. Patient is euvolemic. 08/09/2018-patient has history of chronic diastolic heart failure. Presently not on any diuretics. Patient is euvolemic. 08/10/2018-patient has a history of chronic diastolic heart failure. Not on diuretics. Euvolemic. Plan is to continue the present management. (7) Pneumonia Is this a current diagnosis for this admission?: Yes (8) Acute kidney injury Is this a current diagnosis for this admission?: Yes (9) Acute respiratory failure Qualifiers: Respiratory failure complication: hypoxia and hypercapnia Qualified Code(s): J96.01 - Acute respiratory failure with hypoxia; J96.02 - Acute respiratory failure with hypercapnia Is this a current diagnosis for this admission?: Yes Plan: Resolved 08/08/2018-patient was intubated and successfully extubated during the hospital stay. Developed pneumonia during the hospital stay. Which was resolved. Acute respiratory failure is resolved pulse ox is 98% room air today. 08/09/2018-patient was intubated and successfully extubated during the hospital stay. Pulse oxes 96% on 2 L. Plan is to continue the present management. 08/10/2018-patient was intubated and extubated during the hospital stay. Pulse ox are stable today. Plan is to continue the present management. 08/11/2018-patient's pulse ox is 93% on 2 L. Stable. - Time Time Spent with patient: 15-24 minutes Medications reviewed and adjusted accordingly: Yes Anticipated discharge: SNF
--- NOTE | 2018-08-11 15:57 | PSYCHOLOGICAL NOTE ---
Psych Note - Psych Note Date seen by psych provider: 08/11/18 Time seen by psych provider: 15:00 Psych Note: Reason for Consult: toxic encephalopathy EL SEYMOUR is a 67 year old male with history obtained by the record as he is a poor historian with delirium. Patient continues to be unable to engage with clinician. Clinician notes patient was seen 08/09/2018 and had difficulty with evaluation. He was able to state he smokes marijuana; "oh, ya I smoke a bowl." Patient is unable to identify orientation questions and it noted periodically laugh when answering "I do not know" to clinician's questions. Clinician checked in with attending nurse who reports concern the patient's family member was going to get the patient alcohol. She disclosed the patient was asking for his "crown" in which family member was going to go obtain alcohol and bring to the patient. She reports she explained to the patient's family member that there can be no alcohol brought to the patient. Clinician attempted to do evaluation on patient 08/11/2018. Patient is observed after having his hair washed having his hair braided. Patient is sleeping soundly. PCT at bedside reports the patient has been sleeping soundly through entire bathing process to include even rolling him. Patient was intubated 07/27/2018 until 08/02/2018 Head MRI 07/25/18 18:26 IMPRESSION: Mild parenchymal volume loss. No acute ischemia. No other definite acute abnormality. Head CT 07/28/18 00:00 IMPRESSION: MILD CHRONIC CHANGES OF ATROPHY AND MICROVASCULAR ISCHEMIA. NO ACUTE PROCESS. EVIDENCE OF ACUTE STROKE: NO. Medication recommendations per [facility]'s contracted psychiatrist Dr. Chitra CARTER are as follows Please discontinue Ativan and Zyprexa Please start Depakote 250 mg twice daily BuSpar 5 mg twice daily Effexor 37.5 mg daily clonidine 0.1 mg every 8 hours as needed Impression\\plan: His current presentation is likely due to length of patient's intubation, age, medical history, and reported alcoholism (per family), patient is likely demonstrating residual effects of hypoxia which will hopefully clear over the next few weeks. Review of neuroimaging studies suggest language of neurodegenerative processes suggestive of a dementia-like disease process; thus, it is recommended that prescribing physicians are asked to consider to avoid prescribing benzodiazepines (e.g. Ativan, Xanax, Valium, Klonopin), antipsychotics (e.g. Haldol, Geodon, Zyprexa, Seroquel), some sleep aids (e.g. Ambien, Lunesta, Sonata), narcotic pain medications, and high doses of steroids (prednisone) as these have been known to cause and/or increased symptoms of aggression, psychosis, and/or paranoia in patients with neurodegenerative processes such as dementia, Alzheimer's disease, traumatic brain injury, etc. Dr. Pike was consulted on the care and management of this patient; attending physician is in agreement with recommendations and disposition.
[2018-08-11] MEDS: THIAMINE HCL 100 MG TABLET PO SCH (17:53)
[2018-08-12 05:32] LABS: ABSOLUTE BASOPHILS # (AUTO) 0.1 10^3/uL (0.0-0.2); ABSOLUTE EOSINOPHILS # (AUTO) 0.4 10^3/uL (0.0-0.6); ABSOLUTE LYMPHOCYTES (AUTO) 2.8 10^3/uL (0.5-4.7); ABSOLUTE MONOCYTES (AUTO) 0.7 10^3/uL (0.1-1.4); ABSOLUTE NEUT (AUTO) 8.4 10^3/uL (1.7-8.2); BASOPHILS % (AUTO) 1.1 % (0-2); EOSINOPHILS % (AUTO) 2.9 % (0-6); HEMATOCRIT 38.8 % (37.9-51.0); LYMPHOCYTES % (AUTO) 22.7 % (13-45); MEAN CORPUSCULAR HEMOGLOBIN 29.9 pg (27.0-33.4); MEAN CORPUSCULAR HGB CONC 33.4 g/dL (32.0-36.0); MEAN CORPUSCULAR VOLUME 89 fl (80-97); MONOCYTES % (AUTO) 5.9 % (3-13); PLATELET COUNT 398 10^3/uL (150-450); RED BLOOD COUNT 4.34 10^6/uL (4.35-5.55); RED CELL DISTRIBUTION WIDTH 14.1 % (11.5-14.0); SEGMENTED NEUTROPHILS % (AUTO) 67.4 % (42-78); TOTAL CELLS COUNTED % (AUTO) 100 %; WHITE BLOOD COUNT 12.5 10^3/uL (4.0-10.5)
[2018-08-12 06:00] LABS: ALANINE AMINOTRANSFERASE 62 U/L (21-72); ALBUMIN 3.9 g/dL (3.5-5.0); ALKALINE PHOSPHATASE 169 U/L (38-126); ANION GAP 11 (5-19); ASPARTATE AMINO TRANSFERASE 35 U/L (17-59); BILIRUBIN,DIRECT 0.5 mg/dL (0.0-0.4); BILIRUBIN,TOTAL 0.7 mg/dL (0.2-1.3); BLOOD UREA NITROGEN 34 mg/dL (7-20); CALCIUM 10.2 mg/dL (8.4-10.2); CARBON DIOXIDE 28 mmol/L (22-30); CHLORIDE 107 mmol/L (98-107); GLUCOSE 185 mg/dL (75-110); POTASSIUM 4.6 mmol/L (3.6-5.0); SODIUM 145.6 mmol/L (137-145)
[2018-08-12] MEDS: PANTOPRAZOLE SODIUM 40 MG TABLET.DR PO SCH (06:37)
[2018-08-12] MEDS: OLANZAPINE 5 MG TABLET PO SCH (06:37)
[2018-08-12] MEDS: INSULIN GLARGINE,HUM.REC.ANLOG 1,000 UNIT/10 ML VIAL SUBCUT SCH ×2 (06:38→17:52)
[2018-08-12] MEDS: INSULIN REG, HUMAN 100 UNIT/ML 3 ML VIAL (PYX) SUBCUT SCH ×4 (08:04→22:02)
[2018-08-12] MEDS: FUROSEMIDE 20 MG TABLET PO SCH ×2 (10:57→17:51)
[2018-08-12] MEDS: POTASSIUM CHLORIDE 10 MEQ CAPSULE.ER PO SCH ×2 (10:57→22:01)
[2018-08-12] MEDS: MAGNESIUM OXIDE 400 MG TABLET PO SCH ×2 (10:57→17:51)
[2018-08-12] MEDS: DIVALPROEX SODIUM 250 MG TAB.SR.24H PO SCH ×2 (10:58→22:02)
[2018-08-12] MEDS: METOPROLOL TARTRATE 100 MG TABLET PO SCH ×2 (10:58→22:02)
[2018-08-12] MEDS: VENLAFAXINE HCL 37.5 MG CAP.SR.24H PO SCH (10:58)
[2018-08-12] MEDS: BUSPIRONE HCL 10 MG TABLET PO SCH ×2 (10:58→22:01)
--- NOTE | 2018-08-12 11:51 | PDOC PROGRESS REPORT ---
Subjective Progress Note for:: 08/12/18 Subjective:: 67-year-old male admitted for altered mental status/acute encephalopathy. Urine drug screen is positive for marijuana. No acute events of the day of admission. Patient is on four-point restraints. This morning agitated once the restraints are off. Able to give his date of . And he told me he is a diabetic. He is also told me that he has sleep apnea uses BiPAP at home. Unable to give his address. She still confused. MRI of the brain CT of the neck CT head was negative. 07/27/[id number]-rbpg-old male admitted with altered mental status/acute encephalop athy. Urine drug screen is positive for marijuana. MRI of the head was negative LP was negative. Patient is prophylactically intubated on Versed drip and propofol drip. This morning is still agitated and fighting the restraints. We are going to put him on IV morphine 2 mg every 4 as needed for pain as requested by the family and start on cefepime 2 g IV daily. To start him on NG tube feedings. She is stable plan to repeat the CT of the head and a CT of the abdomen as per the family request. 07/28/[id number]-wlfb-old male admitted for altered mental status/acute encephalopathy patient was still on mechanical ventilation on on Versed 2 mg/h and deprivan 40 mcg/kg/min. G-tube was placed yesterday and residual this morning 80 cc so NG tube was clamped. Acute events in the last 24 hours. Patient is afebrile. Hernia level came back 9.8. ABG this morning pH is 7.42 PCO2 36 PO2 98.7 oxygen saturation is 97.6. 07/29/2018-no acute events in the last 24 hours. Patient is afebrile. Still on mechanical ventilation. He is off the sedation at this point. Still on mechanical ventilation. Pulse ox is 96% on 40% oxygen. KUB to be done last night shows no obstruction or ileus. She has NG tube still have a lot of secretions coming out. On suctioning of the lungs lack a lot of drainage. Plan is to try to wean him off today for possible. Patient is more alert more awake little bit agitated and moving all his extremities. Pupils are equal and react to light accommodation. Corneal reflex present. 07/30/[id number]-yfab-old male admitted for acute delirium. Urine drug screen is onl y positive for marijuana. Family is denying patient has history of any polysubstance abuse or alcohol abuse. MRI of the brain is negative CT head is negative CT of the neck is negative. [address] head was repeated which was negative. No acute events in the last 24 hours. Patient is afebrile. Sputum cultures came back positive for staph aureus. Patient's input is 3.1 L output is 3.5 L with a negative balance of 400 mL yesterday. on normal saline at 30 cc/h and he is receiving NG tube feedings. On mechanical ventilation with PEEP of 10 respiratory rate of 8 oxygen saturation of 35% tidal volume of 600. On deep Ativan 40 mcg/kg/min for sedation and is receiving fentanyl at 50 mcg as needed for agitation. Latest chest x-ray suggestive of left lower lobe pneumonia probably aspiration/hospital-acquired pneumonia receiving IV vancomycin and cefepime ,based on the cultures sensitivity reports plan is to discontinue IV vancomycin from today. 07/31/[id number]-xkmz-old male admitted for acute delirium we do not have definite cause identified. Urine drug screen is only positive for marijuana. No acute events in the last 24 hours. Patient is afebrile. Presently on cefepime. P atient is still on mechanical ventilation and on propofol 40 mcg/kg/min. Patient is off the pressors. He is off the IV fluids. On SIMV with PEEP of 8 and a 35% oxygen. Tidal volume of 600. ABG done this morning shows pH of 7.38/PCO2 34 PO2 125 bicarb is 29. Plan to wean him off today from the vent 08/08/[id number]-mmxp-old male admitted with acute delirium. Status post intubation and extubation. Because of altered mental status/acute delirium is unknown. Place the possibility of carbon monoxide poisoning. But is unlikely. Multiple CT heads on MRI of the brain including LP is negative for cause. Patient is comfortably in the bed able to give his date of able to communicating okay but he said he was in [place]. Have a Marcum's catheter tinge of blood seen in the catheter tube. 08/09/2018-patient is still confused and agitated he is on soft restraints. When he went to see him he tried to pull his Marcum's catheter. But he is able to give his date OF and able to tell he is in [place] and also able to give his sister's name. Patient has few loose stools last night and stool for C. difficile was sent. Results are pending. 08/10/2018-no acute events in the last 24 hours. Patient is afebrile. Request for psych evaluation yesterday. Patient may need to go to a rehab facility. 08/11/2018-no acute events in last 24 hours. Patient is afebrile. Patient is co mfortable in the bed not communicating well today. 08/12/2018-patient is comfortably in the bed. Able to give his name and date of . No acute events in the last 24 hours. Psych consult was done begun to follow the recommendations. Reason For Visit: ALTERED MENTAL STATUS AND S/P INTUBATION Physical Exam Vital Signs: Temp Pulse Resp BP Pulse Ox 97.6 F 86 20 134/83 H 95 08/12/18 07:13 08/12/18 07:13 08/12/18 07:13 08/12/18 07:13 08/12/18 07:13 Intake & Output 08/11/18 08/12/18 08/13/18 06:59 06:59 06:59 Intake Total 1320 681 Output Total 2140 225 Balance -820 456 Weight 105.8 kg 107.3 kg General appearance: PRESENT: no acute distress, obese Head exam: PRESENT: atraumatic Eye exam: PRESENT: PERRLA Mouth exam: PRESENT: moist, tongue midline Neck exam: ABSENT: carotid bruit, JVD, lymphadenopathy, thyromegaly Respiratory exam: PRESENT: decreased breath sounds Cardiovascular exam: PRESENT: RRR. ABSENT: diastolic murmur, rubs, systolic murmur GI/Abdominal exam: PRESENT: normal bowel sounds, soft. ABSENT: distended, guarding, mass, organolmegaly, rebound, tenderness Gentrourinary exam: PRESENT: indwelling catheter Extremities exam: PRESENT: full ROM. ABSENT: calf tenderness, clubbing, pedal edema Neurological exam: PRESENT: alert, awake, CN II-XII grossly intact. ABSENT: motor sensory deficit Psychiatric exam: PRESENT: appropriate affect, normal mood. ABSENT: homicidal ideation, suicidal ideation Results Laboratory Results: 08/12/18 04:47 08/12/18 04:47 08/12/18 08/12/18 04:47 04:47 WBC 12.5 H RBC 4.34 L Hgb 13.0 L Hct 38.8 MCV 89 MCH 29.9 MCHC 33.4 RDW 14.1 H Plt Count 398 Seg Neutrophils % 67.4 Lymphocytes % 22.7 Monocytes % 5.9 Eosinophils % 2.9 Basophils % 1.1 Absolute Neutrophils 8.4 H Absolute Lymphocytes 2.8 Absolute Monocytes 0.7 Absolute Eosinophils 0.4 Absolute Basophils 0.1 Sodium 145.6 H Potassium 4.6 Chloride 107 Carbon Dioxide 28 Anion Gap 11 BUN 34 H Creatinine 1.29 H Est GFR ( Amer) > 60 Est GFR (Non-Af Amer) 56 L Glucose 185 H Calcium 10.2 Magnesium 2.1 Total Bilirubin 0.7 AST 35 ALT 62 Alkaline Phosphatase 169 H Total Protein 8.0 Albumin 3.9 07/25/18 07/25/18 07/31/18 16:11 16:11 03:39 Creatine Kinase 50 L CK-MB (CK-2) 1.62 Troponin I < 0.012 NT-Pro-B Natriuret Pep 348 08/02/18 08/02/18 14:55 14:55 Creatine Kinase 55 CK-MB (CK-2) 0.31 Troponin I NT-Pro-B Natriuret Pep Impressions: Head CTA 07/25/18 16:52 IMPRESSION: NO CTA EVIDENCE OF STENOSIS OR ANEURYSM OF THE [place] OF [place]. Neck CTA 07/25/18 16:52 IMPRESSION: 1. Normal CTA of the extracranial carotid and vertebral system. 2. 1.1 x 1.7 cm nodule in the right lobe of the thyroid gland. Head MRI 07/25/18 18:26 IMPRESSION: Mild parenchymal volume loss. No acute ischemia. No other definite acute abnormality. Head CT 07/28/18 00:00 IMPRESSION: MILD CHRONIC CHANGES OF ATROPHY AND MICROVASCULAR ISCHEMIA. NO ACUTE PROCESS. EVIDENCE OF ACUTE STROKE: NO. Chest X-Ray 08/03/18 06:00 IMPRESSION: Interval extubation. Abdomen/Pelvis CT 08/03/18 09:58 IMPRESSION: Mildly dilated loops of small bowel associated with chronic anterior abdominal wall hernia. No high-grade bowel obstruction. KUB X-Ray 08/04/18 13:47 IMPRESSION: MALPOSITION OF THE NASOGASTRIC TUBE WHICH IS LOCATED IN THE BRONCHUS TO THE RIGHT LOWER LOBE. Assessment and Plan - Diagnosis (1) Acute delirium Is this a current diagnosis for this admission?: Yes Plan: This was suspected to be due to carbon monoxide poisoning. He is not acutely delirious but his mental status is definitely strange. He is not on any medications that would be making him encephalopathic at this time, nor are there any acute metabolic conditions that are making him encephalopathic. I wonder if this is normal for him. He is been agitated but he is too weak to get up out of bed on his own. I have ordered some twice a day Zyprexa for him and he has been less agitated. I discontinued his Reglan because am not sure why he was getting it. I will request a psychiatric evaluation. He was too weak to stand up with physical therapy, so he definitely cannot go home. 08/08/2018-patient was admitted with acute delirium urine drug screen is only positive for marijuana. LP was negative. MRI of the brain and 2 CT scans are negative. Patient is not agitated but still confused. There is a question of carbon monoxide poisoning. Comfortably in the bed communicating okay and not a gitated. Plan Zyprexa twice a day. She will request for a psych consult because the patient was intubated the unable to assess the patient. I am going to request for psych consult again today. 08/09/2018-is 67-year-old male admitted for acute delirium cause is still unknown. Urine drug screen is only positive for marijuana. Still confused and agitated. He is on soft restraints. Plan is to continue sedatives and physical therapy consult was requested high school social studies teacher consult was requested for possible placement. 08/10/[id number]-ixit-old male admitted with acute delirium, causes still unknown. Urine drug screen is only positive for marijuana. PT consult was requested probably he may need to go to rehab. Acute delirium/acute encephalopathy due to carbon monoxide poisoning is unlikely. 08/11/2018-patient was admitted with acute delirium causes unknown. Still confused and on soft restraints. Psych consult was requested yesterday. CT head, MRI of the brain and LP came back negative. 08/12/[id number]-cjaj-old male admitted for acute delirium of unknown etiology. Psych consult yesterday, they think probably secondary to alcohol use and withdrawal. Plan to follow the psych recommendations and medications adjustment was done. (2) Sleep apnea syndrome Qualifiers: Sleep apnea type: unspecified type Qualified Code(s): G47.30 - Sleep apnea, unspecified Is this a current diagnosis for this admission?: Yes Plan: BiPAP nightly 07/26/2018-morbidly obese male with history of sleep apnea. As per the patient he is on BiPAP at home which is going to be resumed during this hospital stay. 07/27/2018-sisters are saying patient does not have any BiPAP or CPAP machine at home. But they do admit that he has a sleep apnea and problems with sleeping at night. 07/28/2018-initially with that patient has sleep apnea using BiPAP at home but the sisters came in and said he does not have any BiPAP or CPAP machine at home. 07/29/2018-patient has history of sleep apnea questionable history of using BiPAP at home. 07/31/2018 patient has a history of sleep apnea as per the family members he does not have any BiPAP or CPAP machine at home. We will see this patient is stable to discharge to go to arrange for a sleep studies as an outpatient. 08/08/2018-patient has a history of sleep apnea but sisters are telling us patient does not have any CPAP or BiPAP machine at home. Patient may be beneficial to get outpatient sleep study. To arrange for CPAP here if needed. 08/10/2018-patient has history of sleep apnea but refusing to wear the CPAP. Order was placed for CPAP as needed at night. 08/12/2018-CPAP machine is bedside patient is refusing to wear CPAP. (3) Type II diabetes mellitus Qualifiers: Diabetes mellitus half-way insulin use: unspecified termite helper insulin use status Diabetes mellitus complication status: without complication Qualified Code(s): E11.9 - Type 2 diabetes mellitus without complications Is this a current diagnosis for this admission?: No Plan: 07/26/2018 patient has history of type 2 diabetes mellitus, on glyburide at home, metformin at home. Metformin was discontinued. Plan to continue glipizide and put the patient on insulin sliding scale every 6 hours. Patient is n.p.o. at this point. 07/27/2018-patient has history of type 2 diabetes mellitus. Metformin and glipizide on hold at this moment. Hemoglobin A1c is 8.6. Patient is presently on insulin sliding scale. Latest blood sugar is 98. To start on NG tube feeding from today. 07/28/2018-patient has history of type 2 diabetes mellitus hemoglobin A1c is 8.6 he is on insulin sliding scale every 6 hours. Is also receiving feeding tubes. This morning feeding tubes are on hold latest blood sugar is 128. Plan is to continue the present management. 07/29/2018-patient is on insulin sliding scale every 6 hours latest blood sugar is 107 well-controlled. Hemoglobin A1c is 8.6. Plan is to continue the present management. 07/30/2018-latest blood sugar is 107 hemoglobin A1c is 8.6 blood sugars are well controlled with insulin sliding scale every 6 hours. 07/31/2018-patient blood sugar is 116 today hemoglobin A1c is 8.6. Patient is presently on insulin sliding scale every 6 hours. Plan is to continue the present management. 08/08/2018 patient has history of type 2 diabetes mellitus hemoglobin A1c is 8.6. His blood sugar is 171. Plan is on insulin sliding scale before meals and at bedtime. To continue the present management. 08/09/2018-hemoglobin A1c is 8.6 his latest blood sugar is at 203. Presently on insulin sliding scale. To start him on Lantus 10 units twice a day. 08/10/2018-patient's blood sugar today is 217 with hemoglobin A1c of 8.6. Presently on insulin sliding scale and started Lantus 10 units twice a day. Plan is to continue the present management. 08/12/2018-patient has history of type 2 diabetes mellitus latest blood sugar is 156. On insulin sliding scale, Lantus 10 units twice a day. Plan is to continue the present management. (4) Essential hypertension Is this a current diagnosis for this admission?: Yes Plan: 07/26/2018 patient has history of hypertension blood pressure this morning is fluctuating 120/81 this morning. He is on lisinopril/hydrochlorothiazide at home we are going to resume the medication and also started on IV hydralazine 10 mg every 6 as needed for the systolic blood pressure more than 150. 07/27/2018 patient has history of hypertension blood pressure today is 121/68 stable. He is on lisinopril/hydrochlorothiazide at home he is receiving it by NG tube. He is also on IV hydralazine 10 mg every 6 hours as needed. 07/28/2018-patient's latest blood pressure is 111/75 he is receiving IV fluids and he is receiving blood pressure medications via NG tube which was on hold from yesterday. 07/29/2018-patient blood pressure today 150/77 he is on IV fluids normal saline 30 cc/h he is receiving blood pressure medications via NG tube. Plan is to continue the present management. 07/30/2018-patient blood pressure today is 121/64 with a heart rate of 83 well- controlled presently on lisinopril 10 mg via NG tube daily basis, hydrochlorothiazide 12.5 mg daily via NG tube and also on Toprol 100 mg p.o. every 12 hours. Plan is to discontinue lisinopril from today and continue to watch his blood pressures every 4 hours. 07/31/2018-patient blood pressure today is 125/68. With a heart rate of 112. presently on Toprol 100 mg p.o. every 12 hours. 08/09/2018-patient blood pressure today is 102/65. Presently on Toprol 100 mg p.o. every 12 hours. plan is to continue the present management. 08/10/2018-patient blood pressure today is 140/70 with heart rate 56 stable. He is on Toprol 100 mg p.o. every 12 hours plan is to continue the present management. 08/11/2018-patient blood pressure today is 115/70. Stable. Plan is to continue the present management. 08/12/2018-patient blood pressure today is 121/89. Stable. Plan is to continue the present management. (5) Obesity Qualifiers: Obesity classification: adult class 3 (BMI >= 40) Is this a current diagnosis for this admission?: Yes (6) CHF (congestive heart failure) Is this a current diagnosis for this admission?: No (7) Pneumonia Is this a current diagnosis for this admission?: Yes (8) Acute kidney injury Is this a current diagnosis for this admission?: Yes Plan: Resolved 08/08/2018-patient came in with creatinine of 1.14 latest creatinine is 0.8 acute kidney injury most likely secondary to poor oral intake resolved. 08/09/2018-patient's latest creatinine is 0.96. Acute kidney injury most likely secondary to poor oral intake is resolved. 08/10/2018-patient creatinine is 0.95 stable. Admission creatinine is 1.14 acute kidney injury is resolved. 08/12/2018-patient creatinine today is 1.29. Worsened compared to yesterday. poor oral intake may be the response for acute kidney injury. (9) Acute respiratory failure Qualifiers: Respiratory failure complication: hypoxia and hypercapnia Qualified Code(s): J96.01 - Acute respiratory failure with hypoxia; J96.02 - Acute respiratory failure with hypercapnia Is this a current diagnosis for this admission?: Yes Plan: Resolved 08/08/2018-patient was intubated and successfully extubated during the hospital stay. Developed pneumonia during the hospital stay. Which was resolved. Acute respiratory failure is resolved pulse ox is 98% room air today. 08/09/2018-patient was intubated and successfully extubated during the hospital stay. Pulse oxes 96% on 2 L. Plan is to continue the present management. 08/10/2018-patient was intubated and extubated during the hospital stay. Pulse ox are stable today. Plan is to continue the present management. 08/11/2018-patient's pulse ox is 93% on 2 L. Stable. 06/14/2018-patient pulse ox is 93% on 3 L stable. Plan is to continue the present management. - Time Time Spent with patient: 15-24 minutes Medications reviewed and adjusted accordingly: Yes Anticipated discharge: SNF
[2018-08-12] MEDS: THIAMINE HCL 100 MG TABLET PO SCH (17:52)
[2018-08-12] MEDS ORDERED: LORAZEPAM INJ 2 MG/1 ML VIAL ONE (20:40)
[2018-08-12] MEDS: LORAZEPAM INJ 2 MG/1 ML VIAL IV PRN (20:43)
[2018-08-13] MEDS: LORAZEPAM INJ 2 MG/1 ML VIAL IV PRN (03:08)
[2018-08-13] MEDS: INSULIN GLARGINE,HUM.REC.ANLOG 1,000 UNIT/10 ML VIAL SUBCUT SCH ×2 (06:38→17:03)
[2018-08-13] MEDS: PANTOPRAZOLE SODIUM 40 MG TABLET.DR PO SCH (06:38)
[2018-08-13] MEDS: INSULIN REG, HUMAN 100 UNIT/ML 3 ML VIAL (PYX) SUBCUT SCH ×4 (07:35→22:54)
[2018-08-13 09:21] LABS: ABSOLUTE BASOPHILS # (AUTO) 0.1 10^3/uL (0.0-0.2); ABSOLUTE EOSINOPHILS # (AUTO) 0.3 10^3/uL (0.0-0.6); ABSOLUTE LYMPHOCYTES (AUTO) 1.8 10^3/uL (0.5-4.7); ABSOLUTE MONOCYTES (AUTO) 0.9 10^3/uL (0.1-1.4); ABSOLUTE NEUT (AUTO) 10.8 10^3/uL (1.7-8.2); BASOPHILS % (AUTO) 0.8 % (0-2); EOSINOPHILS % (AUTO) 2.4 % (0-6); HEMATOCRIT 40.3 % (37.9-51.0); HEMOGLOBIN 13.7 g/dL (13.5-17.0); MEAN CORPUSCULAR HEMOGLOBIN 30.2 pg (27.0-33.4); MEAN CORPUSCULAR HGB CONC 33.9 g/dL (32.0-36.0); MEAN CORPUSCULAR VOLUME 89 fl (80-97); MONOCYTES % (AUTO) 6.3 % (3-13); PLATELET COUNT 386 10^3/uL (150-450); RED BLOOD COUNT 4.53 10^6/uL (4.35-5.55); RED CELL DISTRIBUTION WIDTH 13.9 % (11.5-14.0); SEGMENTED NEUTROPHILS % (AUTO) 77.5 % (42-78); TOTAL CELLS COUNTED % (AUTO) 100 %; WHITE BLOOD COUNT 13.9 10^3/uL (4.0-10.5)
[2018-08-13 09:25] LABS: ALANINE AMINOTRANSFERASE 62 U/L (21-72); ALKALINE PHOSPHATASE 194 U/L (38-126); ANION GAP 11 (5-19); ASPARTATE AMINO TRANSFERASE 36 U/L (17-59); BILIRUBIN,DIRECT 0.5 mg/dL (0.0-0.4); BILIRUBIN,TOTAL 0.9 mg/dL (0.2-1.3); BLOOD UREA NITROGEN 37 mg/dL (7-20); CALCIUM 10.2 mg/dL (8.4-10.2); CARBON DIOXIDE 27 mmol/L (22-30); CHLORIDE 107 mmol/L (98-107); GLUCOSE 208 mg/dL (75-110); POTASSIUM 4.6 mmol/L (3.6-5.0); SODIUM 144.7 mmol/L (137-145); TOTAL PROTEIN 8.1 g/dL (6.3-8.2)
[2018-08-13] MEDS: POTASSIUM CHLORIDE 10 MEQ CAPSULE.ER PO SCH ×3 (10:13→22:55)
[2018-08-13] MEDS: DIVALPROEX SODIUM 250 MG TAB.SR.24H PO SCH ×2 (10:13→22:56)
[2018-08-13] MEDS: MAGNESIUM OXIDE 400 MG TABLET PO SCH ×2 (10:13→17:03)
[2018-08-13] MEDS: FUROSEMIDE 20 MG TABLET PO SCH ×2 (10:13→17:02)
[2018-08-13] MEDS: METOPROLOL TARTRATE 100 MG TABLET PO SCH ×2 (10:13→22:54)
[2018-08-13] MEDS: BUSPIRONE HCL 10 MG TABLET PO SCH ×2 (10:14→22:55)
[2018-08-13] MEDS: VENLAFAXINE HCL 37.5 MG CAP.SR.24H PO SCH (10:15)
--- NOTE | 2018-08-13 11:45 | PDOC PROGRESS REPORT ---
Subjective Progress Note for:: 08/13/18 Subjective:: 67-year-old male admitted for altered mental status/acute encephalopathy. Urine drug screen is positive for marijuana. No acute events of the day of admission. Patient is on four-point restraints. This morning agitated once the restraints are off. Able to give his date of . And he told me he is a diabetic. He is also told me that he has sleep apnea uses BiPAP at home. Unable to give his address. She still confused. MRI of the brain CT of the neck CT head was negative. 07/27/[id number]-idxy-old male admitted with altered mental status/acute encephalop athy. Urine drug screen is positive for marijuana. MRI of the head was negative LP was negative. Patient is prophylactically intubated on Versed drip and propofol drip. This morning is still agitated and fighting the restraints. We are going to put him on IV morphine 2 mg every 4 as needed for pain as requested by the family and start on cefepime 2 g IV daily. To start him on NG tube feedings. She is stable plan to repeat the CT of the head and a CT of the abdomen as per the family request. 07/28/[id number]-elaq-old male admitted for altered mental status/acute encephalopathy patient was still on mechanical ventilation on on Versed 2 mg/h and deprivan 40 mcg/kg/min. G-tube was placed yesterday and residual this morning 80 cc so NG tube was clamped. Acute events in the last 24 hours. Patient is afebrile. Hernia level came back 9.8. ABG this morning pH is 7.42 PCO2 36 PO2 98.7 oxygen saturation is 97.6. 07/29/2018-no acute events in the last 24 hours. Patient is afebrile. Still on mechanical ventilation. He is off the sedation at this point. Still on mechanical ventilation. Pulse ox is 96% on 40% oxygen. KUB to be done last night shows no obstruction or ileus. She has NG tube still have a lot of secretions coming out. On suctioning of the lungs lack a lot of drainage. Plan is to try to wean him off today for possible. Patient is more alert more awake little bit agitated and moving all his extremities. Pupils are equal and react to light accommodation. Corneal reflex present. 07/30/[id number]-oujl-old male admitted for acute delirium. Urine drug screen is onl y positive for marijuana. Family is denying patient has history of any polysubstance abuse or alcohol abuse. MRI of the brain is negative CT head is negative CT of the neck is negative. [address] head was repeated which was negative. No acute events in the last 24 hours. Patient is afebrile. Sputum cultures came back positive for staph aureus. Patient's input is 3.1 L output is 3.5 L with a negative balance of 400 mL yesterday. on normal saline at 30 cc/h and he is receiving NG tube feedings. On mechanical ventilation with PEEP of 10 respiratory rate of 8 oxygen saturation of 35% tidal volume of 600. On deep Ativan 40 mcg/kg/min for sedation and is receiving fentanyl at 50 mcg as needed for agitation. Latest chest x-ray suggestive of left lower lobe pneumonia probably aspiration/hospital-acquired pneumonia receiving IV vancomycin and cefepime ,based on the cultures sensitivity reports plan is to discontinue IV vancomycin from today. 07/31/[id number]-gswb-old male admitted for acute delirium we do not have definite cause identified. Urine drug screen is only positive for marijuana. No acute events in the last 24 hours. Patient is afebrile. Presently on cefepime. P atient is still on mechanical ventilation and on propofol 40 mcg/kg/min. Patient is off the pressors. He is off the IV fluids. On SIMV with PEEP of 8 and a 35% oxygen. Tidal volume of 600. ABG done this morning shows pH of 7.38/PCO2 34 PO2 125 bicarb is 29. Plan to wean him off today from the vent 08/08/[id number]-gkgw-old male admitted with acute delirium. Status post intubation and extubation. Because of altered mental status/acute delirium is unknown. Place the possibility of carbon monoxide poisoning. But is unlikely. Multiple CT heads on MRI of the brain including LP is negative for cause. Patient is comfortably in the bed able to give his date of able to communicating okay but he said he was in [place]. Have a Marcum's catheter tinge of blood seen in the catheter tube. 08/09/2018-patient is still confused and agitated he is on soft restraints. When he went to see him he tried to pull his Marcum's catheter. But he is able to give his date OF and able to tell he is in [place] and also able to give his sister's name. Patient has few loose stools last night and stool for C. difficile was sent. Results are pending. 08/10/2018-no acute events in the last 24 hours. Patient is afebrile. Request for psych evaluation yesterday. Patient may need to go to a rehab facility. 08/11/2018-no acute events in last 24 hours. Patient is afebrile. Patient is co mfortable in the bed not communicating well today. 08/12/2018-patient is comfortably in the bed. Able to give his name and date of . No acute events in the last 24 hours. Psych consult was done begun to follow the recommendations. 08/13/2018-patient is resting comfortably in the bed. Able to communicate okay. He needed assistance to feed. We are going to watch for aspiration. To arrange for the chest x-ray today. Febrile. No acute events in the last 24 hours. Reason For Visit: ALTERED MENTAL STATUS AND S/P INTUBATION Physical Exam Vital Signs: Temp Pulse Resp BP Pulse Ox 97.4 F 94 19 127/87 H 94 08/13/18 11:07 08/13/18 11:07 08/13/18 11:07 08/13/18 11:07 08/13/18 11:07 Intake & Output 08/12/18 08/13/18 08/14/18 06:59 06:59 06:59 Intake Total 681 930 Output Total 225 1100 Balance 456 -170 Weight 107.3 kg 106.2 kg General appearance: PRESENT: no acute distress, obese Head exam: PRESENT: atraumatic Eye exam: PRESENT: PERRLA Mouth exam: PRESENT: moist, tongue midline Neck exam: ABSENT: carotid bruit, JVD, lymphadenopathy, thyromegaly Respiratory exam: PRESENT: clear to auscultation filomena. ABSENT: rales, rhonchi, wheezes GI/Abdominal exam: PRESENT: normal bowel sounds, soft. ABSENT: distended, guarding, mass, organolmegaly, rebound, tenderness Extremities exam: PRESENT: full ROM. ABSENT: calf tenderness, clubbing, pedal edema Neurological exam: PRESENT: alert, awake, oriented to person, oriented to place, oriented to time, oriented to situation, CN II-XII grossly intact. ABSENT: motor sensory deficit Psychiatric exam: PRESENT: appropriate affect, normal mood. ABSENT: homicidal ideation, suicidal ideation Results Laboratory Results: 08/13/18 08:50 08/13/18 08:50 08/13/18 08/13/18 08:50 08:50 WBC 13.9 H RBC 4.53 Hgb 13.7 Hct 40.3 MCV 89 MCH 30.2 MCHC 33.9 RDW 13.9 Plt Count 386 Seg Neutrophils % 77.5 Lymphocytes % 13.0 Monocytes % 6.3 Eosinophils % 2.4 Basophils % 0.8 Absolute Neutrophils 10.8 H Absolute Lymphocytes 1.8 Absolute Monocytes 0.9 Absolute Eosinophils 0.3 Absolute Basophils 0.1 Sodium 144.7 Potassium 4.6 Chloride 107 Carbon Dioxide 27 Anion Gap 11 BUN 37 H Creatinine 1.23 Est GFR ( Amer) > 60 Est GFR (Non-Af Amer) 59 L Glucose 208 H Calcium 10.2 Magnesium 2.2 Total Bilirubin 0.9 AST 36 ALT 62 Alkaline Phosphatase 194 H Total Protein 8.1 Albumin 4.0 07/25/18 07/25/18 07/31/18 16:11 16:11 03:39 Creatine Kinase 50 L CK-MB (CK-2) 1.62 Troponin I < 0.012 NT-Pro-B Natriuret Pep 348 08/02/18 08/02/18 14:55 14:55 Creatine Kinase 55 CK-MB (CK-2) 0.31 Troponin I NT-Pro-B Natriuret Pep Impressions: Head CTA 07/25/18 16:52 IMPRESSION: NO CTA EVIDENCE OF STENOSIS OR ANEURYSM OF THE MAK[place] OF [place]. Neck CTA 07/25/18 16:52 IMPRESSION: 1. Normal CTA of the extracranial carotid and vertebral system. 2. 1.1 x 1.7 cm nodule in the right lobe of the thyroid gland. Head MRI 07/25/18 18:26 IMPRESSION: Mild parenchymal volume loss. No acute ischemia. No other definite acute abnormality. Head CT 07/28/18 00:00 IMPRESSION: MILD CHRONIC CHANGES OF ATROPHY AND MICROVASCULAR ISCHEMIA. NO ACUTE PROCESS. EVIDENCE OF ACUTE STROKE: NO. Chest X-Ray 08/03/18 06:00 IMPRESSION: Interval extubation. Abdomen/Pelvis CT 08/03/18 09:58 IMPRESSION: Mildly dilated loops of small bowel associated with chronic anterior abdominal wall hernia. No high-grade bowel obstruction. KUB X-Ray 08/04/18 13:47 IMPRESSION: MALPOSITION OF THE NASOGASTRIC TUBE WHICH IS LOCATED IN THE BRONCHUS TO THE RIGHT LOWER LOBE. Assessment and Plan - Diagnosis (1) Acute delirium Is this a current diagnosis for this admission?: Yes Plan: This was suspected to be due to carbon monoxide poisoning. He is not acutely delirious but his mental status is definitely strange. He is not on any medications that would be making him encephalopathic at this time, nor are there any acute metabolic conditions that are making him encephalopathic. I wonder if this is normal for him. He is been agitated but he is too weak to get up out of bed on his own. I have ordered some twice a day Zyprexa for him and he has been less agitated. I discontinued his Reglan because am not sure why he was getting it. I will request a psychiatric evaluation. He was too weak to stand up with physical therapy, so he definitely cannot go home. 08/08/2018-patient was admitted with acute delirium urine drug screen is only positive for marijuana. LP was negative. MRI of the brain and 2 CT scans are negative. Patient is not agitated but still confused. There is a question of carbon monoxide poisoning. Comfortably in the bed communicating okay and not agitated. Plan Zyprexa twice a day. She will request for a psych consult because the patient was intubated the unable to assess the patient. I am going to request for psych consult again today. 08/09/2018-is 67-year-old male admitted for acute delirium cause is still unknown. Urine drug screen is only positive for marijuana. Still confused and agitated. He is on soft restraints. Plan is to continue sedatives and physical therapy consult was requested social media designer consult was requested for possible placement. 08/10/[id number]-mfqf-old male admitted with acute delirium, causes still unknown. Urine drug screen is only positive for marijuana. PT consult was requested probably he may need to go to rehab. Acute delirium/acute encephalopathy due to carbon monoxide poisoning is unlikely. 08/11/2018-patient was admitted with acute delirium causes unknown. Still confused and on soft restraints. Psych consult was requested yesterday. CT head, MRI of the brain and LP came back negative. 08/12/20183705-09-juim-old male admitted for acute delirium of unknown etiology. Psych consult yesterday, they think probably secondary to alcohol use and withdrawal. Plan to follow the psych recommendations and medications adjustment was done. 08/13/2018-she is admitted with acute delirium of unknown etiology. Psych evaluation was done the recommendations are implemented. It is comfortably in the bed sleeping on calling woke up medicating okay. No focal neurological deficits. (2) Sleep apnea syndrome Qualifiers: Sleep apnea type: unspecified type Qualified Code(s): G47.30 - Sleep apnea, unspecified Is this a current diagnosis for this admission?: Yes (3) Type II diabetes mellitus Qualifiers: Diabetes mellitus intermediate insulin use: unspecified intermediate insulin use status Diabetes mellitus complication status: without complication Qualified Code(s): E11.9 - Type 2 diabetes mellitus without complications Is this a current diagnosis for this admission?: No Plan: 07/26/2018 patient has history of type 2 diabetes mellitus, on glyburide at home, metformin at home. Metformin was discontinued. Plan to continue glipizide and put the patient on insulin sliding scale every 6 hours. Patient is n.p.o. at this point. 07/27/2018-patient has history of type 2 diabetes mellitus. Metformin and glipizide on hold at this moment. Hemoglobin A1c is 8.6. Patient is presently on insulin sliding scale. Latest blood sugar is 98. To start on NG tube feeding from today. 07/28/2018-patient has history of type 2 diabetes mellitus hemoglobin A1c is 8.6 he is on insulin sliding scale every 6 hours. Is also receiving feeding tubes. This morning feeding tubes are on hold latest blood sugar is 128. Plan is to continue the present management. 07/29/2018-patient is on insulin sliding scale every 6 hours latest blood sugar is 107 well-controlled. Hemoglobin A1c is 8.6. Plan is to continue the present management. 07/30/2018-latest blood sugar is 107 hemoglobin A1c is 8.6 blood sugars are well controlled with insulin sliding scale every 6 hours. 07/31/2018-patient blood sugar is 116 today hemoglobin A1c is 8.6. Patient is presently on insulin sliding scale every 6 hours. Plan is to continue the present management. 08/08/2018 patient has history of type 2 diabetes mellitus hemoglobin A1c is 8.6. His blood sugar is 171. Plan is on insulin sliding scale before meals and at bedtime. To continue the present management. 08/09/2018-hemoglobin A1c is 8.6 his latest blood sugar is at 203. Presently on insulin sliding scale. To start him on Lantus 10 units twice a day. 08/10/2018-patient's blood sugar today is 217 with hemoglobin A1c of 8.6. Presently on insulin sliding scale and started Lantus 10 units twice a day. Plan is to continue the present management. 08/12/2018-patient has history of type 2 diabetes mellitus latest blood sugar is 156. On insulin sliding scale, Lantus 10 units twice a day. Plan is to continue the present management. 08/13/2018-patient has history of type 2 diabetes mellitus latest blood sugar is 228. Presently on insulin sliding scale and Lantus 10 units twice a day plan is to continue the present management. (4) Essential hypertension Is this a current diagnosis for this admission?: Yes Plan: 07/26/2018 patient has history of hypertension blood pressure this morning is fluctuating 120/81 this morning. He is on lisinopril/hydrochlorothiazide at home we are going to resume the medication and also started on IV hydralazine 10 mg every 6 as needed for the systolic blood pressure more than 150. 07/27/2018 patient has history of hypertension blood pressure today is 121/68 stable. He is on lisinopril/hydrochlorothiazide at home he is receiving it by NG tube. He is also on IV hydralazine 10 mg every 6 hours as needed. 07/28/2018-patient's latest blood pressure is 111/75 he is receiving IV fluids and he is receiving blood pressure medications via NG tube which was on hold from yesterday. 07/29/2018-patient blood pressure today 150/77 he is on IV fluids normal saline 30 cc/h he is receiving blood pressure medications via NG tube. Plan is to continue the present management. 07/30/2018-patient blood pressure today is 121/64 with a heart rate of 83 well- controlled presently on lisinopril 10 mg via NG tube daily basis, hydrochlorothiazide 12.5 mg daily via NG tube and also on Toprol 100 mg p.o. every 12 hours. Plan is to discontinue lisinopril from today and continue to watch his blood pressures every 4 hours. 07/31/2018-patient blood pressure today is 125/68. With a heart rate of 112. presently on Toprol 100 mg p.o. every 12 hours. 08/09/2018-patient blood pressure today is 102/65. Presently on Toprol 100 mg p.o. every 12 hours. plan is to continue the present management. 08/10/2018-patient blood pressure today is 140/70 with heart rate 56 stable. He is on Toprol 100 mg p.o. every 12 hours plan is to continue the present management. 08/11/2018-patient blood pressure today is 115/70. Stable. Plan is to continue the present management. 08/12/2018-patient blood pressure today is 121/89. Stable. Plan is to continue the present management. 08/13/2018-patient blood pressure today is 116/70 stable. On Toprol 100 mg p.o. twice a day plan is to continue the present management. (5) Obesity Qualifiers: Obesity classification: adult class 3 (BMI >= 40) Is this a current diagnosis for this admission?: Yes (6) CHF (congestive heart failure) Is this a current diagnosis for this admission?: No (7) Pneumonia Is this a current diagnosis for this admission?: Yes (8) Acute kidney injury Is this a current diagnosis for this admission?: Yes Plan: Resolved 08/08/2018-patient came in with creatinine of 1.14 latest creatinine is 0.8 acute kidney injury most likely secondary to poor oral intake resolved. 08/09/2018-patient's latest creatinine is 0.96. Acute kidney injury most likely secondary to poor oral intake is resolved. 08/10/2018-patient creatinine is 0.95 stable. Admission creatinine is 1.14 acute kidney injury is resolved. 08/12/2018-patient creatinine today is 1.29. Worsened compared to yesterday. poor oral intake may be the response for acute kidney injury. 08/13/2018-patient creatinine today is 1.23. Slightly improved. Plan is to continue to monitor the renal function on daily basis. COLEEN most likely secondary to poor oral intake. (9) Acute respiratory failure Qualifiers: Respiratory failure complication: hypoxia and hypercapnia Qualified Code(s): J96.01 - Acute respiratory failure with hypoxia; J96.02 - Acute respiratory failure with hypercapnia Is this a current diagnosis for this admission?: Yes Plan: Resolved 08/08/2018-patient was intubated and successfully extubated during the hospital stay. Developed pneumonia during the hospital stay. Which was resolved. Acute respiratory failure is resolved pulse ox is 98% room air today. 08/09/2018-patient was intubated and successfully extubated during the hospital stay. Pulse oxes 96% on 2 L. Plan is to continue the present management. 08/10/2018-patient was intubated and extubated during the hospital stay. Pulse ox are stable today. Plan is to continue the present management. 08/11/2018-patient's pulse ox is 93% on 2 L. Stable. 08/12/2018-patient pulse ox is 93% on 3 L stable. Plan is to continue the present management. 08/13/2018-patient's pulse ox is 94% on room air. Acute respiratory failure resolved. During the hospital stay was intubated and successfully extubated. Because of all the comorbidities and physical deconditioning patient may benefit going to [place] [place] for [place]-term. - Time Time Spent with patient: 15-24 minutes Medications reviewed and adjusted accordingly: Yes Anticipated discharge: SNF
--- NOTE | 2018-08-13 12:40 | RADIOLOGY REPORT (SQ) ---
EXAM DESCRIPTION: CHEST SINGLE VIEW COMPLETED DATE/TIME: 08/13/2018 12:25 pm REASON FOR STUDY: aspiration [place] E08.638 DIABETES DUE TO UNDERLYING CONDITION W OTH ORAL COMP E78.00 PURE HYPERCHOLESTEROLEMIA, UNSPECIFIED D50.9 IRON DEFICIENCY ANEMIA, UNSPECIFIED COMPARISON: 08/03/2018 NUMBER OF VIEWS: One view. TECHNIQUE: Single frontal radiographic view of the chest acquired. LIMITATIONS: None. FINDINGS: LUNGS AND PLEURA: Low lung volumes. No opacities, masses or pneumothorax. No pleural eff usion. MEDIASTINUM AND HILAR STRUCTURES: No masses. No contour abnormality. HEART AND VASCULAR STRUCTURES: Normal size. No evidence for failure. BONES: No acute findings. HARDWARE: None in the chest. OTHER: No other significant finding. IMPRESSION: LOW LUNG VOLUMES. NO SIGNIFICANT RADIOGRAPHIC FINDING IN THE CHEST. TECHNICAL DOCUMENTATION: JOB ID: [id number] [employer]- All Rights Reserved Reading location - IP/workstation name: [email or web address]
[2018-08-13] MEDS: THIAMINE HCL 100 MG TABLET PO SCH (17:03)
[2018-08-14] MEDS: PANTOPRAZOLE SODIUM 40 MG TABLET.DR PO SCH (05:57)
[2018-08-14] MEDS: INSULIN GLARGINE,HUM.REC.ANLOG 1,000 UNIT/10 ML VIAL SUBCUT SCH ×2 (05:57→17:17)
[2018-08-14 08:55] LABS: ABSOLUTE BASOPHILS # (AUTO) 0.1 10^3/uL (0.0-0.2); ABSOLUTE EOSINOPHILS # (AUTO) 0.2 10^3/uL (0.0-0.6); ABSOLUTE LYMPHOCYTES (AUTO) 1.5 10^3/uL (0.5-4.7); ABSOLUTE MONOCYTES (AUTO) 0.8 10^3/uL (0.1-1.4); ABSOLUTE NEUT (AUTO) 8.2 10^3/uL (1.7-8.2); BASOPHILS % (AUTO) 0.7 % (0-2); EOSINOPHILS % (AUTO) 1.7 % (0-6); HEMATOCRIT 40.2 % (37.9-51.0); HEMOGLOBIN 13.6 g/dL (13.5-17.0); LYMPHOCYTES % (AUTO) 14.1 % (13-45); MEAN CORPUSCULAR HEMOGLOBIN 30.3 pg (27.0-33.4); MEAN CORPUSCULAR HGB CONC 33.9 g/dL (32.0-36.0); MEAN CORPUSCULAR VOLUME 89 fl (80-97); MONOCYTES % (AUTO) 7.4 % (3-13); PLATELET COUNT 333 10^3/uL (150-450); SEGMENTED NEUTROPHILS % (AUTO) 76.1 % (42-78); TOTAL CELLS COUNTED % (AUTO) 100 %; WHITE BLOOD COUNT 10.7 10^3/uL (4.0-10.5)
[2018-08-14] MEDS: INSULIN REG, HUMAN 100 UNIT/ML 3 ML VIAL (PYX) SUBCUT SCH ×4 (08:55→22:28)
[2018-08-14 09:23] LABS: ALANINE AMINOTRANSFERASE 52 U/L (21-72); ALBUMIN 4.1 g/dL (3.5-5.0); ALKALINE PHOSPHATASE 195 U/L (38-126); ANION GAP 13 (5-19); ASPARTATE AMINO TRANSFERASE 35 U/L (17-59); BILIRUBIN,DIRECT 0.6 mg/dL (0.0-0.4); BLOOD UREA NITROGEN 31 mg/dL (7-20); CALCIUM 10.1 mg/dL (8.4-10.2); CARBON DIOXIDE 26 mmol/L (22-30); CHLORIDE 106 mmol/L (98-107); GLUCOSE 195 mg/dL (75-110); POTASSIUM 4.9 mmol/L (3.6-5.0); SODIUM 144.6 mmol/L (137-145); TOTAL PROTEIN 8.2 g/dL (6.3-8.2)
[2018-08-14] MEDS: DIVALPROEX SODIUM 250 MG TAB.SR.24H PO SCH ×2 (10:46→22:29)
[2018-08-14] MEDS: FUROSEMIDE 20 MG TABLET PO SCH ×2 (10:46→17:18)
[2018-08-14] MEDS: METOPROLOL TARTRATE 100 MG TABLET PO SCH ×2 (10:46→22:27)
[2018-08-14] MEDS: MAGNESIUM OXIDE 400 MG TABLET PO SCH ×2 (10:46→17:18)
[2018-08-14] MEDS: BUSPIRONE HCL 10 MG TABLET PO SCH ×2 (10:46→22:29)
[2018-08-14] MEDS: VENLAFAXINE HCL 37.5 MG CAP.SR.24H PO SCH (10:46)
[2018-08-14] MEDS: POTASSIUM CHLORIDE 10 MEQ CAPSULE.ER PO SCH (10:47)
--- NOTE | 2018-08-14 11:33 | PDOC PROGRESS REPORT ---
Subjective Progress Note for:: 08/14/18 Subjective:: 67-year-old male admitted for altered mental status/acute encephalopathy. Urine drug screen is positive for marijuana. No acute events of the day of admission. Patient is on four-point restraints. This morning agitated once the restraints are off. Able to give his date of . And he told me he is a diabetic. He is also told me that he has sleep apnea uses BiPAP at home. Unable to give his address. She still confused. MRI of the brain CT of the neck CT head was negative. 07/27/[id number]-vetw-old male admitted with altered mental status/acute encephalop athy. Urine drug screen is positive for marijuana. MRI of the head was negative LP was negative. Patient is prophylactically intubated on Versed drip and propofol drip. This morning is still agitated and fighting the restraints. We are going to put him on IV morphine 2 mg every 4 as needed for pain as requested by the family and start on cefepime 2 g IV daily. To start him on NG tube feedings. She is stable plan to repeat the CT of the head and a CT of the abdomen as per the family request. 07/28/[id number]-uxtc-old male admitted for altered mental status/acute encephalopathy patient was still on mechanical ventilation on on Versed 2 mg/h and deprivan 40 mcg/kg/min. G-tube was placed yesterday and residual this morning 80 cc so NG tube was clamped. Acute events in the last 24 hours. Patient is afebrile. Hernia level came back 9.8. ABG this morning pH is 7.42 PCO2 36 PO2 98.7 oxygen saturation is 97.6. 07/29/2018-no acute events in the last 24 hours. Patient is afebrile. Still on mechanical ventilation. He is off the sedation at this point. Still on mechanical ventilation. Pulse ox is 96% on 40% oxygen. KUB to be done last night shows no obstruction or ileus. She has NG tube still have a lot of secretions coming out. On suctioning of the lungs lack a lot of drainage. Plan is to try to wean him off today for possible. Patient is more alert more awake little bit agitated and moving all his extremities. Pupils are equal and react to light accommodation. Corneal reflex present. 07/30/[id number]-qlwe-old male admitted for acute delirium. Urine drug screen is onl y positive for marijuana. Family is denying patient has history of any polysubstance abuse or alcohol abuse. MRI of the brain is negative CT head is negative CT of the neck is negative. [address] head was repeated which was negative. No acute events in the last 24 hours. Patient is afebrile. Sputum cultures came back positive for staph aureus. Patient's input is 3.1 L output is 3.5 L with a negative balance of 400 mL yesterday. on normal saline at 30 cc/h and he is receiving NG tube feedings. On mechanical ventilation with PEEP of 10 respiratory rate of 8 oxygen saturation of 35% tidal volume of 600. On deep Ativan 40 mcg/kg/min for sedation and is receiving fentanyl at 50 mcg as needed for agitation. Latest chest x-ray suggestive of left lower lobe pneumonia probably aspiration/hospital-acquired pneumonia receiving IV vancomycin and cefepime ,based on the cultures sensitivity reports plan is to discontinue IV vancomycin from today. 07/31/[id number]-gnaz-old male admitted for acute delirium we do not have definite cause identified. Urine drug screen is only positive for marijuana. No acute events in the last 24 hours. Patient is afebrile. Presently on cefepime. P atient is still on mechanical ventilation and on propofol 40 mcg/kg/min. Patient is off the pressors. He is off the IV fluids. On SIMV with PEEP of 8 and a 35% oxygen. Tidal volume of 600. ABG done this morning shows pH of 7.38/PCO2 34 PO2 125 bicarb is 29. Plan to wean him off today from the vent 08/08/[id number]-qaaf-old male admitted with acute delirium. Status post intubation and extubation. Because of altered mental status/acute delirium is unknown. Place the possibility of carbon monoxide poisoning. But is unlikely. Multiple CT heads on MRI of the brain including LP is negative for cause. Patient is comfortably in the bed able to give his date of able to communicating okay but he said he was in [place]. Have a Marcum's catheter tinge of blood seen in the catheter tube. 08/09/2018-patient is still confused and agitated he is on soft restraints. When he went to see him he tried to pull his Marcum's catheter. But he is able to give his date OF and able to tell he is in [place] and also able to give his sister's name. Patient has few loose stools last night and stool for C. difficile was sent. Results are pending. 08/10/2018-no acute events in the last 24 hours. Patient is afebrile. Request for psych evaluation yesterday. Patient may need to go to a rehab facility. 08/11/2018-no acute events in last 24 hours. Patient is afebrile. Patient is co mfortable in the bed not communicating well today. 08/12/2018-patient is comfortably in the bed. Able to give his name and date of . No acute events in the last 24 hours. Psych consult was done begun to follow the recommendations. 08/13/2018-patient is resting comfortably in the bed. Able to communicate okay. He needed assistance to feed. We are going to watch for aspiration. To arrange for the chest x-ray today. Febrile. No acute events in the last 24 hours. 08/14/2018-patient is comfortably in the bed. Speech therapist spoke to me this morning she said patient may have to switched to nectar thickened liquids because he has some difficulty in swallowing. Patient is a mumbling but able to give a little bit of information. Patient difficulty in coming out of the bed and ambulation physical therapy is consulted. It may be beneficial for the patient to go to a rehab facility to recover. Reason For Visit: ALTERED MENTAL STATUS AND S/P INTUBATION Physical Exam Vital Signs: Temp Pulse Resp BP Pulse Ox 98.6 F 93 24 H 129/75 H 93 08/14/18 07:48 08/14/18 07:48 08/14/18 07:48 08/14/18 07:48 08/14/18 07:48 Intake & Output 08/13/18 08/14/18 08/15/18 06:59 06:59 06:59 Intake Total 930 760 Output Total 1100 Balance -170 760 Weight 106.2 kg 107.2 kg General appearance: PRESENT: no acute distress, obese Head exam: PRESENT: atraumatic Eye exam: PRESENT: PERRLA Neck exam: ABSENT: carotid bruit, JVD, lymphadenopathy, thyromegaly Respiratory exam: PRESENT: clear to auscultation filomena. ABSENT: rales, rhonchi, wheezes Cardiovascular exam: PRESENT: RRR. ABSENT: diastolic murmur, rubs, systolic murmur GI/Abdominal exam: PRESENT: normal bowel sounds, soft. ABSENT: distended, guarding, mass, organolmegaly, rebound, tenderness Rectal exam: PRESENT: deferred Extremities exam: PRESENT: full ROM. ABSENT: calf tenderness, clubbing, pedal edema Neurological exam: PRESENT: alert, awake, CN II-XII grossly intact, other - She is mumbling but able to give his date of and name. Psychiatric exam: PRESENT: flat affect Results Laboratory Results: 08/14/18 08:38 08/14/18 08:38 08/14/18 08/14/18 08:38 08:38 WBC 10.7 H RBC 4.50 Hgb 13.6 Hct 40.2 MCV 89 MCH 30.3 MCHC 33.9 RDW 14.0 Plt Count 333 Seg Neutrophils % 76.1 Lymphocytes % 14.1 Monocytes % 7.4 Eosinophils % 1.7 Basophils % 0.7 Absolute Neutrophils 8.2 Absolute Lymphocytes 1.5 Absolute Monocytes 0.8 Absolute Eosinophils 0.2 Absolute Basophils 0.1 Sodium 144.6 Potassium 4.9 Chloride 106 Carbon Dioxide 26 Anion Gap 13 BUN 31 H Creatinine 1.23 Est GFR ( Amer) > 60 Est GFR (Non-Af Amer) 59 L Glucose 195 H Calcium 10.1 Magnesium 2.3 Total Bilirubin 1.0 AST 35 ALT 52 Alkaline Phosphatase 195 H Total Protein 8.2 Albumin 4.1 07/25/18 07/25/18 07/31/18 16:11 16:11 03:39 Creatine Kinase 50 L CK-MB (CK-2) 1.62 Troponin I < 0.012 NT-Pro-B Natriuret Pep 348 08/02/18 08/02/18 14:55 14:55 Creatine Kinase 55 CK-MB (CK-2) 0.31 Troponin I NT-Pro-B Natriuret Pep Impressions: Head CTA 07/25/18 16:52 IMPRESSION: NO CTA EVIDENCE OF STENOSIS OR ANEURYSM OF THE [place]. Neck CTA 07/25/18 16:52 IMPRESSION: 1. Normal CTA of the extracranial carotid and vertebral system. 2. 1.1 x 1.7 cm nodule in the right lobe of the thyroid gland. Head MRI 07/25/18 18:26 IMPRESSION: Mild parenchymal volume loss. No acute ischemia. No other definite acute abnormality. Head CT 07/28/18 00:00 IMPRESSION: MILD CHRONIC CHANGES OF ATROPHY AND MICROVASCULAR ISCHEMIA. NO ACUTE PROCESS. EVIDENCE OF ACUTE STROKE: NO. Abdomen/Pelvis CT 08/03/18 09:58 IMPRESSION: Mildly dilated loops of small bowel associated with chronic anterior abdominal wall hernia. No high-grade bowel obstruction. KUB X-Ray 08/04/18 13:47 IMPRESSION: MALPOSITION OF THE NASOGASTRIC TUBE WHICH IS LOCATED IN THE BRONCHUS TO THE RIGHT LOWER LOBE. Chest X-Ray 08/13/18 00:00 IMPRESSION: LOW LUNG VOLUMES. NO SIGNIFICANT RADIOGRAPHIC FINDING IN THE [facility] Assessment and Plan - Diagnosis (1) Acute delirium Is this a current diagnosis for this admission?: Yes Plan: This was suspected to be due to carbon monoxide poisoning. He is not acutely delirious but his mental status is definitely strange. He is not on any medications that would be making him encephalopathic at this time, nor are there any acute metabolic conditions that are making him encephalopathic. I wonder if this is normal for him. He is been agitated but he is too weak to get up out of bed on his own. I have ordered some twice a day Zyprexa for him and he has been less agitated. I discontinued his Reglan because am not sure why he was getting it. I will request a psychiatric evaluation. He was too weak to stand up with physical therapy, so he definitely cannot go home. 08/08/2018-patient was admitted with acute delirium urine drug screen is only positive for marijuana. LP was negative. MRI of the brain and 2 CT scans are negative. Patient is not agitated but still confused. There is a question of carbon monoxide poisoning. Comfortably in the bed communicating okay and not agitated. Plan Zyprexa twice a day. She will request for a psych consult because the patient was intubated the unable to assess the patient. I am going to request for psych consult again today. 08/09/2018-is 67-year-old male admitted for acute delirium cause is still unknown. Urine drug screen is only positive for marijuana. Still confused and agitated. He is on soft restraints. Plan is to continue sedatives and physical therapy consult was requested social worker clinical consult was requested for possible placement. 08/10/[id number]-qvtr-old male admitted with acute delirium, causes still unknown. Urine drug screen is only positive for marijuana. PT consult was requested probably he may need to go to rehab. Acute delirium/acute encephalopathy due to carbon monoxide poisoning is unlikely. 08/11/2018-patient was admitted with acute delirium causes unknown. Still confused and on soft restraints. Psych consult was requested yesterday. CT head, MRI of the brain and LP came back negative. 08/12/20182017-73-nbwg-old male admitted for acute delirium of unknown etiology. Psych consult yesterday, they think probably secondary to alcohol use and withdrawal. Plan to follow the psych recommendations and medications adjustment was done. 08/13/2018-he is admitted with acute delirium of unknown etiology. Psych evaluation was done the recommendations are implemented. It is comfortably in the bed sleeping on calling woke up medicating okay. No focal neurological deficits. 2018-patient was admitted with acute delirium of unknown etiology. 2 CT scans are done which were negative MRI of the head was done negative. Psych consult was done the following the recommendations. (2) Sleep apnea syndrome Qualifiers: Sleep apnea type: unspecified type Qualified Code(s): G47.30 - Sleep apnea, unspecified Is this a current diagnosis for this admission?: Yes Plan: BiPAP nightly 07/26/2018-morbidly obese male with history of sleep apnea. As per the patient he is on BiPAP at home which is going to be resumed during this hospital stay. 07/27/2018-sisters are saying patient does not have any BiPAP or CPAP machine at home. But they do admit that he has a sleep apnea and problems with sleeping at night. 07/28/2018-initially with that patient has sleep apnea using BiPAP at home but the sisters came in and said he does not have any BiPAP or CPAP machine at home. 07/29/2018-patient has history of sleep apnea questionable history of using BiPAP at home. 07/31/2018 patient has a history of sleep apnea as per the family members he does not have any BiPAP or CPAP machine at home. We will see this patient is stable to discharge to go to arrange for a sleep studies as an outpatient. 08/08/2018-patient has a history of sleep apnea but sisters are telling us patient does not have any CPAP or BiPAP machine at home. Patient may be bene ficial to get outpatient sleep study. To arrange for CPAP here if needed. 08/10/2018-patient has history of sleep apnea but refusing to wear the CPAP. Order was placed for CPAP as needed at night. 08/12/2018-CPAP machine is bedside patient is refusing to wear CPAP. 08/14/2018 patient has a history of sleep apnea not using CPAP. 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 Metformin was discontinued. Plan to continue glipizide and put the patient on insulin sliding scale every 6 hours. Patient is n.p.o. at this point. 07/27/2018-patient has history of type 2 diabetes mellitus. Metformin and glipizide on hold at this moment. Hemoglobin A1c is 8.6. Patient is presently on insulin sliding scale. Latest blood sugar is 98. To start on NG tube feeding from today. 07/28/2018-patient has history of type 2 diabetes mellitus hemoglobin A1c is 8.6 he is on insulin sliding scale every 6 hours. Is also receiving feeding tubes. This morning feeding tubes are on hold latest blood sugar is 128. Plan is to continue the present management. 07/29/2018-patient is on insulin sliding scale every 6 hours latest blood sugar is 107 well-controlled. Hemoglobin A1c is 8.6. Plan is to continue the present management. 07/30/2018-latest blood sugar is 107 hemoglobin A1c is 8.6 blood sugars are well controlled with insulin sliding scale every 6 hours. 07/31/2018-patient blood sugar is 116 today hemoglobin A1c is 8.6. Patient is presently on insulin sliding scale every 6 hours. Plan is to continue the present management. 08/08/2018 patient has history of type 2 diabetes mellitus hemoglobin A1c is 8.6. His blood sugar is 171. Plan is on insulin sliding scale before meals and at bedtime. To continue the present management. 08/09/2018-hemoglobin A1c is 8.6 his latest blood sugar is at 203. Presently on insulin sliding scale. To start him on Lantus 10 units twice a day. 08/10/2018-patient's blood sugar today is 217 with hemoglobin A1c of 8.6. Presently on insulin sliding scale and started Lantus 10 units twice a day. Plan is to continue the present management. 08/12/2018-patient has history of type 2 diabetes mellitus latest blood sugar is 156. On insulin sliding scale, Lantus 10 units twice a day. Plan is to continue the present management. 08/13/2018-patient has history of type 2 diabetes mellitus latest blood sugar is 228. Presently on insulin sliding scale and Lantus 10 units twice a day plan is to continue the present management. 08/14/2018-patient has a type 2 diabetes mellitus latest blood sugar is over 4. Presently on Lantus 10 units twice a day and also insulin sliding scale before meals and at bedtime. (4) Essential hypertension Is this a current diagnosis for this admission?: Yes Plan: 07/26/2018 patient has history of hypertension blood pressure this morning is fluctuating 120/81 this morning. He is on lisinopril/hydrochlorothiazide at home we are going to resume the medication and also started on IV hydralazine 10 mg every 6 as needed for the systolic blood pressure more than 150. 07/27/2018 patient has history of hypertension blood pressure today is 121/68 stable. He is on lisinopril/hydrochlorothiazide at home he is receiving it by NG tube. He is also on IV hydralazine 10 mg every 6 hours as needed. 07/28/2018-patient's latest blood pressure is 111/75 he is receiving IV fluids and he is receiving blood pressure medications via NG tube which was on hold from yesterday. 07/29/2018-patient blood pressure today 150/77 he is on IV fluids normal saline 30 cc/h he is receiving blood pressure medications via NG tube. Plan is to continue the present management. 07/30/2018-patient blood pressure today is 121/64 with a heart rate of 83 well-controlled presently on lisinopril 10 mg via NG tube daily basis, hydrochlorothiazide 12.5 mg daily via NG tube and also on Toprol 100 mg p.o. every 12 hours. Plan is to discontinue lisinopril from today and continue to watch his blood pressures every 4 hours. 07/31/2018-patient blood pressure today is 125/68. With a heart rate of 112. presently on Toprol 100 mg p.o. every 12 hours. 08/09/2018-patient blood pressure today is 102/65. Presently on Toprol 100 mg p.o. every 12 hours. plan is to continue the present management. 08/10/2018-patient blood pressure today is 140/70 with heart rate 56 stable. He is on Toprol 100 mg p.o. every 12 hours plan is to continue the present management. 08/11/2018-patient blood pressure today is 115/70. Stable. Plan is to continue the present management. 08/12/2018-patient blood pressure today is 121/89. Stable. Plan is to continue the present management. 08/13/2018-patient blood pressure today is 116/70 stable. On Toprol 100 mg p.o. twice a day plan is to continue the present management. 08/14/2018-patient blood pressure today is 118/70 stable. Plan is to continue Toprol 100 mg p.o. twice a day. (5) Obesity Qualifiers: Obesity classification: adult class 3 (BMI >= 40) Is this a current diagnosis for this admission?: Yes (6) CHF (congestive heart failure) Is this a current diagnosis for this admission?: No Plan: 07/27/2018-patient has echocardiogram was done in April last year it shows normal systolic heart function but grade 3 2/diastolic heart failure. Patient is not in fluid overload. We are going to check his BNP and continue to monitor his volume status. 07/28/2018-echocardiogram was done last year indicates possible diastolic heart failure which may be chronic. Patient is euvolemic. 07/29/2018-patient might have chronic diastolic heart failure and he is euvolemic. Plan is to continue the present management. 07/30/2018-echocardiogram was done last year indicates possible diastolic heart failure which may be chronic. Patient is euvolemic. Urinary output is good. 07/31/2018-echocardiogram was done last year shows chronic diastolic heart failure. Patient is euvolemic. 08/08/2018-echocardiogram was done last year shows chronic diastolic heart failure. Patient is euvolemic. 08/09/2018-patient has history of chronic diastolic heart failure. Presently not on any diuretics. Patient is euvolemic. 08/10/2018-patient has a history of chronic diastolic heart failure. Not on diuretics. Euvolemic. Plan is to continue the present management. 08/14/2018 patient has history of chronic diastolic heart failure patient is in euvolemic state. (7) Pneumonia Is this a current diagnosis for this admission?: Yes Plan: 07/28/2018-P chest and chest x-ray shows possible left base opacification suggestive of pneumonia probably hospital-acquired pneumonia presently on cefepime and vancomycin. Sputum cultures blood cultures are pending. 07/29/2018-chest x-ray done yesterday shows possible left base opacification it can be aspiration pneumonia/hospital-acquired pneumonia. Presently on vancomycin and cefepime I am blood cultures are negative sputum cultures pending. WBC count is 12.1 T-max is 98.8. Plan is to continue the present management. 07/30/2018-chest x-ray suggestive of left lower lobe airspace disease and sputum cultures came back positive for staph aureus patient is presently on cefepime and vancomycin and he is afebrile, blood pressures are normal plan is to continue cefepime I am and discontinue vancomycin from today. 07/31/2018-chest x-ray shows left lower lobe opacification sputum cultures are po sitive for staph aureus. presently on cefepime. Vancomycin was discontinued yesterday. 08/08/2018-during the admission chest x-ray shows left lower lobe opacification sputum cultures were positive for staph aureus she was treated with cefepime. Patient is afebrile. Pulse ox is 98% on room air. Plan is to continue the present management. 08/10/2018-patient was found to have pneumonia while he was in ICU. Most likely secondary to aspiration due to altered mental status. Most likely gram-negative organisms. He was treated with IV antibiotic therapy presently off the IV antibiotics and patient is afebrile. Pneumonia has resolved. 08/14/2018-patient developed pneumonia during the hospital stay. May be secondary to aspiration. Which was resolved during the hospital stay. (8) Acute kidney injury Is this a current diagnosis for this admission?: Yes Plan: Resolved 08/08/2018-patient came in with creatinine of 1.14 latest creatinine is 0.8 acute kidney injury most likely secondary to poor oral intake resolved. 08/09/2018-patient's latest creatinine is 0.96. Acute kidney injury most likely secondary to poor oral intake is resolved. 08/10/2018-patient creatinine is 0.95 stable. Admission creatinine is 1.14 acute kidney injury is resolved. 08/12/2018-patient creatinine today is 1.29. Worsened compared to yesterday. poor oral intake may be the response for acute kidney injury. 08/13/2018-patient creatinine today is 1.23. Slightly improved. Plan is to continue to monitor the renal function on daily basis. COLEEN most likely secondary to poor oral intake. 08/14/2018-patient serum creatinine today is 1.23 stable. Plan is to continue to follow the creatinine regular basis. His worsened creatinine probably secondary to poor oral intake. (9) Acute respiratory failure Qualifiers: Respiratory failure complication: hypoxia and hypercapnia Qualified Code(s): J96.01 - Acute respiratory failure with hypoxia; J96.02 - Acute respiratory failure with hypercapnia Is this a current diagnosis for this admission?: Yes - Time Time Spent with patient: 25-34 minutes Medications reviewed and adjusted accordingly: Yes Anticipated discharge: SNF
[2018-08-14] MEDS: THIAMINE HCL 100 MG TABLET PO SCH (17:18)
[2018-08-15] MEDS: INSULIN GLARGINE,HUM.REC.ANLOG 1,000 UNIT/10 ML VIAL SUBCUT SCH ×2 (06:11→17:50)
[2018-08-15] MEDS: PANTOPRAZOLE SODIUM 40 MG TABLET.DR PO SCH (06:12)
[2018-08-15 06:49] LABS: ABSOLUTE EOSINOPHILS # (AUTO) 0.2 10^3/uL (0.0-0.6); ABSOLUTE LYMPHOCYTES (AUTO) 1.7 10^3/uL (0.5-4.7); ABSOLUTE MONOCYTES (AUTO) 0.9 10^3/uL (0.1-1.4); ABSOLUTE NEUT (AUTO) 5.9 10^3/uL (1.7-8.2); BASOPHILS % (AUTO) 0.6 % (0-2); EOSINOPHILS % (AUTO) 1.9 % (0-6); HEMATOCRIT 37.7 % (37.9-51.0); HEMOGLOBIN 12.9 g/dL (13.5-17.0); LYMPHOCYTES % (AUTO) 19.4 % (13-45); MEAN CORPUSCULAR HEMOGLOBIN 30.5 pg (27.0-33.4); MEAN CORPUSCULAR HGB CONC 34.3 g/dL (32.0-36.0); MEAN CORPUSCULAR VOLUME 89 fl (80-97); MONOCYTES % (AUTO) 10.1 % (3-13); PLATELET COUNT 281 10^3/uL (150-450); RED BLOOD COUNT 4.24 10^6/uL (4.35-5.55); RED CELL DISTRIBUTION WIDTH 13.9 % (11.5-14.0); TOTAL CELLS COUNTED % (AUTO) 100 %; WHITE BLOOD COUNT 8.7 10^3/uL (4.0-10.5)
[2018-08-15 07:10] LABS: ALANINE AMINOTRANSFERASE 54 U/L (21-72); ALBUMIN 3.6 g/dL (3.5-5.0); ALKALINE PHOSPHATASE 180 U/L (38-126); ANION GAP 10 (5-19); ASPARTATE AMINO TRANSFERASE 35 U/L (17-59); BILIRUBIN,DIRECT 0.4 mg/dL (0.0-0.4); BILIRUBIN,TOTAL 0.7 mg/dL (0.2-1.3); BLOOD UREA NITROGEN 32 mg/dL (7-20); CALCIUM 9.9 mg/dL (8.4-10.2); CARBON DIOXIDE 28 mmol/L (22-30); CHLORIDE 106 mmol/L (98-107); GLUCOSE 225 mg/dL (75-110); POTASSIUM 4.4 mmol/L (3.6-5.0); SODIUM 143.6 mmol/L (137-145); TOTAL PROTEIN 7.4 g/dL (6.3-8.2)
[2018-08-15] MEDS: INSULIN REG, HUMAN 100 UNIT/ML 3 ML VIAL (PYX) SUBCUT SCH ×4 (08:36→23:42)
[2018-08-15] MEDS: FUROSEMIDE 20 MG TABLET PO SCH ×2 (09:19→17:26)
[2018-08-15] MEDS: BUSPIRONE HCL 10 MG TABLET PO SCH ×2 (09:24→23:41)
[2018-08-15] MEDS: METOPROLOL TARTRATE 100 MG TABLET PO SCH ×2 (09:25→23:41)
[2018-08-15] MEDS: MAGNESIUM OXIDE 400 MG TABLET PO SCH ×2 (09:26→17:25)
[2018-08-15] MEDS: DIVALPROEX SODIUM 250 MG TAB.SR.24H PO SCH ×2 (09:26→23:41)
[2018-08-15] MEDS: VENLAFAXINE HCL 37.5 MG CAP.SR.24H PO SCH (09:27)
--- NOTE | 2018-08-15 10:21 | RADIOLOGY REPORT (SQ) ---
EXAM DESCRIPTION: COOKIE SWALLOW COMPLETED DATE/TIME: 08/15/2018 10:07 am REASON FOR STUDY: coughing with thin liquids E08.638 DIABETES DUE TO UNDERLYING CONDITION W OTH ORA L COMP E78.00 PURE HYPERCHOLESTEROLEMIA, UNSPECIFIED D50.9 IRON DEFICIENCY ANEMIA, UNSPECIFIED COMPARISON: None. RADIATION DOSE: Fluoro time 1.7 minutes 1 images saved to PACS. LIMITATIONS: None FINDINGS: The patient was brought into the fluoro room and placed upright on a modified barium swall ow chair. The patient was then given multiple consistencies mixed with barium to swallow under live fluoroscopic video guidance. According to the Speech Pathologist there was tracheal aspiration seen with thin barium. Laryngeal penetration was seen from residuals of all other consistencies. Please r efer to the speech pathology report for further details. IMPRESSION: ASPIRATION WITH THIN BARIUM. LARYNGEAL PENETRATION WITH RESIDUALS. PLEASE SEE SPEECH PA THOLOGIST REPORT FOR OTHER FINDINGS AND RECOMMENDATIONS. COMMENT: None Quality ID [id number]: Final reports for procedures using fluoroscopy that document radiation exposure porfirio rita, or exposure time and number of fluorographic images (if radiation exposure indices are not avail able) TECHNICAL DOCUMENTATION: JOB ID: [id number] [employer]- All Rights Reserved Reading location - IP/workstation name: [email or web address] [id number]
--- NOTE | 2018-08-15 11:53 | ST Inp Modified Barium Swallow ---
Medical Diagnosis - Medical Diagnoses Medical Diagnosis Description & ICD-10 Code(s): delirium, dysphagia ST [place] [facility] [place]: 08/15/18 Date of Onset: 08/13/18 - History History Obtained From: Other -: Medical - Patient admitted 07/25 due to acute delerium. History of alcoholism, hypertension, obstructive sleep apnea, and diabetes. Presented with left lower lobe pneumonia. Intubated 07/26. Extubated 08/02. Patient was seen by speech therapy on 08/07, diet recommendations were for thin liquids and mechanical soft diet, 1 pill administered at a time. No signs of aspiration were seen at that visit. Patient later showing some coughing with PO trials per nursing staff. Speech therapist evaluated at bedside 08/14, patient demonstrated coughing with thin liquid trials consistently, which was absent at previous visit on 08/07. No coughing with nectar liquids, and diet changed. Medications: Medications Reviewed Allergies: No known allergies - Subjective Current Nutritional Means: PO Current PO Diet: Mechanical - cut, Thickened liquids Current Symptoms: Coughing Pain: Patient reports, 0/5 - Objective Assessment: Upright, Left Lateral - Food Trials Food Trials Used: Thin liquids, Honey-thickened liquids, [place] thick liquids, Pureed The Patient: Required Assist - Assessment Labial Function: Within Normal Limits Lingual Function: Within Normal Limits - Pharyngeal Stage Initiation of Pharyngeal Stage: Delayed - up to 5 second delay Reduced Velo-Pharyngeal Closure: no Reduced Pressure Generation: Yes Reduced Tongue Base Retraction: Yes Pre-Swallowing Pooling in Valleculae: Significant Pre-Swallowing Pooling in Pyriforms: Moderate Reduced Thyro-Hyiod Approximation: No Reduced Epiglottic Excursion: No Multiple Swallows With: Ineffective Clearance Post Swallow Residuals in Valleculae: Moderate Post Swallow Residuals in Pyriforms: None - Impression/Summary Laryngeal Penetration: Yes, Silent, after swallow - on residuals from multiple textures Tracheal Aspiration: yes, deep, delayed cough - with thin liquid trials Effective Clearing: partial clearing Patient Presents With: Pharyngeal stage dysph., Severe Risk of Aspiration: Severe Risk of Nutritional Compromise: Moderate Risk Due To: Patient at risk of aspiration from residuals. Patient was seen to aspirate frankly on thin liquid trial. Residue from nectar and honey thick liquids, as well as pudding, was seen to slowly trickle into laryngeal vestibule. Due to decreased alertness level with reduced swallow function, patient is at high risk of aspiration with PO feeds. - Recommendations Solid Diet Recommendations: Pureed Liquid Diet Recommendations: [place]-Thick Strict Aspitarion Precautions: Yes Dysphagia Therapy with [employer] MED[employer] SPECIALIST: No - Not appropriate for skilled treatment. Recommended Techniques: Fully Upright During Meal, Small Bites and Sips Other Recommendations: Patient remains at risk of aspiration on diet stated. Discussed study results with physician and diet recommendations/risks. Physician may wish to look into alternative means of nutrition/hydration due to aspiration risk. - Time Total Time: 25 Total Timed Minutes: 25
[2018-08-15] MEDS ORDERED: CLONIDINE HCL 0.1 MG TABLET PO PRN (14:27)
--- NOTE | 2018-08-15 15:06 | PSYCHOLOGICAL NOTE ---
Psych Note - Psych Note Date seen by psych provider: 08/15/18 Psych Note: Reason for Consult: additional medication assistance Medication recommendations per [facility]'s contracted psychiatrist Dr. Chitra CARTER are as follows Please add propranolol 10mg twice daily to help with agitation Please increase Depakote to 500 mg twice daily Please Continue BuSpar 5 mg twice daily Effexor 37.5 mg daily clonidine 0.1 mg every 8 hours as needed Impression\plan: His current presentation is likely due to length of patient's intubation, age, medical history, and reported alcoholism (per family), patient is likely demonstrating residual effects of hypoxia which will hopefully clear over the next few weeks. Review of neuroimaging studies suggest language of neurodegenerative processes suggestive of a dementia-like disease process; thus, it is recommended that prescribing physicians are asked to consider to avoid prescribing benzodiazepines (e.g. Ativan, Xanax, Valium, Klonopin), antipsychotics (e.g. Haldol, Geodon, Zyprexa, Seroquel), some sleep aids (e.g. Ambien, Lunesta, Sonata), narcotic pain medications, and high doses of steroids (prednisone) as these have been known to cause and/or increased symptoms of aggression, psychosis, and/or paranoia in patients with neurodegenerative processes such as dementia, Alzheimer's disease, traumatic brain injury, etc. Dr. Pike was consulted on the care and management of this patient; attending physician is in agreement with recommendations and disposition.
[2018-08-15] MEDS: THIAMINE HCL 100 MG TABLET PO SCH (17:25)
--- NOTE | 2018-08-15 19:58 | PDOC PROGRESS REPORT ---
Subjective Progress Note for:: 08/15/18 Subjective:: This is a 67 yr old male who was admitted due to acute encephalopathy. There was suspicion for carbon monoxide toxicity. He was also treated for left lower lobe pneumonia. He was successfully extubated on 08/08/18. He continues to have episodes of confusion which is waxing and waning. He is awaiting rehab placement but has been here due to insurance issues. This morning, he was oriented to person and is easily redirected. Reason For Visit: ALTERED MENTAL STATUS AND S/P INTUBATION Physical Exam Vital Signs: Temp Pulse Resp BP Pulse Ox 98.4 F 83 19 93/58 L 96 08/15/18 16:00 08/15/18 19:00 08/15/18 16:00 08/15/18 16:00 08/15/18 16:00 Intake & Output 08/14/18 08/15/18 08/16/18 06:59 06:59 06:59 Intake Total 712 039 8538 Balance 018 796 0073 Weight 236 lb 5.369 oz 238 lb 8.642 oz General appearance: PRESENT: no acute distress, well-developed, well-nourished Head exam: PRESENT: atraumatic, normocephalic Eye exam: PRESENT: conjunctiva pink, EOMI, PERRLA. ABSENT: scleral icterus Ear exam: PRESENT: normal external ear exam Mouth exam: PRESENT: moist, tongue midline Neck exam: ABSENT: carotid bruit, JVD, lymphadenopathy, thyromegaly Respiratory exam: PRESENT: clear to auscultation filomena. ABSENT: rales, rhonchi, wheezes Cardiovascular exam: PRESENT: RRR. ABSENT: diastolic murmur, rubs, systolic murmur Pulses: PRESENT: normal dorsalis pedis pul GI/Abdominal exam: PRESENT: normal bowel sounds, soft. ABSENT: distended, guarding, mass, organolmegaly, rebound, tenderness Rectal exam: PRESENT: deferred Neurological exam: PRESENT: alert, oriented to person, CN II-XII grossly intact. ABSENT: motor sensory deficit Results Laboratory Results: 08/15/18 06:05 08/15/18 06:05 08/15/18 08/15/18 06:05 06:05 WBC 8.7 RBC 4.24 L Hgb 12.9 L Hct 37.7 L MCV 89 MCH 30.5 MCHC 34.3 RDW 13.9 Plt Count 281 Seg Neutrophils % 68.0 Lymphocytes % 19.4 Monocytes % 10.1 Eosinophils % 1.9 Basophils % 0.6 Absolute Neutrophils 5.9 Absolute Lymphocytes 1.7 Absolute Monocytes 0.9 Absolute Eosinophils 0.2 Absolute Basophils 0.0 Sodium 143.6 Potassium 4.4 Chloride 106 Carbon Dioxide 28 Anion Gap 10 BUN 32 H Creatinine 1.25 Est GFR ( Amer) > 60 Est GFR (Non-Af Amer) 58 L Glucose 225 H Calcium 9.9 Total Bilirubin 0.7 AST 35 ALT 54 Alkaline Phosphatase 180 H Total Protein 7.4 Albumin 3.6 07/25/18 07/25/18 07/31/18 16:11 16:11 03:39 Creatine Kinase 50 L CK-MB (CK-2) 1.62 Troponin I < 0.012 NT-Pro-B Natriuret Pep 348 08/02/18 08/02/18 14:55 14:55 Creatine Kinase 55 CK-MB (CK-2) 0.31 Troponin I NT-Pro-B Natriuret Pep Impressions: Head CTA 07/25/18 16:52 IMPRESSION: NO CTA EVIDENCE OF STENOSIS OR ANEURYSM OF THE [place] OF [place]. Neck CTA 07/25/18 16:52 IMPRESSION: 1. Normal CTA of the extracranial carotid and vertebral system. 2. 1.1 x 1.7 cm nodule in the right lobe of the thyroid gland. Head MRI 07/25/18 18:26 IMPRESSION: Mild parenchymal volume loss. No acute ischemia. No other definite acute abnormality. Head CT 07/28/18 00:00 IMPRESSION: MILD CHRONIC CHANGES OF ATROPHY AND MICROVASCULAR ISCHEMIA. NO ACUTE PROCESS. EVIDENCE OF ACUTE STROKE: NO. Abdomen/Pelvis CT 08/03/18 09:58 IMPRESSION: Mildly dilated loops of small bowel associated with chronic anterior abdominal wall hernia. No high-grade bowel obstruction. KUB X-Ray 08/04/18 13:47 IMPRESSION: MALPOSITION OF THE NASOGASTRIC TUBE WHICH IS LOCATED IN THE BRONCHUS TO THE RIGHT LOWER LOBE. Chest X-Ray 08/13/18 00:00 IMPRESSION: LOW LUNG VOLUMES. NO SIGNIFICANT RADIOGRAPHIC FINDING IN THE CHEST. Modified Barium Swallow 08/15/18 00:00 IMPRESSION: ASPIRATION WITH THIN BARIUM. LARYNGEAL PENETRATION WITH RESIDUALS. PLEASE SEE SPEECH PATHOLOGIST REPORT FOR OTHER FINDINGS AND RECOMMENDATIONS. Assessment and Plan - Diagnosis (1) Acute respiratory failure Is this a current diagnosis for this admission?: Yes Plan: Resolved. Extubated on 08/08. (2) Acute encephalopathy Is this a current diagnosis for this admission?: Yes Plan: Likely acute delirium. His confusion is waxing and waning. Psych recommendations noted. (3) Acute kidney injury Is this a current diagnosis for this admission?: Yes Plan: Resolved. (4) ALTA (obstructive sleep apnea) Is this a current diagnosis for this admission?: Yes Plan: BIPAP at night. (5) Hematuria Is this a current diagnosis for this admission?: Yes Plan: Resolved. - Time Time Spent with patient: 15-24 minutes
[2018-08-15] MEDS: HEPARIN SOD (PORCINE) 5,000 UNIT/ML 1 ML SYRINGE SUBCUT SCH (23:42)
[2018-08-16] MEDS: INSULIN GLARGINE,HUM.REC.ANLOG 1,000 UNIT/10 ML VIAL SUBCUT SCH ×2 (05:56→18:19)
[2018-08-16] MEDS: PANTOPRAZOLE SODIUM 40 MG TABLET.DR PO SCH (05:56)
[2018-08-16] MEDS: HEPARIN SOD (PORCINE) 5,000 UNIT/ML 1 ML SYRINGE SUBCUT SCH ×3 (05:56→22:11)
[2018-08-16] MEDS: INSULIN REG, HUMAN 100 UNIT/ML 3 ML VIAL (PYX) SUBCUT SCH ×4 (07:57→22:14)
[2018-08-16] MEDS: MAGNESIUM OXIDE 400 MG TABLET PO SCH ×2 (11:11→18:19)
[2018-08-16] MEDS: DIVALPROEX SODIUM 250 MG TAB.SR.24H PO SCH ×2 (11:11→22:10)
[2018-08-16] MEDS: BUSPIRONE HCL 10 MG TABLET PO SCH ×2 (11:12→22:10)
[2018-08-16] MEDS: VENLAFAXINE HCL 37.5 MG CAP.SR.24H PO SCH (11:16)
[2018-08-16] MEDS: FUROSEMIDE 20 MG TABLET PO SCH ×2 (11:17→18:19)
[2018-08-16] MEDS: METOPROLOL TARTRATE 100 MG TABLET PO SCH (12:01)
[2018-08-16] MEDS: THIAMINE HCL 100 MG TABLET PO SCH (18:19)
--- NOTE | 2018-08-16 19:44 | PDOC PROGRESS REPORT ---
Subjective Progress Note for:: 08/16/18 Subjective:: This is a 67 yr old male who was admitted due to acute encephalopathy. There was suspicion for carbon monoxide toxicity. He was also treated for left lower lobe pneumonia. He was successfully extubated on 08/08/18. He continues to have episodes of confusion which is waxing and waning. He is awaiting rehab placement but has been here due to insurance issues. This morning, he was oriented to person and is easily redirected. 08/16: No acute event overnight. He is more alert and oriented and conversant today. He is oriented to person and place this morning but thinks it is September 2017. He is awaiting placement. Reason For Visit: ALTERED MENTAL STATUS AND S/P INTUBATION Physical Exam Vital Signs: Temp Pulse Resp BP Pulse Ox 97.4 F 76 18 123/71 97 08/16/18 11:18 08/16/18 17:21 08/16/18 17:21 08/16/18 17:21 08/16/18 17:21 Intake & Output 08/15/18 08/16/18 08/17/18 06:59 06:59 06:59 Intake Total 688 1420 655 Balance 688 1420 655 Weight 238 lb 8.642 oz 243 lb 13.3 oz General appearance: PRESENT: no acute distress, well-developed, well-nourished Head exam: PRESENT: atraumatic, normocephalic Eye exam: PRESENT: conjunctiva pink, EOMI, PERRLA. ABSENT: scleral icterus Ear exam: PRESENT: normal external ear exam Neck exam: ABSENT: carotid bruit, JVD, lymphadenopathy, thyromegaly Respiratory exam: PRESENT: clear to auscultation filomena. ABSENT: rales, rhonchi, wheezes Cardiovascular exam: PRESENT: RRR. ABSENT: diastolic murmur, rubs, systolic murmur Pulses: PRESENT: normal dorsalis pedis pul GI/Abdominal exam: PRESENT: normal bowel sounds, soft. ABSENT: distended, guarding, mass, organolmegaly, rebound, tenderness Rectal exam: PRESENT: deferred Extremities exam: PRESENT: full ROM. ABSENT: calf tenderness, clubbing, pedal edema Neurological exam: PRESENT: alert, awake, oriented to person, oriented to place, CN II-XII grossly intact. ABSENT: motor sensory deficit Results Laboratory Results: 08/15/18 06:05 08/15/18 06:05 07/25/18 07/25/18 07/31/18 16:11 16:11 03:39 Creatine Kinase 50 L CK-MB (CK-2) 1.62 Troponin I < 0.012 NT-Pro-B Natriuret Pep 348 08/02/18 08/02/18 14:55 14:55 Creatine Kinase 55 CK-MB (CK-2) 0.31 Troponin I NT-Pro-B Natriuret Pep Impressions: Head CTA 07/25/18 16:52 IMPRESSION: NO CTA EVIDENCE OF STENOSIS OR ANEURYSM OF THE [place] OF [place]. Neck CTA 07/25/18 16:52 IMPRESSION: 1. Normal CTA of the extracranial carotid and vertebral system. 2. 1.1 x 1.7 cm nodule in the right lobe of the thyroid gland. Head MRI 07/25/18 18:26 IMPRESSION: Mild parenchymal volume loss. No acute ischemia. No other definite acute abnormality. Head CT 07/28/18 00:00 IMPRESSION: MILD CHRONIC CHANGES OF ATROPHY AND MICROVASCULAR ISCHEMIA. NO ACUTE PROCESS. EVIDENCE OF ACUTE STROKE: NO. Abdomen/Pelvis CT 08/03/18 09:58 IMPRESSION: Mildly dilated loops of small bowel associated with chronic anterior abdominal wall hernia. No high-grade bowel obstruction. KUB X-Ray 08/04/18 13:47 IMPRESSION: MALPOSITION OF THE NASOGASTRIC TUBE WHICH IS LOCATED IN THE BRONCHUS TO THE RIGHT LOWER LOBE. Chest X-Ray 08/13/18 00:00 IMPRESSION: LOW LUNG VOLUMES. NO SIGNIFICANT RADIOGRAPHIC FINDING IN THE CHEST. Modified Barium Swallow 08/15/18 00:00 IMPRESSION: ASPIRATION WITH THIN BARIUM. LARYNGEAL PENETRATION WITH RESIDUALS. PLEASE SEE SPEECH PATHOLOGIST REPORT FOR OTHER FINDINGS AND RECOMMENDATIONS. Assessment and Plan - Diagnosis (1) Acute encephalopathy Is this a current diagnosis for this admission?: Yes Plan: Likely acute delirium. His confusion is waxing and waning. Psych recommendations noted. Suspected carbon monoxide toxicity on admission. 08/16: He is more alert and oriented and conversant today. He is oriented to person and place this morning but thinks it is September 2017. He is awaiting placement. (2) Acute kidney injury Is this a current diagnosis for this admission?: Yes Plan: Resolved. (3) Acute respiratory failure Is this a current diagnosis for this admission?: Yes Plan: Resolved. Extubated on 08/08. (4) ALTA (obstructive sleep apnea) Is this a current diagnosis for this admission?: Yes Plan: BIPAP at night. (5) Hematuria Is this a current diagnosis for this admission?: Yes Plan: Resolved. - Time Time Spent with patient: 15-24 minutes
[2018-08-16] MEDS ORDERED: METOPROLOL TARTRATE 100 MG TABLET PO SCH (22:00)
[2018-08-16] MEDS: METOPROLOL TARTRATE 50 MG TABLET PO SCH (22:10)
[2018-08-17] MEDS: PANTOPRAZOLE SODIUM 40 MG TABLET.DR PO SCH (06:09)
[2018-08-17] MEDS: HEPARIN SOD (PORCINE) 5,000 UNIT/ML 1 ML SYRINGE SUBCUT SCH ×3 (06:10→23:48)
[2018-08-17] MEDS: INSULIN GLARGINE,HUM.REC.ANLOG 1,000 UNIT/10 ML VIAL SUBCUT SCH ×2 (06:10→19:14)
[2018-08-17] MEDS: INSULIN REG, HUMAN 100 UNIT/ML 3 ML VIAL (PYX) SUBCUT SCH ×4 (12:00→21:42)
[2018-08-17] MEDS: DIVALPROEX SODIUM 250 MG TAB.SR.24H PO SCH ×2 (12:03→21:41)
[2018-08-17] MEDS: MAGNESIUM OXIDE 400 MG TABLET PO SCH ×2 (12:03→19:14)
[2018-08-17] MEDS: FUROSEMIDE 20 MG TABLET PO SCH ×2 (12:04→19:14)
[2018-08-17] MEDS: METOPROLOL TARTRATE 50 MG TABLET PO SCH ×2 (12:05→21:41)
[2018-08-17] MEDS: BUSPIRONE HCL 10 MG TABLET PO SCH ×2 (12:06→21:41)
[2018-08-17] MEDS: VENLAFAXINE HCL 37.5 MG CAP.SR.24H PO SCH (12:09)
--- NOTE | 2018-08-17 14:23 | PDOC TRANSFER SUMMARY ---
General - Admit/Disc Date/PCP Admission Date/Primary Care Provider: 07/27/18 07:46 Discharge Date: 08/17/18 - Discharge Diagnosis (1) Acute encephalopathy Is this a current diagnosis for this admission?: Yes (2) Acute kidney injury Is this a current diagnosis for this admission?: Yes (3) Acute respiratory failure Is this a current diagnosis for this admission?: Yes (4) ALTA (obstructive sleep apnea) Is this a current diagnosis for this admission?: Yes (5) Hematuria Is this a current diagnosis for this admission?: Yes (6) Exposure to carbon monoxide Is this a current diagnosis for this admission?: Yes - Additional Information Resuscitation Status: Full Code Prescriptions: Atorvastatin Calcium [Lipitor 20 mg Tablet] 20 mg PO QHS #30 tablet Buspirone HCl [Buspar 10 mg Tablet] 5 mg PO Q12 #30 tablet Divalproex Sodium [Depakote ER 250 mg Tablet] 250 mg PO Q12 #60 tab.sr.24h Insulin Glargine,Hum.rec.anlog [Lantus Insulin 100 Unit/1 ml 10 ml] 10 unit SUBCUT DAILY #1 unit Venlafaxine HCl ER [Effexor Xr 37.5 mg Cap.sr] 37.5 mg PO DAILY #30 cap.sr.24h Home Medications: Metformin HCl [Glucophage] 1,000 mg PO BID 07/26/18 Metoprolol Tartrate [Lopressor 100 mg Tablet] 100 mg PO BID 07/26/18 Atorvastatin Calcium [Lipitor 20 mg Tablet] 20 mg PO QHS #30 tablet 08/17/18 Buspirone HCl [Buspar 10 mg Tablet] 5 mg PO Q12 #30 tablet 08/17/18 Divalproex Sodium [Depakote ER 250 mg Tablet] 250 mg PO Q12 #60 tab.sr.24h 08/17/18 Insulin Glargine,Hum.rec.anlog [Lantus Insulin 100 Unit/1 ml 10 ml] 10 unit SUBCUT DAILY #1 unit 08/17/18 Venlafaxine HCl ER [Effexor Xr 37.5 mg Cap.sr] 37.5 mg PO DAILY #30 cap.sr.24h 08/17/18 History of Present Illness Admission Date/PCP: 07/27/18 07:46 Patient complains of: confusion History of Present Illness: Admitting hospitalist's H&P: EL SEYMOUR is a 67 year old male with history obtained by the record as he is a poor historian with delirium. Past medical history of alcoholism, hypertension, obstructive sleep apnea and diabetes. Patient lives alone and discovered altered after missing an ophthalmology appointment at 9:30 AM. Patient niece found him confused unable to recognize her or express himself. EMS was called and he was brought to the emergency room with confusion. In the emergency room he is awake and alert with internal stimuli and restless requiring restraints. Extensive imaging workup is unremarkable, labs remarkable for THC only. He is referred to the hospitalist for acute delirium. Hospital Course Hospital Course: This is a 67 yr old male who was admitted due to acute encephalopathy. UDS was only positive for marijuana. He was intubated due to severe agitation. MRI of the head and CSF fluid analysis have been unremarkable. He was also treated for left lower lobe pneumonia. He was intubated due to severe agitation. MRI of the head and CSF fluid analysis have been unremarkable. EEG shows GDPs which are not really very specific. Carbon monoxide toxicity was conisdered as potential cause of encephalopathy as CO level came back at 1.4 drawn on day 7 while being on ventilator. Normal CO level for nonsmoker is 0.5% or less. Per patient's sister, he was a light smoker but has quit smoking for more than 30 years. He was successfully extubated on 08/08/18. He continued to have episodes of confusion which is waxing and waning and was more consistent with acute delirium. Psych was consulted and he was started on meds per psych recommendations. His course was prolonged awaiting insurance approval for rehab placement. He was also evaluated by speech therapy with recommendations for pureed solid and nectar thick liquid diet. He does have risk for aspiration. He did have gradual improvement with his mentation and is tolerating above diet recommenda tions well. On day of discharge, he is oriented x 3. He is physically deconditioned and would need short term rehab placement. Also recommend outpatient sleep study. Physical Exam Vital Signs: Temp Pulse Resp BP Pulse Ox 97.8 F 78 20 106/66 98 08/17/18 07:52 08/17/18 07:52 08/17/18 07:52 08/17/18 07:52 08/17/18 07:52 Intake & Output 08/16/18 08/17/18 08/18/18 06:59 06:59 06:59 Intake Total 1420 1135 Balance 1420 1135 Weight 243 lb 13.3 oz 243 lb 13.3 oz General appearance: PRESENT: no acute distress, well-developed, well-nourished Head exam: PRESENT: atraumatic, normocephalic Eye exam: PRESENT: conjunctiva pink, EOMI, PERRLA. ABSENT: scleral icterus Ear exam: PRESENT: normal external ear exam Mouth exam: PRESENT: moist, tongue midline Neck exam: ABSENT: carotid bruit, JVD, lymphadenopathy, thyromegaly Respiratory exam: PRESENT: clear to auscultation filomena. ABSENT: rales, rhonchi, wheezes Cardiovascular exam: PRESENT: RRR. ABSENT: diastolic murmur, rubs, systolic murmur Pulses: PRESENT: normal dorsalis pedis pul GI/Abdominal exam: PRESENT: normal bowel sounds, soft. ABSENT: distended, guarding, mass, organolmegaly, rebound, tenderness Rectal exam: PRESENT: deferred Neurological exam: PRESENT: alert, awake, oriented to person, oriented to place, oriented to time, oriented to situation, CN II-XII grossly intact. ABSENT: motor sensory deficit Results Laboratory Results: 08/15/18 06:05 08/15/18 06:05 07/25/18 07/25/18 07/31/18 16:11 16:11 03:39 Creatine Kinase 50 L CK-MB (CK-2) 1.62 Troponin I < 0.012 NT-Pro-B Natriuret Pep 348 08/02/18 08/02/18 14:55 14:55 Creatine Kinase 55 CK-MB (CK-2) 0.31 Troponin I NT-Pro-B Natriuret Pep Impressions: Head CTA 07/25/18 16:52 IMPRESSION: NO CTA EVIDENCE OF STENOSIS OR ANEURYSM OF THE [place] OF [place]. Neck CTA 07/25/18 16:52 IMPRESSION: 1. Normal CTA of the extracranial carotid and vertebral system. 2. 1.1 x 1.7 cm nodule in the right lobe of the thyroid gland. Head MRI 07/25/18 18:26 IMPRESSION: Mild parenchymal volume loss. No acute ischemia. No other definite acute abnormality. Head CT 07/28/18 00:00 IMPRESSION: MILD CHRONIC CHANGES OF ATROPHY AND MICROVASCULAR ISCHEMIA. NO ACUTE PROCESS. EVIDENCE OF ACUTE STROKE: NO. Abdomen/Pelvis CT 08/03/18 09:58 IMPRESSION: Mildly dilated loops of small bowel associated with chronic anterior abdominal wall hernia. No high-grade bowel obstruction. KUB X-Ray 08/04/18 13:47 IMPRESSION: MALPOSITION OF THE NASOGASTRIC TUBE WHICH IS LOCATED IN THE BRONCHUS TO THE RIGHT LOWER LOBE. Chest X-Ray 08/13/18 00:00 IMPRESSION: LOW LUNG VOLUMES. NO SIGNIFICANT RADIOGRAPHIC FINDING IN THE CHEST. Modified Barium Swallow 08/15/18 00:00 IMPRESSION: ASPIRATION WITH THIN BARIUM. LARYNGEAL PENETRATION WITH RESIDUALS. PLEASE SEE SPEECH PATHOLOGIST REPORT FOR OTHER FINDINGS AND RECOMMENDATIONS. Qualifiers - * PATIENT BEING DISCHARGED WITH ANY OF THE FOLLOWING DIAGNOSIS: No
[2018-08-17] MEDS: THIAMINE HCL 100 MG TABLET PO SCH (19:15)
[2018-08-17 21:40] VITALS: BP 103/70
== END 2018-08-18 01:00 | DRG 917 ==
LOC: ER 15:56 → INTOOBSV 23:04 → EH 23:04 → ICU 07-26 02:53 → OBSVTOIN 07-27 07:46 → 4S 08-04 19:20
PROVIDERS: ADMIT Internal Medicine; ATTEND Internal Medicine
PROC: 009U3ZX Drainage of Spinal Canal, Percutaneous Approach, Diagnostic (ICD-10-PCS; principal; 2018-07-25)
PROC: 0BH17EZ Insertion of Endotracheal Airway into Trachea, Via Natural or Artificial Opening (ICD-10-PCS; 2018-07-26)
PROC: 5A1955Z Respiratory Ventilation, Greater than 96 Consecutive Hours (ICD-10-PCS; 2018-07-26)
PROC: 0DH67UZ Insertion of Feeding Device into Stomach, Via Natural or Artificial Opening (ICD-10-PCS; 2018-07-27)
DX: T58.91XA Toxic effect of carbon monoxide from unspecified source, accidental (unintentional), initial encounter (principal); G92 Toxic encephalopathy; J18.9 Pneumonia, unspecified organism; J96.01 Acute respiratory failure with hypoxia; J96.02 Acute respiratory failure with hypercapnia; Z68.41 Body mass index [BMI] 40.0-44.9, adult; N17.9 Acute kidney failure, unspecified; I50.32 Chronic diastolic (congestive) heart failure; R41.0 Disorientation, unspecified; K43.9 Ventral hernia without obstruction or gangrene; E11.9 Type 2 diabetes mellitus without complications; R31.9 Hematuria, unspecified; F32.9 Major depressive disorder, single episode, unspecified; I11.0 Hypertensive heart disease with heart failure; G47.33 Obstructive sleep apnea (adult) (pediatric); F12.10 Cannabis abuse, uncomplicated; E66.9 Obesity, unspecified; Z78.1 Physical restraint status; R00.0 Tachycardia, unspecified; Z79.84 Long term (current) use of oral hypoglycemic drugs; Z79.899 Other long term (current) drug therapy; Z82.49 Family history of ischemic heart disease and other diseases of the circulatory system; Z87.891 Personal history of nicotine dependence; Z75.1 Person awaiting admission to adequate facility elsewhere
CPT/HCPCS: 31500; 36415; 70450; 70496; 70498; 70551; 71045; 74018; 74176; 74230; 80048; 80053; 80202; 80307; 81001; 82140; 82375; 82550; 82553; 82803; 82945; 82962; 83036; 83605; 83735; 83880; 84100; 84157; 84439; 84443; 84478; 84481; 84484; 85025; 85610; 85730; 87040; 87070; 87077; 87086; 87186; 87205; 89050; 93005; 93010; 94002; 94003; 94660; 94799; 95819; 96374; 96375; 96376; 99153; 99291; 99292; 99152; B4155; G0378; J0360; J0692; J1630; J1644; J1815; J2060; J2250; J2270; J2405; J2704; J2765; J3010; J3370; J3411; J3475; J3480; J3490; J7030; J7060; S0164

== ENCOUNTER → 2019-05-10 | Outpatient (CLI) | payer MEDICARE ==
--- NOTE | 2019-05-10 13:44 | RADIOLOGY REPORT (SQ) ---
EXAM DESCRIPTION: CHEST 2 VIEWS COMPLETED DATE/TIME: 05/10/2019 10:56 am REASON FOR STUDY: ABDN WEIGHT LOSS AND COUGH COMPARISON: 08/13/2018. EXAM PARAMETERS: NUMBER OF VIEWS: two views TECHNIQUE: Digital Frontal and Lateral radiographic views of the chest acquired. RADIATION DOSE: NA LIMITATIONS: none FINDINGS: LUNGS AND PLEURA: No opacities, masses or pneumothorax. No pleural effusion. MEDIASTINUM AND HILAR STRUCTURES: No masses or contour abnormalities. HEART AND VASCULAR STRUCTURES: Heart normal size. No evidence for failure. BONES: No acute findings. HARDWARE: None in the chest. OTHER: No other significant finding. IMPRESSION: NO ACUTE RADIOGRAPHIC FINDING IN THE CHEST. TECHNICAL DOCUMENTATION: JOB ID: [id number]- All Rights Reserved Reading location - IP/workstation name: [email or web address]
== END ==
LOC: RAD 10:18
PROVIDERS: ATTEND Nurse Practitioner Primary Care
DX: R05 Cough (principal); R63.4 Abnormal weight loss
CPT/HCPCS: 71046